=== PATIENT | female | born 1990 | race Caucasian/White ===

== ENCOUNTER 2016-12-01 21:12 | Emergency (ER) | payer OTHER ==
[~2016-12-01 21:12] MED LIST: *ANUSOI RE; ACET-654 PO; ACET500C OR; ATEN25TA PO; COLA100C2 OR; DEPA500T2 PO; DICL13PA TD; FLUO10CA8 PO; HYDR25T PO; IBUP800T OR; IBUP800T23 PO; IBUP80TA PO; MACR100C3 PO; MORP15TA2 PO; NAPR500T PO; NAPR500T2 PO; OXYC-299 PO; PERCOCET PO; PRENTAB31 PO; PROM50TA2 PO; PROZ10CA7 PO; SERO200T OR; STUATAB PO; TENO1TAB3 PO; TYLE167L PO; XANA0.5T PO; lioresal PO
--- NOTE | 2016-12-01 22:09 | ECGEPIP ---
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
== END 2016-12-01 23:16 | disposition left against medical advice (07) ==
LOC: M ED 21:12
DX: Z53.29 Procedure and treatment not carried out because of patient's decision for other reasons (principal)

== ENCOUNTER 2016-12-20 21:15 | Emergency (ER) | payer OTHER ==
--- NOTE | 2016-12-20 23:15 | EDDOCDS ---
Physician Documentation [facility] Name: Sara Ballard Age: 26 yrs Sex: Female : 1990 Arrival Date: 12/20/2016 Time: 21:15 Bed TR8 Private MD: [facility] Per[facility] Disposition: 12/20/16 23:15 Patient has left against medical advice. - Patients states they are going to Home/Self Care. - Condition is Stable. Follow up: Private Physician; When: Call to arrange an appointment. Historical: - Allergies: Tramadol HCl (seizure); - Home Meds: 1. gabapentin 300 mg Oral cap 1 cap 3 times per day (Last dose: 12/19/2016) 2. ibuprofen 800 mg Oral tab 1 tab every 8 hours as needed (Last dose: 12/20/2016 19:00) 3. tizanidine 2 mg oral cap 1 caps as needed 4. Depo-Provera 150 mg/mL IM syrg 1 mL every 3 mo 5. Klonopin 0.5 mg Oral tab 2 times per day (Last dose: 12/20/2016 08:00) - PMHx: CAD; neuropathy; Scoliosis; SVT?; Penny Parkinson White Sydrome; - PSHx: loop recorder in chest; back surgeries; - Social history: Smoking status: Patient states was never smoker of tobacco. Patient/guardian denies using alcohol, street drugs, No barriers to communication noted, The patient speaks fluent Khmer, Speaks appropriately for age. - : The pt / caregiver states he / she is not on anticoagulants. Home medication list is obtained from the patient. - Exposure Risk Screening:: None identified. 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 3 in. (160.02 cm); 21:17 Body Mass Index 17.71 (45.36 kg, 160.02 cm) elp MDM: 23:07 Acetaminophen-Codeine 300 mg-30 mg 2 tabs PO once ordered. ck7 23:07 Methocarbamol 1 grams PO once ordered. ck7 23:07 Spine. Lumbosacral, Complete Ordered. EDMS 23:09 Rib Unilat W/PA Chest Only Ordered. EDMS Signatures: Dispatcher [employer] EDMS Jag Lopes, NICHOLE-C RPA-Cck7 Madelaine Mayer, RN RN ttb Brandy Garland LPN HIGH DENSITY TALC COATER OPERATOR slm MTDD
--- NOTE | 2016-12-20 23:15 | EDDOCDS ---
Nurse's Notes [facility] Name: Sara Ballard Age: 26 yrs Sex: Female : 1990 Arrival Date: 12/20/2016 Time: 21:15 Bed TR8 Private MD: [facility] Per[facility] Diagnosis: Presentation: 12/20 21:26 Presenting complaint: Patient states: pt fell 3 days ago and now has back pain. Acute ttb neurological deficits are not present. Mechanism of Injury: Fall down 4 steps. Adult Sepsis Screening: The patient does not have new or worsening altered mentation. Patient's respiratory rate is less than 22. Systolic blood pressure is greater than 100. Patient has a qSOFA score of 0- Negative Sepsis Screen. Suicide/Homicide risk assessment- the patient denies having any suicidal and/or homicidal ideations and does not present with any other emotional, behavioral or mental health complaints. Status: Patient is not a director emergency services or dependent. Transition of care: patient was not received from another setting of care. 21:26 Acuity: MAYRA Level 4 ttb 21:26 Method Of Arrival: Walkin/Carried/Asstd ttb Triage Assessment: 21:29 General: Appears in no apparent distress, well nourished, well groomed, Behavior is ttb anxious, appropriate for age, cooperative, pleasant. Pain: Location: back 07/19. HIV screening NA for this visit Offered previously. Neurological: Level of Consciousness is awake, alert, Reports left leg numbness/"cold" with pain. Respiratory: No deficits noted. Airway is patent. Derm: Skin is normal. Musculoskeletal: Range of motion intact in all extremities. Reports pain in mid/upper back, legs. CONFIGURATION MANAGEMENT CONSULTANT: 21:29 LMP N/A - control method ttb Historical: - Allergies: Tramadol HCl (seizure); - Home Meds: 1. gabapentin 300 mg Oral cap 1 cap 3 times per day (Last dose: 12/19/2016) 2. ibuprofen 800 mg Oral tab 1 tab every 8 hours as needed (Last dose: 12/20/2016 19:00) 3. tizanidine 2 mg oral cap 1 caps as needed 4. Depo-Provera 150 mg/mL IM syrg 1 mL every 3 mo 5. Klonopin 0.5 mg Oral tab 2 times per day (Last dose: 12/20/2016 08:00) - PMHx: CAD; neuropathy; Scoliosis; SVT?; Penny Parkinson White Sydrome; - PSHx: loop recorder in chest; back surgeries; - Social history: Smoking status: Patient states was never smoker of tobacco. Patient/guardian denies using alcohol, street drugs, No barriers to communication noted, The patient speaks fluent Cambodian, Speaks appropriately for age. - : The pt / caregiver states he / she is not on anticoagulants. Home medication list is obtained from the patient. - Exposure Risk Screening:: None identified. Vital Signs: 21:17 BP 117 / 70; Pulse 91; Resp 18; Temp 99.8; Pulse Ox 99% ; Weight 45.36 kg; Height 5 ft. elp 3 in. (160.02 cm); 21:17 Body Mass Index 17.71 (45.36 kg, 160.02 cm) elp Vitals: 21:17 Log In Time: December 20, 2016 at 21:15. elp ED Course: 21:17 Patient visited by Evangelina Saleem PCA. elp 21:17 [facility] is Private Physician. elp 21:17 Patient visited by Evangelina Saleem PCA. elp 21:17 Patient moved to Waiting elp 21:17 Patient moved to Pre RCE elp 21:27 Triage Initiated ttb 22:34 Patient moved to Triage 1 jp4 22:46 Jag Lopes RPA-C is [facility]. ck7 22:46 Austin Miller DO is Attending Physician. ck7 22:55 Patient visited by Jag Lopes RPA-C. ck7 23:14 Patient moved to TR8 [facility] 23:15 Patient visited by Brandy Garland LPN. slm Order Results: There are currently no results for this order. Outcome: 23:13 Discharge Assessment: Patient awake, alert and oriented x 3. No cognitive and/or slm functional deficits noted. Patient verbalized understanding of disposition instructions. Discharge Assessment: patient administered narcotics - no. The following High Risk Discharge criteria are identified: Yes, AMA. The patient is leaving AMA: AMA form signed. Condition: stable. No special radiology studies were completed. Property :Personal belongings accompany Pt. 23:14 The patient is leaving AMA: Notification of AMA status is made to the charge nurse, the bret clinical social worker, the ED attending physician. 23:15 Patient left against medical advice. slm 23:15 Patient left the ED. [facility] Signatures: Kendy Rasmussen, RN RN kmg1 Jag Lopes, RPA-C RPA-Cck7 Madelaine Mayer, RN RN ttb Harper, Evangelina, HEATING SYSTEMS INSTALLER HEATING SYSTEMS INSTALLER federicop Brandy Garland,PIPELINE GANG SUPERVISOR PIPELINE GANG SUPERVISOR Angel Brantley jp4 MTDD
--- NOTE | 2016-12-20 23:18 | EDDOCDS ---
Physician Documentation [facility] Name: Sara Ballard Age: 26 yrs Sex: Female : 1990 Arrival Date: 12/20/2016 Time: 21:15 Bed TR8 Private MD: [facility] Per[facility] Disposition: 12/20/16 23:15 Patient has left against medical advice. Impression: Low back pain. - Patients states they are going to Home/Self Care. - Condition is Stable. - Discharge Instructions: Back Pain, Adult. Medication Reconciliation, Local Pharmacy Hours form. Follow up: Private Physician; When: Call to arrange an appointment. - Problem is new. - Symptoms have improved. - Notes: FOLLOW UP WITH YOUR DOCTOR ON THURSDAY, RETURN TO THE ER IF THE SYMPTOMS WORSEN OR BECOME CONCERNING Historical: - Allergies: Tramadol HCl (seizure); - Home Meds: 1. gabapentin 300 mg Oral cap 1 cap 3 times per day (Last dose: 12/19/2016) 2. ibuprofen 800 mg Oral tab 1 tab every 8 hours as needed (Last dose: 12/20/2016 19:00) 3. tizanidine 2 mg oral cap 1 caps as needed 4. Depo-Provera 150 mg/mL IM syrg 1 mL every 3 mo 5. Klonopin 0.5 mg Oral tab 2 times per day (Last dose: 12/20/2016 08:00) - PMHx: CAD; neuropathy; Scoliosis; SVT?; Penny Parkinson White Sydrome; - PSHx: loop recorder in chest; back surgeries; - Social history: Smoking status: Patient states was never smoker of tobacco. Patient/guardian denies using alcohol, street drugs, No barriers to communication noted, The patient speaks fluent Mosotho, Speaks appropriately for age. - : The pt / caregiver states he / she is not on anticoagulants. Home medication list is obtained from the patient. - Exposure Risk Screening:: None identified. SIGNAL PERSON: 12/20 21:29 LMP N/A - control method ttb Vital Signs: 21:17 BP 117 / 70; Pulse 91; Resp 18; Temp 99.8; Pulse Ox 99% ; Weight 45.36 kg / 100 lbs; elp Height 5 ft. 3 in. (160.02 cm); 21:17 Body Mass Index 17.71 (45.36 kg, 160.02 cm) elp MDM: 23:07 Acetaminophen-Codeine 300 mg-30 mg 2 tabs PO once ordered. ck7 23:07 Methocarbamol 1 grams PO once ordered. ck7 23:07 Spine. Lumbosacral, Complete Ordered. EDMS 23:09 Rib Unilat W/PA Chest Only Ordered. EDMS Signatures: Dispatcher [employer] EDMS Jag Lopes, NICHOLE-C RPA-Cck7 Madelaine Mayer RN RN ttb Brandy Garland LPN CERTIFIED NOVELL ADMINISTRATOR slm MTDD
--- NOTE | 2016-12-20 23:19 | EDDOCDS ---
Nurse's Notes [facility] Name: Sara Ballard Age: 26 yrs Sex: Female : 1990 Arrival Date: 12/20/2016 Time: 21:15 Bed TR8 Private MD: [facility] Peraza Diagnosis: Low back pain Presentation: 12/20 21:26 Presenting complaint: Patient states: pt fell 3 days ago and now has back pain. Acute ttb neurological deficits are not present. Mechanism of Injury: Fall down 4 steps. Adult Sepsis Screening: The patient does not have new or worsening altered mentation. Patient's respiratory rate is less than 22. Systolic blood pressure is greater than 100. Patient has a qSOFA score of 0- Negative Sepsis Screen. Suicide/Homicide risk assessment- the patient denies having any suicidal and/or homicidal ideations and does not present with any other emotional, behavioral or mental health complaints. Status: Patient is not a patient service technician pst or dependent. Transition of care: patient was not received from another setting of care. 21:26 Acuity: MAYRA Level 4 ttb 21:26 Method Of Arrival: Walkin/Carried/Asstd ttb Triage Assessment: 21:29 General: Appears in no apparent distress, well nourished, well groomed, Behavior is ttb anxious, appropriate for age, cooperative, pleasant. Pain: Location: back 07/19. HIV screening NA for this visit Offered previously. Neurological: Level of Consciousness is awake, alert, Reports left leg numbness/"cold" with pain. Respiratory: No deficits noted. Airway is patent. Derm: Skin is normal. Musculoskeletal: Range of motion intact in all extremities. Reports pain in mid/upper back, legs. DAIRY NUTRITION CONSULTANT: 21:29 LMP N/A - control method ttb Historical: - Allergies: Tramadol HCl (seizure); - Home Meds: 1. gabapentin 300 mg Oral cap 1 cap 3 times per day (Last dose: 12/19/2016) 2. ibuprofen 800 mg Oral tab 1 tab every 8 hours as needed (Last dose: 12/20/2016 19:00) 3. tizanidine 2 mg oral cap 1 caps as needed 4. Depo-Provera 150 mg/mL IM syrg 1 mL every 3 mo 5. Klonopin 0.5 mg Oral tab 2 times per day (Last dose: 12/20/2016 08:00) - PMHx: CAD; neuropathy; Scoliosis; SVT?; Penny Parkinson White Sydrome; - PSHx: loop recorder in chest; back surgeries; - Social history: Smoking status: Patient states was never smoker of tobacco. Patient/guardian denies using alcohol, street drugs, No barriers to communication noted, The patient speaks fluent Qatari, Speaks appropriately for age. - : The pt / caregiver states he / she is not on anticoagulants. Home medication list is obtained from the patient. - Exposure Risk Screening:: None identified. Social Work Consult: 23:18 LWBS/AMA AMA: Patient is refusing further stabilizing treatment at [facility], although 1 offered treatment regardless of method of payment or ability to pay. Patient is aware that this action is being undertaken against the advice of the medical staff at [facility]. Pt. has capacity to understand the potential consequences of this choice. pt did notify ED staff. Patient / guardian did sign Refusal of Services form. Pt left before being seen by PSA. Vital Signs: 21:17 BP 117 / 70; Pulse 91; Resp 18; Temp 99.8; Pulse Ox 99% ; Weight 45.36 kg; Height 5 ft. elp 3 in. (160.02 cm); 21:17 Body Mass Index 17.71 (45.36 kg, 160.02 cm) [facility] Vitals: 21:17 Log In Time: December 20, 2016 at 21:15. [facility] ED Course: 21:17 Patient visited by Evangelina Saleem PCA. elp 21:17 [facility] Per[facility] is Private Physician. elp 21:17 Patient visited by Evangelina Saleem PCA. elp 21:17 Patient moved to Waiting elp 21:17 Patient moved to Pre RCE elp 21:27 Triage Initiated ttb 22:34 Patient moved to Triage 1 jp4 22:46 Jag [facility]C [facility] ck7 22:46 Austin Miller DO is Attending Physician. ck7 22:55 Patient visited by Jag Lopes RPA-C. ck7 23:14 Patient moved to TR8 km 23:15 Patient visited by Brandy Garland LPN. [facility] Order Results: There are currently no results for this order. Outcome: 23:13 Discharge Assessment: Patient awake, alert and oriented x 3. No cognitive and/or slm functional deficits noted. Patient verbalized understanding of disposition instructions. Discharge Assessment: patient administered narcotics - no. The following High Risk Discharge criteria are identified: Yes, AMA. The patient is leaving AMA: AMA form signed. Condition: stable. No special radiology studies were completed. Property :Personal belongings accompany Pt. 23:14 The patient is leaving AMA: Notification of AMA status is made to the charge nurse, the [facility] marriage and family social worker, the ED attending physician. 23:15 Patient left against medical advice. slm 23:15 Patient left the ED. slm 23:17 Patient left the ED. ck7 Signatures: Kendy Rasmussen, RN RN kmg1 Poonam Alvarez, PSA PSA hm1 Jag Lopes, RPA-C RPA-Cck7 Madelaine Mayer, RN RN ttb Evangelina Saleem, GEM SETTER GEM SETTER federicop Brandy Garland,MRB ENGINEER MRB ENGINEER slAngel Adkins jp4 JAIMED
--- NOTE | 2016-12-20 23:30 | EDDOCDS ---
Nurse's Notes [facility] Name: Sara Ballard Age: 26 yrs Sex: Female : 1990 Arrival Date: 12/20/2016 Time: 21:15 Bed TR8 Private MD: [facility] Per[facility] Diagnosis: Low back pain Presentation: 12/20 21:26 Presenting complaint: Patient states: pt fell 3 days ago and now has back pain. Acute ttb neurological deficits are not present. Mechanism of Injury: Fall down 4 steps. Adult Sepsis Screening: The patient does not have new or worsening altered mentation. Patient's respiratory rate is less than 22. Systolic blood pressure is greater than 100. Patient has a qSOFA score of 0- Negative Sepsis Screen. Suicide/Homicide risk assessment- the patient denies having any suicidal and/or homicidal ideations and does not present with any other emotional, behavioral or mental health complaints. Status: Patient is not a center sales and service associate or dependent. Transition of care: patient was not received from another setting of care. 21:26 Acuity: MAYRA Level 4 ttb 21:26 Method Of Arrival: Walkin/Carried/Asstd ttb Triage Assessment: 21:29 General: Appears in no apparent distress, well nourished, well groomed, Behavior is ttb anxious, appropriate for age, cooperative, pleasant. Pain: Location: back 07/19. HIV screening NA for this visit Offered previously. Neurological: Level of Consciousness is awake, alert, Reports left leg numbness/"cold" with pain. Respiratory: No deficits noted. Airway is patent. Derm: Skin is normal. Musculoskeletal: Range of motion intact in all extremities. Reports pain in mid/upper back, legs. 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 gabapentin 300 mg Oral cap 1 cap 3 times per day (Last dose: 12/19/2016) 2. ibuprofen 800 mg Oral tab 1 tab every 8 hours as needed (Last dose: 12/20/2016 19:00) 3. tizanidine 2 mg oral cap 1 caps as needed 4. Depo-Provera 150 mg/mL IM syrg 1 mL every 3 mo 5. Klonopin 0.5 mg Oral tab 2 times per day (Last dose: 12/20/2016 08:00) - PMHx: CAD; neuropathy; Scoliosis; SVT?; Penny Parkinson White Sydrome; - PSHx: loop recorder in chest; back surgeries; - Social history: Smoking status: Patient states was never smoker of tobacco. Patient/guardian denies using alcohol, street drugs, No barriers to communication noted, The patient speaks fluent Uruguayan, Speaks appropriately for age. - : The pt / caregiver states he / she is not on anticoagulants. Home medication list is obtained from the patient. - Exposure Risk Screening:: None identified. Social Work Consult: 23:18 LWBS/AMA AMA: Patient is refusing further stabilizing treatment at [facility], although 1 offered treatment regardless of method of payment or ability to pay. Patient is aware that this action is being undertaken against the advice of the medical staff at [facility]. Pt. has capacity to understand the potential consequences of this choice. pt did notify ED staff. Patient / guardian did sign Refusal of Services form. Pt left before being seen by PSA. Vital Signs: 21:17 BP 117 / 70; Pulse 91; Resp 18; Temp 99.8; Pulse Ox 99% ; Weight 45.36 kg; Height 5 ft. elp 3 in. (160.02 cm); 21:17 Body Mass Index 17.71 (45.36 kg, 160.02 cm) [facility] Vitals: 21:17 Log In Time: December 20, 2016 at 21:15. [facility] ED Course: 21:17 Patient visited by Evangelina Saleem PCA. elp 21:17 [facility] Per[facility] is Private Physician. elp 21:17 Patient visited by Evangelina Saleem PCA. elp 21:17 Patient moved to Waiting elp 21:17 Patient moved to Pre RCE elp 21:27 Triage Initiated ttb 22:34 Patient moved to Triage 1 jp4 22:46 [facility] ck7 22:46 Austin Miller DO is Attending Physician. ck7 22:55 Patient visited by Jag Lopes RPA-C. ck7 23:14 Patient moved to TR8 km 23:15 Patient visited by Brandy Garland LPN. m 23:19 Patient visited by Kwaczala, Christopher, RPA-C. ck7 Administered Medications: 23:28 CANCELLED (pt signed out AMA): Acetaminophen-Codeine 300 mg-30 mg 2 tabs PO once tm5 23:28 CANCELLED (pt signed out AMA): Methocarbamol 1 grams PO once tm5 Order Results: There are currently no results for this order. Outcome: 23:13 Discharge Assessment: Patient awake, alert and oriented x 3. No cognitive and/or slm functional deficits noted. Patient verbalized understanding of disposition instructions. Discharge Assessment: patient administered narcotics - no. The following High Risk Discharge criteria are identified: Yes, AMA. The patient is leaving AMA: AMA form signed. Condition: stable. No special radiology studies were completed. Property :Personal belongings accompany Pt. 23:14 The patient is leaving AMA: Notification of AMA status is made to the charge nurse, the [facility] social media assistant, the ED attending physician. 23:15 Patient left against medical advice. slm 23:15 Patient left the ED. slm 23:17 Patient left the ED. ck7 23:29 Patient left the ED. [facility] Signatures: Kendy Rasmussen, RN RN kmg1 Poonam Alvarez, PSA PSA hm1 Jag Lopes, RPA-C RPA-Cck7 Madelaine Mayer, RN RN ttb Evangelina Saleem, HAT CLEANER HAT CLEANER federicop Brandy Garland,BUSINESS UNIT MANAGER BUSINESS UNIT MANAGER slm Angel Ott jp4 Wendi Coronado RN tm5 MTDD
--- NOTE | 2016-12-20 23:30 | EDDOCDS ---
Physician Documentation [facility] Name: Sara Ballard Age: 26 yrs Sex: Female : 1990 Arrival Date: 12/20/2016 Time: 21:15 Bed TR8 Private MD: [facility] Peraza Disposition: 12/20/16 23:15 Patient has left against medical advice. Impression: Low back pain. - Patients states they are going to Home/Self Care. - Condition is Stable. - Discharge Instructions: Back Pain, Adult. Medication Reconciliation, Local Pharmacy Hours form. Follow up: Private Physician; When: Call to arrange an appointment. - Problem is new. - Symptoms have improved. - Notes: FOLLOW UP WITH YOUR DOCTOR ON THURSDAY, RETURN TO THE ER IF THE SYMPTOMS WORSEN OR BECOME CONCERNING Historical: - Allergies: Tramadol HCl (seizure); - Home Meds: 1. gabapentin 300 mg Oral cap 1 cap 3 times per day (Last dose: 12/19/2016) 2. ibuprofen 800 mg Oral tab 1 tab every 8 hours as needed (Last dose: 12/20/2016 19:00) 3. tizanidine 2 mg oral cap 1 caps as needed 4. Depo-Provera 150 mg/mL IM syrg 1 mL every 3 mo 5. Klonopin 0.5 mg Oral tab 2 times per day (Last dose: 12/20/2016 08:00) - PMHx: CAD; neuropathy; Scoliosis; SVT?; Penny Parkinson White Sydrome; - PSHx: loop recorder in chest; back surgeries; - Social history: Smoking status: Patient states was never smoker of tobacco. Patient/guardian denies using alcohol, street drugs, No barriers to communication noted, The patient speaks fluent Tongan, Speaks appropriately for age. - : The pt / caregiver states he / she is not on anticoagulants. Home medication list is obtained from the patient. - Exposure Risk Screening:: None identified. RESTROOMS OR LOUNGES MAID: 12/20 21:29 LMP N/A - control method ttb Vital Signs: 21:17 BP 117 / 70; Pulse 91; Resp 18; Temp 99.8; Pulse Ox 99% ; Weight 45.36 kg / 100 lbs; elp Height 5 ft. 3 in. (160.02 cm); 21:17 Body Mass Index 17.71 (45.36 kg, 160.02 cm) elp Administered Medications: 23:28 CANCELLED (pt signed out AMA): Acetaminophen-Codeine 300 mg-30 mg 2 tabs PO once tm5 23:28 CANCELLED (pt signed out AMA): Methocarbamol 1 grams PO once tm5 Signatures: Dispatcher [employer] EDMS Jag Lopes, MORENITAC RPA-Cck7 Madelaine Mayer RN RN ttb Brandy Garland LPN BOOM MASTER slWendi Jones RN tm5 The chart was reviewed and I authenticate all verbal orders and agree with the evaluation and treatment provided.Corrections: (The following items were deleted from the chart) 23: 23:07 Spine. Lumbosacral, complete+XR ordered. EDMS EDMS 23: 23:09 Rib unilat W/PA CHEST ONLY+XR ordered. EDMS EDMS 23: 23:07 Acetaminophen-Codeine 300 mg-30 mg 2 tabs PO once ordered. ck7 tm5 23: 23:07 Methocarbamol 1 grams PO once ordered. ck7 tm5 MTDD
--- NOTE | 2016-12-23 00:31 | EDDOCDS ---
Physician Documentation [facility] Name: Sara Ballard Age: 26 yrs Sex: Female : 1990 Arrival Date: 12/20/2016 Time: 21:15 Bed TR8 Private MD: [facility] Disposition: 12/20/16 23:15 Patient has left against medical advice. Impression: Low back pain. - Patients states they are going to Home/Self Care. - Condition is Stable. - Discharge Instructions: Back Pain, Adult. Medication Reconciliation, Local Pharmacy Hours form. Follow up: Private Physician; When: Call to arrange an appointment. - Problem is new. - Symptoms have improved. - Notes: FOLLOW UP WITH YOUR DOCTOR ON THURSDAY, RETURN TO THE ER IF THE SYMPTOMS WORSEN OR BECOME CONCERNING Historical: - Allergies: Tramadol HCl (seizure); - Home Meds: 1. gabapentin 300 mg Oral cap 1 cap 3 times per day (Last dose: 12/19/2016) 2. ibuprofen 800 mg Oral tab 1 tab every 8 hours as needed (Last dose: 12/20/2016 19:00) 3. tizanidine 2 mg oral cap 1 caps as needed 4. Depo-Provera 150 mg/mL IM syrg 1 mL every 3 mo 5. Klonopin 0.5 mg Oral tab 2 times per day (Last dose: 12/20/2016 08:00) - PMHx: CAD; neuropathy; Scoliosis; SVT?; Penny Parkinson White Sydrome; - PSHx: loop recorder in chest; back surgeries; - Social history: Smoking status: Patient states was never smoker of tobacco. Patient/guardian denies using alcohol, street drugs, No barriers to communication noted, The patient speaks fluent Kyrgyz, Speaks appropriately for age. - : The pt / caregiver states he / she is not on anticoagulants. Home medication list is obtained from the patient. - Exposure Risk Screening:: None identified. 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 3 in. (160.02 cm); 21:17 Body Mass Index 17.71 (45.36 kg, 160.02 cm) elp MDM: 12/21 17:08 Refusal of Services was scanned into [employer] and attached to record. kf3 :49 T-Sheet-- Draft Copy was scanned into [email or web address] and attached to record. klr Administered Medications: 12/20 23:28 CANCELLED (pt signed out AMA): Acetaminophen-Codeine 300 mg-30 mg 2 tabs PO once tm5 23:28 CANCELLED (pt signed out AMA): Methocarbamol 1 grams PO once tm5 Signatures: Dispatcher [employer] EDMS Deniagera, Jewel, Reg Reg kf3 Jag Lopes, RPA-C RPA-Cck7 Madelaine Mayer RN RN Brandy rIaheta LPN LPN slm Redder, Kathie klr Matice, Tonya RN tm5 The chart was reviewed and I authenticate all verbal orders and agree with the evaluation and treatment provided.Corrections: (The following items were deleted from the chart) 23:21 23:07 Spine. Lumbosacral, complete+XR ordered. EDMS EDMS 23:21 23:09 Rib unilat W/PA CHEST ONLY+XR ordered. EDMS EDMS 23: 23:07 Acetaminophen-Codeine 300 mg-30 mg 2 tabs PO once ordered. ck7 tm5 23: 23:07 Methocarbamol 1 grams PO once ordered. ck7 tm5 Attachments: 22:49 T-Sheet-- Draft Copy klr Chart Complete MTDD
--- NOTE | 2016-12-23 00:31 | EDDOCDS ---
Nurse's Notes [facility] Name: Sara Ballard Age: 26 yrs Sex: Female : 1990 Arrival Date: 12/20/2016 Time: 21:15 Bed TR8 Private MD: [facility] Diagnosis: Low back pain Presentation: 12/20 21:26 Presenting complaint: Patient states: pt fell 3 days ago and now has back pain. Acute ttb neurological deficits are not present. Mechanism of Injury: Fall down 4 steps. Adult Sepsis Screening: The patient does not have new or worsening altered mentation. Patient's respiratory rate is less than 22. Systolic blood pressure is greater than 100. Patient has a qSOFA score of 0- Negative Sepsis Screen. Suicide/Homicide risk assessment- the patient denies having any suicidal and/or homicidal ideations and does not present with any other emotional, behavioral or mental health complaints. 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 Transition of care: patient was not received from another setting of care. 21:26 Acuity: MAYRA Level 4 ttb 21:26 Method Of Arrival: Walkin/Carried/Asstd ttb Triage Assessment: 21:29 General: Appears in no apparent distress, well nourished, well groomed, Behavior is ttb anxious, appropriate for age, cooperative, pleasant. Pain: Location: back 07/19. HIV screening NA for this visit Offered previously. Neurological: Level of Consciousness is awake, alert, Reports left leg numbness/"cold" with pain. Respiratory: No deficits noted. Airway is patent. Derm: Skin is normal. Musculoskeletal: Range of motion intact in all extremities. Reports pain in mid/upper back, legs. 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 gabapentin 300 mg Oral cap 1 cap 3 times per day (Last dose: 12/19/2016) 2. ibuprofen 800 mg Oral tab 1 tab every 8 hours as needed (Last dose: 12/20/2016 19:00) 3. tizanidine 2 mg oral cap 1 caps as needed 4. Depo-Provera 150 mg/mL IM syrg 1 mL every 3 mo 5. Klonopin 0.5 mg Oral tab 2 times per day (Last dose: 12/20/2016 08:00) - PMHx: CAD; neuropathy; Scoliosis; SVT?; Penny Parkinson White Sydrome; - PSHx: loop recorder in chest; back surgeries; - Social history: Smoking status: Patient states was never smoker of tobacco. Patient/guardian denies using alcohol, street drugs, No barriers to communication noted, The patient speaks fluent [place] Islander, Speaks appropriately for age. - : The pt / caregiver states he / she is not on anticoagulants. Home medication list is obtained from the patient. - Exposure Risk Screening:: None identified. Social Work Consult: 23:18 LWBS/AMA AMA: Patient is refusing further stabilizing treatment at [facility], although 1 offered treatment regardless of method of payment or ability to pay. Patient is aware that this action is being undertaken against the advice of the medical staff at [facility]. Pt. has capacity to understand the potential consequences of this choice. pt did notify ED staff. Patient / guardian did sign Refusal of Services form. Pt left before being seen by PSA. Vital Signs: 21:17 BP 117 / 70; Pulse 91; Resp 18; Temp 99.8; Pulse Ox 99% ; Weight 45.36 kg; Height 5 ft. elp 3 in. (160.02 cm); 21:17 Body Mass Index 17.71 (45.36 kg, 160.02 cm) [facility] Vitals: 21:17 Log In Time: December 20, 2016 at 21:15. [facility] ED Course: 21:17 Patient visited by Evangelina Saleem PCA. elp 21:17 [facility] is Private Physician. elp 21:17 Patient visited by Evangelina Saleem PCA. elp 21:17 Patient moved to Waiting elp 21:17 Patient moved to Pre RCE elp 21:27 Triage Initiated ttb 22:34 Patient moved to Triage 1 jp4 22:46 [facility]C [facility] ck7 22:46 Austin Miller DO is Attending Physician. ck7 22:55 Patient visited by Jag Lopes RPA-C. ck7 23:14 Patient moved to TR8 km 23:15 Patient visited by Brandy Garland LPN. m 23:19 Patient visited by Jag Lopes RPA-C. ck7 12/21 17:08 Refusal of Services was scanned into [employer] and attached to record. kf3 22:49 T-Sheet-- Draft Copy was scanned into [employer] and attached to record. klr Administered Medications: 12/20 23:28 CANCELLED (pt signed out AMA): Acetaminophen-Codeine 300 mg-30 mg 2 tabs PO once tm5 23:28 CANCELLED (pt signed out AMA): Methocarbamol 1 grams PO once tm5 Attachments: 12/21 17:08 Refusal of Services kf3 Order Results: There are currently no results for this order. Outcome: 12/20 23:13 Discharge Assessment: Patient awake, alert and oriented x 3. No cognitive and/or slm functional deficits noted. Patient verbalized understanding of disposition instructions. Discharge Assessment: patient administered narcotics - no. The following High Risk Discharge criteria are identified: Yes, AMA. The patient is leaving AMA: AMA form signed. Condition: stable. No special radiology studies were completed. Property :Personal belongings accompany Pt. 23:14 The patient is leaving AMA: Notification of AMA status is made to the charge nurse, the [facility] social media campaign manager, the ED attending physician. 23:15 Patient left against medical advice. slm 23:15 Patient left the ED. slm 23:17 Patient left the ED. ck7 23:29 Patient left the ED. [facility] Signatures: Kendy Rasmussen, RN RN kmg1 Jewel Brennan, Reg Reg kf3 McMxochitlman, Poonam, PSA PSA hm1 Jag Lopes RPA-C RPA-Cck7 Madelaine Mayer RN RN josrb Evangelina Saleem, MEDICAL SCREENER MEDICAL SCREENER elp Brandy Garland,DIESEL LOCOMOTIVE FIRER/FIREMAN DIESEL LOCOMOTIVE FIRER/FIREMAN slAngel Adkins jp4 Dori Barron Tonya RN tm5 Chart Complete MTDD
--- NOTE | 2016-12-23 00:31 | EDDOCDS ---
Physician Documentation [facility] Name: Sara Ballard Age: 26 yrs Sex: Female : 1990 Arrival Date: 12/20/2016 Time: 21:15 Bed TR8 Private MD: [facility] Disposition: 12/20/16 23:15 Patient has left against medical advice. Impression: Low back pain. - Patients states they are going to Home/Self Care. - Condition is Stable. - Discharge Instructions: Back Pain, Adult. Medication Reconciliation, Local Pharmacy Hours form. Follow up: Private Physician; When: Call to arrange an appointment. - Problem is new. - Symptoms have improved. - Notes: FOLLOW UP WITH YOUR DOCTOR ON THURSDAY, RETURN TO THE ER IF THE SYMPTOMS WORSEN OR BECOME CONCERNING Historical: - Allergies: Tramadol HCl (seizure); - Home Meds: 1. gabapentin 300 mg Oral cap 1 cap 3 times per day (Last dose: 12/19/2016) 2. ibuprofen 800 mg Oral tab 1 tab every 8 hours as needed (Last dose: 12/20/2016 19:00) 3. tizanidine 2 mg oral cap 1 caps as needed 4. Depo-Provera 150 mg/mL IM syrg 1 mL every 3 mo 5. Klonopin 0.5 mg Oral tab 2 times per day (Last dose: 12/20/2016 08:00) - PMHx: CAD; neuropathy; Scoliosis; SVT?; Penny Parkinson White Sydrome; - PSHx: loop recorder in chest; back surgeries; - Social history: Smoking status: Patient states was never smoker of tobacco. Patient/guardian denies using alcohol, street drugs, No barriers to communication noted, The patient speaks fluent [place] Arabian, Speaks appropriately for age. - : The pt / caregiver states he / she is not on anticoagulants. Home medication list is obtained from the patient. - Exposure Risk Screening:: None identified. 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 3 in. (160.02 cm); 21:17 Body Mass Index 17.71 (45.36 kg, 160.02 cm) elp MDM: 12/21 17:08 Refusal of Services was scanned into [employer] and attached to record. kf3 :49 T-Sheet-- Draft Copy was scanned into [employer] and attached to record. klr Administered Medications: 12/20 23:28 CANCELLED (pt signed out AMA): Acetaminophen-Codeine 300 mg-30 mg 2 tabs PO once tm5 23:28 CANCELLED (pt signed out AMA): Methocarbamol 1 grams PO once tm5 Signatures: Dispatcher [employer] EDMS Deniagera, Jewel, Reg Reg kf3 Jag Lopes, RPA-C RPA-Cck7 Madelaine Mayer RN RN Brandy Iraheta LPN LPN slm Redder, Kathie klr Matice, Tonya RN tm5 The chart was reviewed and I authenticate all verbal orders and agree with the evaluation and treatment provided.Corrections: (The following items were deleted from the chart) 23:21 23:07 Spine. Lumbosacral, complete+XR ordered. EDMS EDMS 23:21 23:09 Rib unilat W/PA CHEST ONLY+XR ordered. EDMS EDMS 23: 23:07 Acetaminophen-Codeine 300 mg-30 mg 2 tabs PO once ordered. ck7 tm5 23: 23:07 Methocarbamol 1 grams PO once ordered. ck7 tm5 Attachments: 22:49 T-Sheet-- Draft Copy klr Chart Complete MTDD
== END 2016-12-20 23:29 | disposition left against medical advice (07) ==
LOC: M ED 21:15
DX: M54.5 Low back pain (principal); I25.10 Atherosclerotic heart disease of native coronary artery without angina pectoris; G62.9 Polyneuropathy, unspecified; M41.9 Scoliosis, unspecified; I45.6 Pre-excitation syndrome; Z79.899 Other long term (current) drug therapy; Z79.3 Long term (current) use of hormonal contraceptives; Z88.8 Allergy status to other drugs, medicaments and biological substances; Z53.21 Procedure and treatment not carried out due to patient leaving prior to being seen by health care provider

== ENCOUNTER → 2017-03-27 | Outpatient (CLI) | payer OTHER ==
[~2017-03-27] MED LIST changes: +CLON0.5T PO; +CYCL10TA PO; +GABA-279 PO; +OXYC1TAB23 PO; +QUET1TAB8 PO
--- NOTE | 2017-04-10 23:57 | ECWPNPC ---
PATIENT NAME: QUENTIN SANDS : 1990 GENDER: FEMALE VISIT DATE: 03/27/2017 DISCHARGE DATE: 03/27/17 1140 VISIT LOCKED DATE TIME: PHYSICIAN: BARRINGTON BRISCOE RESOURCE: BARRINGTON BRISCOE REASON FOR APPOINTMENT 1. BACK PAIN HISTORY OF PRESENT ILLNESS HISTORY OF PRESENT ILLNESS: PAIN THE PATIENT DESCRIBES THE PAIN... FALL RISK SCREENING: SCREENING :NO FALLS IN THE PAST YEAR TODAY'S VISIT: NOTES: FIRST RETURN TO CLINIC SINCE 04/16/16. AT THAT VISIT HAD TRIGGER POINTS TO SHOULDER BLADE AND LOW BACK RATES PAIN TODAY 06/18. DESCRIBES PAIN CONSTANT, ACHING, BURNING, SHARP, STABBING AND THROBBING AND SHOOTING. PAIN IS CENTERED IN CENTER BACK AND LEFT NOTES MARKED INCREASE IN PAIN WITH PROLONGED SITTING OR STANDING. NOTES LEFT PAIN WITH SITTING/NUMBNESS. WAS BEING SEEN AT [facility]. THEY WERE TRYING TO GET AUTH FOR DCS. HAS SURGERY X 2 - HAD INFECTION , DEVELOPED YEIMY SYNDROME WITH IV VANCO. HAD SURGERY 10/24. HAD FUSION WITH CAGE AFTER REMOVAL OF CASILLAS RODS. SUREON DR Clarence TOURE. HAS A LOUD POPPING SOUND LEFT KNEE. . CURRENT MEDICATIONS TAKING DIGOXIN 125 MCG TABLET 1 TABLET ORALLY ONCE A DAY, NOTES: LONG TIME TAKING IBUPROFEN 800 MG TABLET 1 TABLET ORALLY THREE TIMES A DAY, NOTES: 04/15/16 1450 TAKING GABAPENTIN 100 MG CAPSULE DIRECTED ORALLY THREE TIMES DAILY, NOTES: 04/15/16 1450 TAKING KLONOPIN 0.5 MG TABLET 1 TABLET ORALLY TWICE A DAY NOT-TAKING TIZANIDINE HCL 4 MG TABLET 1 TABLET ORALLY EVERY 8 HRS, NOTES: 04/15/16 1450 NOT-TAKING PROTONIX 40 MG PACKET 1 CAPSULE ORALLY ONCE A DAY NEEDED, NOTES: 04/15/16 NOT-TAKING PREDNISONE 5 MG TABLET 1 TABLET ORALLY THREE TIMES A DAY, NOTES: 04/15/16 1450 NOT-TAKING ATENOLOL 25 MG TABLET 1 TABLET ORALLY ONCE A DAY AT BEDTIME MEDICATION LIST REVIEWED AND RECONCILED WITH THE PATIENT PAST MEDICAL HISTORY SCOLIOSIS MCCALL PARKINSON WHITE SYNDROME CARDIAC ABLATION ANXIETY BIPOLAR AFIB / SVT DEPRESSION ALLERGIES TRAMADOL HCL: SEIZURES 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 NO. PT STATES SHE WAS BEING SEEN AT PAIN CLINIC IN [place] WHERE THEY WERE SUPPOSED TO BE STARTING PT ON DORSAL COLUMN STIMULATOR, BUT THEN PT HAD TROUBLE WITH TRANSPORTATION, SO PT PRESENTS HERE TO [place]. LAST VISIT HERE, PT HAD TPI 04/2016, PT STATES SHE HAD RELIEF X 3 DAYS. PT STATES SHE ALSO IS TAKING MEDICAL MARIJUANA. UNABLE TO DOCUMENT MARIJUANA IN MEDICATION LIST . CHILLS NO . FEVER NO . INFECTION: DO YOU HAVE NEW INFECTIONS? NO . DO YOU HAVE HISTORY OF MRSA? NO - SOME TYPE OF STAPH INFECTION - HAD WOUND VAC FOR 5 DAYS POST OP . MUSCULOSKELETAL: ANY NEW PATTERNS OF PAIN OR NUMBNESS? YES LEFT LEG PAIN TURNS INTO NUMBNESS THEN FEELS LIKE HOT PAIN. PT ALSO C/O RIGHT HIP PAIN. . GASTROENTEROLOGY: GENERAL POSITIVE FOR CONSTIPATION . ANY NEW CHANGE IN BOWEL CONTROL? NO . GENITOURINARY: ANY NEW CHANGE IN BLADDER CONTROL? NO . IS THERE A CHANCE YOU COULD BE ? NO . HEMATOLOGY/LYMPH: DO YOU TAKE ANY BLOOD THINNERS? (FOR EXAMPLE- COUMADIN, PLAVIX, AGGRENOX, PLATEL, PRADAXA, OR XARELTO) NO . WHEN WAS YOUR LAST DOSE? DATE: TIME: . NEUROLOGY: HAVE YOU FALLEN IN THE PAST 6 MONTHS? NO . ANY NEW EXTREMITY NUMBNESS OR WEAKNESS? YES - LEFT LEG . CARDIOLOGY: DO YOU HAVE A PACEMAKER OR DEFIBRILLATOR? NO - HAS LOOP RECORDER. FOLLOWS WITH DR GILBERT . CHEST PAIN LEFT-SIDED, UNDER LEFT RIBS . PALPITATIONS AND RAPID HEART BEAT . RESPIRATORY: HAVE YOU BEEN SICK IN THE PAST WEEK? NO . FEVER NO . FLU LIKE SYMPTOMS? NO . COUGH NO . INTEGUMENTARY: DO YOU HAVE ANY RASHES OR OPEN SORES? NO . ALLERGIC/IMMUNO: ARE YOU ALLERGIC TO SHELLFISH OR IV DYE? NO . ANY NEW ALLERGIES? NO . PSYCHIATRIC: DO YOU HAVE THOUGHTS OF HURTING YOURSELF OR SOMEONE ELSE? NO . ARE YOU ABUSED, NEGLECTED, OR IN AN UNSAFE ENVIRONMENT? NO . ENDOCRINOLOGY: ARE YOU DIABETIC? NO . OTHER: DO YOU NEED ANY PRESCRIPTIONS? NO . IF YES, PLEASE LIST: ____ . ANY NEW PROBLEMS WITH YOUR MEDICATIONS? NO . WHEN DID YOU LAST EAT? ____ . WHEN DID YOU LAST DRINK? ____ . WHAT DID YOU LAST DRINK? ____ . NAME OF PERSON DRIVING YOU HOME? ____ . DO YOU HAVE ANY OTHER QUESTIONS OR CONCERNS NO . PSYCHOLOGY: ANXIETY POSITIVE PTSD, SAD, DEPRESSION, SEES AT [facility] . REVIEWED BY: PROVIDER: BARRINGTON DE LEON . VITAL SIGNS WT 110.6 LBS, HT 63 IN, BMI 19.59 INDEX, BP 130/79 MM HG, HR 75 /MIN, RR 16 /MIN, TEMP 97.9 F, OXYGEN SAT % 96%, SAFE IN ENV? (Y/N) Y, NA INITIALS TL 1011, REVIEWED BY: EM. EXAMINATION GENERAL EXAMINATION: PSYCHALERT , ORIENTED X 3 , ANXIOUS, FAIR EYE CONTACT. LUNGS:CLEAR TO AUSCULTATION BILATERALLY, NO WHEEZES, RALES OR RHONCHI. HEART:HEART RATE REGULAR, NORMAL S1S2, NO MURMURS, CLICK OR RUBS. MUSCULOSKELETAL:TRIGGER POINTS:, ELICITED WITH PALPATION OVER MID THORACIC MUSCLES WITH RESTRICITON OF RESPIRATORY EXCURCIOM NOTED. , ELICITED WITH PALPATION OVER LUMBAR PARAVERTEBRAL MUSCLES AND INTO THE SECRUM. RESTRICTION OF ROM IN THIS AREA. ASSESSMENTS LUMBAR POST-LAMINECTOMY SYNDROME - M96.1 (PRIMARY) MYALGIA - M79.1 TREATMENT LUMBAR POST-LAMINECTOMY SYNDROME REFILL GABAPENTIN CAPSULE, 100 MG, 2 CAP, ORALLY, THREE TIMES DAILY, 30 DAY(S), 180, REFILLS 2 TRIGGER POINT 3 + BARRINGTON SEXTON 03/27/2017 11:18:26 AM > LOW BACK/SHOULDER AREA NOTES: TRIGGER POINT INJECTION MATERIAL WAS PRINTED, REVIEWED WITH AND GIVEN TO PT. REFERRAL TO:[facility] REASON:NUMBNESS/TINGLING LEFT LEG, S/P LUMBAR FUSION PROCEDURE CODES FA211 ESTABILISHED PATIENT [facility] F[facility]ILITY CHARGE DISPOSITION & COMMUNICATION FOLLOW UP 1 MONTH (REASON: MCIKY - NEED MRI REPORTS AND RECENT XRAYS AT [facility], AND SURGICAL NOTES AND LAST FFICE NOTES FR) ELECTRONICALLY SIGNED BY AMI RAMIREZ ON 04/10/2017 AT 01:58 PM EDT DISCLAIMER : THIS IS A VISIT SUMMARY EXTRACTED FROM THE [employer] CHART. IT IS NOT A COPY OF THE [employer] PROGRESS NOTE. SIMI
== END ==
LOC: M PAIN 10:00
PROVIDERS: ATTEND Nurse Practitioner Family
DX: M96.1 Postlaminectomy syndrome, not elsewhere classified (principal); M79.1 Myalgia; I45.6 Pre-excitation syndrome; F41.9 Anxiety disorder, unspecified; F31.9 Bipolar disorder, unspecified; Z88.5 Allergy status to narcotic agent; Z79.1 Long term (current) use of non-steroidal anti-inflammatories (NSAID); Z79.899 Other long term (current) drug therapy

== ENCOUNTER 2017-04-10 16:47 | Emergency (ER) | payer OTHER ==
[~2017-04-10] VITALS: Ht 160 cm; Wt 45.8 kg
[~2017-04-10 16:47] MED LIST changes: -CLON0.5T PO; -CYCL10TA PO; -GABA-279 PO; -OXYC1TAB23 PO; -QUET1TAB8 PO
[2017-04-10 16:49] VITALS: BP 145/80
[2017-04-10] MEDS ORDERED: CLON0.5T PO (17:22)
[2017-04-10] MEDS ORDERED: GABA-279 PO (17:22)
[2017-04-10] MEDS ORDERED: QUET1TAB8 PO (17:22)
== END 2017-04-10 19:00 | disposition left against medical advice (07) ==
LOC: M ED 18:22
DX: G89.29 Other chronic pain (principal); Z53.21 Procedure and treatment not carried out due to patient leaving prior to being seen by health care provider

== ENCOUNTER 2017-04-21 14:17 | Inpatient (IN) | payer OTHER ==
[~2017-04-21] VITALS: Ht 160 cm; Wt 49.9 kg
[~2017-04-21 14:17] MED LIST changes: +CLON0.5T PO; +GABA-279 PO; +QUET1TAB8 PO
[2017-04-21] MEDS ORDERED: OXYC1TAB23 PO (14:26)
[2017-04-21] MEDS ORDERED: NORCO, ANEXSIA 5/325MG TABLET (HYDROcodone/ACETAMINOPHEN) PO ONE (14:45)
[2017-04-21 15:46] LABS: CONTROL LINE HCG INT CTR LINE PRESENT
[2017-04-21 15:50] LABS: MEAN CORPUSCULAR HEMOGLOBIN 26.1 pg (27.0-33.0); MEAN CORPUSCULAR VOLUME 81.6 fl (80.0-96.0); RED CELL DISTRIBUTION WIDTH 15.7 % (11.5-14.5); WHITE BLOOD COUNT 5.9 K/mm3 (4.0-10.0)
[2017-04-21 15:51] LABS: METHADONE URINE NEGATIVE (NEGATIVE)
[2017-04-21 16:06] LABS: ALBUMIN 4.4 GM/DL (3.2-5.2); ALBUMIN/GLOBULIN RATIO 1.22 (1.00-1.93); ALKALINE PHOSPHATASE 73 U/L (45-117); ALT/SGPT 22 U/L (12-78); ANION GAP 6 MEQ/L (8-16); AST/SGOT 15 U/L (15-37); BILIRUBIN,DIRECT 0.1 MG/DL (0.0-0.2); BILIRUBIN,TOTAL 0.5 MG/DL (0.2-1.0); BLOOD UREA NITROGEN 11 MG/DL (7-18); CALCIUM LEVEL 9.5 MG/DL (8.5-10.1); CARBON DIOXIDE LEVEL 28 MEQ/L (21-32); CHLORIDE LEVEL 106 MEQ/L (98-107); CREATININE FOR GFR 0.71 MG/DL (0.55-1.02); GLOMERULAR FILTRATION RATE > 60.0 (>60); GLUCOSE, FASTING 83 MG/DL (70-105); POTASSIUM SERUM 3.6 MEQ/L (3.5-5.1); SODIUM LEVEL 140 MEQ/L (136-145)
[2017-04-21] MEDS ORDERED: CYCL10TA PO (17:49)
[2017-04-21] MEDS ORDERED: CLON0.5T PO (17:49)
[2017-04-21] MEDS ORDERED: QUET1TAB8 PO (17:49)
[2017-04-21] MEDS ORDERED: GABA-279 PO (17:49)
[2017-04-21 18:11] VITALS: BP 133/78
[2017-04-21] MEDS ORDERED: MAALOX 30 ML SUSP *UDC PO PRN (20:00)
[2017-04-21] MEDS ORDERED: traZODone 50 MG TAB PO PRN (20:00)
[2017-04-21] MEDS: PERCOCET 5MG/325MG TAB PO SCH (20:57)
[2017-04-21] MEDS: CYCLOBENZAPRINE 10 MG TAB PO SCH (20:57)
[2017-04-21] MEDS: clonazePAM 0.5 MG TAB PO SCH (20:57)
[2017-04-21] MEDS: GABAPENTIN 100 MG CAP PO SCH (20:57)
[2017-04-21] MEDS: QUEtiapine FUMARATE 100 MG TAB PO SCH (22:33)
[2017-04-22 06:34] VITALS: BP 99/58
[2017-04-22] MEDS: CYCLOBENZAPRINE 10 MG TAB PO SCH ×3 (08:02→21:11)
[2017-04-22] MEDS: clonazePAM 0.5 MG TAB PO SCH (08:02)
[2017-04-22] MEDS: GABAPENTIN 100 MG CAP PO SCH ×3 (08:02→21:11)
[2017-04-22] MEDS: PERCOCET 5MG/325MG TAB PO SCH ×3 (08:03→21:12)
[2017-04-22] MEDS: QUEtiapine FUMARATE 12.5 MG HALF-TAB PO SCH ×3 (09:00→21:59)
[2017-04-22] MEDS: DIVALPROEX 250 MG TAB PO SCH ×2 (09:51→21:11)
--- NOTE | 2017-04-22 10:55 | HPEPDOC ---
Medical History and Physical Date of Admission Apr 21, 2017 at 17:05 History and Physical PCP: Dr Nazia Peraza ATTENDING: Dr. Lewis Sky HPI: 26 yo female admitted to [facility] for bipolar disorder, being medically examined today. Patient states she has chronic back pain which is uncontrolled. She states she is in excruciating pain. She states she is depressed because of her pain. She was seen by [facility] pain management 04/10/17 and continued on gabapentin and scheduled for trigger point injections. She was also referred to neurology. She follows with her orthopedic surgeon Dr Kraft in [facility] she states she has persistent low back pain which radiates into her left leg. She has numbness and tingling in her leg. No Loss of bowel or bladder control. She denies any neck pain. No weakness, numbness, or tingling in upper extremities. Denies any fevers, chills, weakness, fatigue, PRIDE, CP, SOB, cough, palpitations, abdominal pain, N/V/D or changes in bowel or bladder habits. PMHx: Scoliosis Chronic back pain/chronic pain WPW. Follows with Dr. Brenden Melendez fib/SVT History of cardiac ablation Depression Anxiety Bipolar disorder PSHX: Spinal fusion 07/23 Cardiac ablation 10/22 Loop recorder 12/25 Low back surgery 10/24 SOCHX: Resides in: [facility] Marital Status: Single Kids: 2 Employment: Unemployed Tobacco use: Denies ETOH: One glass 2 months ago of wine Illicit Drugs: Patient states she has medical marijuana prescribed to her in [facility]. IV Drug Use: Denies Tattoos done unprofessionally: 2 FAMHX: Mother: , COPD Father: Unknown Siblings: 1 sister Alive, thyroid disease Children: Alive, well Unexpected deaths due to medical reasons: None. ROS: As noted in HPI, otherwise 11pt ROS of systems reviewed and remarkable only for LMP unknown. PE: GEN: 26 yo female appears stated age. Well-nourished, well developed. No acute distress. Alert and oriented x 3. Rambling and tangential speech. HEENT: Normocephalic, atraumatic. Pupils are equal, round, and reactive to light. Extraocular movements are intact. No nystagmus appreciated. Sclera are nonicteric. Conjunctiva without injection. Nose midline. Nasal turbinates without bogginess. EACs both patent BL. TMs both visualized and francis with good cone of light, no bulging or erythema. No facial asymmetry. Moist mucous membranes. Dentition fair. Pharynx pink and moist, no cobblestoning. Neck supple , trachea midline. No lymphadenopathy or thyromegaly appreciated. CHEST: Regular rate and rhythm, +S1, +S2 LUNGS: Clear to auscultation bilaterally. No wheezes, rales, or rhonchi. Breathing appears symmetric and easy. Patient is speaking in full sentences. No accessory muscle use. ABD: Round, soft, non-tender, non-distended. +Bowel sounds throughout. No rebound or guarding. No costovertebral angle tenderness. EXT: Pulses 2+ bilaterally dorsalis pedis and radial. No lower extremity edema appreciated. SKIN: Ursa, dry, warm. Capillary refill <2sec. No rashes. NEURO: Alert and oriented x 3. Cranial nerves III-XII are intact. No focal deficits appreciated. EKG: Pending. A&P: 26 yo female admitted to [facility] for bipolar disorder 1. Psych. Plan per Psychiatry. Obtain baseline EKG to assure the safety of psychiatric medications as they can prolong the QT interval. 2. Scoliosis/status post spinal fusion. Request pain management opinion. Patient was referred to neurology as per pain management, will confirm appointment date and time. 3. Chronic pain. Request pain management opinion. Continue gabapentin 200 mg 3 times a day. ISTOP Ref # [id number] indicates Percocet 5/325 #12 dispensed, 4 day supply 04/12/17. Prescribed by Dr. Cholo Mccartney. 4. History of abnormal EKG. History of WPW, A. fib, SVT, cardiac ablation. Update EKG. Request copies of notes from Dr. Wilcox's office. 5. Follow up. No Primary Care Provider. Will attempt to establish PCP on discharge. 6. History of tattoo done unprofessionally. She declines HIV/hepatitis screening stating she was screened approximately 1 month ago with negative results. 7. Rebecca LORENZO present throughout exam. Vital Signs Vital Signs Date Time Temp Pulse Resp B/P (MAP) Pulse Ox O2 Delivery O2 Flow Rate FiO2 04/22/17 08:45 18 04/22/17 06:34 99.4 75 99/58 (72) 04/21/17 18:11 95 Room Air Laboratory Data Labs 24H Laboratory Tests 2 04/21/17 15:05: Anion Gap 6L, Glomerular Filtration Rate > 60.0, Calcium Level 9.5, Aspartate Amino Transf (AST/SGOT) 15, Alanine Aminotransferase (ALT/SGPT) 22, Alkaline Phosphatase 73, Total Bilirubin 0.5, Direct Bilirubin 0.1, Total Protein 8.0, Albumin 4.4, Albumin/Globulin Ratio 1.22, Thyroid Stimulating Hormone (TSH) 1.310, Human Chorionic Gonadotropin, Qual NEGATIVE, Salicylates Level < 1.7L, Urine Amphetamines Screen NEGATIVE, Urine Benzodiazepines Screen NEGATIVE, Urine Opiates Screen NEGATIVE, Urine Methadone Screen NEGATIVE, Acetaminophen Level < 2.0L, Urine Barbiturates Screen NEGATIVE, Urine Phencyclidine Screen NEGATIVE, Urine Cocaine Metabolite Screen NEGATIVE, Urine Cannabinoids Screen NEGATIVE, Ethyl Alcohol Level < 0.003 CBC/BMP Laboratory Tests 04/21/17 15:05 Red Blood Count 4.68, Mean Corpuscular Volume 81.6, Mean Corpuscular Hemoglobin 26.1 L, Mean Corpuscular Hemoglobin Concent 32.0, Red Cell Distribution Width 15.7 H Home Medications Scheduled Gabapentin (Gabapentin) 100 Mg Cap, 200 MG PO TID Quetiapine Fumerate (Quetiapine Fumarate) 100 Mg Tab, 100 MG PO QHS Scheduled PRN Clonazepam (Clonazepam) 0.5 Mg Tab, 0.5 MG PO BID PRN for ANXIETY Cyclobenzaprine HCl (Cyclobenzaprine HCl) 10 Mg Tab, 10 MG PO TID PRN for MUSCLE SPASMS Oxycodone/Acetaminophen (Oxycodone/Acetaminophen 5-325 mg) 1 Tab Tab, 1 TAB PO TID PRN for PAIN Allergies Coded Allergies: Tramadol (Verified Allergy, Intermediate, POSSIBLE SEIZURE, 01/30/16) Renee Haddad Apr 22, 2017 10:55
[2017-04-22 12:36] VITALS: BP 128/79
[2017-04-22 18:18] VITALS: BP 114/56
[2017-04-22] MEDS: QUEtiapine FUMARATE 100 MG TAB PO SCH (21:59)
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
--- NOTE | 2017-04-22 22:31 | ECGEPIP ---
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
[2017-04-23 06:56] VITALS: BP 113/59
[2017-04-23] MEDS: QUEtiapine FUMARATE 12.5 MG HALF-TAB PO SCH ×3 (08:18→21:00)
[2017-04-23] MEDS: GABAPENTIN 100 MG CAP PO SCH ×3 (08:18→21:01)
[2017-04-23] MEDS: DIVALPROEX 250 MG TAB PO SCH (08:19)
[2017-04-23] MEDS: CYCLOBENZAPRINE 10 MG TAB PO SCH ×3 (10:15→21:01)
[2017-04-23] MEDS: PERCOCET 5MG/325MG TAB PO SCH ×3 (10:17→21:02)
--- NOTE | 2017-04-23 17:28 | CR ---
DATE OF CONSULTATION: 04/23/2017 CHIEF COMPLAINT: Generalized back pain. HISTORY OF PRESENT ILLNESS: Sara is a 26-year-old female who suffers from chronic generalized back pain. Had Christiansen stacey placement in 2013 for scoliosis. Had continued disabling back pain that persisted. Had surgery in October 2016, to include fusion with cage after removal of Christiansen rods. There were complications of infection. She was seen at the pain center after not being seen for 1 year due to transportation issues, according to the patient. Was seen last month by MAI Lin, who continued gabapentin and scheduled her for trigger point injections. A referral was made for neurology due to lower extremity paresthesias. The patient tells me today that she was not planning on returning to pain center at [facility], because she wants to be put out with intravenous (IV) sedation, and they offered that opportunity in [place]. She also describes a bad situation of increased pain with procedure at the pain center, which I believe was trigger point injections a year ago. She also voices desire to talk to a behavioral pain specialist that she was offered to speak with in [place], as she would like to have a small amount of narcotic pain medication, i.e. Percocet, etc., to have on hand when her pain gets out of control at home. She was admitted 2 days ago with thoughts of suicide. She was admitted also with diagnosis of bipolar disorder. Describes generalized back pain as constant, deep, and burning. Reports specific right low back pain with radiation into right hip. Denies recent fever, illness, or sudden weight loss. Denies bowel or bladder incontinence. Was using medical marijuana up until about 6 months ago and states that she could not afford it. Does admit that smoking marijuana takes her pain completely away. PAST MEDICAL HISTORY: 1. Scoliosis. 2. Chronic back pain. 3. Atrial fibrillation/supraventricular tachycardia (SVT), Rhdnx-Pvinanrsg-Jovck. Follows with Dr. Wilcox. 4. History of cardiac ablation. 5. Depression. 6. Anxiety. 7. Bipolar disorder. PAST SURGICAL HISTORY: 1. Spinal fusion in July 2014. 2. Low back surgery October 2016. SOCIAL HISTORY: Lives in [place]. States she has a supportive boyfriend. Has two children. Reports stressors with taking care of her 4-year-old. Rare intake of alcohol. She does admit to using marijuana on occasion. Denies IV drug use. FAMILY HISTORY: Mother , chronic obstructive pulmonary disease (COPD). Father unknown. Siblings: One sister alive, thyroid disease. Children alive and well. REVIEW OF SYSTEMS: As noted in history of present illness (HPI), otherwise 11-point review of systems is unremarkable except for reports of chronic pain. PHYSICAL EXAMINATION: Alert, anxious. Flat affect. LUNGS: Clear to auscultation. No wheezes, rales or rhonchi. ABDOMEN: Soft, nontender. NEUROMUSCULAR: Muscle strength of the lower extremities slightly weak in the right leg compared to left. NEUROLOGIC: Reports paresthesias to light touch over right thigh. Reports paresthesia to light touch over left lateral calf. Otherwise normal sensation to light touch, lower extremities. Spine: Has full-length incision from upper thoracic to the lumbosacral (LS) spine, well-healed, nontender. Specific point tenderness bilateral sacroiliac joint (SIJ) area. Range of joint motion of the spine is limited with reports of increased pain with both flexion and extension. ASSESSMENT: 1. Chronic generalized back pain status post multiple surgeries. 2. Sacroiliac joint pain. PLAN: The patient has to decide where she will be following with, either the pain center at [facility] or the pain center in [place]. We would not be recommending use of narcotic pain medications or perpetuating narcotic pain medication at our clinic until we have had a discussion with her primary care provider regarding sustaining this prescription after we have exhausted interventional trials. I would recommend continuing muscle relaxant and consider use of topical Ethan-Bolden. Consider increasing gabapentin to 300 mg twice a day. She does have a followup appointment at the pain center on May 04, at [facility]. Thank you for allowing us to participate in the care of your patient, Sara Ballard. If you have any questions or concerns, please do not hesitate to contact me.
[2017-04-23 18:00] VITALS: BP 102/64
[2017-04-23] MEDS ORDERED: DIVALPROEX 500 MG TAB PO SCH (21:00)
[2017-04-23] MEDS: QUEtiapine FUMARATE 100 MG TAB PO SCH (21:00)
[2017-04-23] MEDS: ANBESOL GEL 10% TOP PRN (21:06)
--- NOTE | 2017-04-23 22:17 | IPN ---
DATE: 04/23/2017 A 26-year-old female with history of bipolar disorder, intermittent explosive disorder, and attention deficit hyperactivity disorder (ADHD) admitted for depression and suicidal ideation. The patient was planning to overdose on all her medications. SUBJECTIVE: "I'm in a lot of pain today." OBJECTIVE: No major changes from yesterday. The patient reports no side effects from medications. The patient appears to be motivated for treatment. There is no evidence of auditory or visual hallucinations during the interview. Her speech is still pressured and tangential, and the patient continues to display manic-like behavior. MENTAL STATUS EXAMINATION: The patient is dressed in [facility]. The patient is cooperative during the interview. She has fair eye contact. Speech is pressured. Mood is elated and hypomanic. Affect is labile. No delusions or hallucinations. Memory, attention and concentration are impaired. The patient is able to contract for safety while she is hospitalized. Reports intermittent suicidal thoughts. Insight and judgment is limited. ASSESSMENT: 1. Bipolar disorder/depression. 2. Suicidal ideation. PLAN: 1. Increase Depakote to 250 mg by mouth every morning and 500 mg by mouth at bedtime. 2. Continue with Seroquel 12.5 mg by mouth three times a day. 3. Continue with Seroquel 100 mg by mouth at bedtime. 4. Continue close observation. 5. Continue medication management, individual and group therapy.
[2017-04-23] MEDS ORDERED: ONDANSETRON 4 MG ORAL DISINTEGRATING TAB (S0181) PO ONE (23:15)
[2017-04-24 06:50] VITALS: BP 95/61
[2017-04-24] MEDS: GABAPENTIN 100 MG CAP PO SCH ×3 (08:11→21:15)
[2017-04-24] MEDS: CYCLOBENZAPRINE 10 MG TAB PO SCH ×3 (08:11→21:15)
[2017-04-24] MEDS: QUEtiapine FUMARATE 12.5 MG HALF-TAB PO SCH (08:11)
[2017-04-24] MEDS: PERCOCET 5MG/325MG TAB PO SCH ×3 (08:12→21:16)
[2017-04-24] MEDS ORDERED: DIVALPROEX 250 MG TAB PO SCH (09:00)
[2017-04-24 18:00] VITALS: BP 98/60
[2017-04-24] MEDS: ACETAMINOPHEN TAB 650MG DOSE (2X325MG) PO PRN (20:22)
[2017-04-24] MEDS ORDERED: QUEtiapine FUMARATE 12.5 MG HALF-TAB PO PRN (21:00)
[2017-04-24] MEDS: DIVALPROEX 500 MG TAB PO SCH (21:15)
[2017-04-24] MEDS: MOM 30ML SUSPENSION UDC PO PRN (21:50)
[2017-04-24] MEDS: QUEtiapine FUMARATE 100 MG TAB PO PRN (22:16)
--- NOTE | 2017-04-25 00:41 | IPN ---
DATE OF SERVICE: 04/24/2017 26-year-old female with history of bipolar disorder, intermittent explosive disorder, attention deficit hyperactivity disorder, was admitted for depression and suicidal ideation. Patient was planning to overdose on her medications. SUBJECTIVE: "I'm not feeling well." OBJECTIVE: Patient is improving slowly. Her manic-like behavior has decreased. Her speech is less pressured and her thoughts are not as tangential. Patient is tolerating well the medications, although she reports that has some degree of drowsiness. We discussed the treatment plan. MENTAL STATUS EXAMINATION: Patient is dressed in [facility]. Patient is cooperative during the interview, has fair eye contact. Speech is rapid. Mood is hypomanic. Affect is labile, elated. No delusions or hallucinations. Memory, attention and concentration are impaired. Patient is able to contract for safety during her hospitalization. Insight and judgment is limited. ASSESSMENT: 1. Bipolar disorder/depression. 2. Suicidal ideation. PLAN: 1. Increase Depakote to 500 mg by mouth twice a day. 2. Change Seroquel to 12.5 mg by mouth twice a day as needed for high anxiety. 3. Change Seroquel 100 mg by mouth nightly only for as needed for insomnia. 4. Continue medication management, individual and group therapy.
[2017-04-25 06:44] VITALS: BP 136/82
[2017-04-25] MEDS: GABAPENTIN 100 MG CAP PO SCH (08:23)
[2017-04-25] MEDS: DIVALPROEX 500 MG TAB PO SCH ×2 (08:23→20:56)
[2017-04-25] MEDS: CYCLOBENZAPRINE 10 MG TAB PO SCH ×3 (08:24→20:55)
[2017-04-25] MEDS: PERCOCET 5MG/325MG TAB PO SCH ×3 (08:24→20:56)
[2017-04-25] MEDS: GABAPENTIN 300 MG CAP PO SCH ×2 (16:16→20:55)
[2017-04-25 18:18] VITALS: BP 110/69
[2017-04-25] MEDS: MOM 30ML SUSPENSION UDC PO PRN (20:56)
[2017-04-25] MEDS: QUEtiapine FUMARATE 100 MG TAB PO PRN (22:15)
[2017-04-26 06:20] VITALS: BP 117/65
--- NOTE | 2017-04-26 07:53 | IPN ---
DATE: 04/25/2017 A 26-year-old female with a history of bipolar disorder, intermittent explosive disorder, attention deficit hyperactivity disorder, admitted for depression and suicidal ideation. The patient was planning to overdose on her medications. SUBJECTIVE: "I'm not doing well." OBJECTIVE: The patient is not as manic as 48 hours ago. Her speech is not as pressured and not as tangential; however, continues to report rapid thinking, anxiety and stress. The patient is sleeping better with the help of medication, is denying side effects. No evidence of psychotic features during the interview. The patient is able to contract for safety during her hospitalization. MENTAL STATUS EXAMINATION: The patient is dressed in [facility]. The patient is cooperative, has fair eye contact. Speech is fast but not as pressured. Mood is hypomanic but improving. Affect is labile. No evidence of delusions or hallucinations. Memory, attention and concentration are also improving. The patient is able to contract for safety during her hospitalization. Insight and judgment is limited. ASSESSMENT: 1. Bipolar disorder/depression. 2. Suicidal ideation. PLAN: 1. Continue Depakote 500 mg by mouth twice a day. 2. Continue with Seroquel 100 mg by mouth nightly as needed for insomnia. 3. Continue with Seroquel 12.5 mg by mouth twice a day as needed for high anxiety. 4. Continue medication management, individual and group therapy.
[2017-04-26 08:42] VITALS: BP 120/82
[2017-04-26 09:03] VITALS: BP 103/67
[2017-04-26] MEDS: ONDANSETRON 4 MG TAB (S0181) PO PRN ×2 (09:20→15:13)
[2017-04-26] MEDS: PERCOCET 5MG/325MG TAB PO SCH ×3 (09:44→21:06)
[2017-04-26] MEDS: DIVALPROEX 500 MG TAB PO SCH ×2 (09:44→21:06)
[2017-04-26] MEDS: CYCLOBENZAPRINE 10 MG TAB PO SCH ×3 (09:45→21:06)
[2017-04-26] MEDS: GABAPENTIN 300 MG CAP PO SCH ×3 (09:45→21:06)
[2017-04-26 18:00] VITALS: BP 100/66
[2017-04-26] MEDS: QUEtiapine FUMARATE 100 MG TAB PO PRN (21:05)
[2017-04-27 07:16] VITALS: BP 125/62
[2017-04-27] MEDS: ONDANSETRON 4 MG TAB (S0181) PO PRN (08:10)
[2017-04-27] MEDS: GABAPENTIN 300 MG CAP PO SCH (09:00)
[2017-04-27 09:10] VITALS: BP 102/64
[2017-04-27] MEDS: DIVALPROEX 500 MG TAB PO SCH ×2 (09:30→20:22)
[2017-04-27] MEDS: CYCLOBENZAPRINE 10 MG TAB PO SCH ×3 (09:30→20:22)
[2017-04-27] MEDS: PERCOCET 5MG/325MG TAB PO SCH ×3 (09:31→20:22)
[2017-04-27 18:00] VITALS: BP 114/68
[2017-04-27] MEDS: ANBESOL GEL 10% TOP PRN (20:22)
[2017-04-27] MEDS: GABAPENTIN 100 MG CAP PO SCH (20:23)
[2017-04-27] MEDS: QUEtiapine FUMARATE 100 MG TAB PO PRN (20:53)
--- NOTE | 2017-04-27 21:49 | IPN ---
DATE: 04/27/2017 26-year-old female with a history of bipolar disorder, intermittent explosive disorder, attention deficit hyperactivity disorder (ADHD), admitted for depression and suicidal ideation. The patient was planning to overdose on her medications. SUBJECTIVE: "I feel a little better." The patient reports improvement. The patient no longer has flight of ideas or tangential speech. Her speech is not pressured or rapid any longer. The patient is more insightful. Continues to report some mood fluctuations and somatization. The patient reports that the increase of Neurontin is giving her side effects. This increase was recommended by the pain clinic. MENTAL STATUS EXAMINATION: The patient is dressed in [facility]. The patient is cooperative. Has fair eye contact. Speech is normal in rate, volume, and articulation. Mood is depressed. Affect is restricted. Attention, concentration and memory have improved. The patient is able to contract for safety during her hospitalization. Insight and judgment are also improved. ASSESSMENT: 1. Bipolar disorder/depression. 2. Suicidal ideation. PLAN: 1. Continue with Depakote 500 mg by mouth twice a day. 2. Get valproic level and CMP in the morning. 3. Continue with Seroquel 100 mg by mouth at night. 4. Continue medication management, individual and group therapy. 5. Decrease Neurontin to 200 mg by mouth twice a day.
[2017-04-28 06:00] VITALS: BP 100/61
[2017-04-28 08:06] LABS: ALBUMIN 3.4 GM/DL (3.2-5.2); ALKALINE PHOSPHATASE 59 U/L (45-117); ALT/SGPT 13 U/L (12-78); ANION GAP 5 MEQ/L (8-16); AST/SGOT 11 U/L (15-37); BILIRUBIN,TOTAL 0.4 MG/DL (0.2-1.0); BLOOD UREA NITROGEN 11 MG/DL (7-18); CALCIUM LEVEL 8.7 MG/DL (8.5-10.1); CARBON DIOXIDE LEVEL 27 MEQ/L (21-32); CHLORIDE LEVEL 109 MEQ/L (98-107); CREATININE FOR GFR 0.66 MG/DL (0.55-1.02); GLOMERULAR FILTRATION RATE > 60.0 (>60); GLUCOSE, FASTING 78 MG/DL (70-105); POTASSIUM SERUM 4.1 MEQ/L (3.5-5.1); SODIUM LEVEL 141 MEQ/L (136-145); TOTAL PROTEIN 6.5 GM/DL (6.4-8.2)
[2017-04-28] MEDS: DIVALPROEX 500 MG TAB PO SCH ×2 (08:16→20:25)
[2017-04-28] MEDS: CYCLOBENZAPRINE 10 MG TAB PO SCH ×3 (08:16→20:24)
[2017-04-28] MEDS: PERCOCET 5MG/325MG TAB PO SCH ×3 (08:16→20:25)
[2017-04-28] MEDS: GABAPENTIN 100 MG CAP PO SCH ×2 (08:17→20:22)
[2017-04-28] MEDS: DOCUSATE SODIUM 100 MG CAP PO SCH ×2 (09:00→20:22)
[2017-04-28] MEDS: ONDANSETRON 4 MG TAB (S0181) PO PRN ×2 (10:16→21:51)
[2017-04-28 18:00] VITALS: BP 116/63
--- NOTE | 2017-04-28 19:19 | IPN ---
DATE: 04/28/2017 A 26-year-old female with a history of bipolar disorder, intermittent explosive disorder, attention-deficit hyperactivity disorder (ADHD), admitted for depression and suicidal ideation. The patient was planning to overdose on her medications. SUBJECTIVE: "I have nausea today." OBJECTIVE: The patient is improving slowly. The patient's manic symptoms are no longer present. She does not have flight of ideas. Her speech is a little fast but improving. The patient is able to contract for safety during the hospitalization. Her mood is also better. The patient is interacting with other patients and staff. Denies side effects from the medication. MENTAL STATUS EXAMINATION: The patient is dressed in [facility]. The patient is cooperative during exam, has fair eye contact. Speech is normal in rate, volume and articulation. Mood is depressed but improving. Affect is restricted but also improving. Attention, concentration and memory are also improved. The patient is able to contract for safety during the hospitalization. Insight and judgment is fair. ASSESSMENT: 1. Bipolar disorder/depression. 2. Suicidal ideation. PLAN: 1. Continue with Depakote 500 mg by mouth twice a day. 2. Continue with Seroquel 100 mg by mouth nightly. 3. Continue medication management, individual and group therapy.
[2017-04-28] MEDS: QUEtiapine FUMARATE 100 MG TAB PO PRN (21:52)
[2017-04-29 06:29] VITALS: BP 96/54
[2017-04-29] MEDS: ONDANSETRON 4 MG TAB (S0181) PO PRN ×2 (08:15→21:25)
[2017-04-29] MEDS: CYCLOBENZAPRINE 10 MG TAB PO SCH ×3 (08:16→20:31)
[2017-04-29] MEDS: PERCOCET 5MG/325MG TAB PO SCH ×3 (08:16→20:31)
[2017-04-29] MEDS: GABAPENTIN 100 MG CAP PO SCH ×2 (08:16→20:30)
[2017-04-29] MEDS: DIVALPROEX 500 MG TAB PO SCH ×2 (08:16→20:30)
[2017-04-29] MEDS: DOCUSATE SODIUM 100 MG CAP PO SCH ×2 (08:17→20:28)
[2017-04-29] MEDS ORDERED: CEPACOL LOZENGE PO PRN (13:15)
[2017-04-29 18:44] VITALS: BP 126/60
[2017-04-29] MEDS: CLOTRIMAZOLE 1% TOPICAL CREAM 30GM TOP SCH (21:00)
--- NOTE | 2017-04-30 05:28 | IPN ---
DATE OF VISIT: 04/29/2017 26-year-old female with history of bipolar disorder, intermittent explosive disorder, attention deficit hyperactivity disorder (ADHD) admitted for depression and suicidal ideation. The patient was planning to overdose on her medications. SUBJECTIVE: "I am not feeling well today." OBJECTIVE: The patient had a meeting with Child Protective Services (CPS) worker yesterday. She became angry as the meeting progressed and she was pushing the CPS worker. During the interview today the patient was saying that the CPS worker is lying and that she got all the information wrong. The patient is labile today. The patient admits that she lost control during the meeting with the CPS worker. During the interview there is no evidence of psychotic symptoms. No auditory or visual hallucinations, no delusions; however, she continues to have mood changes and has low insight into her illness. MENTAL STATUS EXAMINATION: Patient is dressed in [facility]. Patient is cooperative during the exam, but was anxious with poor eye contact. Speech with normal rate, volume and articulation. Mood is anxious. Affect restricted. No delusions or hallucinations. Memory, attention and concentration are fair. Patient denies homicidal or suicidal ideation but she was threatening the CPS worker yesterday. Insight and judgment is poor. ASSESSMENT: 1. Bipolar disorder/depression. 2. Suicidal ideation. 3. Aggressive behavior. PLAN: 1. Continue with Depakote 500 mg by mouth twice a day. 2. Continue Seroquel 100 mg by mouth nightly. 3. Continue medication management, individual and group therapy.
[2017-04-30 06:24] VITALS: BP 103/61
[2017-04-30] MEDS: CLOTRIMAZOLE 1% TOPICAL CREAM 30GM TOP SCH ×2 (09:00→21:32)
[2017-04-30] MEDS: DOCUSATE SODIUM 100 MG CAP PO SCH ×2 (09:00→21:31)
[2017-04-30] MEDS: ONDANSETRON 4 MG TAB (S0181) PO PRN ×2 (09:18→15:27)
[2017-04-30 09:26] VITALS: BP 138/75
[2017-04-30] MEDS: DIVALPROEX 500 MG TAB PO SCH ×2 (10:32→21:31)
[2017-04-30] MEDS: GABAPENTIN 100 MG CAP PO SCH ×2 (10:32→21:31)
[2017-04-30] MEDS: CYCLOBENZAPRINE 10 MG TAB PO SCH ×3 (10:33→21:00)
[2017-04-30] MEDS: PERCOCET 5MG/325MG TAB PO SCH ×3 (10:34→21:00)
[2017-04-30] MEDS: ACETAMINOPHEN TAB 650MG DOSE (2X325MG) PO PRN (12:34)
[2017-04-30 18:00] VITALS: BP 116/75
[2017-04-30] MEDS ORDERED: PROMETHAZINE 25 MG TAB PO ONE (21:00)
--- NOTE | 2017-04-30 21:35 | IPN ---
DATE: 04/30/2017 A 26-year-old female with a history of bipolar disorder, intermittent explosive disorder, attention-deficit hyperactivity disorder (ADHD), admitted for depression and suicidal ideation. The patient was planning to overdose on her medications. SUBJECTIVE: "I'm in a lot of pain." OBJECTIVE: The patient continues emotionally sensitive everything related to Child Protective Services and the problem with her son. Since the meeting with Child Protective Services, her anxiety has increased considerably. However, she is able to redirect herself well, and there is no evidence of agitation or behavioral disturbances in the last 24 hours. The patient is tolerating well the medication. The patient is able to contract for safety during the interview. MENTAL STATUS EXAMINATION: The patient is dressed in [facility], was cooperative during exam. Again, she was anxious when talking about the problem with her son, and she projects blame into the Child Protective Services worker and reports that "they don't understand what is going on with my son." Speech is normal in rate and volume and articulation. Affect is restricted. Mood is anxious. No delusions or hallucinations. Memory, attention and concentration are fair. The patient is denying suicidal or homicidal ideation during the interview and contracts for safety during her hospitalization. Insight and judgment is limited. ASSESSMENT: 1. Bipolar disorder/depression. 2. Suicidal ideation. 3. Aggressive behavior. PLAN: 1. Continue with Depakote 500 mg by mouth twice a day. 2. Continue with Seroquel 100 mg by mouth nightly. 3. Continue medication management, individual and group therapy.
[2017-04-30] MEDS: QUEtiapine FUMARATE 100 MG TAB PO PRN (22:35)
[2017-05-01 06:47] VITALS: BP 109/68
[2017-05-01] MEDS: DOCUSATE SODIUM 100 MG CAP PO SCH ×2 (09:00→21:00)
[2017-05-01] MEDS: PERCOCET 5MG/325MG TAB PO SCH ×3 (09:00→21:00)
[2017-05-01] MEDS: GABAPENTIN 100 MG CAP PO SCH (09:16)
[2017-05-01] MEDS: CLOTRIMAZOLE 1% TOPICAL CREAM 30GM TOP SCH ×2 (09:17→21:57)
[2017-05-01] MEDS: DIVALPROEX 500 MG TAB PO SCH ×2 (09:17→21:58)
[2017-05-01] MEDS: CYCLOBENZAPRINE 10 MG TAB PO SCH ×3 (09:17→21:58)
[2017-05-01] MEDS: ONDANSETRON 4 MG TAB (S0181) PO PRN (09:19)
--- NOTE | 2017-05-01 17:13 | IPN ---
DATE: 05/01/2017 A 26-year-old female with a history of bipolar disorder, intermittent explosive disorder, attention deficit hyperactivity disorder (ADHD). She was admitted for depression and suicidal ideation. Patient was planning to overdose. SUBJECTIVE: "I think I'm having trouble with the Neurontin." OBJECTIVE: Patient continues improving slowly. Patient was calm today. Patient is interacting with other patients and staff. Patient appears to have processed the problem with CPS and did not mention it today. Patient is requesting to have Neurontin discontinued because reports "intolerance." MENTAL STATUS EXAMINATION: Patient dressed in [facility]. Patient was cooperative. Patient is less anxious and emotional. Patient is able to contract for safety during the interview. There is no evidence of delusions or hallucinations. Memory, attention, and concentration have improved since yesterday. Denies suicidal or homicidal ideation during the interview. Is able to contract for safety while hospitalized. Insight and judgment are limited. ASSESSMENT: 1. Bipolar disorder/depression. 2. Suicidal ideation. PLAN: 1. Continue Depakote 500 mg by mouth twice a day. 2. Continue Seroquel 100 mg by mouth at bedtime. 3. Discontinue Neurontin for pain management. 4. Continue with medication management, individual and group therapy.
[2017-05-01 18:00] VITALS: BP 94/56
[2017-05-01] MEDS: ACETAMINOPHEN TAB 650MG DOSE (2X325MG) PO PRN (22:01)
[2017-05-02 06:00] VITALS: BP 113/69
[2017-05-02] MEDS: CLOTRIMAZOLE 1% TOPICAL CREAM 30GM TOP SCH ×2 (09:00→21:00)
[2017-05-02] MEDS: CYCLOBENZAPRINE 10 MG TAB PO SCH ×3 (09:00→21:00)
[2017-05-02] MEDS: PERCOCET 5MG/325MG TAB PO SCH ×3 (09:00→21:00)
[2017-05-02] MEDS: DOCUSATE SODIUM 100 MG CAP PO SCH ×2 (09:00→21:00)
[2017-05-02] MEDS: DIVALPROEX 500 MG TAB PO SCH ×2 (09:37→21:11)
[2017-05-02] MEDS: ONDANSETRON 4 MG TAB (S0181) PO PRN (11:42)
[2017-05-02 18:00] VITALS: BP 111/62
[2017-05-02] MEDS: ACETAMINOPHEN TAB 650MG DOSE (2X325MG) PO PRN (18:36)
[2017-05-02] MEDS: QUEtiapine FUMARATE 100 MG TAB PO PRN (23:26)
[2017-05-03 06:00] VITALS: BP 93/62
[2017-05-03] MEDS: PERCOCET 5MG/325MG TAB PO SCH ×3 (09:00→21:00)
[2017-05-03] MEDS: CLOTRIMAZOLE 1% TOPICAL CREAM 30GM TOP SCH ×2 (09:00→21:00)
[2017-05-03] MEDS: CYCLOBENZAPRINE 10 MG TAB PO SCH ×3 (09:00→21:00)
[2017-05-03] MEDS: DOCUSATE SODIUM 100 MG CAP PO SCH ×2 (09:00→22:20)
[2017-05-03] MEDS: DIVALPROEX 500 MG TAB PO SCH ×2 (09:09→22:20)
--- NOTE | 2017-05-03 10:01 | IPN ---
DATE OF SERVICE: 05/02/2017 Evaluated 26-year-old female with a history of bipolar disorder, intermittent explosive disorder, and attention deficit hyperactivity disorder (ADHD). She stated that 1 week ago, she had suicidal ideation, and she claims that it is because she was overwhelmed because her son stepped out of the house, and she thought that he was going to get lost. The patient reports that she suffers from anxiety attacks, and [facility]. Currently, she reports that she is having some withdrawals from oxycodone that she has taken for a long period of time for pain problems. Currently, she denies suicidal ideation, denies homicidal ideations, and denies auditory and visual hallucinations. The patient is currently on Depakote 500 mg by mouth twice a day, oxycodone one tablet by mouth three times a day, Zofran 4 mg by mouth every 6 hours as needed for nausea and vomiting, Seroquel 100 mg by mouth nightly as needed for insomnia , and ___Quetiapine 12. 5 mg by mouth twice a day as needed for anxiety. At the time of this evaluation, the patient was stable, was not in danger to self or others. Will continue on the same treatment plan and will follow her up tomorrow, 05/03/2017. SIMI
[2017-05-03] MEDS: ACETAMINOPHEN TAB 650MG DOSE (2X325MG) PO PRN ×2 (12:50→22:20)
[2017-05-03 18:00] VITALS: BP 111/74
[2017-05-03] MEDS: QUEtiapine FUMARATE 100 MG TAB PO PRN (23:00)
[2017-05-04 06:19] VITALS: BP 99/62
[2017-05-04] MEDS: PERCOCET 5MG/325MG TAB PO SCH (09:00)
[2017-05-04] MEDS: DOCUSATE SODIUM 100 MG CAP PO SCH (09:00)
[2017-05-04] MEDS: CLOTRIMAZOLE 1% TOPICAL CREAM 30GM TOP SCH (09:00)
[2017-05-04] MEDS: CYCLOBENZAPRINE 10 MG TAB PO SCH (09:00)
[2017-05-04] MEDS: ACETAMINOPHEN TAB 650MG DOSE (2X325MG) PO PRN (09:13)
[2017-05-04] MEDS: DIVALPROEX 500 MG TAB PO SCH (09:13)
[2017-05-04] MEDS ORDERED: DEPA1TAB3 PO (10:40)
[2017-05-04] MEDS: ANBESOL GEL 10% TOP PRN (10:49)
--- NOTE | 2017-05-04 20:06 | MHDS ---
DATE OF ADMISSION: 04/21/2017 DATE OF DISCHARGE: 05/01/2017 LEGAL STATUS AT ADMISSION: 9.39 legal status. HISTORY OF PRESENT ILLNESS: A 26-year-old female with history of bipolar disorder, intermittent explosive disorder, attention deficit hyperactivity disorder (ADHD), admitted to our unit on a 9.39 legal status. According to the chart, patient presented to the emergency department to be evaluated for depression and suicidal thoughts. She was planning to overdose on her medication. Patient reports very poor sleep, not eating and being very stressed with her children. It was reported that her 4-year-old left the house prior to admission, went to a neighbor's house, broke in and ate out the [employer]. Her 4-year-old son is now at [facility]. She has another 1-year-old, that is now with her boyfriend at home. Patient was reporting auditory hallucinations, hearing her father calling her name. Patient also stated that she has high anxiety, stress, feeling helpless and hopeless. She was worried about the decision of Child Protective Services (CPS) about her son. During the interview in our unit, patient was talkative, with pressured speech, jumping from subject to subject. She was very tangential. She had tendency to project blame to others. Patient was talking about having to disconnect both her parents from life support and projecting blame on hospital staff. Patient has tendency to dramatism in her speech in a theatrical manner, also showing cluster B personality traits, although the clinical picture is compatible with bipolar disorder, manic episode. Patient stated that she is worried all the time. She is unable to relax, and that she is having constant thoughts of suicide. Interview was difficult because of her jumping from subject to subject and explaining everything in little details, especially issues that are emotionally upsetting to her. During the interview, I could not observe auditory or visual hallucinations, or feelings of paranoia, although again, she was projecting blame. She also stated that she stopped taking her medication a month before and restarted them yesterday, before admission. LABORATORIES AT ADMISSION: Her complete blood count (CBC) showed an MCH of 26.1, RDW of 15.7, the rest within normal limits. Complete metabolic panel (CMP) at admission was unremarkable. test was negative. Thyroid stimulating hormone (TSH) within normal limits. Urine drug screen (UDS) was negative. Blood alcohol was negative. Her valproic level on 04/28/2017 was 81.6, taking 500 mg of Depakote twice a day and her CMP on that day was unremarkable. HOSPITAL COURSE: After the first evaluation, she was started on Depakote, increasing dosage slowly, up to 500 mg by mouth twice a day. She was also started on Seroquel 100 mg by mouth at bedtime. She complained of pain and consult to the pain clinic was done and they recommended to increase gabapentin to 300 mg by mouth twice a day, but she started to complain of side effects, and this medication was discontinued, as was her Percocet for pain. She did not appear to be in pain during evaluations. Her mood improved slowly but steadily. After a few days of being able to sleep well and in the unit and in the context of taking the Depakote, her manic episode subsided. Her speech was no longer pressured and she was more stable. She had a meeting with CPS. It did not go well. She lost control and started threatening the CPS worker. Afterwards, she understood that she lost control in front of the person that needs to make decisions about custody of her son. The evaluation on 05/04/2017 shows that the patient is at baseline, with no auditory or visual hallucinations, delusions, suicidal or homicidal ideations. Patient is motivated for treatment. She intends to recover the custody of her child, wants to continue getting the medication as outpatient and wants to continue following recommendations. A family meeting was held before discharge. Her boyfriend is very supportive. Therefore, the patient is discharged in stable condition on 05/04/2017. MENTAL STATUS EXAMINATION AT DISCHARGE: Patient dressed in [facility]. Patient is cooperative. Speech is clear, coherent, with normal rate and is spontaneous. Patient has good eye contact. Mood is euthymic. Affect is appropriate and congruent with mood. Patient is oriented to time, place, person and situation. Maintains attention and concentration correctly. Instant recall, recent and remote memory are intact. Thought processes are coherent, logical and goal-directed. Patient does not have auditory or visual hallucinations. Patient does not have paranoid, persecutory, somatic-induced or presybeterian delusions. Patient denies suicidal or homicidal ideation. Judgment and insight are fair. DISCHARGE MEDICATIONS: - Depakote 500 mg by mouth twice a day - Seroquel 100 mg by mouth at bedtime DISCHARGE DIAGNOSES: AXIS I: Bipolar disorder, manic episode. Attention deficit hyperactivity disorder (ADHD) by history. AXIS II: Intermittent explosive disorder. AXIS III: Glaucoma. Rheumatoid arthritis. Rule out [id number]. CONDITION ON DISCHARGE: Stable. No suicidal or homicidal ideation. No auditory or visual hallucinations. No delusions. INSTRUCTIONS TO THE PATIENT: Patient is to continue taking her medications as prescribed and follow up appointments. She is advised to maintain absolute sobriety from drugs and alcohol. Patient has a scheduled appointment for medication management, individual psychotherapy, and primary care physician.
== END 2017-05-04 14:30 | disposition home or self-care (01) | DRG 753 ==
LOC: M ED 15:43 → M ED INP 17:05 → M PSY 18:00
PROVIDERS: ADMIT Psychiatry & Neurology Psychiatry; ATTEND Psychiatry & Neurology Psychiatry
DX: F31.9 Bipolar disorder, unspecified (principal); I48.91 Unspecified atrial fibrillation; F63.81 Intermittent explosive disorder; H40.9 Unspecified glaucoma; F90.9 Attention-deficit hyperactivity disorder, unspecified type; M06.9 Rheumatoid arthritis, unspecified; M54.5 Low back pain; F41.9 Anxiety disorder, unspecified; Z88.8 Allergy status to other drugs, medicaments and biological substances; I45.6 Pre-excitation syndrome

== ENCOUNTER 2017-09-04 04:02 | Emergency (ER) | payer OTHER ==
[~2017-09-04] VITALS: Ht 160 cm; Wt 50.0 kg
[~2017-09-04 04:02] MED LIST changes: -ACET-654 PO; +ACET1TAB17 PO; +CYCL10TA PO; +DEPA1TAB3 PO; +HYDR-3363 PO; -HYDR25T PO; +IBUP1TAB7 PO; -IBUP800T23 PO; -MACR100C3 PO; +MACR100C43 PO; -NAPR500T2 PO; +NAPR500T3 PO; +OXYC-141 PO; -OXYC-299 PO; +OXYC1TAB23 PO; -PROM50TA2 PO; +PROM50TA4 PO
[2017-09-04] MEDS ORDERED: LAMI25TA PO (04:14)
[2017-09-04] MEDS ORDERED: ONDANSETRON 4 MG ORAL DISINTEGRATING TAB (S0181) PO ONE (05:15)
[2017-09-04 06:00] VITALS: BP 98/50
== END 2017-09-04 06:01 | disposition home or self-care (01) ==
LOC: M ED 04:02
DX: F10.129 Alcohol abuse with intoxication, unspecified (principal); F31.9 Bipolar disorder, unspecified; Z79.899 Other long term (current) drug therapy; Z88.0 Allergy status to penicillin; Z88.5 Allergy status to narcotic agent

== ENCOUNTER 2017-11-21 01:47 | Emergency (ER) | payer OTHER | END 2017-11-21 03:48 | disposition left against medical advice (07) | LOC: M ED 01:47 | DX: Z53.29 Procedure and treatment not carried out because of patient's decision for other reasons (principal) ==

== ENCOUNTER → 2017-12-11 | Outpatient (REF) | payer OTHER ==
[2017-12-11 17:55] LABS: INFLUENZA A AMPLIFICATION NEGATIVE (NEGATIVE); INFLUENZA B AMPLIFICATION NEGATIVE (NEGATIVE); RSV AMPLIFICATION NEGATIVE (NEGATIVE)
== END ==
LOC: M LAB REF 16:31
DX: J11.1 Influenza due to unidentified influenza virus with other respiratory manifestations (principal)
CPT/HCPCS: 87631

== ENCOUNTER → 2017-12-25 | Outpatient (CLI) | payer OTHER ==
[2017-12-25 14:51] LABS: BASO % 0.6 % (0.0-1.0); EOS # 0.1 10^3/uL (0.0-0.50); HEMATOCRIT 38.8 % (36.0-47.0); HEMOGLOBIN 12.4 g/dl (12.0-16.0); IMMATURE GRANULOCYTE % 0.2 % (0-3.0); LYMPH # 2.1 10^3/uL (1.5-6.5); LYMPH % 38.8 % (24.0-44.0); MEAN CORPUSCULAR HEMOGLOBIN 27.3 pg (27.0-33.0); MEAN CORPUSCULAR VOLUME 85.3 fl (80.0-96.0); MONO # 0.4 10^3/uL (0.0-0.8); MONO % 8.2 % (0.0-5.0); NEUTROPHILS # 2.7 10^3/uL (1.8-7.7); NEUTROPHILS % 50.2 % (36.0-66.0); PLATELET COUNT, AUTOMATED 224 10^3/uL (150-450); RED BLOOD COUNT 4.55 10^6/uL (4.00-5.40); WHITE BLOOD COUNT 5.4 10^3/uL (4.0-10.0)
[2017-12-25 15:27] LABS: ESTIMATED AVERAGE GLUCOSE 103 MG/DL (60-110); HEMOGLOBIN A1c 5.2 %
[2017-12-25 15:28] LABS: VITAMIN B12 LEVEL 361 PG/ML (247-911)
[2017-12-25 15:32] LABS: ALBUMIN 4.1 GM/DL (3.2-5.2); ALBUMIN/GLOBULIN RATIO 1.21 (1.00-1.93); ALKALINE PHOSPHATASE 61 U/L (45-117); ALT/SGPT 17 U/L (12-78); ANION GAP 8 MEQ/L (8-16); AST/SGOT 13 U/L (7-37); BILIRUBIN,TOTAL 0.6 MG/DL (0.2-1.0); BLOOD UREA NITROGEN 18 MG/DL (7-18); CALCIUM LEVEL 9.2 MG/DL (8.5-10.1); CARBON DIOXIDE LEVEL 25 MEQ/L (21-32); CHLORIDE LEVEL 106 MEQ/L (98-107); CHOLESTEROL LEVEL 120 MG/DL (<200); CREATININE FOR GFR 0.61 MG/DL (0.55-1.30); GLOMERULAR FILTRATION RATE > 60.0 (>60); GLUCOSE, FASTING 75 MG/DL (70-100); HDL CHOLESTEROL 43 MG/DL (>40); LDL CHOLESTEROL 68.8 MG/DL (<100); NON-HDL-C 77 MG/DL; POTASSIUM SERUM 3.8 MEQ/L (3.5-5.1); SODIUM LEVEL 139 MEQ/L (136-145); TOTAL PROTEIN 7.5 GM/DL (6.4-8.2); TRIGLYCERIDES LEVEL 41 MG/DL (<150)
== END ==
LOC: M LAB 13:37
DX: F40.10 Social phobia, unspecified (principal)
CPT/HCPCS: 84443

== ENCOUNTER → 2018-01-07 | Outpatient (REF) | payer OTHER ==
[2018-01-07 14:23] LABS: FREE T4 1.02 NG/DL (0.76-1.46); RHEUMATOID FACTOR QUANT < 10.0 IU/ML (0-15.0); TOTAL PROTEIN 7.5 GM/DL (6.4-8.2)
[2018-01-07 14:36] LABS: ESTIMATED AVERAGE GLUCOSE 105 MG/DL (60-110); HEMOGLOBIN A1c 5.3 %
[2018-01-07 15:06] LABS: ERYTHROCYTE SEDIMENTATION RATE 16 mm/hr (0-20)
[2018-01-07 15:17] LABS: FOLATE 14.3 NG/ML
[2018-01-07 15:28] LABS: VITAMIN B12 LEVEL 318 PG/ML
[2018-01-08 12:51] LABS: ALBUMIN 4.38 GM/DL (3.29-5.55); ALBUMIN % 58.4 % (55.8-66.1); ALPHA-1-GLOBULIN % 4.3 % (2.9-4.9); ALPHA-1-GLOBULINS 0.32 GM/DL (0.17-0.41); ALPHA-2-GLOBULINS 0.74 GM/DL (0.42-0.99); ALPHA-2-GLOBULINS % 9.9 % (7.1-11.8); BETA-1-GLOBULINS % 6.9 % (4.7-7.2); BETA-2-GLOBULINS % 5.4 % (3.2-6.5); GAMMA GLOBULIN % 15.1 % (11.1-18.8)
[2018-01-08 12:52] LABS: BETA-1-GLOBULINS 0.52 GM/DL (0.28-0.60); BETA-2-GLOBULINS 0.41 GM/DL (0.19-0.55); GAMMA GLOBULINS 1.13 GM/DL (0.65-1.58)
== END ==
LOC: M LABNEURO 10:27
DX: R20.2 Paresthesia of skin (principal); Z13.1 Encounter for screening for diabetes mellitus; Z13.29 Encounter for screening for other suspected endocrine disorder

== ENCOUNTER → 2018-01-28 | Outpatient (CLI) | payer OTHER ==
[2018-01-28 13:20] LABS: BASO # 0.1 10^3/uL (0.0-0.2); BASO % 0.8 % (0.0-1.0); EOS # 0.3 10^3/uL (0.0-0.50); EOS % 4.9 % (0.0-3.0); HEMATOCRIT 43.1 % (36.0-47.0); HEMOGLOBIN 13.6 g/dl (12.0-16.0); IMMATURE GRANULOCYTE % 0.2 % (0-3.0); LYMPH # 2.6 10^3/uL (1.5-6.5); LYMPH % 43.8 % (24.0-44.0); MEAN CORPUSCULAR HEMOGLOBIN 27.2 pg (27.0-33.0); MEAN CORPUSCULAR HGB CONC 31.6 g/dl (32.0-36.5); MEAN CORPUSCULAR VOLUME 86.2 fl (80.0-96.0); MONO # 0.5 10^3/uL (0.0-0.8); NEUTROPHILS # 2.5 10^3/uL (1.8-7.7); NEUTROPHILS % 42.3 % (36.0-66.0); PLATELET COUNT, AUTOMATED 242 10^3/uL (150-450); RED CELL DISTRIBUTION WIDTH 14.7 % (11.5-14.5); WHITE BLOOD COUNT 5.9 10^3/uL (4.0-10.0)
[2018-01-28 14:06] LABS: TOTAL 25(OH) VITAMIN D 21.9 NG/ML (30.0-100.0)
[2018-01-28 14:09] LABS: RHEUMATOID FACTOR QUANT < 10.0 IU/ML (<15.0)
[2018-01-28 14:09] LABS: IRON (FE) 43 UG/DL (50-170)
[2018-01-29 10:36] LABS: HEPATITIS C VIRUS ABY INDEX 0.1 INDEX (<0.8)
[2018-01-29 10:46] LABS: HIV 1&2 SCREEN CENTAUR NEGATIVE (NEGATIVE)
[2018-01-29 14:15] LABS: ANTI DOUBLE STRAND-DNA AB 4 IU/mL (0-9); ANTINUCLEAR ANTIBODIES DIRECT Negative (Negative)
== END ==
LOC: M LAB 11:55
DX: R53.83 Other fatigue (principal)
CPT/HCPCS: 83540

== ENCOUNTER → 2018-01-29 | Outpatient (CLI) | payer OTHER | LOC: M PLARAD 14:22 | DX: G43.719 Chronic migraine without aura, intractable, without status migrainosus (principal); M54.81 Occipital neuralgia | CPT/HCPCS: 70551 ==

== ENCOUNTER 2018-02-23 10:34 | Emergency (ER) | payer OTHER ==
[2018-02-23 12:03] LABS: KETONE, URINE AUTO RFX NEGATIVE (NEGATIVE); MUCUS, URINE RFX SMALL (NEGATIVE); NITRITE, URINE AUTO RFX NEGATIVE (NEGATIVE); RBC, URINE AUTO RFX 2 /HPF (0-3); SPECIFIC GRAVITY UR AUTO RFX 1.012 (1.002-1.035); SQUAM EPITHELIAL CELL UR AURFX 4 /HPF (0-6)
[2018-02-23] MEDS: NS 1,000 ML IV (12:31)
[2018-02-23 12:38] LABS: BASO % 0.3 % (0.0-1.0); EOS # 0.1 10^3/uL (0.0-0.50); HEMATOCRIT 39.8 % (36.0-47.0); HEMOGLOBIN 12.8 g/dl (12.0-15.5); IMMATURE GRANULOCYTE % 0.2 % (0-3.0); LYMPH # 1.1 10^3/uL (1.5-6.5); LYMPH % 19.1 % (24.0-44.0); MEAN CORPUSCULAR HEMOGLOBIN 28.1 pg (27.0-33.0); MEAN CORPUSCULAR HGB CONC 32.2 g/dl (32.0-36.5); MEAN CORPUSCULAR VOLUME 87.5 fl (80.0-96.0); MONO # 0.5 10^3/uL (0.0-0.8); MONO % 7.8 % (0.0-5.0); NEUTROPHILS # 4.2 10^3/uL (1.8-7.7); NEUTROPHILS % 70.6 % (36.0-66.0); PLATELET COUNT, AUTOMATED 190 10^3/uL (150-450); RED BLOOD COUNT 4.55 10^6/uL (4.00-5.40); RED CELL DISTRIBUTION WIDTH 14.1 % (11.5-14.5); WHITE BLOOD COUNT 5.9 10^3/uL (4.0-10.0)
[2018-02-23] MEDS: PROMETHAZINE INJ 25 MG/ML VIAL (J2550) IV (12:58)
[2018-02-23 13:02] LABS: ALBUMIN 3.9 GM/DL (3.2-5.2); ALBUMIN/GLOBULIN RATIO 1.22 (1.00-1.93); ALKALINE PHOSPHATASE 76 U/L (45-117); ALT/SGPT 16 U/L (12-78); AMYLASE 68 U/L (25-115); ANION GAP 6 MEQ/L (8-16); AST/SGOT 13 U/L (7-37); BILIRUBIN,DIRECT 0.1 MG/DL (0.0-0.2); BILIRUBIN,TOTAL 0.4 MG/DL (0.2-1.0); BLOOD UREA NITROGEN 8 MG/DL (7-18); CALCIUM LEVEL 8.9 MG/DL (8.5-10.1); CARBON DIOXIDE LEVEL 27 MEQ/L (21-32); CHLORIDE LEVEL 108 MEQ/L (98-107); CREATININE FOR GFR 0.68 MG/DL (0.55-1.30); GLOMERULAR FILTRATION RATE > 60.0 (>60); GLUCOSE, FASTING 97 MG/DL (70-100); LIPASE 94 U/L (73-393); POTASSIUM SERUM 3.8 MEQ/L (3.5-5.1); SODIUM LEVEL 141 MEQ/L (136-145); TOTAL PROTEIN 7.1 GM/DL (6.4-8.2)
[2018-02-23 13:05] LABS: LEUKOCYTE ESTERASE UR AUTO RFX 2+ (NEGATIVE); WBC, URINE AUTO RFX 14 /HPF (0-3)
[2018-02-23 13:08] LABS: INFLUENZA A AMPLIFICATION NEGATIVE (NEGATIVE); INFLUENZA B AMPLIFICATION NEGATIVE (NEGATIVE)
[2018-02-23] MEDS: KETOROLAC 30 MG/ML VIAL (J1885) IV (13:45)
== END 2018-02-23 14:33 | disposition home or self-care (01) ==
LOC: M ED 10:34
DX: A08.39 Other viral enteritis (principal); Z88.0 Allergy status to penicillin; Z88.5 Allergy status to narcotic agent; Z79.899 Other long term (current) drug therapy
CPT/HCPCS: J1885

== ENCOUNTER → 2018-04-30 | Outpatient (CLI) | payer OTHER | LOC: M PAIN 11:15 | DX: M96.1 Postlaminectomy syndrome, not elsewhere classified (principal); M79.1 Myalgia; I45.6 Pre-excitation syndrome; F41.9 Anxiety disorder, unspecified; F31.9 Bipolar disorder, unspecified; Z79.899 Other long term (current) drug therapy; Z88.1 Allergy status to other antibiotic agents; Z88.8 Allergy status to other drugs, medicaments and biological substances; Z86.79 Personal history of other diseases of the circulatory system | CPT/HCPCS: G0463 ==

== ENCOUNTER → 2018-05-28 | Outpatient (CLI) | payer OTHER | LOC: M PAIN 13:45 | DX: M96.1 Postlaminectomy syndrome, not elsewhere classified (principal); M79.1 Myalgia; I45.6 Pre-excitation syndrome; F41.9 Anxiety disorder, unspecified; F31.9 Bipolar disorder, unspecified; Z79.899 Other long term (current) drug therapy; Z88.1 Allergy status to other antibiotic agents; Z88.5 Allergy status to narcotic agent; Z86.79 Personal history of other diseases of the circulatory system | CPT/HCPCS: G0463 ==

== ENCOUNTER 2018-07-15 17:04 | Emergency (ER) | payer OTHER ==
[2018-07-15] MEDS: AMIODARONE HCL 150 MG in APPROPRIATE DILUENT 1 EA IV ×2 (17:33→19:54)
[2018-07-15 17:47] LABS: BASO % 0.4 % (0.0-1.0); EOS # 0.1 10^3/uL (0.0-0.50); EOS % 1.7 % (0.0-3.0); HEMATOCRIT 40.9 % (36.0-47.0); HEMOGLOBIN 13.8 g/dl (12.0-15.5); IMMATURE GRANULOCYTE % 0.2 % (0-3.0); LYMPH # 2.1 10^3/uL (1.5-6.5); LYMPH % 25.7 % (24.0-44.0); MEAN CORPUSCULAR HEMOGLOBIN 29.6 pg (27.0-33.0); MEAN CORPUSCULAR HGB CONC 33.7 g/dl (32.0-36.5); MEAN CORPUSCULAR VOLUME 87.6 fl (80.0-96.0); MONO # 0.6 10^3/uL (0.0-0.8); NEUTROPHILS # 5.4 10^3/uL (1.8-7.7); PLATELET COUNT, AUTOMATED 216 10^3/uL (150-450); RED BLOOD COUNT 4.67 10^6/uL (4.00-5.40); RED CELL DISTRIBUTION WIDTH 13.1 % (11.5-14.5); WHITE BLOOD COUNT 8.3 10^3/uL (4.0-10.0)
[2018-07-15 18:17] LABS: AMPHETAMINES LEVEL URINE NEGATIVE (NEGATIVE); BARBITURATES URINE NEGATIVE (NEGATIVE); BENZODIAZEPINES URINE NEGATIVE (NEGATIVE); CANNABINOIDS URINE NEGATIVE (NEGATIVE); COCAINE METABOLITE URINE NEGATIVE (NEGATIVE); METHADONE URINE NEGATIVE (NEGATIVE); OPIATES URINE NEGATIVE (NEGATIVE); PHENCYCLIDINE URINE NEGATIVE (NEGATIVE)
[2018-07-15 18:22] LABS: ALBUMIN 4.4 GM/DL (3.2-5.2); ALBUMIN/GLOBULIN RATIO 1.26 (1.00-1.93); ALT/SGPT 20 U/L (12-78); ANION GAP 9 MEQ/L (8-16); AST/SGOT 15 U/L (7-37); BILIRUBIN,DIRECT 0.1 MG/DL (0.0-0.2); BILIRUBIN,TOTAL 0.5 MG/DL (0.2-1.0); BLOOD UREA NITROGEN 7 MG/DL (7-18); C REACTIVE PROTEIN QUANTITATIV < 0.30 MG/DL (0.00-0.30); CALCIUM LEVEL 9.5 MG/DL (8.5-10.1); CARBON DIOXIDE LEVEL 24 MEQ/L (21-32); CHLORIDE LEVEL 107 MEQ/L (98-107); CPK CREATINE PHOSPHOKINASE 81 U/L (26-192); CREATININE FOR GFR 0.62 MG/DL (0.55-1.30); FREE T4 0.91 NG/DL (0.76-1.46); GLOMERULAR FILTRATION RATE > 60.0 (>60); GLUCOSE, FASTING 78 MG/DL (70-100); INR 1.04; POTASSIUM SERUM 3.6 MEQ/L (3.5-5.1); PROTHROMBIN TIME 13.8 SECONDS (12.1-14.4); SODIUM LEVEL 140 MEQ/L (136-145); TOTAL PROTEIN 7.9 GM/DL (6.4-8.2); TROPONIN I 0.02 NG/ML (< 0.10)
[2018-07-15 18:23] LABS: PARTIAL THROMBOPLASTIN TIME 33.5 SECONDS (25.4-37.6)
[2018-07-15 18:27] LABS: ALKALINE PHOSPHATASE 61 U/L (45-117); CK-MB VALUE MASS < 1.0 NG/ML (<3.6); MB/CK RELATIVE INDEX 1.23 (< OR =4); NT-PRO BNP 107 PG/ML (<125)
[2018-07-15 18:43] LABS: ERYTHROCYTE SEDIMENTATION RATE 7 mm/hr (0-20)
[2018-07-15] MEDS: METOPROLOL SUCC *XL* 25MG TAB (TopROL *XL*) PO (21:39)
== END 2018-07-15 21:46 | disposition home or self-care (01) ==
LOC: M ED 17:04
DX: I47.1 Supraventricular tachycardia (principal); I48.91 Unspecified atrial fibrillation; F31.9 Bipolar disorder, unspecified; F41.9 Anxiety disorder, unspecified; Z79.899 Other long term (current) drug therapy; Z88.0 Allergy status to penicillin
CPT/HCPCS: 71045

== ENCOUNTER → 2018-08-04 | Outpatient (CLI) | payer OTHER | LOC: M PAIN 14:00 | DX: M96.1 Postlaminectomy syndrome, not elsewhere classified (principal); M79.1 Myalgia; Z79.891 Long term (current) use of opiate analgesic; Z79.899 Other long term (current) drug therapy; Z88.8 Allergy status to other drugs, medicaments and biological substances; Z86.79 Personal history of other diseases of the circulatory system | CPT/HCPCS: G0463 ==

== ENCOUNTER → 2018-09-15 | Outpatient (CLI) | payer OTHER | LOC: M PAIN 13:15 | DX: M96.1 Postlaminectomy syndrome, not elsewhere classified (principal); M79.18 Myalgia, other site; I45.6 Pre-excitation syndrome; F41.9 Anxiety disorder, unspecified; F31.9 Bipolar disorder, unspecified; I48.92 Unspecified atrial flutter; Z98.1 Arthrodesis status; Z79.891 Long term (current) use of opiate analgesic; Z79.899 Other long term (current) drug therapy; Z88.0 Allergy status to penicillin; Z88.1 Allergy status to other antibiotic agents; Z88.8 Allergy status to other drugs, medicaments and biological substances | CPT/HCPCS: G0463 ==

== ENCOUNTER → 2019-01-10 | Outpatient (CLI) | payer OTHER ==
[~2019-01-10] MED LIST changes: -ACET1TAB17 PO; +ACET1TAB55 PO; -CLON0.5T PO; +CLON0.5T8 PO; +GABA-1171 PO; -GABA-279 PO; +HYDR-3713; +LAMI25TA PO; +NAPR-50 PO; +NAPR-885 PO; -NAPR500T PO; -NAPR500T3 PO; +SERO1TAB3 PO; +TOPR25TA13 PO; +UNIS25TA3 PO; +medical marijuana
[2019-01-10 19:42] LABS: BASO % 0.4 % (0.0-1.0); EOS # 0.1 10^3/uL (0.0-0.50); EOS % 1.3 % (0.0-3.0); HEMATOCRIT 39.9 % (36.0-47.0); HEMOGLOBIN 13.1 g/dl (12.0-15.5); LYMPH # 1.6 10^3/uL (1.5-6.5); LYMPH % 19.2 % (24.0-44.0); MEAN CORPUSCULAR HEMOGLOBIN 30.8 pg (27.0-33.0); MEAN CORPUSCULAR HGB CONC 32.8 g/dl (32.0-36.5); MEAN CORPUSCULAR VOLUME 93.7 fl (80.0-96.0); MONO # 0.5 10^3/uL (0.0-0.8); MONO % 6.4 % (0.0-5.0); NEUTROPHILS % 72.3 % (36.0-66.0); PLATELET COUNT, AUTOMATED 189 10^3/uL (150-450); RED BLOOD COUNT 4.26 10^6/uL (4.00-5.40); WHITE BLOOD COUNT 8.2 10^3/uL (4.0-10.0)
[2019-01-10 22:09] LABS: CHLAMYDIA DNA AMPLIFICATION NEGATIVE (NEGATIVE); GC DNA AMPLIFICATION NEGATIVE (NEGATIVE)
[2019-01-12 10:16] LABS: HEPATITIS C VIRUS ABY INDEX < 0.0 INDEX (<0.8); HIV 1&2 SCREEN CENTAUR NEGATIVE (NEGATIVE); RUBELLA IgG QUALITATIVE IMMUNE (IMMUNE)
== END ==
LOC: M WUC 16:13
PROVIDERS: ATTEND Advanced Practice Midwife
DX: Z34.81 Encounter for supervision of other normal pregnancy, first trimester (principal); Z36.89 Encounter for other specified antenatal screening

== ENCOUNTER 2019-01-22 17:32 | Emergency (ER) | payer OTHER ==
[~2019-01-22] VITALS: Ht 160 cm; Wt 50.9 kg
[2019-01-22] MEDS ORDERED: PRENCHW PO (17:36)
[2019-01-22 18:59] LABS: BASO % 0.2 % (0.0-1.0); EOS # 0.1 10^3/uL (0.0-0.50); EOS % 1.5 % (0.0-3.0); HEMATOCRIT 38.8 % (36.0-47.0); HEMOGLOBIN 12.9 g/dl (12.0-15.5); LYMPH # 1.4 10^3/uL (1.5-6.5); LYMPH % 16.9 % (24.0-44.0); MEAN CORPUSCULAR HEMOGLOBIN 30.4 pg (27.0-33.0); MEAN CORPUSCULAR HGB CONC 33.2 g/dl (32.0-36.5); MEAN CORPUSCULAR VOLUME 91.3 fl (80.0-96.0); MONO # 0.6 10^3/uL (0.0-0.8); MONO % 6.7 % (0.0-5.0); NEUTROPHILS # 6.2 10^3/uL (1.8-7.7); NEUTROPHILS % 74.5 % (36.0-66.0); PLATELET COUNT, AUTOMATED 196 10^3/uL (150-450); RED BLOOD COUNT 4.25 10^6/uL (4.00-5.40); WHITE BLOOD COUNT 8.3 10^3/uL (4.0-10.0)
--- NOTE | 2019-01-22 19:12 | REPVR ---
EXAM: US First Trimester, Transabdominal EXAM DATE/TIME: 01/22/2019 6:22 PM CLINICAL HISTORY: 28 years old, female; Signs and symptoms; Lmp or gestational age (in weeks): Leaky fluid; ; Additional info: Leaking fluid TECHNIQUE: Real-time transabdominal obstetrical ultrasound of the maternal pelvis and a first trimester , less than 14 weeks 0 days, with image documentation. COMPARISON: No relevant prior studies available. FINDINGS: GESTATION: Gestation: Single intrauterine gestational sac. Single yolk sac. Single pole. [place]-rump length measures 28 mm, compatible with a gestational age of 9 weeks and 5 days. Heart rate: Heart rate measures 168 beats per minute. Placenta: Unremarkable. No subchorionic bleed. Amniotic fluid: Amniotic and chorionic fluid are normal for gestational age. BIOMETRY: Estimated gestational age: See Gestation Finding. Estimated due date: Estimated date of delivery is 08/22/2019. MATERNAL: Uterus: Unremarkable. Cervix: Unremarkable. Right adnexa: Right ovary was not visualized. Left adnexa: Left ovary was not visualized. Intraperitoneal: No intraperitoneal free fluid. IMPRESSION: Single viable intrauterine gestation, dating 9 weeks and 5 days. Electronically signed by: Miriam Cook On 01/22/2019 19:11:50 PM
[2019-01-22 19:36] LABS: BLOOD UREA NITROGEN 9 MG/DL (7-18); CALCIUM LEVEL 9.4 MG/DL (8.5-10.1); CARBON DIOXIDE LEVEL 25 MEQ/L (21-32); CHLORIDE LEVEL 108 MEQ/L (98-107); CREATININE FOR GFR 0.48 MG/DL (0.55-1.30); GLOMERULAR FILTRATION RATE > 60.0 (>60); GLUCOSE, FASTING 84 MG/DL (70-100); HCG, SERUM QUANTITATIVE 129580 MIU/ML; POTASSIUM SERUM 3.9 MEQ/L (3.5-5.1); SODIUM LEVEL 139 MEQ/L (136-145)
[2019-01-22 19:57] VITALS: BP 127/79
== END 2019-01-22 19:59 | disposition home or self-care (01) ==
LOC: M ED 17:32
DX: O26.891 Other specified pregnancy related conditions, first trimester (principal); N89.8 Other specified noninflammatory disorders of vagina; M54.5 Low back pain; O26.82 Pregnancy related peripheral neuritis; O99.341 Other mental disorders complicating pregnancy, first trimester; F41.9 Anxiety disorder, unspecified; F32.9 Major depressive disorder, single episode, unspecified; O99.411 Diseases of the circulatory system complicating pregnancy, first trimester; I45.6 Pre-excitation syndrome; O99.611 Diseases of the digestive system complicating pregnancy, first trimester; K21.9 Gastro-esophageal reflux disease without esophagitis; Z3A.09 9 weeks gestation of pregnancy; Z88.0 Allergy status to penicillin

== ENCOUNTER → 2019-01-26 | Outpatient (REF) | payer OTHER ==
[~2019-01-26] MED LIST changes: +PRENCHW PO
== END ==
LOC: M LAB REF 13:13
PROVIDERS: ATTEND Advanced Practice Midwife
DX: Z34.81 Encounter for supervision of other normal pregnancy, first trimester (principal); Z3A.00 Weeks of gestation of pregnancy not specified

== ENCOUNTER → 2019-01-26 | Outpatient (REF) | payer OTHER | LOC: M LAB REF 12:10 | PROVIDERS: ATTEND Advanced Practice Midwife | DX: Z12.4 Encounter for screening for malignant neoplasm of cervix (principal); R87.612 Low grade squamous intraepithelial lesion on cytologic smear of cervix (LGSIL) ==

== ENCOUNTER → 2019-01-31 | Outpatient (CLI) | payer OTHER | LOC: M LAB 12:23 | PROVIDERS: ATTEND Advanced Practice Midwife | DX: Z13.71 Encounter for nonprocreative screening for genetic disease carrier status (principal) ==

== ENCOUNTER 2019-02-21 18:05 | Emergency (ER) | payer OTHER ==
[~2019-02-21] VITALS: Ht 160 cm; Wt 50.9 kg
[~2019-02-21 18:05] MED LIST changes: -NAPR-50 PO; +NAPR-837 PO; +TOPR25TA PO; -TOPR25TA13 PO
[2019-02-21 18:06] VITALS: BP 113/72
== END 2019-02-21 20:48 | disposition left against medical advice (07) ==
LOC: M ED 18:05
DX: Z53.29 Procedure and treatment not carried out because of patient's decision for other reasons (principal)

== ENCOUNTER → 2019-02-22 | Outpatient (REF) | payer OTHER | LOC: M LAB REF 17:15 | PROVIDERS: ATTEND Advanced Practice Midwife | DX: Z34.81 Encounter for supervision of other normal pregnancy, first trimester (principal); Z3A.00 Weeks of gestation of pregnancy not specified ==

== ENCOUNTER → 2019-02-23 | Outpatient (CLI) | payer OTHER ==
--- NOTE | 2019-02-25 00:43 | ECWPNPC ---
PATIENT NAME: QUENTIN SANDS : 1990 GENDER: FEMALE VISIT DATE: 02/23/2019 DISCHARGE DATE: 02/23/19 1550 VISIT LOCKED DATE TIME: PHYSICIAN: QUENTIN FLANAGAN RESOURCE: QUENTIN FLANAGAN REASON FOR APPOINTMENT 1. INCREASED PAIN HISTORY OF PRESENT ILLNESS HISTORY OF PRESENT ILLNESS: PAIN THE PATIENT DESCRIBES THE PAIN... 28 YR OLD FEMALE WIT CHRONIC LOW AND THORACIC BACK PAIN FROM NUEROUS BACK SURGERIES IN THE PAST. SHE RATES HER PAIN 7/10. SHE IS NOW 14 WEEKS GESTATION. SHE HAS STOPPED TAKING ALL HER OTHER MEDICATION. SHE DENIES SADDLE ANESTHESIA, FEVER, AND CHILLS. FALL RISK SCREENING: SCREENING :NO FALLS REPORTED IN THE LAST YEAR CURRENT MEDICATIONS TAKING ACETAMINOPHEN 325 MG TABLET 1 TABLET NEEDED ORALLY EVERY 4 HRS TAKING ZOFRAN 4 MG TABLET 1 TABLET NEEDED ORALLY EVERY 4 HRS PRN NAUSEA TAKING 28-0.8 MG TABLET 1 TABLET ORALLY ONCE A DAY NOT-TAKING DIGOXIN 125 MCG TABLET 1 TABLET ORALLY ONCE A DAY NOT-TAKING IBUPROFEN 800 MG TABLET 1 TABLET ORALLY THREE TIMES A DAY NOT-TAKING KLONOPIN 0.5 MG TABLET 1 TABLET ORALLY TWICE A DAY NOT-TAKING GABAPENTIN 100 MG CAPSULE 2 CAP ORALLY THREE TIMES DAILY NOT-TAKING PROTONIX 40 MG PACKET 1 CAPSULE ORALLY ONCE A DAY NEEDED NOT-TAKING PREDNISONE 5 MG TABLET 1 TABLET ORALLY THREE TIMES A DAY NOT-TAKING ATENOLOL 25 MG TABLET 1 TABLET ORALLY ONCE A DAY AT BEDTIME NOT-TAKING SEROQUEL 50 MG TABLET 1 TABLET ORALLY ONCE A DAY NOT-TAKING TIZANIDINE HCL 4 MG TABLET 1 TABLET ORALLY EVERY 8 HRS NOT-TAKING TIZANIDINE HCL 2 MG TABLET 1/2 - 1 TABLET ORALLY BID PRN SPASM NOT-TAKING METOPROLOL SUCCINATE ER 50 MG TABLET EXTENDED RELEASE 24 HOUR 1 TABLET ORALLY ONCE A DAY NOT-TAKING HYDROCODONE-ACETAMINOPHEN 5-325 MG TABLET 1 TABLET NEEDED ORALLY Q8H PRN PAIN MDD3 #45 TAB SHOULD LAST 30 DAYS, NOTES: OKAY TO FILL ON 11/09/18 PAST MEDICAL HISTORY SCOLIOSIS 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 MOM-COPD. SOCIAL HISTORY GENERAL: TOBACCO USE ARE YOU A: NONSMOKER . LATEX QUESTIONNAIRE LATEX ALLERGY : HAVE YOU EVER DEVELOPED ANY TYPE OF REACTION AFTER HANDLING LATEX PRODUCTS SUCH RUBBER GLOVES, CONDOMS, DIAPHRAGMS, BALLOONS, SOCKS, OR UNDERWEAR?NO LATEX ALLERGY : HAVE YOU EVER DEVELOPED ANY TYPE OF REACTION DURING OR AFTER DENTAL APPOINTMENT, VAGINAL/RECTAL EXAMINATION, SURGICAL PROCEDURE, OR ANY OTHER EXPOSURE?NO LATEX RISK : HAVE YOU EVER HAD ANY DIFFICULTY BREATHING OR HIVES AFTER EATING OR HANDLING ANY FRUITS, OR VEGETABLES; SUCH KIWI, BANANAS, STONE FRUITS, OR CHESTNUTSNO LATEX RISK : DO YOU HAVE A PREVIOUS PERSONAL HISTORY OF MORE THAN NINE SURGERIES, SPINA BIFIDA, OR REPEATED CATHERTIZATIONS? NO LATEX RISK : ARE YOU FREQUENTLY EXPOSED TO LATEX PRODUCTS IN YOUR OCCUPATION?NO DATE ASKED : 02/23/2019 ALCOHOL SCREENING HOW OFTEN DID YOU HAVE A DRINK CONTAINING ALCOHOL IN THE PAST YEAR? NEVER (0 POINTS) , DID YOU HAVE A DRINK CONTAINING ALCOHOL IN THE PAST YEAR? NO , DID YOU HAVE A DRINK CONTAINING ALCOHOL IN THE PAST YEAR? YES , POINTS 0 , POINTS 0 , INTERPRETATION NEGATIVE , INTERPRETATION NEGATIVE . RECREATIONAL DRUG USE DRUG USE? NO . CAFFEINE CAFFEINE USE? NO . 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 DIET: REGULAR. EXERCISE: DAILY, WALKS. PAIN CLINIC PFS, CLERGY, PUBLIC HEALTH REFERRALS PFS REFERRAL NEEDED?NO CLERGY REFERRAL NEEDED?NO PUBLIC HEALTH REFERRAL NEEDED?NO WAS THE PROVIDER NOTIFIED OF ANY PERTINENT INFO? N/A HAS THE PATIENT BEEN EDUCATED REGARDING HIS/HER PLAN OF CARE?YES HAS THE PATIENT BEEN EDUCATED REGARDING PAIN, THE RISK FOR PAIN, THE IMPORTANCE OF EFFECTIVE PAIN MANAGEMENT, AND THE PAIN ASSESSMENT PROCESS?YES ADVANCE DIRECTIVE ADVANCE DIRECTIVE DISCUSSED WITH PATIENT:YES [facility] [phone] HOSPITALIZATION/MAJOR DIAGNOSTIC PROCEDURE SEE [facility] CHILD X 2 REVIEW OF SYSTEMS REVIEWED BY: PROVIDER: CHERRY . CONSTITUTIONAL: ANY CHANGE IN YOUR MEDICAL CONDITION? YES, 14 WEEKS PREG. . CHILLS NO . FEVER NO . INFECTION: DO YOU HAVE NEW INFECTIONS? NO . DO YOU HAVE HISTORY OF MRSA? NO . MUSCULOSKELETAL: ANY NEW PATTERNS OF PAIN OR NUMBNESS? YES, PAIN HAS GOTTEN SIGNICANTLY WORSE AND RIGHT LEG IS WEAK. STARTED 6 MONTHS AGO AND HAS PROGRESSIVELY GOTTEN WORSE. NOTHING HELPS THE PAIN . GASTROENTEROLOGY: ANY NEW CHANGE IN BOWEL CONTROL? NO . GENITOURINARY: ANY NEW CHANGE IN BLADDER CONTROL? NO . IS THERE A CHANCE YOU COULD BE ? YES, IS 14 WEEKS . HEMATOLOGY/LYMPH: DO YOU TAKE ANY BLOOD THINNERS? (FOR EXAMPLE- COUMADIN, PLAVIX, AGGRENOX, PLATEL, PRADAXA, OR XARELTO) NO . WHEN WAS YOUR LAST DOSE? DATE: TIME: . NEUROLOGY: HAVE YOU FALLEN IN THE PAST 12 MONTHS? NO . ANY NEW EXTREMITY NUMBNESS OR WEAKNESS? NO . CARDIOLOGY: DO YOU HAVE A PACEMAKER OR DEFIBRILLATOR? NO . RESPIRATORY: HAVE YOU BEEN SICK IN THE PAST WEEK? NO . FEVER NO . FLU LIKE SYMPTOMS? NO . COUGH NO . INTEGUMENTARY: DO YOU HAVE ANY RASHES OR OPEN SORES? NO . ALLERGIC/IMMUNO: ARE YOU ALLERGIC TO IV DYE? NO . ANY NEW ALLERGIES? NO . PSYCHIATRIC: DO YOU HAVE THOUGHTS OF HURTING YOURSELF OR SOMEONE ELSE? NO . ARE YOU ABUSED, NEGLECTED, OR IN AN UNSAFE ENVIRONMENT? NO . ENDOCRINOLOGY: ARE YOU DIABETIC? NO . OTHER: DO YOU NEED ANY PRESCRIPTIONS? NO . IF YES, PLEASE LIST: ____ . ANY NEW PROBLEMS WITH YOUR MEDICATIONS? NO . WHEN DID YOU LAST EAT? ____ . WHEN DID YOU LAST DRINK? ____ . WHAT DID YOU LAST DRINK? ____ . NAME OF PERSON DRIVING YOU HOME? ____ . DO YOU HAVE ANY OTHER QUESTIONS OR CONCERNS NO . VITAL SIGNS WT 116.8 LBS, HT 63 IN, BMI 20.69 INDEX, BP 110/67 MM HG, HR 85 /MIN, RR 16 /MIN, TEMP 97.7 F, OXYGEN SAT % 99%, SAFE IN ENV? (Y/N) Y, NA INITIALS SC 14:56, REVIEWED BY: AD. EXAMINATION GENERAL EXAMINATION: GENERAL APPEARANCE:NO ACUTE DISTRESS, WELL NOURISHED AND HYDRATED. PSYCHAPPROPRIATE MOOD AND AFFECT . LUNGS:CLEAR TO AUSCULTATION BILATERALLY, NO WHEEZES, RHONCHI, RALES. HEART:NO MURMURS, REGULAR RATE AND RHYTHM. BACK: LINER SCAR ALONG THORACIC AND LUMBAR SPINE LIMITED ROM TENDER TO PALAPTION TO THORACIC AND LUMBAR PARASPINAL MUSCLES. BANDS OF TISSUE NOTED.. 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 EM. CLINICAL NOTES: TPI THORACIC AND LUMBAR- NO STEROIDSAWAITING SIGNED CLEARANCE NOTE FRO JEFFERY. PREVIOUS NOTE WAS SIGNED BY [place]. PROCEDURE CODES [id number] ESTABILISHED PATIENT [facility] CHARGE DISPOSITION & COMMUNICATION FOLLOW UP REASON: TPI THORACIC AND LUMBAR- NO STEROIDS ELECTRONICALLY SIGNED BY HALEY QURESHI ON 02/24/2019 AT 09:22 AM EDT DISCLAIMER : THIS IS A VISIT SUMMARY EXTRACTED FROM THE [employer] CHART. IT IS NOT A COPY OF THE SMS [employer] PROGRESS NOTE. SIMI
== END ==
LOC: M PAIN 14:00
PROVIDERS: ATTEND Nurse Practitioner Family
DX: M96.1 Postlaminectomy syndrome, not elsewhere classified (principal); M79.18 Myalgia, other site; Z86.59 Personal history of other mental and behavioral disorders; G43.909 Migraine, unspecified, not intractable, without status migrainosus; Z88.1 Allergy status to other antibiotic agents; Z88.5 Allergy status to narcotic agent; Z79.899 Other long term (current) drug therapy

== ENCOUNTER → 2019-03-07 | Outpatient (CLI) | payer OTHER ==
[~2019-03-07] MED LIST changes: +BUPIVACAINE HCL 0.25% 10 ML VIAL As Ordered ONE; +BUPIVACAINE HCL 0.25% 30 ML VIAL As Ordered ONE
--- NOTE | 2019-03-22 01:21 | ECWPNPC ---
PATIENT NAME: QUENTIN SANDS : 1990 GENDER: FEMALE VISIT DATE: 03/07/2019 DISCHARGE DATE: 03/07/19 1049 VISIT LOCKED DATE TIME: PHYSICIAN: DEBBIE IBRAHIM MD RESOURCE: DEBBIE IBRAHIM MD REASON FOR APPOINTMENT 1. TPI *NO STEROIDS* HISTORY OF PRESENT ILLNESS HISTORY OF PRESENT ILLNESS: PAIN THE PATIENT DESCRIBES THE PAIN... FALL RISK SCREENING: SCREENING :NO FALLS REPORTED IN THE LAST YEAR CURRENT MEDICATIONS TAKING ACETAMINOPHEN 325 MG TABLET 1 TABLET NEEDED ORALLY EVERY 4 HRS, NOTES: 03/06/19 TAKING ZOFRAN 4 MG TABLET 1 TABLET NEEDED ORALLY EVERY 4 HRS PRN NAUSEA, NOTES: 03/06/19 TAKING 28-0.8 MG TABLET 1 TABLET ORALLY ONCE A DAY, NOTES: 03/06/19 NOT-TAKING DIGOXIN 125 MCG TABLET 1 TABLET ORALLY ONCE A DAY NOT-TAKING IBUPROFEN 800 MG TABLET 1 TABLET ORALLY THREE TIMES A DAY NOT-TAKING KLONOPIN 0.5 MG TABLET 1 TABLET ORALLY TWICE A DAY NOT-TAKING GABAPENTIN 100 MG CAPSULE 2 CAP ORALLY THREE TIMES DAILY NOT-TAKING PROTONIX 40 MG PACKET 1 CAPSULE ORALLY ONCE A DAY NEEDED NOT-TAKING PREDNISONE 5 MG TABLET 1 TABLET ORALLY THREE TIMES A DAY NOT-TAKING ATENOLOL 25 MG TABLET 1 TABLET ORALLY ONCE A DAY AT BEDTIME NOT-TAKING SEROQUEL 50 MG TABLET 1 TABLET ORALLY ONCE A DAY NOT-TAKING TIZANIDINE HCL 4 MG TABLET 1 TABLET ORALLY EVERY 8 HRS NOT-TAKING TIZANIDINE HCL 2 MG TABLET 1/2 - 1 TABLET ORALLY BID PRN SPASM NOT-TAKING METOPROLOL SUCCINATE ER 50 MG TABLET EXTENDED RELEASE 24 HOUR 1 TABLET ORALLY ONCE A DAY NOT-TAKING HYDROCODONE-ACETAMINOPHEN 5-325 MG TABLET 1 TABLET NEEDED ORALLY Q8H PRN PAIN MDD3 #45 TAB SHOULD LAST 30 DAYS, NOTES: OKAY TO FILL ON 11/09/18 MEDICATION LIST REVIEWED AND RECONCILED WITH THE PATIENT PAST MEDICAL HISTORY SCOLIOSIS MCCALL PARKINSON WHITE SYNDROME CARDIAC ABLATION ANXIETY BIPOLAR AFIB / SVT DEPRESSION KYPHOSIS SEVERE MIGRAINES ALLERGIES 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 MOM-COPD. SOCIAL HISTORY GENERAL: TOBACCO USE ARE YOU A: NONSMOKER. EDUCATION LEVEL OF EDUCATION:NOT FINISHED HIGH SCHOOL 9TH GRADE DIET: REGULAR. LANGUAGE LANGUAGES SPOKEN:FRENCH RECREATIONAL DRUG USE DRUG USE? NO. EXERCISE: DAILY, WALKS. 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 N/A HAS THE PATIENT BEEN EDUCATED REGARDING HIS/HER PLAN OF CARE?YES HAS THE PATIENT BEEN EDUCATED REGARDING PAIN, THE RISK FOR PAIN, THE IMPORTANCE OF EFFECTIVE PAIN MANAGEMENT, AND THE PAIN ASSESSMENT PROCESS?YES LATEX QUESTIONNAIRE LATEX ALLERGY : HAVE YOU EVER DEVELOPED ANY TYPE OF REACTION AFTER HANDLING LATEX PRODUCTS SUCH RUBBER GLOVES, CONDOMS, DIAPHRAGMS, BALLOONS, SOCKS, OR UNDERWEAR?NO LATEX ALLERGY : HAVE YOU EVER DEVELOPED ANY TYPE OF REACTION DURING OR AFTER DENTAL APPOINTMENT, VAGINAL/RECTAL EXAMINATION, SURGICAL PROCEDURE, OR ANY OTHER EXPOSURE?NO LATEX RISK : HAVE YOU EVER HAD ANY DIFFICULTY BREATHING OR HIVES AFTER EATING OR HANDLING ANY FRUITS, OR VEGETABLES; SUCH KIWI, BANANAS, STONE FRUITS, OR CHESTNUTSNO LATEX RISK : DO YOU HAVE A PREVIOUS PERSONAL HISTORY OF MORE THAN NINE SURGERIES, SPINA BIFIDA, OR REPEATED CATHERTIZATIONS? NO LATEX RISK : ARE YOU FREQUENTLY EXPOSED TO LATEX PRODUCTS IN YOUR OCCUPATION?NO DATE ASKED : 02/23/2019 CAFFEINE CAFFEINE USE? NO. ADVANCE DIRECTIVE ADVANCE DIRECTIVE DISCUSSED WITH PATIENT:YES HCP [facility] [phone] [facility] [id number] NONE ALCOHOL SCREENING HOW OFTEN DID YOU HAVE A DRINK CONTAINING ALCOHOL IN THE PAST YEAR? NEVER (0 POINTS) , DID YOU HAVE A DRINK CONTAINING ALCOHOL IN THE PAST YEAR? NO , DID YOU HAVE A DRINK CONTAINING ALCOHOL IN THE PAST YEAR? YES , POINTS 0 , POINTS 0 , INTERPRETATION NEGATIVE , INTERPRETATION NEGATIVE. OCCUPATION: NOT WORKING. HOSPITALIZATION/MAJOR DIAGNOSTIC PROCEDURE SEE ABOVE SURGURIES MENTAL HEALTH CHILD X 2 REVIEW OF SYSTEMS REVIEWED BY: PROVIDER: . CONSTITUTIONAL: ANY CHANGE IN YOUR MEDICAL CONDITION? NO . CHILLS NO . FEVER NO . INFECTION: DO YOU HAVE NEW INFECTIONS? NO . DO YOU HAVE HISTORY OF MRSA? NO . MUSCULOSKELETAL: ANY NEW PATTERNS OF PAIN OR NUMBNESS? YES, LOW BACK PAIN . GASTROENTEROLOGY: ANY NEW CHANGE IN BOWEL CONTROL? NO . GENITOURINARY: ANY NEW CHANGE IN BLADDER CONTROL? NO . IS THERE A CHANCE YOU COULD BE ? YES . HEMATOLOGY/LYMPH: DO YOU TAKE ANY BLOOD THINNERS? (FOR EXAMPLE- COUMADIN, PLAVIX, AGGRENOX, PLATEL, PRADAXA, OR XARELTO) NO . WHEN WAS YOUR LAST DOSE? DATE: TIME: . NEUROLOGY: HAVE YOU FALLEN IN THE PAST 12 MONTHS? NO . ANY NEW EXTREMITY NUMBNESS OR WEAKNESS? NO . CARDIOLOGY: DO YOU HAVE A PACEMAKER OR DEFIBRILLATOR? NO . RESPIRATORY: HAVE YOU BEEN SICK IN THE PAST WEEK? NO . FEVER NO . FLU LIKE SYMPTOMS? NO . COUGH NO . INTEGUMENTARY: DO YOU HAVE ANY RASHES OR OPEN SORES? NO . ALLERGIC/IMMUNO: ARE YOU ALLERGIC TO IV DYE? NO . ANY NEW ALLERGIES? NO . PSYCHIATRIC: DO YOU HAVE THOUGHTS OF HURTING YOURSELF OR SOMEONE ELSE? NO . ARE YOU ABUSED, NEGLECTED, OR IN AN UNSAFE ENVIRONMENT? NO . ENDOCRINOLOGY: ARE YOU DIABETIC? NO . OTHER: DO YOU NEED ANY PRESCRIPTIONS? NO . IF YES, PLEASE LIST: ____ . ANY NEW PROBLEMS WITH YOUR MEDICATIONS? NO . WHEN DID YOU LAST EAT? 03/06/19 . WHEN DID YOU LAST DRINK? 03/06/19 . WHAT DID YOU LAST DRINK? WATER . NAME OF PERSON DRIVING YOU HOME? WILBERT . DO YOU HAVE ANY OTHER QUESTIONS OR CONCERNS NO . VITAL SIGNS WT 116.8 LBS, HT 63 IN, BMI 20.69 INDEX, BP 102/77 MM HG, HR 83 /MIN, RR 16 /MIN, TEMP 97.5 F, OXYGEN SAT % 99%, NA INITIALS DE 09:03, REVIEWED BY: CHERELLE. ASSESSMENTS MYALGIA, OTHER SITE - M79.18 (PRIMARY) PROCEDURES PN TRIGGER POINT INJECTION NO STEROIDS DATE OF PROCEDURE 03/07/2019 : PRE PROCEDURE DIAGNOSIS 1. MYALGIA 2. PAIN AT RIGHT THORACIC AREA AND BILATERAL LOW BACK AREA POST PROCEDURE DIAGNOSIS 1. MYALGIA 2. PAIN AT RIGHT THORACIC AREA AND BILATERAL LOW BACK AREA PROCEDURE TRIGGER POINT INJECTION AT RIGHT THORACIC AREA AND BILATERAL LOW BACK AREA SURGEON DR. DEBBIE IBRAHIM RADIOLOGY TRANSPORTER NONE ANESTHESIA LOCAL PRE PROCEDURE NOTE 28 YEAR-OLD PATIENT WITH HISTORY OF CHRONIC PAIN AT RIGHT THORACIC AREA AND RIGHT AND LEFT LOW BACK AREA. I EVALUATED THE PATIENT AND REVIEWED THE CHART. THERE IS EVIDENCE OF BANDS OF TISSUE WITH RESTRICTION OF MOVEMENT AND PRESENCE OF TRIGGER POINT AT THE AFFECTED AREA. I WENT OVER THE RISKS, ALTERNATIVES, AND BENEFITS ASSOCIATED WITH THIS PROCEDURE. THE PATIENT WOULD LIKE TO PROCEED AND GAVE CONSENT TO PERFORM THE PROCEDURE. THE PATIENT DENIES UNEXPLAINABLE WEIGHT LOSS, FEVER, CHILLS, OR NEW CHANGES IN URINARY OR BOWEL CONTROL. DESCRIPTION OF PROCEDURE THE PATIENT WAS BROUGHT TO THE PROCEDURE ROOM AND PLACED IN THE SITTING POSITION. THE AREA WAS CLEANED WITH ALCOHOL. THE PROCEDURE WAS DONE USING ASEPTIC STERILE TECHNIQUES. I CHECKED LATERALITY AND THE LEVEL WHERE THE PROCEDURE WAS GOING TO BE PERFORMED WITH THE PATIENT AND THE SUPPORTING STAFF AT THE MOMENT OF THE TIME OUT IN THE PROCEDURE ROOM. USING A 25-GAUGE NEEDLE, TRIGGER POINTS WERE INJECTED WITH A TOTAL OF 40 ML OF BUPIVACAINE 0.25%. AGREED WITH THE PATIENT THE PROCEDURE WAS DONE WITHOUT STEROIDS. THERE WAS NO EVIDENCE OF BLOOD, PARESTHESIA OR CEREBROSPINAL FLUID DURING THE PROCEDURE. THE PATIENT WAS SENT TO THE RECOVERY ROOM. THE PATIENT WAS MOVING THE EXTREMITIES AND DOING WELL. THERE WAS NO COMPLICATION DURING THE PROCEDURE. POST PROCEDURE NOTE THE PATIENT WILL BE SEEN IN A FOLLOW UP IN THE NEXT FEW WEEKS. INSTRUCTIONS WERE GIVEN, QUESTIONS WERE ANSWERED, AND THE PATIENT EXPRESSED UNDERSTANDING AND AGREED WITH THE PLAN. I, JAIME GANN, DOCUMENTED THE ABOVE INFORMATION ACTING A SCRIBE FOR DR. IBRAHIM. I HAVE REVIEWED THE ABOVE DOCUMENT, WRITTEN BY JAIME POLO AND I VERIFY THAT IT IS ACCURATE. PROCEDURE CODES 04884 INJECT TRIGGER POINTS 3/> DISPOSITION & COMMUNICATION FOLLOW UP 3 WEEKS ELECTRONICALLY SIGNED BY DEBBIE IBRAHIM MD, MD ON 03/21/2019 AT 04:52 PM EDT DISCLAIMER : THIS IS A VISIT SUMMARY EXTRACTED FROM THE [employer] CHART. IT IS NOT A COPY OF THE [employer] PROGRESS NOTE. [facility]PITAL[facility]en
== END ==
LOC: M PAIN 09:45
PROVIDERS: ATTEND Anesthesiology
DX: M79.18 Myalgia, other site (principal); M54.6 Pain in thoracic spine; M54.2 Cervicalgia; I45.6 Pre-excitation syndrome; G43.909 Migraine, unspecified, not intractable, without status migrainosus; M40.209 Unspecified kyphosis, site unspecified; Z79.899 Other long term (current) drug therapy; Z88.1 Allergy status to other antibiotic agents; Z88.8 Allergy status to other drugs, medicaments and biological substances; Z86.79 Personal history of other diseases of the circulatory system; Z86.59 Personal history of other mental and behavioral disorders

== ENCOUNTER → 2019-03-22 | Outpatient (REF) | payer OTHER ==
[~2019-03-22] MED LIST changes: -BUPIVACAINE HCL 0.25% 10 ML VIAL As Ordered ONE; -BUPIVACAINE HCL 0.25% 30 ML VIAL As Ordered ONE
== END ==
LOC: M LAB REF 17:29
PROVIDERS: ATTEND Advanced Practice Midwife
DX: Z34.82 Encounter for supervision of other normal pregnancy, second trimester (principal); Z3A.00 Weeks of gestation of pregnancy not specified

== ENCOUNTER → 2019-03-31 | Outpatient (CLI) | payer OTHER ==
[~2019-03-31] MED LIST changes: +CEPH500C
--- NOTE | 2019-03-31 16:06 | REP ---
Clinical: Anatomical evaluation. Comparison: 01/22/2019 . Findings: Examination demonstrates a single live intrauterine in cephalic presentation. motion is identified by technologist. Placenta is noted anterior and grade grade zero without evidence for placenta previa or abruption. Amniotic fluid volume is normal. Cervix measures 3.3 cm in length and appears closed. No evidence for nuchal cord. Gestational age by LMP 17 weeks 4 days with LILO 09/04/2019 . Gestational age by current measurements 19 weeks 5 days with LILO 08/20/2019 . BPD 4.8 cm 20 weeks 3 days HC 17.5 cm 20 weeks 0 days AC 14.2 cm 19 weeks 4 days FL 2.5 cm 17 weeks 3 days HC/AC ratio 1.23 Estimated weight 157 grams ( 26th percentile based on age by first ultrasound and current measurements ). Anatomical assessment demonstrates normal structures including cranium, choroid plexus, cavum, cerebellum/posterior fossa, facial features, lungs, four-chamber heart/ventricular outflow tracts, diaphragm, stomach, cord insertion/three-vessel cord, kidneys/bladder, spine, and extremities. Impression: Single live intrauterine in cephalic presentation demonstrating appropriate interval growth when compared to first ultrasound. Anatomical assessment is complete and normal. No gross abnormalities are identified.
== END ==
LOC: M WHC 12:56
PROVIDERS: ATTEND Advanced Practice Midwife
DX: Z34.82 Encounter for supervision of other normal pregnancy, second trimester (principal); Z36.89 Encounter for other specified antenatal screening; Z3A.17 17 weeks gestation of pregnancy

== ENCOUNTER 2019-04-02 18:39 | Emergency (ER) | payer OTHER ==
[~2019-04-02] VITALS: Ht 160 cm; Wt 51.9 kg
[~2019-04-02 18:39] MED LIST changes: -CEPH500C
[2019-04-02] MEDS ORDERED: CEPH500C (19:28)
[2019-04-02] MEDS ORDERED: NS 1,000 ML IV ONE (20:15)
[2019-04-02] MEDS ORDERED: METOCLOPRAMIDE INJ 10MG/2ML VIAL (J2765) IV ONE (20:15)
[2019-04-02 20:28] LABS: BASO % 0.4 % (0.0-1.0); EOS # 0.1 10^3/uL (0.0-0.50); EOS % 1.3 % (0.0-3.0); HEMATOCRIT 34.6 % (36.0-47.0); HEMOGLOBIN 11.6 g/dl (12.0-15.5); LYMPH # 1.4 10^3/uL (1.5-6.5); LYMPH % 20.7 % (24.0-44.0); MEAN CORPUSCULAR HEMOGLOBIN 31.5 pg (27.0-33.0); MEAN CORPUSCULAR HGB CONC 33.5 g/dl (32.0-36.5); MONO # 0.4 10^3/uL (0.0-0.8); MONO % 6.4 % (0.0-5.0); NEUTROPHILS # 4.7 10^3/uL (1.8-7.7); NEUTROPHILS % 70.6 % (36.0-66.0); PLATELET COUNT, AUTOMATED 151 10^3/uL (150-450); RED BLOOD COUNT 3.68 10^6/uL (4.00-5.40); WHITE BLOOD COUNT 6.7 10^3/uL (4.0-10.0)
[2019-04-02 20:52] LABS: BLOOD UREA NITROGEN 5 MG/DL (7-18); CARBON DIOXIDE LEVEL 25 MEQ/L (21-32); CHLORIDE LEVEL 107 MEQ/L (98-107); CREATININE FOR GFR 0.44 MG/DL (0.55-1.30); GLOMERULAR FILTRATION RATE > 60.0 (>60); GLUCOSE, FASTING 76 MG/DL (70-100); POTASSIUM SERUM 3.5 MEQ/L (3.5-5.1); SODIUM LEVEL 139 MEQ/L (136-145)
[2019-04-02 21:31] VITALS: BP 98/59
[2019-04-07 00:11] LABS: Lyme Disease IgG/IgM Antibodie <0.91 ISR (0.00-0.90); Lyme Disease IgM Ab Quantitati <0.80 index (0.00-0.79)
== END 2019-04-02 21:33 | disposition home or self-care (01) ==
LOC: M ED 18:39
DX: O99.89 Other specified diseases and conditions complicating pregnancy, childbirth and the puerperium (principal); R51 Headache; R53.81 Other malaise; R50.9 Fever, unspecified; O99.42 Diseases of the circulatory system complicating childbirth; I45.6 Pre-excitation syndrome; Z3A.19 19 weeks gestation of pregnancy; Z88.0 Allergy status to penicillin; Z79.2 Long term (current) use of antibiotics
CPT/HCPCS: 80048; 81001; 85025; 86617; 87086; 96374; 99284; J2765

== ENCOUNTER → 2019-05-19 | Outpatient (CLI) | payer OTHER ==
[~2019-05-19] MED LIST changes: +CEPH500C
[2019-05-19 20:18] LABS: HEMATOCRIT 32.4 % (36.0-47.0); HEMOGLOBIN 10.6 g/dl (12.0-15.5); MEAN CORPUSCULAR HEMOGLOBIN 30.9 pg (27.0-33.0); MEAN CORPUSCULAR HGB CONC 32.7 g/dl (32.0-36.5); MEAN CORPUSCULAR VOLUME 94.5 fl (80.0-96.0); PLATELET COUNT, AUTOMATED 154 10^3/uL (150-450); RED BLOOD COUNT 3.43 10^6/uL (4.00-5.40); WHITE BLOOD COUNT 7.2 10^3/uL (4.0-10.0)
== END ==
LOC: M WUC 15:17
PROVIDERS: ATTEND Advanced Practice Midwife
DX: Z36.89 Encounter for other specified antenatal screening (principal); Z3A.00 Weeks of gestation of pregnancy not specified

== ENCOUNTER → 2019-07-12 | Outpatient (CLI) | payer OTHER ==
[2019-07-12 19:36] LABS: HEMATOCRIT 33.4 % (36.0-47.0); HEMOGLOBIN 10.9 g/dl (12.0-15.5); MEAN CORPUSCULAR HEMOGLOBIN 29.1 pg (27.0-33.0); MEAN CORPUSCULAR HGB CONC 32.6 g/dl (32.0-36.5); MEAN CORPUSCULAR VOLUME 89.3 fl (80.0-96.0); PLATELET COUNT, AUTOMATED 163 10^3/uL (150-450); RED BLOOD COUNT 3.74 10^6/uL (4.00-5.40); WHITE BLOOD COUNT 7.8 10^3/uL (4.0-10.0)
[2019-07-12 19:55] LABS: ALBUMIN 3.2 GM/DL (3.2-5.2); ALT/SGPT 23 U/L (12-78); BILIRUBIN,TOTAL 0.6 MG/DL (0.2-1.0); BLOOD UREA NITROGEN 5 MG/DL (7-18); CALCIUM LEVEL 9.2 MG/DL (8.5-10.1); CARBON DIOXIDE LEVEL 26 MEQ/L (21-32); CHLORIDE LEVEL 105 MEQ/L (98-107); GLOMERULAR FILTRATION RATE > 60.0 (>60); GLUCOSE, FASTING 79 MG/DL (70-100); POTASSIUM SERUM 4.1 MEQ/L (3.5-5.1); SODIUM LEVEL 138 MEQ/L (136-145); TOTAL PROTEIN 6.5 GM/DL (6.4-8.2)
== END ==
LOC: M LAB 19:11
PROVIDERS: ATTEND Advanced Practice Midwife
DX: O99.89 Other specified diseases and conditions complicating pregnancy, childbirth and the puerperium (principal); L50.8 Other urticaria

== ENCOUNTER → 2019-07-26 | Outpatient (REF) | payer OTHER | LOC: M LAB REF 17:03 | PROVIDERS: ATTEND Specialist | DX: Z36.85 Encounter for antenatal screening for Streptococcus B (principal) ==

== ENCOUNTER 2019-08-14 04:40 | Outpatient (CLI) | payer OTHER ==
[~2019-08-14] VITALS: Ht 160 cm; Wt 57.8 kg
[~2019-08-14 04:40] MED LIST changes: +CLON0.5T2 PO; -CLON0.5T8 PO; +FLUO10CA15 PO; -FLUO10CA8 PO
[2019-08-14 05:04] VITALS: BP 128/86
[2019-08-14 06:33] VITALS: BP 137/85
[2019-08-14] MEDS ORDERED: ACETAMINOPHEN 500 MG TAB PO ONE (08:45)
== END 2019-08-14 09:20 | disposition home or self-care (01) ==
LOC: M LDO 04:40
PROVIDERS: ATTEND Obstetrics & Gynecology
DX: O47.1 False labor at or after 37 completed weeks of gestation (principal); Z3A.38 38 weeks gestation of pregnancy

== ENCOUNTER 2019-08-18 09:32 | Inpatient (IN) | payer OTHER ==
[2019-08-18] VITALS (19 sets, daily range): BP systolic 109–142; BP diastolic 59–84
[~2019-08-18] VITALS: Ht 160 cm; Wt 57.1 kg
[2019-08-18] MEDS ORDERED: OXYTOCIN DRIP 30 UNITS in IV 1 EA IV SCH ×2 (09:45→16:58)
[2019-08-18] MEDS ORDERED: MAPA500T2 PO (09:55)
[2019-08-18] MEDS: LR 1,000 ML IV SCH ×2 (11:01→15:24)
[2019-08-18 11:12] LABS: HEMATOCRIT 33.4 % (36.0-47.0); HEMOGLOBIN 10.4 g/dl (12.0-15.5); MEAN CORPUSCULAR HEMOGLOBIN 26.5 pg (27.0-33.0); MEAN CORPUSCULAR HGB CONC 31.1 g/dl (32.0-36.5); MEAN CORPUSCULAR VOLUME 85.2 fl (80.0-96.0); PLATELET COUNT, AUTOMATED 168 10^3/uL (150-450); RED BLOOD COUNT 3.92 10^6/uL (4.00-5.40)
[2019-08-18] MEDS ORDERED: ONDANSETRON 4MG/2ML VIAL (J2405) IV ONE (12:45)
[2019-08-18] MEDS ORDERED: FENTANYL 2MCG/ML ROPIVACAINE 0.2% IN 0.9% NACL 100ML IVBAG As Ordered ONE (14:21)
--- NOTE | 2019-08-18 14:59 | HPE ---
DATE OF ADMISSION: 08/18/2019 REASON FOR ADMISSION: Induction of labor. HISTORY OF PRESENT ILLNESS: Ms Ballard is a 29-year-old 3, para 2 presents at 39 weeks 0 days estimated gestational age by last menstrual period confirmed by a first trimester ultrasound here for induction of labor. Her course been unremarkable. She initiated care in her first trimester and has been appropriate throughout. PAST MEDICAL HISTORY: 1. History of scoliosis. 2. Obpod-Ltatlndxn-Fgrvs syndrome PAST SURGICAL HISTORY: 1. She has had three cardiac ablations the last in April 2018, currently has a loop recorder on anterior chest wall. 2. She has had corrective surgery for scoliosis using bone graft. OBSTETRICAL HISTORY: She is 3, para 2. She has had two term vaginal deliveries. She is proven to 7 pounds 11 ounces. MEDICATIONS INCLUDE - BuSpar - vitamins. ALLERGIES: TRAMADOL, AMOXICILLIN. SOCIAL HISTORY: Denies any alcohol, tobacco or drug use during . PHYSICAL EXAMINATION: VITAL SIGNS: Stable. She is afebrile. heart rate 120 with moderate variability and no decelerations. Irregular contractions on tocometer. GENERAL APPEARANCE: Well appearing, no acute distress. LUNGS: Clear to auscultation bilaterally. CARDIOVASCULAR: Heart regular rate and rhythm. ABDOMEN: Gravid, nontender. Estimated weight (EFW) 3400 grams. CERVICAL EXAM: She is 2-3 cm dilated previously, 80% effaced, -2 station. LABS: Blood type is O+, antibody screen is negative. Rubella is immune. RPR is nonreactive. Hepatitis surface antigen negative. HIV is negative. Hepatitis C nonreactive. Chlamydia and gonorrhea screens were negative. She had a panoramic showing a low risk female. She had elevated 1-hour Glucola of 135 but a normal 3-hour glucose tolerance test and she is GBS negative. ASSESSMENT 1. Ms. Ballard is a 29-year-old 3, para 2 at 39 weeks 0 days estimated gestational age here for elective induction of labor. 2. Reassuring status. PLAN: 1. Admit to Labor delivery CBC, RPR, type and screen. 2. Will initiate her induction with Pitocin. 3. Anticipate spontaneous vaginal delivery. [facility]
[2019-08-18] MEDS ORDERED: ONDANSETRON 4MG/2ML VIAL (J2405) IV PRN ×2 (16:00→17:00)
[2019-08-18] MEDS ORDERED: LACTATED RINGER'S 1000 ML IV PRN (16:00)
[2019-08-18] MEDS ORDERED: REFRIGERATOR IV KEYS XX PRN (16:00)
[2019-08-18] MEDS ORDERED: NALOXONE INJ 0.4 MG/1 ML VIAL (J2310) IV PRN (16:00)
[2019-08-18] MEDS ORDERED: diphenhydrAMINE INJ 50MG/ML VIAL (J1200) IV PRN (16:00)
[2019-08-18] MEDS ORDERED: EPIDURAL/PCA KEYS XX PRN (16:00)
[2019-08-18] MEDS ORDERED: FENTANYL/ROPIVACAINE/NACL BAG 100 ML EPIDURAL SCH (16:00)
[2019-08-18] MEDS ORDERED: ePHEDrine SULFATE 25 MG/5 ML(5MG/ML) SYRINGE IV PRN (16:00)
[2019-08-18] MEDS ORDERED: EPIDURAL COMMENT XX SCH (16:00)
[2019-08-18] MEDS ORDERED: METHYLERGONOVINE MALEATE 0.2 MG TAB PO PRN (17:00)
[2019-08-18] MEDS ORDERED: IBUPROFEN 600 MG TAB PO PRN (17:00)
[2019-08-18] MEDS ORDERED: MEASLES,MUMPS,RUBELLA VACCINE INJ (MMR-II) (90707) SC SCH (17:00)
[2019-08-18] MEDS ORDERED: ACETAMINOPHEN 500 MG TAB PO PRN (17:00)
[2019-08-18] MEDS ORDERED: DOCUSATE SODIUM 100 MG CAP PO PRN (17:00)
[2019-08-18] MEDS ORDERED: DIBUCAINE 1% OINTMENT 30GM TOP PRN (17:00)
[2019-08-18] MEDS ORDERED: RHOGAM 300 MCG (1500 IU) INJ (J2790) IM SCH (17:00)
[2019-08-18] MEDS ORDERED: ANUSOL HC CREAM 30GM TOP PRN (17:00)
[2019-08-18] MEDS ORDERED: ACETAMINOPHEN TAB 650MG DOSE (2X325MG) PO PRN (17:00)
[2019-08-18] MEDS: cefoTEtan DISODIUM 2 GM in D5W MINI-BAG PLUS 50 ML IV SCH (17:51)
--- NOTE | 2019-08-18 18:56 | DN ---
DATE: 08/18/2019 TIME OF : 1603 GENDER: Female. SCORES: 8 and 9. WEIGHT: 3290 grams or 7 pounds, 4 ounces. LACERATIONS: None. ANESTHESIA: Epidural. COUNTS: Five laparotomy sponges accounted for prior to and after delivery. ESTIMATED BLOOD LOSS: 300 mL. COMPLICATIONS: Retained placenta with manual extraction of placenta. DELIVERY NOTE: On 08/18/2019 at 1603, Ms. Ballard, a 29-year-old 3, para 3 had a spontaneous vaginal delivery of a live born female infant, scores 8 and 9, weight was 7 pounds, 4 ounces or 3290 grams. Head was delivered occiput anterior (OA) over intact perineum and there was nuchal cord which was manually reduced followed by delivery of the shoulders and corpus. was handed mother with a good cry. Cord was clamped times two and was cut by the father of the baby under my direction. The placenta was then drained. Attempted removal of the placenta was unsuccessful. There was a manual extraction of the placenta. This was done in several sweeps. The majority of the placenta was removed in one sweep and membranes and a small amount of placenta was extracted with further manual extractions. A premixed bag of 500 mL normal saline with 30 units of Pitocin was then bolused along with uterine massage. The uterus was firm. On inspection, cervix, vagina and perineum were grossly intact and hemostatic. Mother and the baby recovered in stable condition. Ms. Ballard will continue on antibiotics for 24 hours secondary to manual extraction.
[2019-08-18] MEDS: IBUPROFEN 800 MG TAB PO PRN (22:41)
[2019-08-19] MEDS: cefoTEtan DISODIUM 2 GM in D5W MINI-BAG PLUS 50 ML IV SCH ×2 (04:45→17:06)
[2019-08-19 06:20] VITALS: BP 130/66
[2019-08-19] MEDS: IBUPROFEN 800 MG TAB PO PRN ×2 (08:20→17:06)
[2019-08-19] MEDS: PRENATAL VITAMINS CHEWABLE TABLET PO SCH (08:20)
[2019-08-19] MEDS ORDERED: INFLUENZA QUADRIVALENT PF VACCINE 0.5ML SYRINGE (90686) IM ONE (09:00)
[2019-08-19 18:00] VITALS: BP 106/76
[2019-08-20] MEDS: IBUPROFEN 800 MG TAB PO PRN (05:24)
[2019-08-20 05:35] VITALS: BP 120/73
--- NOTE | 2019-08-20 07:41 | IPNPDOC ---
Text Note Date of Service The patient was seen on 08/20/19. NOTE Feels well. Discharged again today. VSS, afebrile, normotensive Fundus firm, NT Lochia rubra light without odor Perineum well approximated without edema Home. Routine precautions. Pelvic rest. Call with increased temp, N/V, foul lochia, increased bleeding. RTO 6 wks and as needed. VS,Fishbone, I+O VS, Fishbone, I+O Vital Signs Date Time Temp Pulse Resp B/P (MAP) Pulse Ox O2 Delivery O2 Flow Rate FiO2 08/20/19 05:35 98.5 80 16 120/73 (89 97 I&O- Last 24 Hours up to 6 AM 08/20/19 06:00 Intake Total 50 ml Balance 50 ml Destini Tejada CNM Aug 20, 2019 07:40
[2019-08-20] MEDS: PRENATAL VITAMINS CHEWABLE TABLET PO SCH (08:31)
== END 2019-08-20 10:35 | disposition home or self-care (01) | DRG 541 ==
LOC: M LDI 09:32 → M OBS 18:39
PROVIDERS: ADMIT Obstetrics & Gynecology; ATTEND Obstetrics & Gynecology
PROC: 10E0XZZ Delivery of Products of Conception, External Approach (ICD-10-PCS; principal; 2019-08-18)
PROC: 10D17Z9 Manual Extraction of Products of Conception, Retained, Via Natural or Artificial Opening (ICD-10-PCS; 2019-08-18)
PROC: 3E033VJ Introduction of Other Hormone into Peripheral Vein, Percutaneous Approach (ICD-10-PCS; 2019-08-18)
DX: O99.42 Diseases of the circulatory system complicating childbirth (principal); I45.6 Pre-excitation syndrome; Z3A.39 39 weeks gestation of pregnancy; Z37.0 Single live birth; O73.0 Retained placenta without hemorrhage

== ENCOUNTER → 2019-09-30 | Outpatient (CLI) | payer OTHER ==
[~2019-09-30] MED LIST changes: -CLON0.5T2 PO; +CLON0.5T8 PO; -FLUO10CA15 PO; +FLUO10CA8 PO; +MAPA500T2 PO
--- NOTE | 2019-10-03 23:54 | ECWPNPC ---
PATIENT NAME: QUENTIN SANDS : 1990 GENDER: FEMALE VISIT DATE: 09/30/2019 DISCHARGE DATE: 09/30/19 1031 VISIT LOCKED DATE TIME: PHYSICIAN: KAREEM ADAMS RESOURCE: KAREEM ADAMS REASON FOR APPOINTMENT 1. INCREASED PAIN HISTORY OF PRESENT ILLNESS HISTORY OF PRESENT ILLNESS: PAIN THE PATIENT DESCRIBES THE PAIN... 29-YEAR-OLD FEMALE IN FOR CHRONIC PAIN CONSULT. PATIENT HAS BEEN SEEN IN THE CLINIC PRIOR TO THIS VISIT AND WAS PREVIOUSLY PRESCRIBED HYDROCODONE AND TIZANIDINE NEEDED FOR PAIN. PATIENT RATES HER PAIN CURRENTLY AT A 9 OUT OF 10 AND DESCRIBES IT ACHING, SHARP, BURNING, STABBING, SORE, SHOOTING, AND TENDER. PATIENT ALSO ADMITS TO FREQUENT MIGRAINE HEADACHES. FALL RISK SCREENING: SCREENING :NO FALLS REPORTED IN THE LAST YEAR CURRENT MEDICATIONS TAKING SEROQUEL 50 MG TABLET 1 TABLET ORALLY ONCE A DAY, NOTES: WAITING FOR PRESCRIPTIOM TAKING ACETAMINOPHEN 325 MG TABLET 1 TABLET NEEDED ORALLY EVERY 4 HRS TAKING BENADRYL NOT-TAKING DIGOXIN 125 MCG TABLET 1 TABLET ORALLY ONCE A DAY NOT-TAKING IBUPROFEN 800 MG TABLET 1 TABLET ORALLY THREE TIMES A DAY NOT-TAKING KLONOPIN 0.5 MG TABLET 1 TABLET ORALLY TWICE A DAY NOT-TAKING GABAPENTIN 100 MG CAPSULE 2 CAP ORALLY THREE TIMES DAILY NOT-TAKING PROTONIX 40 MG PACKET 1 CAPSULE ORALLY ONCE A DAY NEEDED NOT-TAKING PREDNISONE 5 MG TABLET 1 TABLET ORALLY THREE TIMES A DAY NOT-TAKING ATENOLOL 25 MG TABLET 1 TABLET ORALLY ONCE A DAY AT BEDTIME NOT-TAKING TIZANIDINE HCL 4 MG TABLET 1 TABLET ORALLY EVERY 8 HRS NOT-TAKING TIZANIDINE HCL 2 MG TABLET 1/2 - 1 TABLET ORALLY BID PRN SPASM NOT-TAKING METOPROLOL SUCCINATE ER 50 MG TABLET EXTENDED RELEASE 24 HOUR 1 TABLET ORALLY ONCE A DAY NOT-TAKING HYDROCODONE-ACETAMINOPHEN 5-325 MG TABLET 1 TABLET NEEDED ORALLY Q8H PRN PAIN MDD3 #45 TAB SHOULD LAST 30 DAYS, NOTES: OKAY TO FILL ON 11/09/18 NOT-TAKING ZOFRAN 4 MG TABLET 1 TABLET NEEDED ORALLY EVERY 4 HRS PRN NAUSEA, NOTES: 03/06/19 NOT-TAKING 28-0.8 MG TABLET 1 TABLET ORALLY ONCE A DAY, NOTES: 03/06/19 PAST MEDICAL HISTORY 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 MOM-COPD. SOCIAL HISTORY GENERAL: TOBACCO USE ARE YOU A: NONSMOKER. EDUCATION LEVEL OF EDUCATION:NOT FINISHED HIGH SCHOOL 9TH GRADE DIET: REGULAR. LANGUAGE LANGUAGES SPOKEN:[place] RECREATIONAL DRUG USE DRUG USE? NO. EXERCISE: DAILY, WALKS. 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 N/A HAS THE PATIENT BEEN EDUCATED REGARDING HIS/HER PLAN OF CARE?YES HAS THE PATIENT BEEN EDUCATED REGARDING PAIN, THE RISK FOR PAIN, THE IMPORTANCE OF EFFECTIVE PAIN MANAGEMENT, AND THE PAIN ASSESSMENT PROCESS?YES LATEX QUESTIONNAIRE LATEX ALLERGY : HAVE YOU EVER DEVELOPED ANY TYPE OF REACTION AFTER HANDLING LATEX PRODUCTS SUCH RUBBER GLOVES, CONDOMS, DIAPHRAGMS, BALLOONS, SOCKS, OR UNDERWEAR?NO LATEX ALLERGY : HAVE YOU EVER DEVELOPED ANY TYPE OF REACTION DURING OR AFTER DENTAL APPOINTMENT, VAGINAL/RECTAL EXAMINATION, SURGICAL PROCEDURE, OR ANY OTHER EXPOSURE?NO DATE ASKED : 02/23/2019 LATEX RISK : HAVE YOU EVER HAD ANY DIFFICULTY BREATHING OR HIVES AFTER EATING OR HANDLING ANY FRUITS, OR VEGETABLES; SUCH KIWI, BANANAS, STONE FRUITS, OR CHESTNUTSNO LATEX RISK : DO YOU HAVE A PREVIOUS PERSONAL HISTORY OF MORE THAN NINE SURGERIES, SPINA BIFIDA, OR REPEATED CATHERIZATIONS? NO LATEX RISK : ARE YOU FREQUENTLY EXPOSED TO LATEX PRODUCTS IN YOUR OCCUPATION?NO CAFFEINE CAFFEINE USE? NO. ADVANCE DIRECTIVE ADVANCE DIRECTIVE DISCUSSED WITH PATIENT:YES HCP [facility] [phone] [facility] [id number] NONE ALCOHOL SCREENING HOW OFTEN DID YOU HAVE A DRINK CONTAINING ALCOHOL IN THE PAST YEAR? NEVER (0 POINTS) , DID YOU HAVE A DRINK CONTAINING ALCOHOL IN THE PAST YEAR? NO , DID YOU HAVE A DRINK CONTAINING ALCOHOL IN THE PAST YEAR? YES , POINTS 0 , POINTS 0 , INTERPRETATION NEGATIVE , INTERPRETATION NEGATIVE. OCCUPATION: NOT WORKING. HOSPITALIZATION/MAJOR DIAGNOSTIC PROCEDURE SEE ABOVE SURGURIES MENTAL HEALTH CHILD X 2 REVIEW OF SYSTEMS REVIEWED BY: PROVIDER: HANNAH ADAMS SENIOR COMMERCIAL LOAN OFFICER-C . CONSTITUTIONAL: ANY CHANGE IN YOUR MEDICAL CONDITION? NO . CHILLS NO . FEVER NO . INFECTION: DO YOU HAVE NEW INFECTIONS? NO . DO YOU HAVE HISTORY OF MRSA? NO . MUSCULOSKELETAL: ANY NEW PATTERNS OF PAIN OR NUMBNESS? NO . GASTROENTEROLOGY: ANY NEW CHANGE IN BOWEL CONTROL? NO . GENITOURINARY: ANY NEW CHANGE IN BLADDER CONTROL? NO . IS THERE A CHANCE YOU COULD BE ? NO . HEMATOLOGY/LYMPH: DO YOU TAKE ANY BLOOD THINNERS? (FOR EXAMPLE- COUMADIN, PLAVIX, AGGRENOX, PLATEL, PRADAXA, OR XARELTO) NO . WHEN WAS YOUR LAST DOSE? DATE: TIME: . NEUROLOGY: HAVE YOU FALLEN IN THE PAST 12 MONTHS? NO . ANY NEW EXTREMITY NUMBNESS OR WEAKNESS? NO . CARDIOLOGY: DO YOU HAVE A PACEMAKER OR DEFIBRILLATOR? NO . RESPIRATORY: HAVE YOU BEEN SICK IN THE PAST WEEK? NO . FEVER NO . FLU LIKE SYMPTOMS? NO . COUGH NO . INTEGUMENTARY: DO YOU HAVE ANY RASHES OR OPEN SORES? NO . ALLERGIC/IMMUNO: ARE YOU ALLERGIC TO IV DYE? NO . ANY NEW ALLERGIES? NO . PSYCHIATRIC: DO YOU HAVE THOUGHTS OF HURTING YOURSELF OR SOMEONE ELSE? NO . ARE YOU ABUSED, NEGLECTED, OR IN AN UNSAFE ENVIRONMENT? NO . ENDOCRINOLOGY: ARE YOU DIABETIC? NO . OTHER: DO YOU NEED ANY PRESCRIPTIONS? NO . IF YES, PLEASE LIST: ____ . ANY NEW PROBLEMS WITH YOUR MEDICATIONS? NO . WHEN DID YOU LAST EAT? ____ . WHEN DID YOU LAST DRINK? ____ . WHAT DID YOU LAST DRINK? ____ . NAME OF PERSON DRIVING YOU HOME? ____ . DO YOU HAVE ANY OTHER QUESTIONS OR CONCERNS NO . VITAL SIGNS WT 112.8 LBS, HT 63 IN, BMI 19.98 INDEX, BP 130/79 MM HG, HR 72 /MIN, RR 16 /MIN, TEMP 97.3 F, OXYGEN SAT % 97%, NA INITIALS AW 0926. EXAMINATION GENERAL EXAMINATION: GENERALNO ACUTE DISTRESS, WELL NOURISHED AND HYDRATED. PSYCHAPPROPRIATE MOOD AND AFFECT . LUNGS:CLEAR TO AUSCULTATION BILATERALLY, NO WHEEZES, RHONCHI, RALES. HEART:NO MURMURS, REGULAR RATE AND RHYTHM. 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 CLINICAL NOTES: 29-YEAR-OLD FEMALE IN FOR CHRONIC PAIN CONSULT GIVEN PRESENTING SYMPTOMS AND RESULTS OF PHYSICAL EXAMINATION RECOMMENDED RESTARTING HYDROCODONE AND TIZANIDINE WITH FOLLOW-UP IN ONE MONTH TO DETERMINE EFFICACY OF TREATMENT. FURTHER RECOMMENDED BOTOX INJECTIONS FOR PATIENT'S MIGRAINES. PATIENT HAS EXPRESSED UNDERSTANDING OF AND WAS IN AGREEMENT WITH TREATMENT PLAN. GIVEN TIME TO ASK QUESTIONS AND EXPRESS CONCERNS., ISTOP REGISTRY REVIEWED AND DEMONSTRATES COMPLLIANCE. (REF # [id number] ) BRINGS IN MEDICATIONS WHICH IS APPROPRIATE FOR WHAT WAS DISPENSED. RECENT URINE TOXICOLOGY REVIEWED. NO UNAUTHORIZED MEDICATIONS. NO ILLICIT SUBSTANCES AND PRESCRIBED MEDICATIONS WERE PRESENT. PROCEDURE CODES FA211 ESTABILISHED PATIENT [facility] CHARGE DISPOSITION & COMMUNICATION FOLLOW UP 4 WEEKS, POST BOTOX INJECTION (REASON: BACK PAIN MEDICATION, BOTOX INJECTION FOR MIGRAINES) ELECTRONICALLY SIGNED BY HALEY TOMLINSON ON 10/03/2019 AT 08:38 AM EST DISCLAIMER : THIS IS A VISIT SUMMARY EXTRACTED FROM THE [employer] CHART. IT IS NOT A COPY OF THE [employer] PROGRESS NOTE. [facility]ENTERHelen
== END ==
LOC: M PAIN 09:15
PROVIDERS: ATTEND Family Medicine
DX: M96.1 Postlaminectomy syndrome, not elsewhere classified (principal); Z79.891 Long term (current) use of opiate analgesic; G43.119 Migraine with aura, intractable, without status migrainosus

== ENCOUNTER → 2019-10-26 | Outpatient (CLI) | payer OTHER ==
[~2019-10-26] MED LIST changes: +BOTULINUM INJ 100 UNITS (J0585) IM ONE; +CLON0.5T2 PO; -CLON0.5T8 PO; +FLUO10CA15 PO; -FLUO10CA8 PO; +NORCO, ANEXSIA 5/325MG TABLET (HYDROcodone/ACETAMINOPHEN) As Ordered ONE; +ONDANSETRON 4 MG ORAL DISINTEGRATING TAB (Q0162 PER 1MG) As Ordered ONE; +diazePAM 5 MG TAB As Ordered ONE
--- NOTE | 2019-10-29 00:45 | ECWPNPC ---
PATIENT NAME: QUENTIN SANDS : 1990 GENDER: FEMALE VISIT DATE: 10/26/2019 DISCHARGE DATE: 10/26/19 1445 VISIT LOCKED DATE TIME: PHYSICIAN: DEBBIE IBRAHIM MD RESOURCE: DEBBIE IBRAHIM MD REASON FOR APPOINTMENT 1. BOTOX HISTORY OF PRESENT ILLNESS HISTORY OF PRESENT ILLNESS: PAIN THE PATIENT DESCRIBES THE PAIN... FALL RISK SCREENING: SCREENING :NO FALLS REPORTED IN THE LAST YEAR CURRENT MEDICATIONS TAKING SEROQUEL 50 MG TABLET 1 TABLET ORALLY ONCE A DAY, NOTES: NONE RECENTLY TAKING TIZANIDINE HCL 4 MG TABLET 1 TABLET NEEDED ORALLY BID PRN SPASM, NOTES: 10/25/19 2100 TAKING HYDROCODONE-ACETAMINOPHEN 5-325 MG TABLET 1 TABLET NEEDED ORALLY Q8H PRN PAIN MDD3 #45 TAB SHOULD LAST 30 DAYS, NOTES: 10/25/192099 NOT-TAKING DIGOXIN 125 MCG TABLET 1 TABLET ORALLY ONCE A DAY NOT-TAKING IBUPROFEN 800 MG TABLET 1 TABLET ORALLY THREE TIMES A DAY NOT-TAKING KLONOPIN 0.5 MG TABLET 1 TABLET ORALLY TWICE A DAY NOT-TAKING GABAPENTIN 100 MG CAPSULE 2 CAP ORALLY THREE TIMES DAILY NOT-TAKING PROTONIX 40 MG PACKET 1 CAPSULE ORALLY ONCE A DAY NEEDED NOT-TAKING PREDNISONE 5 MG TABLET 1 TABLET ORALLY THREE TIMES A DAY NOT-TAKING ATENOLOL 25 MG TABLET 1 TABLET ORALLY ONCE A DAY AT BEDTIME NOT-TAKING TIZANIDINE HCL 4 MG TABLET 1 TABLET ORALLY EVERY 8 HRS NOT-TAKING METOPROLOL SUCCINATE ER 50 MG TABLET EXTENDED RELEASE 24 HOUR 1 TABLET ORALLY ONCE A DAY NOT-TAKING ZOFRAN 4 MG TABLET 1 TABLET NEEDED ORALLY EVERY 4 HRS PRN NAUSEA, NOTES: 03/06/19 NOT-TAKING 28-0.8 MG TABLET 1 TABLET ORALLY ONCE A DAY, NOTES: 03/06/19 NOT-TAKING ACETAMINOPHEN 325 MG TABLET 1 TABLET NEEDED ORALLY EVERY 4 HRS NOT-TAKING BENADRYL MEDICATION LIST REVIEWED AND RECONCILED WITH THE PATIENT PAST MEDICAL HISTORY 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 MOM-COPD. SOCIAL HISTORY GENERAL: TOBACCO USE ARE YOU A: NONSMOKER. EDUCATION LEVEL OF EDUCATION:NOT FINISHED HIGH SCHOOL 9TH GRADE DIET: REGULAR. LANGUAGE LANGUAGES SPOKEN:ROMANSH RECREATIONAL DRUG USE DRUG USE? NO. EXERCISE: DAILY, WALKS. 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 N/A HAS THE PATIENT BEEN EDUCATED REGARDING HIS/HER PLAN OF CARE?YES HAS THE PATIENT BEEN EDUCATED REGARDING PAIN, THE RISK FOR PAIN, THE IMPORTANCE OF EFFECTIVE PAIN MANAGEMENT, AND THE PAIN ASSESSMENT PROCESS?YES LATEX QUESTIONNAIRE LATEX ALLERGY : HAVE YOU EVER DEVELOPED ANY TYPE OF REACTION AFTER HANDLING LATEX PRODUCTS SUCH RUBBER GLOVES, CONDOMS, DIAPHRAGMS, BALLOONS, SOCKS, OR UNDERWEAR?NO LATEX ALLERGY : HAVE YOU EVER DEVELOPED ANY TYPE OF REACTION DURING OR AFTER DENTAL APPOINTMENT, VAGINAL/RECTAL EXAMINATION, SURGICAL PROCEDURE, OR ANY OTHER EXPOSURE?NO DATE ASKED : 02/23/2019 LATEX RISK : HAVE YOU EVER HAD ANY DIFFICULTY BREATHING OR HIVES AFTER EATING OR HANDLING ANY FRUITS, OR VEGETABLES; SUCH KIWI, BANANAS, STONE FRUITS, OR CHESTNUTSNO LATEX RISK : DO YOU HAVE A PREVIOUS PERSONAL HISTORY OF MORE THAN NINE SURGERIES, SPINA BIFIDA, OR REPEATED CATHERIZATIONS? NO LATEX RISK : ARE YOU FREQUENTLY EXPOSED TO LATEX PRODUCTS IN YOUR OCCUPATION?NO CAFFEINE CAFFEINE USE? NO. ADVANCE DIRECTIVE ADVANCE DIRECTIVE DISCUSSED WITH PATIENT:YES HCP [facility] [phone] TENRIISM [id number] NONE ALCOHOL SCREENING HOW OFTEN DID YOU HAVE A DRINK CONTAINING ALCOHOL IN THE PAST YEAR? NEVER (0 POINTS) , DID YOU HAVE A DRINK CONTAINING ALCOHOL IN THE PAST YEAR? NO , DID YOU HAVE A DRINK CONTAINING ALCOHOL IN THE PAST YEAR? YES , POINTS 0 , POINTS 0 , INTERPRETATION NEGATIVE , INTERPRETATION NEGATIVE. OCCUPATION: NOT WORKING. HOSPITALIZATION/MAJOR DIAGNOSTIC PROCEDURE SEE ABOVE SURGURIES MENTAL HEALTH CHILD X 2 REVIEW OF SYSTEMS REVIEWED BY: PROVIDER: . CONSTITUTIONAL: ANY CHANGE IN YOUR MEDICAL CONDITION? NO . CHILLS NO . FEVER NO . INFECTION: DO YOU HAVE NEW INFECTIONS? NO . DO YOU HAVE HISTORY OF MRSA? NO . MUSCULOSKELETAL: ANY NEW PATTERNS OF PAIN OR NUMBNESS? NO . GASTROENTEROLOGY: ANY NEW CHANGE IN BOWEL CONTROL? NO . GENITOURINARY: ANY NEW CHANGE IN BLADDER CONTROL? NO . IS THERE A CHANCE YOU COULD BE ? NO . HEMATOLOGY/LYMPH: DO YOU TAKE ANY BLOOD THINNERS? (FOR EXAMPLE- COUMADIN, PLAVIX, AGGRENOX, PLATEL, PRADAXA, OR XARELTO) NO . WHEN WAS YOUR LAST DOSE? DATE: TIME: . NEUROLOGY: HAVE YOU FALLEN IN THE PAST 12 MONTHS? NO . ANY NEW EXTREMITY NUMBNESS OR WEAKNESS? NO . CARDIOLOGY: DO YOU HAVE A PACEMAKER OR DEFIBRILLATOR? NO . RESPIRATORY: HAVE YOU BEEN SICK IN THE PAST WEEK? NO . FEVER NO . FLU LIKE SYMPTOMS? NO . COUGH NO . INTEGUMENTARY: DO YOU HAVE ANY RASHES OR OPEN SORES? NO . ALLERGIC/IMMUNO: ARE YOU ALLERGIC TO IV DYE? NO . ANY NEW ALLERGIES? NO . PSYCHIATRIC: DO YOU HAVE THOUGHTS OF HURTING YOURSELF OR SOMEONE ELSE? NO . ARE YOU ABUSED, NEGLECTED, OR IN AN UNSAFE ENVIRONMENT? NO . ENDOCRINOLOGY: ARE YOU DIABETIC? NO . OTHER: DO YOU NEED ANY PRESCRIPTIONS? NO . IF YES, PLEASE LIST: ____ . ANY NEW PROBLEMS WITH YOUR MEDICATIONS? NO . WHEN DID YOU LAST EAT? 10/25/192099 . WHEN DID YOU LAST DRINK? 10/26/192099 . WHAT DID YOU LAST DRINK? ____ . NAME OF PERSON DRIVING YOU HOME? TEOFILO PASTOR . DO YOU HAVE ANY OTHER QUESTIONS OR CONCERNS NO . VITAL SIGNS WT 116.0 LBS, HT 63 IN, BMI 20.55 INDEX, BP 104/72 MM HG, HR 76 /MIN, RR 16 /MIN, TEMP 97.1 F, OXYGEN SAT % 97%, NA INITIALS AW 1139, REVIEWED BY: BARRINGTON. ASSESSMENTS CHRONIC MIGRAINE - G43.709 (PRIMARY) PROCEDURES PN BOTOX INJECTIONS FIRST INJECTION PRE PROCEDURE DIAGNOSIS CHRONIC MIGRAINE HEADACHES. POST PROCEDURE DIAGNOSIS CHRONIC MIGRAINE HEADACHES. PROCEDURE BOTOX INJECTION AT THE HEAD, NECK, AND SHOULDERS SURGEON DR. DEBBIE IBRAHIM FWS FACULTY ASSISTANT NONE ANESTHESIA NONE PRE PROCEDURE NOTE THE PATIENT WITH HISTORY OF CHRONIC MIGRAINE HEADACHES. I EVALUATED THE PATIENT AND REVIEWED THE CHART. I WENT OVER THE RISKS, ALTERNATIVES, AND BENEFITS ASSOCIATED WITH THIS PROCEDURE. THE PATIENT WOULD LIKE TO PROCEED AND GIVES CONSENT TO PERFORM THE PROCEDURE. THE PATIENT DENIES UNEXPLAINABLE WEIGHT LOSS, FEVER, CHILLS, OR NEW CHANGES IN URINARY OR BOWEL CONTROL. THE PATIENT EXPRESSED SUFFERING OF HEADACHES EVERY DAY OF EACH MONTH. THESE HEADACHES LAST MORE THAN 4 HOURS PER DAY. THE PATIENT HAS USED THE MEDICATIONS LISTED IN THE CHART TO TREAT THE HEADACHES FOR MANY MONTHS AND THE HEADACHES PERSIST DESCRIBED ABOVE DESCRIPTION OF PROCEDURE THE PATIENTS WAS BROUGHT TO THE PROCEDURE ROOM AND PLACED IN THE SUPINE POSITION. I CHECKED LATERALITY AND THE AREAS WHERE THE PROCEDURE WAS GOING TO BE PERFORMED WITH THE PATIENT AND THE SUPPORTING STAFF AT THE MOMENT OF THE TIME OUT IN THE PROCEDURE ROOM. FOR THE PROCEDURE I USED A SOLUTION OF 5 UNITS OF BOTOX PER EACH 0.1 ML OF THE SOLUTION. I USED A 30-GAUGE NEEDLE TO INJECT THE SOLUTION AT THE SELECTED LOCATIONS. I INJECTED FIRST THE RIGHT AND LEFT MANDREL MAKER MUSCLES. THE LANDMARK FOR BOTH INJECTIONS WAS APPROXIMATELY 1 CM ABOVE THE SUPERIOR MEDIAL EDGE OF THE EYEBROW. AFTER THESE TWO INJECTIONS, I INJECTED THE PROCERUS MUSCLE AT THE MIDLINE POINT BETWEEN THESE FIRST TWO INJECTIONS. THEN I PROCEEDED TO INJECT THE RIGHT AND LEFT FRONTALIS MUSCLE. TWO INJECTIONS WERE DONE IN EACH SIDE. THE FIRST INJECTION WAS DONE APPROXIMATELY 2 CM ABOVE THE FIRST INJECTION OF THE MANDREL MAKER. THE SECOND INJECTION WAS DONE APPROXIMATELY 1.5 CM LATERAL TO THIS FIST INJECTION OF THE FRONTALIS OF EACH SIDE. AFTER THE INJECTIONS OVER THE FOREHEAD WERE DONE, THE PATIENT'S HEAD WAS TURNED TO THE LEFT SIDE AND WE STARTED TO WORK WITH THE RIGHT TEMPORALIS MUSCLE. FIRST INJECTION WAS DONE IN A VERTICAL LINE OF THE TRAGUS APPROXIMATELY 3 CM ABOVE THE TRAGUS. THE SECOND INJECTION WAS DONE APPROXIMATELY 2 CM ABOVE THE FIRST INJECTION. THE THIRD INJECTION WAS DONE APPROXIMATELY 1 CM FRONT MCINTYRE FROM THIS VERTICAL LINE CREATED AT THE LEVEL OF THE TRAGUS, SENIOR CARE BETWEEN THESE TWO INJECTIONS. THE FOURTH INJECTION WAS DONE APPROXIMATELY 1.5 CM BACK FROM THE SECOND INJECTION TO THE TEMPORALIS IN LINE TO THE MIDPORTION OF THE EAR. THEN, WE PROCEEDED TO INJECT THE LEFT TEMPORALIS MUSCLE. WE CLEANED THE AREA WITH ALCOHOL AND PROCEEDED TO PERFORM THE SAME FOR INJECTIONS DESCRIBED ABOVE BUT IN THE LEFT TEMPORALIS MUSCLE USING THE SAME LANDMARKS. AFTER THESE INJECTIONS WERE DONE, THE PATIENT WAS SEATED. FIRST, WE STARTED TO INJECT THE LEFT AND RIGHT OCCIPITALIS MUSCLE. I INJECTED AT THE FOLLOWING PLACES IN THE RIGHT AND LEFT MUSCLE. THE FIRST INJECTION WAS DONE AT THE MIDPOINT POSITION BETWEEN THE MASTOID PROCESS AND THE INION OF THE OCCIPITAL PROTUBERANCE. THE SECOND INJECTION WAS DONE APPROXIMATELY 1.5 CM SUPERIOR AND LATERAL OF THIS POINT. THE THIRD INJECTION WAS DONE APPROXIMATELY 1.5 CM SUPERIOR AND MEDIAL TO THIS FIRST INJECTION. THEN, I PROCEEDED TO INJECT THE RIGHT AND LEFT PARASPINAL MUSCLES. LANDMARK OF THE INJECTION WERE APPROXIMATELY: FIRST INJECTION 3 CM BELOW THE INION AND 1 CM LATERAL TO THE MIDLINE AND SECOND INJECTION AT EACH SIDE WAS DONE APPROXIMATELY 1.5 CM SUPERIOR AND LATERAL OF THE FIRST INJECTION. THE LAST GROUP OF INJECTIONS WAS DONE OVER THE RIGHT AND LEFT TRAPEZIUS MUSCLE OVER THE SHOULDERS AREA. THE FIRST INJECTION WAS DONE AT THE MIDPOINT BETWEEN THE INFLECTION POINT BETWEEN THE NECK AND SHOULDER AND THE ACROMION. THE SECOND AND THIRD INJECTIONS WERE DONE APPROXIMATELY 2.5 CM LATERAL AND MEDIAL FROM THIS FIRST INJECTION. SAME TARGETS WERE USED IN THE RIGHT AND LEFT SIDE. IN TOTAL, I INJECTED 155 UNITS OF BOTOX. PROCEDURE WAS DONE WITHOUT EVIDENCE OF PARESTHESIA, PNEUMOTHORAX, OR ANY COMPLICATIONS. THE PATIENT TOLERATED THE PROCEDURE VERY WELL. THE PATIENT WAS SENT TO THE RECOVERY ROOM FOR OBSERVATIONS. INJECTIONS WERE DONE AFTER CLEANING WITH ALCOHOL, USING ASEPTIC TECHNIQUES POST PROCEDURE NOTE I AM LOOKING FOR LONG LASTING PAIN RELIEF WITH THIS PROCEDURE. THE PROCEDURE DONE WAS DISCUSSED WITH THE PATIENT. THE PATIENT WILL BE SEEN IN A FOLLOW UP IN THE NEXT FEW WEEKS. INSTRUCTIONS WERE GIVEN, QUESTIONS WERE ANSWERED, AND THE PATIENT EXPRESSED UNDERSTANDING AND AGREES WITH THE PLAN. I, MISHA CRAVEN, DOCUMENTED THE ABOVE INFORMATION ACTING A SCRIBE FOR DR. IBRAHIM. I HAVE REVIEWED THE ABOVE DOCUMENT, WRITTEN BY MISHA CRAVEN SCRIBGuillermina AND I VERIFY THAT IT IS ACCURATE. PROCEDURE CODES 89109 CHEMODENERV MUSC MIGRAINE DISPOSITION & COMMUNICATION FOLLOW UP 3 WEEKS ELECTRONICALLY SIGNED BY DEBBIE IBRAHIM MD, MD ON 10/28/2019 AT 05:07 PM EST DISCLAIMER : THIS IS A VISIT SUMMARY EXTRACTED FROM THE [employer] CHART. IT IS NOT A COPY OF THE [employer] PROGRESS NOTE. SIMI
== END ==
LOC: M PAIN 11:30
PROVIDERS: ATTEND Anesthesiology
DX: G43.709 Chronic migraine without aura, not intractable, without status migrainosus (principal); Z86.59 Personal history of other mental and behavioral disorders; Z88.1 Allergy status to other antibiotic agents; Z88.5 Allergy status to narcotic agent; Z79.899 Other long term (current) drug therapy
CPT/HCPCS: 64615; J0585; Q0162

== ENCOUNTER → 2019-10-28 | Outpatient (CLI) | payer OTHER ==
[~2019-10-28] MED LIST changes: -BOTULINUM INJ 100 UNITS (J0585) IM ONE; -NORCO, ANEXSIA 5/325MG TABLET (HYDROcodone/ACETAMINOPHEN) As Ordered ONE; -ONDANSETRON 4 MG ORAL DISINTEGRATING TAB (Q0162 PER 1MG) As Ordered ONE; -diazePAM 5 MG TAB As Ordered ONE
--- NOTE | 2019-11-01 02:52 | ECWPNPC ---
PATIENT NAME: QUENTIN SANDS : 1990 GENDER: FEMALE VISIT DATE: 10/28/2019 DISCHARGE DATE: 10/28/19 1419 VISIT LOCKED DATE TIME: PHYSICIAN: KAREEM ADAMS RESOURCE: KAREEM ADAMS REASON FOR APPOINTMENT 1. [facility]/BACK- ON WAY HISTORY OF PRESENT ILLNESS HISTORY OF PRESENT ILLNESS: PAIN THE PATIENT DESCRIBES THE PAIN... 29-YEAR-OLD FEMALE IN FOR CHRONIC PAIN FOLLOW-UP. SHE RATES HER PAIN CURRENTLY AT A 9 OUT OF 10 AND DESCRIBES IT ACHING, BURNING, SORE, TENDER, SHARP, STABBING, AND SHOOTING. SHE WAS STARTED ON HYDROCODONE AT LAST CLINIC VISIT AND ADMITS TODAY THAT THIS HAS BEEN HELPFUL IN RELIEVING HER PAIN SYMPTOMS. SHE DOES ADMIT TO SOME NAUSEA WHEN TAKING THE MEDICATION. FALL RISK SCREENING: SCREENING :NO FALLS REPORTED IN THE LAST YEAR CURRENT MEDICATIONS TAKING ZOFRAN 4 MG TABLET 1 TABLET NEEDED ORALLY EVERY 4 HRS PRN NAUSEA, NOTES: 03/06/19 TAKING ACETAMINOPHEN 325 MG TABLET 1 TABLET NEEDED ORALLY EVERY 4 HRS TAKING TIZANIDINE HCL 4 MG TABLET 1 TABLET NEEDED ORALLY BID PRN SPASM, NOTES: 10/25/19 2100 TAKING HYDROCODONE-ACETAMINOPHEN 5-325 MG TABLET 1 TABLET NEEDED ORALLY Q8H PRN PAIN MDD3 #45 TAB SHOULD LAST 30 DAYS, NOTES: 10/25/192099 NOT-TAKING DIGOXIN 125 MCG TABLET 1 TABLET ORALLY ONCE A DAY NOT-TAKING IBUPROFEN 800 MG TABLET 1 TABLET ORALLY THREE TIMES A DAY NOT-TAKING KLONOPIN 0.5 MG TABLET 1 TABLET ORALLY TWICE A DAY NOT-TAKING GABAPENTIN 100 MG CAPSULE 2 CAP ORALLY THREE TIMES DAILY NOT-TAKING PROTONIX 40 MG PACKET 1 CAPSULE ORALLY ONCE A DAY NEEDED NOT-TAKING PREDNISONE 5 MG TABLET 1 TABLET ORALLY THREE TIMES A DAY NOT-TAKING ATENOLOL 25 MG TABLET 1 TABLET ORALLY ONCE A DAY AT BEDTIME NOT-TAKING METOPROLOL SUCCINATE ER 50 MG TABLET EXTENDED RELEASE 24 HOUR 1 TABLET ORALLY ONCE A DAY NOT-TAKING 28-0.8 MG TABLET 1 TABLET ORALLY ONCE A DAY, NOTES: 03/06/19 NOT-TAKING BENADRYL NOT-TAKING SEROQUEL 50 MG TABLET 1 TABLET ORALLY ONCE A DAY, NOTES: NONE RECENTLY DISCONTINUED TIZANIDINE HCL 4 MG TABLET 1 TABLET ORALLY EVERY 8 HRS, NOTES: DUPLICATE ORDER MEDICATION LIST REVIEWED AND RECONCILED WITH THE PATIENT PAST MEDICAL HISTORY 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 MOM-COPD. SOCIAL HISTORY GENERAL: TOBACCO USE ARE YOU A: NONSMOKER. EDUCATION LEVEL OF EDUCATION:NOT FINISHED HIGH SCHOOL 9TH GRADE DIET: REGULAR. LANGUAGE LANGUAGES SPOKEN:CHINESE RECREATIONAL DRUG USE DRUG USE? NO. EXERCISE: DAILY, WALKS. LEARNING BARRIERS / SPECIAL NEEDS BARRIERS TO LEARNING?NO HEARING IMPAIRED?NO VISION IMPAIRED?YES HAS GLAUCOMA AND IS LEGALLY BLIND IN RIGHT EYE COGNITIVELY IMPAIRED?NO READINESS TO LEARN?YES LEARNING PREFERENCES?NO LEARNING CAPABILITIES PRESENT?YES EMOTIONAL BARRIERS?NO SPECIAL DEVICES?NO HIDE TRIMMER NEEDED?NO PAIN CLINIC PFS, CLERGY, PUBLIC HEALTH REFERRALS PFS REFERRAL NEEDED?NO CLERGY REFERRAL NEEDED?NO PUBLIC HEALTH REFERRAL NEEDED?NO WAS THE PROVIDER NOTIFIED OF ANY PERTINENT INFO? N/A HAS THE PATIENT BEEN EDUCATED REGARDING HIS/HER PLAN OF CARE?YES HAS THE PATIENT BEEN EDUCATED REGARDING PAIN, THE RISK FOR PAIN, THE IMPORTANCE OF EFFECTIVE PAIN MANAGEMENT, AND THE PAIN ASSESSMENT PROCESS?YES LATEX QUESTIONNAIRE LATEX ALLERGY : HAVE YOU EVER DEVELOPED ANY TYPE OF REACTION AFTER HANDLING LATEX PRODUCTS SUCH RUBBER GLOVES, CONDOMS, DIAPHRAGMS, BALLOONS, SOCKS, OR UNDERWEAR?NO LATEX ALLERGY : HAVE YOU EVER DEVELOPED ANY TYPE OF REACTION DURING OR AFTER DENTAL APPOINTMENT, VAGINAL/RECTAL EXAMINATION, SURGICAL PROCEDURE, OR ANY OTHER EXPOSURE?NO DATE ASKED : 02/23/2019 LATEX RISK : HAVE YOU EVER HAD ANY DIFFICULTY BREATHING OR HIVES AFTER EATING OR HANDLING ANY FRUITS, OR VEGETABLES; SUCH KIWI, BANANAS, STONE FRUITS, OR CHESTNUTSNO LATEX RISK : DO YOU HAVE A PREVIOUS PERSONAL HISTORY OF MORE THAN NINE SURGERIES, SPINA BIFIDA, OR REPEATED CATHERIZATIONS? NO LATEX RISK : ARE YOU FREQUENTLY EXPOSED TO LATEX PRODUCTS IN YOUR OCCUPATION?NO CAFFEINE CAFFEINE USE? NO. ADVANCE DIRECTIVE ADVANCE DIRECTIVE DISCUSSED WITH PATIENT:YES [phone] JEWISH [id number] NONE ALCOHOL SCREENING HOW OFTEN DID YOU HAVE A DRINK CONTAINING ALCOHOL IN THE PAST YEAR? NEVER (0 POINTS) , DID YOU HAVE A DRINK CONTAINING ALCOHOL IN THE PAST YEAR? NO , DID YOU HAVE A DRINK CONTAINING ALCOHOL IN THE PAST YEAR? YES , POINTS 0 , POINTS 0 , INTERPRETATION NEGATIVE , INTERPRETATION NEGATIVE. OCCUPATION: NOT WORKING. REVIEWED WITH PATIENT 10/28/2019 LAS. HOSPITALIZATION/MAJOR DIAGNOSTIC PROCEDURE SEE ABOVE SURGURIES MENTAL HEALTH CHILD X 2 REVIEW OF SYSTEMS REVIEWED BY: PROVIDER: HANNAH ADAMS GLASS CYLINDER FLANGER-Maricruz . CONSTITUTIONAL: ANY CHANGE IN YOUR MEDICAL CONDITION? NO . CHILLS NO . FEVER NO . INFECTION: DO YOU HAVE NEW INFECTIONS? NO . DO YOU HAVE HISTORY OF MRSA? NO . MUSCULOSKELETAL: ANY NEW PATTERNS OF PAIN OR NUMBNESS? NO . GASTROENTEROLOGY: ANY NEW CHANGE IN BOWEL CONTROL? NO . GENITOURINARY: ANY NEW CHANGE IN BLADDER CONTROL? NO . IS THERE A CHANCE YOU COULD BE ? NO . HEMATOLOGY/LYMPH: DO YOU TAKE ANY BLOOD THINNERS? (FOR EXAMPLE- COUMADIN, PLAVIX, AGGRENOX, PLATEL, PRADAXA, OR XARELTO) NO . WHEN WAS YOUR LAST DOSE? DATE: TIME: . NEUROLOGY: HAVE YOU FALLEN IN THE PAST 12 MONTHS? NO . ANY NEW EXTREMITY NUMBNESS OR WEAKNESS? NO . CARDIOLOGY: DO YOU HAVE A PACEMAKER OR DEFIBRILLATOR? NO . RESPIRATORY: HAVE YOU BEEN SICK IN THE PAST WEEK? NO . FEVER NO . FLU LIKE SYMPTOMS? NO . COUGH NO . INTEGUMENTARY: DO YOU HAVE ANY RASHES OR OPEN SORES? NO . ALLERGIC/IMMUNO: ARE YOU ALLERGIC TO IV DYE? NO . ANY NEW ALLERGIES? NO . PSYCHIATRIC: DO YOU HAVE THOUGHTS OF HURTING YOURSELF OR SOMEONE ELSE? NO . ARE YOU ABUSED, NEGLECTED, OR IN AN UNSAFE ENVIRONMENT? NO . ENDOCRINOLOGY: ARE YOU DIABETIC? NO . OTHER: DO YOU NEED ANY PRESCRIPTIONS? YES . IF YES, PLEASE LIST: ____HYDROCODONE . ANY NEW PROBLEMS WITH YOUR MEDICATIONS? NO . WHEN DID YOU LAST EAT? ____ . WHEN DID YOU LAST DRINK? ____ . WHAT DID YOU LAST DRINK? ____ . NAME OF PERSON DRIVING YOU HOME? ____ . DO YOU HAVE ANY OTHER QUESTIONS OR CONCERNS NO . VITAL SIGNS WT 115.0 LBS, HT 63 IN, BMI 20.37 INDEX, BP 150/77 MM HG, HR 79 /MIN, RR 16 /MIN, TEMP 97.1 F, OXYGEN SAT % 99%, SAFE IN ENV? (Y/N) YES, NA INITIALS AW 1352, REVIEWED BY: NASRA. EXAMINATION GENERAL EXAMINATION: GENERALNO ACUTE DISTRESS, WELL NOURISHED AND HYDRATED. PSYCHAPPROPRIATE MOOD AND AFFECT . LUNGS:CLEAR TO AUSCULTATION BILATERALLY, NO WHEEZES, RHONCHI, RALES. HEART:NO MURMURS, REGULAR RATE AND RHYTHM. ASSESSMENTS LUMBAR POST-LAMINECTOMY SYNDROME - M96.1 (PRIMARY) TREATMENT LUMBAR POST-LAMINECTOMY SYNDROME REFILL HYDROCODONE-ACETAMINOPHEN TABLET, 5-325 MG, 1 TABLET NEEDED, ORALLY, Q8H PRN PAIN MDD3 #45 TAB SHOULD LAST 30 DAYS, 30 DAYS, 30, NOTES: 10/25/192099 CLINICAL NOTES: 29-YEAR-OLD FEMALE IN FOR CHRONIC PAIN FOLLOW-UP. GIVEN PRESENTING SYMPTOMS AND RESULTS OF PHYSICAL EXAMINATION RECOMMENDED CONTINUATION OF CURRENT MEDICATION REGIMEN WITH FOLLOW-UP IN 3 MONTHS. SHE WAS ENCOURAGED TAKE MEDICATION WITH FOOD TO HELP WITH NAUSEA. PATIENT HAS EXPRESSED UNDERSTANDING OF AND WAS IN AGREEMENT WITH TREATMENT PLAN. GIVEN TIME TO ASK QUESTIONS AND EXPRESS CONCERNS., ISTOP REGISTRY REVIEWED AND DEMONSTRATES COMPLLIANCE. (REF # [id number] ) BRINGS IN MEDICATIONS WHICH IS APPROPRIATE FOR WHAT WAS DISPENSED. RECENT URINE TOXICOLOGY REVIEWED. NO UNAUTHORIZED MEDICATIONS. NO ILLICIT SUBSTANCES AND PRESCRIBED MEDICATIONS WERE PRESENT. PROCEDURE CODES FA211 ESTABILISHED PATIENT [facility] CHARGE DISPOSITION & COMMUNICATION FOLLOW UP 3 MONTHS (REASON: LOW BACK PAIN) ELECTRONICALLY SIGNED BY HALEY TOMLINSON ON 10/31/2019 AT 02:35 PM EST DISCLAIMER : THIS IS A VISIT SUMMARY EXTRACTED FROM THE [employer] CHART. IT IS NOT A COPY OF THE [employer] PROGRESS NOTE. SIMI
== END ==
LOC: M PAIN 13:45
PROVIDERS: ATTEND Family Medicine
DX: M96.1 Postlaminectomy syndrome, not elsewhere classified (principal)

== ENCOUNTER → 2019-11-25 | Outpatient (CLI) | payer OTHER ==
--- NOTE | 2019-11-29 03:46 | ECWPNPC ---
PATIENT NAME: QUENTIN SANDS : 1990 GENDER: FEMALE VISIT DATE: 11/25/2019 DISCHARGE DATE: 11/25/19 1338 VISIT LOCKED DATE TIME: PHYSICIAN: KAREEM ADAMS RESOURCE: KAREEM ADAMS REASON FOR APPOINTMENT 1. POST BOTOX HISTORY OF PRESENT ILLNESS HISTORY OF PRESENT ILLNESS: PAIN THE PATIENT DESCRIBES THE PAIN... 29-YEAR-OLD FEMALE IN FOR POST BOTOX FOLLOW-UP. SHE RATES HER PAIN CURRENTLY AT A 7 OUT OF 10 AND DESCRIBES IT ACHING, SHARP, BURNING, STABBING, SORE, SHOOTING, AND TENDER. SHE FEELS THE PROCEDURE WORKED WELL OVERALL STATING THAT SHE HAS HAD A DECREASE IN HEADACHES SINCE SHE RECEIVED THE PROCEDURE. FALL RISK SCREENING: SCREENING :NO FALLS REPORTED IN THE LAST YEAR CURRENT MEDICATIONS TAKING ZOFRAN 4 MG TABLET 1 TABLET NEEDED ORALLY EVERY 4 HRS PRN NAUSEA TAKING ACETAMINOPHEN 325 MG TABLET 1 TABLET NEEDED ORALLY EVERY 4 HRS TAKING TIZANIDINE HCL 4 MG TABLET 1 TABLET NEEDED ORALLY BID PRN SPASM TAKING HYDROCODONE-ACETAMINOPHEN 5-325 MG TABLET 1 TABLET NEEDED ORALLY Q8H PRN PAIN MDD3 #45 TAB SHOULD LAST 30 DAYS TAKING ALPRAZOLAM 0.25 MG TABLET 1 TABLET NEEDED ORALLY TWICE A DAY NOT-TAKING DIGOXIN 125 MCG TABLET 1 TABLET ORALLY ONCE A DAY NOT-TAKING IBUPROFEN 800 MG TABLET 1 TABLET ORALLY THREE TIMES A DAY NOT-TAKING KLONOPIN 0.5 MG TABLET 1 TABLET ORALLY TWICE A DAY NOT-TAKING GABAPENTIN 100 MG CAPSULE 2 CAP ORALLY THREE TIMES DAILY NOT-TAKING PROTONIX 40 MG PACKET 1 CAPSULE ORALLY ONCE A DAY NEEDED NOT-TAKING PREDNISONE 5 MG TABLET 1 TABLET ORALLY THREE TIMES A DAY NOT-TAKING ATENOLOL 25 MG TABLET 1 TABLET ORALLY ONCE A DAY AT BEDTIME NOT-TAKING METOPROLOL SUCCINATE ER 50 MG TABLET EXTENDED RELEASE 24 HOUR 1 TABLET ORALLY ONCE A DAY NOT-TAKING 28-0.8 MG TABLET 1 TABLET ORALLY ONCE A DAY, NOTES: 03/06/19 NOT-TAKING BENADRYL NOT-TAKING SEROQUEL 50 MG TABLET 1 TABLET ORALLY ONCE A DAY, NOTES: NONE RECENTLY MEDICATION LIST REVIEWED AND RECONCILED WITH THE PATIENT PAST MEDICAL HISTORY 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 MOM-COPD. SOCIAL HISTORY GENERAL: TOBACCO USE ARE YOU A: NONSMOKER. EDUCATION LEVEL OF EDUCATION:NOT FINISHED HIGH SCHOOL 9TH GRADE DIET: REGULAR. LANGUAGE LANGUAGES SPOKEN:MACANESE RECREATIONAL DRUG USE DRUG USE? NO. EXERCISE: DAILY, WALKS. 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 N/A HAS THE PATIENT BEEN EDUCATED REGARDING HIS/HER PLAN OF CARE?YES HAS THE PATIENT BEEN EDUCATED REGARDING PAIN, THE RISK FOR PAIN, THE IMPORTANCE OF EFFECTIVE PAIN MANAGEMENT, AND THE PAIN ASSESSMENT PROCESS?YES LATEX QUESTIONNAIRE LATEX ALLERGY : HAVE YOU EVER DEVELOPED ANY TYPE OF REACTION AFTER HANDLING LATEX PRODUCTS SUCH RUBBER GLOVES, CONDOMS, DIAPHRAGMS, BALLOONS, SOCKS, OR UNDERWEAR?NO LATEX ALLERGY : HAVE YOU EVER DEVELOPED ANY TYPE OF REACTION DURING OR AFTER DENTAL APPOINTMENT, VAGINAL/RECTAL EXAMINATION, SURGICAL PROCEDURE, OR ANY OTHER EXPOSURE?NO LATEX RISK : HAVE YOU EVER HAD ANY DIFFICULTY BREATHING OR HIVES AFTER EATING OR HANDLING ANY FRUITS, OR VEGETABLES; SUCH KIWI, BANANAS, STONE FRUITS, OR CHESTNUTSNO LATEX RISK : DO YOU HAVE A PREVIOUS PERSONAL HISTORY OF MORE THAN NINE SURGERIES, SPINA BIFIDA, OR REPEATED CATHERIZATIONS? NO LATEX RISK : ARE YOU FREQUENTLY EXPOSED TO LATEX PRODUCTS IN YOUR OCCUPATION?NO DATE ASKED : 02/23/2019 CAFFEINE CAFFEINE USE? NO. ADVANCE DIRECTIVE ADVANCE DIRECTIVE DISCUSSED WITH PATIENT:YES [phone] ZOROASTRIANISM [id number] NONE ALCOHOL SCREENING HOW OFTEN DID YOU HAVE A DRINK CONTAINING ALCOHOL IN THE PAST YEAR? NEVER (0 POINTS) , DID YOU HAVE A DRINK CONTAINING ALCOHOL IN THE PAST YEAR? NO , DID YOU HAVE A DRINK CONTAINING ALCOHOL IN THE PAST YEAR? YES , POINTS 0 , POINTS 0 , INTERPRETATION NEGATIVE , INTERPRETATION NEGATIVE. OCCUPATION: NOT WORKING. REVIEWED WITH PATIENT 10/28/2019 LASREVIEWED WITH PATIENT 11/25/2019 1323 JS. HOSPITALIZATION/MAJOR DIAGNOSTIC PROCEDURE SEE ABOVE SURGURIES MENTAL HEALTH CHILD X 2 REVIEW OF SYSTEMS REVIEWED BY: PROVIDER: HANNAH ONEILL . CONSTITUTIONAL: ANY CHANGE IN YOUR MEDICAL CONDITION? NO . CHILLS NO . FEVER NO . INFECTION: DO YOU HAVE NEW INFECTIONS? NO . DO YOU HAVE HISTORY OF MRSA? NO . MUSCULOSKELETAL: ANY NEW PATTERNS OF PAIN OR NUMBNESS? NO . GASTROENTEROLOGY: ANY NEW CHANGE IN BOWEL CONTROL? NO . GENITOURINARY: ANY NEW CHANGE IN BLADDER CONTROL? NO . IS THERE A CHANCE YOU COULD BE ? NO . HEMATOLOGY/LYMPH: DO YOU TAKE ANY BLOOD THINNERS? (FOR EXAMPLE- COUMADIN, PLAVIX, AGGRENOX, PLATEL, PRADAXA, OR XARELTO) NO . WHEN WAS YOUR LAST DOSE? DATE: TIME: . NEUROLOGY: HAVE YOU FALLEN IN THE PAST 12 MONTHS? NO . ANY NEW EXTREMITY NUMBNESS OR WEAKNESS? NO . CARDIOLOGY: DO YOU HAVE A PACEMAKER OR DEFIBRILLATOR? NO . RESPIRATORY: HAVE YOU BEEN SICK IN THE PAST WEEK? NO . FEVER NO . FLU LIKE SYMPTOMS? NO . COUGH NO . INTEGUMENTARY: DO YOU HAVE ANY RASHES OR OPEN SORES? NO . ALLERGIC/IMMUNO: ARE YOU ALLERGIC TO IV DYE? NO . ANY NEW ALLERGIES? NO . PSYCHIATRIC: DO YOU HAVE THOUGHTS OF HURTING YOURSELF OR SOMEONE ELSE? NO . ARE YOU ABUSED, NEGLECTED, OR IN AN UNSAFE ENVIRONMENT? NO . ENDOCRINOLOGY: ARE YOU DIABETIC? NO . OTHER: DO YOU NEED ANY PRESCRIPTIONS? NO . IF YES, PLEASE LIST: ____ . ANY NEW PROBLEMS WITH YOUR MEDICATIONS? NO . WHEN DID YOU LAST EAT? ____ . WHEN DID YOU LAST DRINK? ____ . WHAT DID YOU LAST DRINK? ____ . NAME OF PERSON DRIVING YOU HOME? ____ . DO YOU HAVE ANY OTHER QUESTIONS OR CONCERNS NO . VITAL SIGNS WT 115.0 LBS, HT 63 IN, BMI 20.37 INDEX, BP 136/79 MM HG, HR 73 /MIN, RR 18 /MIN, TEMP 97.9 F, OXYGEN SAT % 99%, SAFE IN ENV? (Y/N) YES, REVIEWED BY: CAS. EXAMINATION GENERAL EXAMINATION: GENERALNO ACUTE DISTRESS, WELL NOURISHED AND HYDRATED. PSYCHAPPROPRIATE MOOD AND AFFECT . LUNGS:CLEAR TO AUSCULTATION BILATERALLY, NO WHEEZES, RHONCHI, RALES. HEART:NO MURMURS, REGULAR RATE AND RHYTHM. 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 GIVEN PRESENTING SYMPTOMS AND RESULTS OF PHYSICAL EXAMINATION RECOMMENDED CONTINUATION OF CURRENT MEDICATION REGIMEN WITH FOLLOW-UP IN 3 MONTHS. PATIENT HAS EXPRESSED UNDERSTANDING OF AND WAS IN AGREEMENT WITH TREATMENT PLAN. GIVEN TIME TO ASK QUESTIONS AND EXPRESS CONCERNS., ISTOP REGISTRY REVIEWED AND DEMONSTRATES COMPLLIANCE. (REF # [id number] ) BRINGS IN MEDICATIONS WHICH IS APPROPRIATE FOR WHAT WAS DISPENSED. RECENT URINE TOXICOLOGY REVIEWED. NO UNAUTHORIZED MEDICATIONS. NO ILLICIT SUBSTANCES AND PRESCRIBED MEDICATIONS WERE PRESENT. PROCEDURE CODES FA211 ESTABILISHED PATIENT [facility] CHARGE DISPOSITION & COMMUNICATION FOLLOW UP 3 MONTHS (REASON: LOW BACK PAIN) ELECTRONICALLY SIGNED BY HALEY TOMLINSON ON 11/28/2019 AT 03:42 PM EST DISCLAIMER : THIS IS A VISIT SUMMARY EXTRACTED FROM THE [employer] CHART. IT IS NOT A COPY OF THE [employer] PROGRESS NOTE. ISMI
== END ==
LOC: M PAIN 13:00
PROVIDERS: ATTEND Family Medicine
DX: M96.1 Postlaminectomy syndrome, not elsewhere classified (principal); G43.119 Migraine with aura, intractable, without status migrainosus; Z86.59 Personal history of other mental and behavioral disorders; Z88.1 Allergy status to other antibiotic agents; Z88.8 Allergy status to other drugs, medicaments and biological substances; Z79.899 Other long term (current) drug therapy

== ENCOUNTER 2020-01-20 15:15 | Emergency (ER) | payer OTHER ==
[~2020-01-20] VITALS: Ht 160 cm; Wt 52.3 kg
[~2020-01-20 15:15] MED LIST changes: +QUET100T2 PO; -QUET1TAB8 PO
[2020-01-20] MEDS ORDERED: implanon (15:25)
[2020-01-20] MEDS ORDERED: TRAZ-252 PO (15:25)
[2020-01-20] MEDS ORDERED: HYDR-3713 PO (15:25)
[2020-01-20] MEDS ORDERED: ALPR0.25 PO (15:25)
[2020-01-20] MEDS ORDERED: METOPROLOL TART 25 MG TABLET PO ONE (15:45)
[2020-01-20] MEDS: METOPROLOL 5 MG/5 ML VIAL IV SCH ×3 (16:00→16:11)
[2020-01-20 16:10] LABS: BASO % 0.7 % (0.0-1.0); EOS # 0.1 10^3/uL (0.0-0.5); EOS % 1.8 % (0.0-3.0); HEMATOCRIT 45.4 % (36.0-47.0); LYMPH # 1.9 10^3/uL (1.5-5.0); MEAN CORPUSCULAR HEMOGLOBIN 30.4 pg (27.0-33.0); MEAN CORPUSCULAR VOLUME 92.1 fl (80.0-96.0); MONO # 0.5 10^3/uL (0.0-0.8); MONO % 8.7 % (0.0-5.0); NEUTROPHILS # 3.2 10^3/uL (1.5-8.5); NEUTROPHILS % 55.6 % (36.0-66.0); PLATELET COUNT, AUTOMATED 199 10^3/uL (150-450); RED BLOOD COUNT 4.93 10^6/uL (4.00-5.40); WHITE BLOOD COUNT 5.7 10^3/uL (4.0-10.0)
[2020-01-20 16:11] VITALS: BP 122/78
[2020-01-20 16:42] LABS: ALT/SGPT 18 U/L (12-78); BILIRUBIN,DIRECT 0.1 MG/DL (0.0-0.2); BILIRUBIN,TOTAL 0.5 MG/DL (0.2-1.0); BLOOD UREA NITROGEN 15 MG/DL (7-18); CALCIUM LEVEL 9.5 MG/DL (8.5-10.1); CARBON DIOXIDE LEVEL 28 MEQ/L (21-32); CHLORIDE LEVEL 109 MEQ/L (98-107); CK-MB VALUE MASS < 1.0 NG/ML (<3.6); CPK CREATINE PHOSPHOKINASE 92 U/L (26-192); FREE T4 1.05 NG/DL (0.76-1.46); GLOMERULAR FILTRATION RATE > 60.0 (>60); GLUCOSE, FASTING 79 MG/DL (70-100); MAGNESIUM LEVEL 1.9 MG/DL (1.8-2.4); MB/CK RELATIVE INDEX 1.09 (< OR =4); NT-PRO BNP 544 PG/ML (<125); POTASSIUM SERUM 3.9 MEQ/L (3.5-5.1); SODIUM LEVEL 140 MEQ/L (136-145); THYROID STIMULATING HORMONE 0.998 uIU/ML (0.358-3.740); TROPONIN I 0.02 NG/ML (< 0.10)
[2020-01-20] MEDS ORDERED: METO25TA4 PO (17:04)
[2020-01-20 17:10] VITALS: BP 120/78
--- NOTE | 2020-01-20 17:15 | REP ---
HISTORY: Chest pain. COMPARISON: 07/15/2018 The technique utilized in obtaining the radiograph has magnified the cardiac silhouette and accentuated the interstitial markings. There is no change from the prior exam. Christiansen rods noticed, status quo. Implanted recording device left chest, status quo. Lung fisher remain clear. There is no change in the osseous structures. IMPRESSION: No acute cardiopulmonary disease. Electronically Signed by Porfirio Vazquez DO 01/20/2020 06:49 P
--- NOTE | 2020-01-20 19:44 | ECGEPIP ---
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
== END 2020-01-20 17:25 | disposition home or self-care (01) ==
LOC: M ED 15:15
DX: I47.2 Ventricular tachycardia (principal); R11.10 Vomiting, unspecified; Z88.1 Allergy status to other antibiotic agents; Z79.899 Other long term (current) drug therapy

== ENCOUNTER → 2020-02-21 | Outpatient (CLI) | payer OTHER ==
[~2020-02-21] MED LIST changes: +ALPR0.25 PO; +CYCL-707 PO; -CYCL10TA PO; +HYDR-3713 PO; +METO25TA4 PO; +TRAZ-252 PO; +implanon
--- NOTE | 2020-02-23 01:30 | ECWPNPC ---
PATIENT NAME: QUENTIN SANDS : 1990 GENDER: FEMALE VISIT DATE: 02/21/2020 DISCHARGE DATE: 02/21/20 1209 VISIT LOCKED DATE TIME: PHYSICIAN: KAREEM ADAMS RESOURCE: KAREEM ADAMS REASON FOR APPOINTMENT 1. LOW BACK PAIN HISTORY OF PRESENT ILLNESS HISTORY OF PRESENT ILLNESS: PAIN THE PATIENT DESCRIBES THE PAINDURING THE LAST MONTH SEVERITY - PAIN SCORE OF7/10 LOCATIONSUPPER BACK, MID BACK, LOWER BACK QUALITYSHARP, THROBBING, SHOOTING DURATIONCONTINUOUS, CONSTANT, ALL DAY PAIN IS INCREASED BY:ACTIVITIES, PROLONGED STANDING PERMISSION REQUESTED AND RECEIVED FROM PATIENT TO PERFORM TELEHEALTH VISIT. 29-YEAR-OLD FEMALE IN FOR CHRONIC PAIN FOLLOW-UP. SHE DOES ADMIT TO INCREASED RADICULAR SYMPTOMS. SHE RATES HER PAIN CURRENTLY AT A 7 OUT OF 10 AND DESCRIBES IT SHARP, THROBBING, AND SHOOTING. SHE FEELS HER MEDICATIONS ARE WORKING WELL AND DENIES MED SIDE EFFECTS AT THIS TIME. FALL RISK SCREENING: SCREENING :NO FALLS REPORTED IN THE LAST YEAR CURRENT MEDICATIONS TAKING HYDROCODONE-ACETAMINOPHEN 5-325 MG TABLET 1 TABLET NEEDED ORALLY DAILY NEEDED FOR PAIN TAKING XANAX 0.25 MG TABLET 1 TABLET ORALLY TWICE A DAY NOT-TAKING ZOFRAN 4 MG TABLET 1 TABLET NEEDED ORALLY EVERY 4 HRS PRN NAUSEA NOT-TAKING ACETAMINOPHEN 325 MG TABLET 1 TABLET NEEDED ORALLY EVERY 4 HRS NOT-TAKING TIZANIDINE HCL 4 MG TABLET 1 TABLET NEEDED ORALLY BID PRN SPASM NOT-TAKING ALPRAZOLAM 0.25 MG TABLET 1 TABLET NEEDED ORALLY TWICE A DAY NOT-TAKING DIGOXIN 125 MCG TABLET 1 TABLET ORALLY ONCE A DAY NOT-TAKING IBUPROFEN 800 MG TABLET 1 TABLET ORALLY THREE TIMES A DAY NOT-TAKING KLONOPIN 0.5 MG TABLET 1 TABLET ORALLY TWICE A DAY NOT-TAKING GABAPENTIN 100 MG CAPSULE 2 CAP ORALLY THREE TIMES DAILY NOT-TAKING PROTONIX 40 MG PACKET 1 CAPSULE ORALLY ONCE A DAY NEEDED NOT-TAKING PREDNISONE 5 MG TABLET 1 TABLET ORALLY THREE TIMES A DAY NOT-TAKING ATENOLOL 25 MG TABLET 1 TABLET ORALLY ONCE A DAY AT BEDTIME NOT-TAKING METOPROLOL SUCCINATE ER 50 MG TABLET EXTENDED RELEASE 24 HOUR 1 TABLET ORALLY ONCE A DAY NOT-TAKING 28-0.8 MG TABLET 1 TABLET ORALLY ONCE A DAY, NOTES: 03/06/19 NOT-TAKING BENADRYL NOT-TAKING SEROQUEL 50 MG TABLET 1 TABLET ORALLY ONCE A DAY, NOTES: NONE RECENTLY MEDICATION LIST REVIEWED AND RECONCILED WITH THE PATIENT PAST MEDICAL HISTORY 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 MOM-COPD. SOCIAL HISTORY GENERAL: TOBACCO USE ARE YOU A: NONSMOKER. EDUCATION LEVEL OF EDUCATION:NOT FINISHED HIGH SCHOOL 9TH GRADE DIET: REGULAR. LANGUAGE LANGUAGES SPOKEN:LUXEMBOURGER RECREATIONAL DRUG USE DRUG USE? NO. EXERCISE: DAILY, WALKS. 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 N/A HAS THE PATIENT BEEN EDUCATED REGARDING HIS/HER PLAN OF CARE?YES HAS THE PATIENT BEEN EDUCATED REGARDING PAIN, THE RISK FOR PAIN, THE IMPORTANCE OF EFFECTIVE PAIN MANAGEMENT, AND THE PAIN ASSESSMENT PROCESS?YES LATEX QUESTIONNAIRE LATEX ALLERGY : HAVE YOU EVER DEVELOPED ANY TYPE OF REACTION AFTER HANDLING LATEX PRODUCTS SUCH RUBBER GLOVES, CONDOMS, DIAPHRAGMS, BALLOONS, SOCKS, OR UNDERWEAR?NO LATEX ALLERGY : HAVE YOU EVER DEVELOPED ANY TYPE OF REACTION DURING OR AFTER DENTAL APPOINTMENT, VAGINAL/RECTAL EXAMINATION, SURGICAL PROCEDURE, OR ANY OTHER EXPOSURE?NO DATE ASKED : 02/23/2019 LATEX RISK : HAVE YOU EVER HAD ANY DIFFICULTY BREATHING OR HIVES AFTER EATING OR HANDLING ANY FRUITS, OR VEGETABLES; SUCH KIWI, BANANAS, STONE FRUITS, OR CHESTNUTSNO LATEX RISK : DO YOU HAVE A PREVIOUS PERSONAL HISTORY OF MORE THAN NINE SURGERIES, SPINA BIFIDA, OR REPEATED CATHERIZATIONS? NO LATEX RISK : ARE YOU FREQUENTLY EXPOSED TO LATEX PRODUCTS IN YOUR OCCUPATION?NO CAFFEINE CAFFEINE USE? NO. ADVANCE DIRECTIVE ADVANCE DIRECTIVE DISCUSSED WITH PATIENT:YES HCP [facility]ILO [facility] [phone] SIKHISM [id number] NONE ALCOHOL SCREENING HOW OFTEN DID YOU HAVE A DRINK CONTAINING ALCOHOL IN THE PAST YEAR? NEVER (0 POINTS) , DID YOU HAVE A DRINK CONTAINING ALCOHOL IN THE PAST YEAR? NO , DID YOU HAVE A DRINK CONTAINING ALCOHOL IN THE PAST YEAR? YES , POINTS 0 , POINTS 0 , INTERPRETATION NEGATIVE , INTERPRETATION NEGATIVE. OCCUPATION: NOT WORKING. HOSPITALIZATION/MAJOR DIAGNOSTIC PROCEDURE SEE ABOVE SURGURIES MENTAL HEALTH CHILD X 3 REVIEW OF SYSTEMS REVIEWED BY: PROVIDER: HANNAH ADAMS MILLER HELPER DISTILLERY-C . CONSTITUTIONAL: ANY CHANGE IN YOUR MEDICAL CONDITION? NO . CHILLS NO . FEVER NO . INFECTION: DO YOU HAVE NEW INFECTIONS? NO . DO YOU HAVE HISTORY OF MRSA? NO . MUSCULOSKELETAL: ANY NEW PATTERNS OF PAIN OR NUMBNESS? NO . GASTROENTEROLOGY: ANY NEW CHANGE IN BOWEL CONTROL? NO . GENITOURINARY: ANY NEW CHANGE IN BLADDER CONTROL? NO . IS THERE A CHANCE YOU COULD BE ? NO . HEMATOLOGY/LYMPH: DO YOU TAKE ANY BLOOD THINNERS? (FOR EXAMPLE- COUMADIN, PLAVIX, AGGRENOX, PLATEL, PRADAXA, OR XARELTO) NO . WHEN WAS YOUR LAST DOSE? DATE: TIME: . NEUROLOGY: HAVE YOU FALLEN IN THE PAST 12 MONTHS? NO . ANY NEW EXTREMITY NUMBNESS OR WEAKNESS? NO . CARDIOLOGY: DO YOU HAVE A PACEMAKER OR DEFIBRILLATOR? NO . RESPIRATORY: HAVE YOU BEEN SICK IN THE PAST WEEK? NO . FEVER NO . FLU LIKE SYMPTOMS? NO . COUGH NO . INTEGUMENTARY: DO YOU HAVE ANY RASHES OR OPEN SORES? NO . ALLERGIC/IMMUNO: ARE YOU ALLERGIC TO IV DYE? NO . ANY NEW ALLERGIES? NO . PSYCHIATRIC: DO YOU HAVE THOUGHTS OF HURTING YOURSELF OR SOMEONE ELSE? NO . ARE YOU ABUSED, NEGLECTED, OR IN AN UNSAFE ENVIRONMENT? NO . ENDOCRINOLOGY: ARE YOU DIABETIC? NO . OTHER: DO YOU NEED ANY PRESCRIPTIONS? NO . IF YES, PLEASE LIST: ____ . ANY NEW PROBLEMS WITH YOUR MEDICATIONS? NO . WHEN DID YOU LAST EAT? ____ . WHEN DID YOU LAST DRINK? ____ . WHAT DID YOU LAST DRINK? ____ . NAME OF PERSON DRIVING YOU HOME? ____ . DO YOU HAVE ANY OTHER QUESTIONS OR CONCERNS YES, DISCUSS PAIN MANAGEMENT OPTIONS. PAIN MED. HELP FOR SHORT PERIOD OF TIME. . EXAMINATION GENERAL EXAMINATION: GENERALNO ACUTE DISTRESS, WELL NOURISHED AND HYDRATED. PSYCHAPPROPRIATE MOOD AND AFFECT , ORIENTED X 3. ASSESSMENTS LUMBAR POST-LAMINECTOMY SYNDROME - M96.1 (PRIMARY) TREATMENT LUMBAR POST-LAMINECTOMY SYNDROME START LYRICA CAPSULE, 50 MG, 1 CAPSULE, ORALLY, TWICE DAILY, 30 DAYS, 60 CLINICAL NOTES: 29-YEAR-OLD FEMALE IN FOR CHRONIC PAIN FOLLOW-UP. SHE DOES ADMIT TO INCREASED RADICULAR SYMPTOMS. GIVEN PRESENTING SYMPTOMS RECOMMEND LYRICA 50 MG 1 CAPSULE TWICE DAILY WITH FOLLOW-UP IN ONE MONTH TO DETERMINE EFFICACY TREATMENT. PATIENT HAS EXPRESSED UNDERSTANDING OF AND WAS IN AGREEMENT WITH TREATMENT PLAN. GIVEN TIME TO ASK QUESTIONS AND EXPRESS CONCERNS., ISTOP REGISTRY REVIEWED AND DEMONSTRATES COMPLLIANCE. (REF # [id number] ) BRINGS IN MEDICATIONS WHICH IS APPROPRIATE FOR WHAT WAS DISPENSED. RECENT URINE TOXICOLOGY REVIEWED. NO UNAUTHORIZED MEDICATIONS. NO ILLICIT SUBSTANCES AND PRESCRIBED MEDICATIONS WERE PRESENT. TELEHEALTH VISIT PERFORMED VIA ZOOM. TIME SPENT WITH PATIENT 7 MINUTES. DISPOSITION & COMMUNICATION FOLLOW UP 4 WEEKS (REASON: BACK PAIN, NEW MEDICATION) ELECTRONICALLY SIGNED BY HALEY TOMLINSON ON 02/22/2020 AT 09:20 AM EDT DISCLAIMER : THIS IS A VISIT SUMMARY EXTRACTED FROM THE [employer] CHART. IT IS NOT A COPY OF THE [employer] PROGRESS NOTE. SIMI
== END ==
LOC: M TMPAIN 11:30 → M PAIN 11:30
PROVIDERS: ATTEND Family Medicine
DX: M96.1 Postlaminectomy syndrome, not elsewhere classified (principal); Z79.891 Long term (current) use of opiate analgesic; Z88.1 Allergy status to other antibiotic agents; Z88.8 Allergy status to other drugs, medicaments and biological substances

== ENCOUNTER → 2020-03-20 | Outpatient (CLI) | payer OTHER ==
--- NOTE | 2020-04-24 04:36 | ECWPNPC ---
PATIENT NAME: QUENTIN SANDS : 1990 GENDER: FEMALE VISIT DATE: 03/20/2020 DISCHARGE DATE: 03/20/20 1337 VISIT LOCKED DATE TIME: PHYSICIAN: KAREEM ADAMS RESOURCE: KAREEM ADAMS REASON FOR APPOINTMENT 1. BACK PAIN, NEW [phone] PAT DONE HISTORY OF PRESENT ILLNESS HISTORY OF PRESENT ILLNESS: PAIN THE PATIENT DESCRIBES THE PAIN... PERMISSION REQUESTED AND RECEIVED FROM PATIENT TO PERFORM TELEPHONE VISIT. 29-YEAR-OLD FEMALE IN FOR CHRONIC PAIN FOLLOW-UP. AT LAST CLINIC VISIT SHE WAS STARTED ON LYRICA 50 MG TWICE A DAY ADMITS TODAY THAT THIS HAS BEEN HELPFUL. SHE RATES HER PAIN CURRENTLY AT AN 8-9 OUT OF 10. FALL RISK SCREENING: SCREENING :NO FALLS REPORTED IN THE LAST YEAR CURRENT MEDICATIONS TAKING HYDROCODONE-ACETAMINOPHEN 5-325 MG TABLET 1 TABLET NEEDED ORALLY DAILY NEEDED FOR PAIN TAKING XANAX 0.25 MG TABLET 1 TABLET ORALLY TWICE A DAY TAKING LYRICA 50 MG CAPSULE 1 CAPSULE ORALLY TWICE DAILY TAKING IMPLANON TAKING TRAZODONE HCL 50 MG TABLET 1 TABLET AT BEDTIME NEEDED ORALLY ONCE A DAY NOT-TAKING ZOFRAN 4 MG TABLET 1 TABLET NEEDED ORALLY EVERY 4 HRS PRN NAUSEA NOT-TAKING ACETAMINOPHEN 325 MG TABLET 1 TABLET NEEDED ORALLY EVERY 4 HRS NOT-TAKING TIZANIDINE HCL 4 MG TABLET 1 TABLET NEEDED ORALLY BID PRN SPASM NOT-TAKING ALPRAZOLAM 0.25 MG TABLET 1 TABLET NEEDED ORALLY TWICE A DAY NOT-TAKING DIGOXIN 125 MCG TABLET 1 TABLET ORALLY ONCE A DAY NOT-TAKING IBUPROFEN 800 MG TABLET 1 TABLET ORALLY THREE TIMES A DAY NOT-TAKING KLONOPIN 0.5 MG TABLET 1 TABLET ORALLY TWICE A DAY NOT-TAKING GABAPENTIN 100 MG CAPSULE 2 CAP ORALLY THREE TIMES DAILY NOT-TAKING PROTONIX 40 MG PACKET 1 CAPSULE ORALLY ONCE A DAY NEEDED NOT-TAKING PREDNISONE 5 MG TABLET 1 TABLET ORALLY THREE TIMES A DAY NOT-TAKING ATENOLOL 25 MG TABLET 1 TABLET ORALLY ONCE A DAY AT BEDTIME NOT-TAKING METOPROLOL SUCCINATE ER 50 MG TABLET EXTENDED RELEASE 24 HOUR 1 TABLET ORALLY ONCE A DAY NOT-TAKING 28-0.8 MG TABLET 1 TABLET ORALLY ONCE A DAY, NOTES: 03/06/19 NOT-TAKING BENADRYL NOT-TAKING SEROQUEL 50 MG TABLET 1 TABLET ORALLY ONCE A DAY, NOTES: NONE RECENTLY MEDICATION LIST REVIEWED AND RECONCILED WITH THE PATIENT PAST MEDICAL HISTORY 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 MOM-COPD. SOCIAL HISTORY GENERAL: TOBACCO USE ARE YOU A: NONSMOKER. LATEX QUESTIONNAIRE LATEX ALLERGY : HAVE YOU EVER DEVELOPED ANY TYPE OF REACTION AFTER HANDLING LATEX PRODUCTS SUCH RUBBER GLOVES, CONDOMS, DIAPHRAGMS, BALLOONS, SOCKS, OR UNDERWEAR?NO LATEX ALLERGY : HAVE YOU EVER DEVELOPED ANY TYPE OF REACTION DURING OR AFTER DENTAL APPOINTMENT, VAGINAL/RECTAL EXAMINATION, SURGICAL PROCEDURE, OR ANY OTHER EXPOSURE?NO LATEX RISK : HAVE YOU EVER HAD ANY DIFFICULTY BREATHING OR HIVES AFTER EATING OR HANDLING ANY FRUITS, OR VEGETABLES; SUCH KIWI, BANANAS, STONE FRUITS, OR CHESTNUTSNO LATEX RISK : DO YOU HAVE A PREVIOUS PERSONAL HISTORY OF MORE THAN NINE SURGERIES, SPINA BIFIDA, OR REPEATED CATHERIZATIONS? NO LATEX RISK : ARE YOU FREQUENTLY EXPOSED TO LATEX PRODUCTS IN YOUR OCCUPATION?NO DATE ASKED : 03/19/2020 ALCOHOL SCREENING HOW OFTEN DID YOU HAVE A DRINK CONTAINING ALCOHOL IN THE PAST YEAR? NEVER (0 POINTS) , DID YOU HAVE A DRINK CONTAINING ALCOHOL IN THE PAST YEAR? NO , DID YOU HAVE A DRINK CONTAINING ALCOHOL IN THE PAST YEAR? YES , POINTS 0 , POINTS 0 , INTERPRETATION NEGATIVE , INTERPRETATION NEGATIVE. RECREATIONAL DRUG USE DRUG USE? NO. CAFFEINE CAFFEINE USE? NO. 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 DIET: REGULAR. EXERCISE: DAILY, WALKS. NEW PATIENT PAIN DIARY TODAY'S VISIT 03/19/20 PATIENT DESCRIBES PAIN :ACHING, BURNING, HAVE IT ALL THE TIME, SHARP, STABBING, SHOOTING FROM 0-10, WHAT LEVEL IS YOUR PAIN TODAY?9 PAIN CLINIC PFS, CLERGY, PUBLIC HEALTH REFERRALS PFS REFERRAL NEEDED?NO CLERGY REFERRAL NEEDED?NO PUBLIC HEALTH REFERRAL NEEDED?NO WAS THE PROVIDER NOTIFIED OF ANY PERTINENT INFO?YES N/A HAS THE PATIENT BEEN EDUCATED REGARDING HIS/HER PLAN OF CARE?YES HAS THE PATIENT BEEN EDUCATED REGARDING PAIN, THE RISK FOR PAIN, THE IMPORTANCE OF EFFECTIVE PAIN MANAGEMENT, AND THE PAIN ASSESSMENT PROCESS?YES ADVANCE DIRECTIVE ADVANCE DIRECTIVE DISCUSSED WITH PATIENT:YES [phone] HOSPITALIZATION/MAJOR DIAGNOSTIC PROCEDURE SEE ABOVE SURGURIES [facility] HEALTH CHILD X 3 REVIEW OF SYSTEMS REVIEWED BY: PROVIDER: HANNAH DE LEON-Maricruz . CONSTITUTIONAL: ANY CHANGE IN YOUR MEDICAL CONDITION? NO, NO . CHILLS NO, NO . FEVER NO, NO . INFECTION: DO YOU HAVE NEW INFECTIONS? NO, NO . DO YOU HAVE HISTORY OF MRSA? NO, NO . MUSCULOSKELETAL: ANY NEW PATTERNS OF PAIN OR NUMBNESS? NO, NO . GASTROENTEROLOGY: ANY NEW CHANGE IN BOWEL CONTROL? NO, NO . GENITOURINARY: ANY NEW CHANGE IN BLADDER CONTROL? NO, NO . IS THERE A CHANCE YOU COULD BE ? NO, NO . HEMATOLOGY/LYMPH: DO YOU TAKE ANY BLOOD THINNERS? (FOR EXAMPLE- COUMADIN, PLAVIX, AGGRENOX, PLATEL, PRADAXA, OR XARELTO) NO, NO . WHEN WAS YOUR LAST DOSE? DATE: TIME: , DATE: TIME: . NEUROLOGY: HAVE YOU FALLEN IN THE PAST 12 MONTHS? NO, NO . ANY NEW EXTREMITY NUMBNESS OR WEAKNESS? NO, NO . CARDIOLOGY: DO YOU HAVE A PACEMAKER OR DEFIBRILLATOR? NO, NO . RESPIRATORY: HAVE YOU BEEN SICK IN THE PAST WEEK? NO, NO . FEVER NO, NO . FLU LIKE SYMPTOMS? NO, NO . COUGH NO, NO . INTEGUMENTARY: DO YOU HAVE ANY RASHES OR OPEN SORES? NO, NO . ALLERGIC/IMMUNO: ARE YOU ALLERGIC TO IV DYE? NO, NO . ANY NEW ALLERGIES? NO, NO . PSYCHIATRIC: DO YOU HAVE THOUGHTS OF HURTING YOURSELF OR SOMEONE ELSE? NO, NO . ARE YOU ABUSED, NEGLECTED, OR IN AN UNSAFE ENVIRONMENT? NO, NO . ENDOCRINOLOGY: ARE YOU DIABETIC? NO, NO . OTHER: DO YOU NEED ANY PRESCRIPTIONS? NO, NO . IF YES, PLEASE LIST: ____, ____ . ANY NEW PROBLEMS WITH YOUR MEDICATIONS? NO, NO . WHEN DID YOU LAST EAT? ____, ____ . WHEN DID YOU LAST DRINK? ____, ____ . WHAT DID YOU LAST DRINK? ____, ____ . NAME OF PERSON DRIVING YOU HOME? ____, ____ . DO YOU HAVE ANY OTHER QUESTIONS OR CONCERNS NO, NO . EXAMINATION GENERAL EXAMINATION: PSYCHAPPROPRIATE MOOD AND AFFECT , ORIENTED X 3. ASSESSMENTS LUMBAR POST-LAMINECTOMY SYNDROME - M96.1 (PRIMARY) TREATMENT LUMBAR POST-LAMINECTOMY SYNDROME INCREASE LYRICA CAPSULE, 75 MG, 1 CAPSULE, ORALLY, TWICE DAILY, 30 DAYS, 60 CLINICAL NOTES: 29-YEAR-OLD FEMALE IN FOR CHRONIC PAIN FOLLOW-UP. GIVEN PRESENTING SYMPTOMS RECOMMEND INCREASING LYRICA TO 75 MG TWICE A DAY WITH FOLLOW-UP IN 2 MONTHS TO DETERMINE EFFICACY OF TREATMENT. PATIENT HAS EXPRESSED UNDERSTANDING OF AND WAS IN AGREEMENT WITH TREATMENT PLAN. GIVEN TIME TO ASK QUESTIONS AND EXPRESS CONCERNS. , ISTOP REGISTRY REVIEWED AND DEMONSTRATES COMPLLIANCE. (REF # [id number] ) BRINGS IN MEDICATIONS WHICH IS APPROPRIATE FOR WHAT WAS DISPENSED. RECENT URINE TOXICOLOGY REVIEWED. NO UNAUTHORIZED MEDICATIONS. NO ILLICIT SUBSTANCES AND PRESCRIBED MEDICATIONS WERE PRESENT. VISIT TO BE BILLED BASED ON TIME SPENT WITH PATIENT. TIME SPENT WITH PATIENT 11 MINUTES. DISPOSITION & COMMUNICATION FOLLOW UP 2 MONTHS (REASON: BACK PAIN) ELECTRONICALLY SIGNED BY HALEY TOMLINSON ON 04/23/2020 AT 02:10 PM EDT DISCLAIMER : THIS IS A VISIT SUMMARY EXTRACTED FROM THE [employer] CHART. IT IS NOT A COPY OF THE [employer] PROGRESS NOTE. SIMI
== END ==
LOC: M PAIN 11:15
PROVIDERS: ATTEND Family Medicine
DX: M96.1 Postlaminectomy syndrome, not elsewhere classified (principal)

== ENCOUNTER → 2020-04-03 | Outpatient (CLI) | payer OTHER | LOC: M LABSMTC 10:43 | PROVIDERS: ATTEND Anesthesiology | DX: Z11.59 Encounter for screening for other viral diseases (principal) | CPT/HCPCS: C9803; U0003 ==

== ENCOUNTER → 2020-04-06 | Outpatient (CLI) | payer OTHER ==
[~2020-04-06] MED LIST changes: +BOTOX THERAPEUTIC 100 UNIT VIAL (J0585 PER 1 UNIT) IM ONE; +NORCO, ANEXSIA 5/325MG TABLET (HYDROcodone/ACETAMINOPHEN) As Ordered ONE; +ONDANSETRON 4 MG ORAL DISINTEGRATING TAB As Ordered ONE; +diazePAM 5 MG TAB As Ordered ONE
--- NOTE | 2020-04-10 01:42 | ECWPNPC ---
PATIENT NAME: QUENTIN SANDS : 1990 GENDER: FEMALE VISIT DATE: 04/06/2020 DISCHARGE DATE: 04/06/20 1431 VISIT LOCKED DATE TIME: PHYSICIAN: DEBBIE IBRAHIM MD RESOURCE: DEBBIE IBRAHIM MD REASON FOR APPOINTMENT 1. BOTOX HISTORY OF PRESENT ILLNESS GENERAL: -. FALL RISK SCREENING: SCREENING :NO FALLS REPORTED IN THE LAST YEAR PAIN SCREENING: PATIENT HAS A COMPLAINT OF ACUTE OR CHRONIC PAIN :YES 8-9/10 TODAY FOR HEADACHES, 5-6 HEADACHES A WEEK FOR THE LAST MONTH LOCATION OF PAIN: HEADACHES THAT STARTS IN TEMPLES, DOWN SPINE, AND DOWN INTO LEFT LEG. INTENSITY OF PAIN (SCALE OF 1 TO 10): 8-9/10 TODAY, STATES HEADACHES 5-6 DAYS A WEEK FOR THE LAST MONTH WHAT DOES YOUR PAIN FEEL LIKE:ACHING ACHES DURATION: ALL DAY SOMETIMES PAIN IS INCREASED BY: STANDING, HOLDING HER DAUGHTER FOR AN EXTNDED PERIOD PAIN IS DECREASED BY: REST, SLEEPING NURSING NOTE: -. PAIN CENTER INTAKE QUESTIONS: DO YOU HAVE A HISTORY OF MRSA? :NO DO YOU TAKE A BLOOD THINNERS? :NO DO YOU HAVE ANY BLEEDING DISORDERS? :NO ANY NEW NUMBNESS OR WEAKNESS IN YOUR LEGS OR ARMS? :NO ANY PACEMAKER,DEFIBRILLATOR, OR DORSAL COLUMN STIMULATOR? :NO DO YOU HAVE ANY RASHES OR OPEN SORES? :NO ARE YOU ALLERGIC TO IV DYE? :NO ARE YOU DIABETIC? :NO ANY NEW PROBLEMS WITH YOUR MEDICATIONS? :NO HAVE YOU RECEIVED A VACCINE IN THE PAST 30 DAYS? :NO DO YOU PLAN TO RECEIVE A VACCINE IN THE NEXT 21 DAYS? :NO ANY HISTORY OF SEIZURES? :NO ANY HISTORY OF CARDIAC ISSUES OR EVENTS? 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 :NO ANY RECENT HEAD INJURY? :NO DO YOU HAVE ANY NEW INFECTIONS? :NO WHEN DID YOU LAST EAT? : 04/05/2020 2230 WHEN DID YOU LAST DRINK? : 04/06/2020 0930 WHAT DID YOU LAST DRINK? : WATER NAME OF PERSON DRIVING YOU HOME? : - TEOFILO DO YOU HAVE ANY OTHER QUESTIONS OR CONCERNS? : - CURRENT MEDICATIONS TAKING XANAX 0.25 MG TABLET 1 TABLET ORALLY TWICE A DAY, NOTES: 04/04/2020 TAKING IMPLANON , NOTES: ANTHONY ROLLINS TAKING TRAZODONE HCL 50 MG TABLET 1 TABLET AT BEDTIME NEEDED ORALLY ONCE A DAY, NOTES: 03/27/2020 TAKING LYRICA 75 MG CAPSULE 1 CAPSULE ORALLY TWICE DAILY, NOTES: 04/05/2020 0900 TAKING HYDROCODONE-ACETAMINOPHEN 5-325 MG TABLET 1 TABLET NEEDED ORALLY DAILY NEEDED FOR PAIN, NOTES: 04/05/2020 1200 NOT-TAKING ZOFRAN 4 MG TABLET 1 TABLET NEEDED ORALLY EVERY 4 HRS PRN NAUSEA NOT-TAKING ACETAMINOPHEN 325 MG TABLET 1 TABLET NEEDED ORALLY EVERY 4 HRS NOT-TAKING TIZANIDINE HCL 4 MG TABLET 1 TABLET NEEDED ORALLY BID PRN SPASM NOT-TAKING ALPRAZOLAM 0.25 MG TABLET 1 TABLET NEEDED ORALLY TWICE A DAY NOT-TAKING DIGOXIN 125 MCG TABLET 1 TABLET ORALLY ONCE A DAY NOT-TAKING IBUPROFEN 800 MG TABLET 1 TABLET ORALLY THREE TIMES A DAY NOT-TAKING KLONOPIN 0.5 MG TABLET 1 TABLET ORALLY TWICE A DAY NOT-TAKING GABAPENTIN 100 MG CAPSULE 2 CAP ORALLY THREE TIMES DAILY NOT-TAKING PROTONIX 40 MG PACKET 1 CAPSULE ORALLY ONCE A DAY NEEDED NOT-TAKING PREDNISONE 5 MG TABLET 1 TABLET ORALLY THREE TIMES A DAY NOT-TAKING ATENOLOL 25 MG TABLET 1 TABLET ORALLY ONCE A DAY AT BEDTIME NOT-TAKING METOPROLOL SUCCINATE ER 50 MG TABLET EXTENDED RELEASE 24 HOUR 1 TABLET ORALLY ONCE A DAY NOT-TAKING 28-0.8 MG TABLET 1 TABLET ORALLY ONCE A DAY, NOTES: 03/06/19 NOT-TAKING BENADRYL NOT-TAKING SEROQUEL 50 MG TABLET 1 TABLET ORALLY ONCE A DAY, NOTES: NONE RECENTLY MEDICATION LIST REVIEWED AND RECONCILED WITH THE PATIENT PAST MEDICAL HISTORY 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 MOM-COPD. SOCIAL HISTORY GENERAL: TOBACCO USE ARE YOU A: NONSMOKER. LATEX QUESTIONNAIRE LATEX ALLERGY : HAVE YOU EVER DEVELOPED ANY TYPE OF REACTION AFTER HANDLING LATEX PRODUCTS SUCH RUBBER GLOVES, CONDOMS, DIAPHRAGMS, BALLOONS, SOCKS, OR UNDERWEAR?NO LATEX ALLERGY : HAVE YOU EVER DEVELOPED ANY TYPE OF REACTION DURING OR AFTER DENTAL APPOINTMENT, VAGINAL/RECTAL EXAMINATION, SURGICAL PROCEDURE, OR ANY OTHER EXPOSURE?NO DATE ASKED : 03/19/2020 LATEX RISK : HAVE YOU EVER HAD ANY DIFFICULTY BREATHING OR HIVES AFTER EATING OR HANDLING ANY FRUITS, OR VEGETABLES; SUCH KIWI, BANANAS, STONE FRUITS, OR CHESTNUTSNO LATEX RISK : DO YOU HAVE A PREVIOUS PERSONAL HISTORY OF MORE THAN NINE SURGERIES, SPINA BIFIDA, OR REPEATED CATHERIZATIONS? NO LATEX RISK : ARE YOU FREQUENTLY EXPOSED TO LATEX PRODUCTS IN YOUR OCCUPATION?NO ALCOHOL SCREENING HOW OFTEN DID YOU HAVE A DRINK CONTAINING ALCOHOL IN THE PAST YEAR? NEVER (0 POINTS) , DID YOU HAVE A DRINK CONTAINING ALCOHOL IN THE PAST YEAR? NO , DID YOU HAVE A DRINK CONTAINING ALCOHOL IN THE PAST YEAR? YES , POINTS 0 , POINTS 0 , INTERPRETATION NEGATIVE , INTERPRETATION NEGATIVE. RECREATIONAL DRUG USE DRUG USE? NO. CAFFEINE CAFFEINE USE? NO. 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 DIET: REGULAR. EXERCISE: DAILY, WALKS. NEW PATIENT PAIN DIARY TODAY'S VISIT 03/19/20 PATIENT DESCRIBES PAIN :ACHING, BURNING, HAVE IT ALL THE TIME, SHARP, STABBING, SHOOTING FROM 0-10, WHAT LEVEL IS YOUR PAIN TODAY?9 PAIN CLINIC PFS, CLERGY, PUBLIC HEALTH REFERRALS PFS REFERRAL NEEDED?NO CLERGY REFERRAL NEEDED?NO PUBLIC HEALTH REFERRAL NEEDED?NO WAS THE PROVIDER NOTIFIED OF ANY PERTINENT INFO?YES N/A HAS THE PATIENT BEEN EDUCATED REGARDING HIS/HER PLAN OF CARE?YES HAS THE PATIENT BEEN EDUCATED REGARDING PAIN, THE RISK FOR PAIN, THE IMPORTANCE OF EFFECTIVE PAIN MANAGEMENT, AND THE PAIN ASSESSMENT PROCESS?YES ADVANCE DIRECTIVE ADVANCE DIRECTIVE DISCUSSED WITH PATIENT:YES HCP TEOFILO [facility] [phone] HOSPITALIZATION/MAJOR DIAGNOSTIC PROCEDURE SEE ABOVE [facility] MENT[facility] CHILD X 3 VITAL SIGNS WT 119.4 LBS, HT 63 IN, BMI 21.15 INDEX, BP 136/72 MM HG, HR 80 /MIN, RR 16 /MIN, TEMP 98.4 F, OXYGEN SAT % 99%, SAFE IN ENV? (Y/N) YES, NA INITIALS TL 1213, REVIEWED BY: BECKY. EXAMINATION GENERAL EXAMINATION: THE PATIENT IS ALERT, ORIENTED TIMES THREE AND COOPERATIVE. HEART SHOWS REGULAR RHYTHM, NO MURMURS AND NO GALLOPS. LUNGS ARE CLEAR TO AUSCULTATION. ASSESSMENTS CHRONIC MIGRAINE - G43.709 (PRIMARY) PROCEDURES PN BOTOX INJECTIONS FIRST INJECTION PRE PROCEDURE DIAGNOSIS CHRONIC MIGRAINE HEADACHES POST PROCEDURE DIAGNOSIS CHRONIC MIGRAINE HEADACHES PROCEDURE BOTOX INJECTION AT THE HEAD, NECK AND SHOULDERS SURGEON DR. DEBBIE IBRAHIM WELDER NONE ANESTHESIA NONE PRE PROCEDURE NOTE 29-YEAR-OLD PATIENT WITH HISTORY OF CHRONIC MIGRAINE HEADACHES. I EVALUATED THE PATIENT AND REVIEWED THE CHART. I WENT OVER THE RISKS, ALTERNATIVES, AND BENEFITS ASSOCIATED WITH THIS PROCEDURE. THE PATIENT WOULD LIKE TO PROCEED AND GAVE CONSENT TO PERFORM THE PROCEDURE. THE PATIENT DENIES UNEXPLAINABLE WEIGHT LOSS, FEVER, CHILLS, OR NEW CHANGES IN URINARY OR BOWEL CONTROL. THE PATIENT HAS BEEN SUFFERING FROM HEADACHES FOR MORE THAN 16 DAYS OF THE MONTH. THE PATIENT HAD A BOTOX INJECTION IN OCTOBER 2019. THE PATIENT STATES THAT PRIOR TO THAT INJECTION, SHE WAS EXPERIENCING HEADACHES EVERY DAY OF THE MONTH. AFTER THE INJECTION, THE PATIENT STATES THAT THE HEADACHES WENT DOWN TO 1 TO 2 A MONTH. THE PATIENT STATES THAT THE HEADACHES HAVE NOW RETURNED AND ARE EVERY DAY OF THE MONTH. THE HEADACHES LAST MORE THAN 4 HOURS PER DAY. THE PATIENT HAS USED THE MEDICATIONS LISTED IN THE CHART TO TREAT THE HEADACHES FOR MANY MONTHS BUT THE HEADACHES PERSIST DESCRIBED ABOVE. THE PATIENT IS COVID-19 NEGATIVE DESCRIPTION OF PROCEDURE THE PATIENT WAS BROUGHT TO THE PROCEDURE ROOM AND PLACED IN THE SUPINE POSITION. I CHECKED LATERALITY AND THE AREAS WHERE THE PROCEDURE WAS GOING TO BE PERFORMED WITH THE PATIENT AND THE SUPPORTING STAFF AT THE MOMENT OF THE TIME OUT IN THE PROCEDURE ROOM. FOR THE PROCEDURE I USED A SOLUTION OF 5 UNITS OF BOTOX PER EACH 0.1 ML OF THE SOLUTION. I USED A 30-GAUGE NEEDLE TO INJECT THE SOLUTION AT THE SELECTED LOCATIONS. I INJECTED FIRST THE RIGHT AND LEFT COMMISSIONING EDITOR MUSCLES. THE LANDMARK FOR BOTH INJECTIONS WAS APPROXIMATELY 1 CM ABOVE THE SUPERIOR MEDIAL EDGE OF THE EYEBROW. AFTER THESE TWO INJECTIONS, I INJECTED THE PROCERUS MUSCLE AT THE MIDLINE POINT BETWEEN THESE FIRST TWO INJECTIONS. THEN I PROCEEDED TO INJECT THE RIGHT AND LEFT FRONTALIS MUSCLE. TWO INJECTIONS WERE DONE IN EACH SIDE. THE FIRST INJECTION WAS DONE APPROXIMATELY 2 CM ABOVE THE FIRST INJECTION OF THE COMMISSIONING EDITOR. THE SECOND INJECTION WAS DONE APPROXIMATELY 1.5 CM LATERAL TO THIS FIST INJECTION OF THE FRONTALIS OF EACH SIDE. AFTER THE INJECTIONS OVER THE FOREHEAD WERE DONE, THE PATIENT'S HEAD WAS TURNED TO THE LEFT SIDE AND WE STARTED TO WORK WITH THE RIGHT TEMPORALIS MUSCLE. FIRST INJECTION WAS DONE IN A VERTICAL LINE OF THE TRAGUS APPROXIMATELY 3 CM ABOVE THE TRAGUS. THE SECOND INJECTION WAS DONE APPROXIMATELY 2 CM ABOVE THE FIRST INJECTION. THE THIRD INJECTION WAS DONE APPROXIMATELY 1 CM FRONTWARD FROM THIS VERTICAL LINE CREATED AT THE LEVEL OF THE TRAGUS, LONGTERM BETWEEN THESE TWO INJECTIONS. THE FOURTH INJECTION WAS DONE APPROXIMATELY 1.5 CM BACK FROM THE SECOND INJECTION TO THE TEMPORALIS IN LINE TO THE MIDPORTION OF THE EAR. THEN, WE PROCEEDED TO INJECT THE LEFT TEMPORALIS MUSCLE. WE CLEANED THE AREA WITH ALCOHOL AND PROCEEDED TO PERFORM THE SAME FOR INJECTIONS DESCRIBED ABOVE BUT IN THE LEFT TEMPORALIS MUSCLE USING THE SAME LANDMARKS. AFTER THESE INJECTIONS WERE DONE, THE PATIENT WAS SEATED. FIRST, WE STARTED TO INJECT THE LEFT AND RIGHT OCCIPITALIS MUSCLE. I INJECTED AT THE FOLLOWING PLACES IN THE RIGHT AND LEFT MUSCLE. THE FIRST INJECTION WAS DONE AT THE MIDPOINT POSITION BETWEEN THE MASTOID PROCESS AND THE INION OF THE OCCIPITAL PROTUBERANCE. THE SECOND INJECTION WAS DONE APPROXIMATELY 1.5 CM SUPERIOR AND LATERAL OF THIS POINT. THE THIRD INJECTION WAS DONE APPROXIMATELY 1.5 CM SUPERIOR AND MEDIAL TO THIS FIRST INJECTION. NEXT, I PROCEEDED TO INJECT THE RIGHT AND LEFT PARASPINAL MUSCLES. LANDMARK OF THE INJECTION WERE APPROXIMATELY: FIRST INJECTION 3 CM BELOW THE INION AND 1 CM LATERAL TO THE MIDLINE AND SECOND INJECTION AT EACH SIDE WAS DONE APPROXIMATELY 1.5 CM SUPERIOR AND LATERAL OF THE FIRST INJECTION. THE LAST GROUP OF INJECTIONS WAS DONE OVER THE RIGHT AND LEFT TRAPEZIUS MUSCLE OVER THE SHOULDERS AREA. THE FIRST INJECTION WAS DONE AT THE MIDPOINT BETWEEN THE INFLECTION POINT BETWEEN THE NECK AND SHOULDER AND THE ACROMION. THE SECOND AND THIRD INJECTIONS WERE DONE APPROXIMATELY 2.5 CM LATERAL AND MEDIAL FROM THIS FIRST INJECTION. SAME TARGETS WERE USED IN THE RIGHT AND LEFT SIDE. IN TOTAL, I INJECTED 155 UNITS OF BOTOX. PROCEDURE WAS DONE WITHOUT EVIDENCE OF PARESTHESIA, PNEUMOTHORAX, OR ANY COMPLICATIONS. THE PATIENT TOLERATED THE PROCEDURE VERY WELL. THE PATIENT WAS SENT TO THE RECOVERY ROOM FOR OBSERVATIONS. INJECTIONS WERE DONE AFTER CLEANING WITH ALCOHOL, USING ASEPTIC TECHNIQUES POST PROCEDURE NOTE THE PROCEDURE DONE WAS DISCUSSED WITH THE PATIENT. THE PATIENT WILL BE SEEN IN A FOLLOW UP IN THE NEXT FEW WEEKS. I AM LOOKING FOR LONG LASTING PAIN RELIEF FOR THE PATIENT WITH THIS INTERVENTION. INSTRUCTIONS WERE GIVEN, QUESTIONS WERE ANSWERED, AND THE PATIENT EXPRESSED UNDERSTANDING AND AGREES WITH THE PLAN. I, ANA SIMON, DOCUMENTED THE ABOVE INFORMATION ACTING A SCRIBE FOR DR. IBRAHIM. I HAVE REVIEWED THE ABOVE DOCUMENT, WRITTEN BY ANA SIMON, CHEMIST INORGANIC, AND I VERIFY THAT IT IS ACCURATE PROCEDURE CODES 42902 CHEMODENERV MUSC MIGRAINE DISPOSITION & COMMUNICATION FOLLOW UP F/UP WITH LANDSCAPE ARCHITECTURE PROFESSOR (REASON: POST BOTOX) ELECTRONICALLY SIGNED BY DEBBIE IBRAHIM MD, MD ON 04/09/2020 AT 10:17 AM EDT DISCLAIMER : THIS IS A VISIT SUMMARY EXTRACTED FROM THE [employer] CHART. IT IS NOT A COPY OF THE [employer] PROGRESS NOTE. ISMI
== END ==
LOC: M PAIN 12:15
PROVIDERS: ATTEND Anesthesiology
DX: G43.709 Chronic migraine without aura, not intractable, without status migrainosus (principal)
CPT/HCPCS: 64615; J0585; Q0162

== ENCOUNTER → 2020-05-08 | Outpatient (CLI) | payer OTHER ==
[~2020-05-08] MED LIST changes: -BOTOX THERAPEUTIC 100 UNIT VIAL (J0585 PER 1 UNIT) IM ONE; -NORCO, ANEXSIA 5/325MG TABLET (HYDROcodone/ACETAMINOPHEN) As Ordered ONE; -ONDANSETRON 4 MG ORAL DISINTEGRATING TAB As Ordered ONE; -diazePAM 5 MG TAB As Ordered ONE
--- NOTE | 2020-05-10 01:40 | ECWPNPC ---
PATIENT NAME: QUENTIN SANDS : 1990 GENDER: FEMALE VISIT DATE: 05/08/2020 DISCHARGE DATE: 05/08/20 1038 VISIT LOCKED DATE TIME: PHYSICIAN: KAREEM ADAMS RESOURCE: KAREEM ADAMS REASON FOR APPOINTMENT 1. POST BOTOX PAT DONE HISTORY OF PRESENT ILLNESS GENERAL: - PERMISSION REQUESTED AND RECEIVED FROM PATIENT TO PERFORM TELEHEALTH VISIT. 29-YEAR-OLD FEMALE IN FOR POST BOTOX FOLLOW-UP. SHE FEELS THE PROCEDURE WAS EFFECTIVE OVERALL STATING THAT SHE HAS ONLY HAD 2 HEADACHES SINCE THE PROCEDURE. SHE FURTHER STATES SHE FEELS THE PROCEDURE CONTINUES TO HELP HER TODAY. FALL RISK SCREENING: SCREENING :NO FALLS REPORTED IN THE LAST YEAR PAIN SCREENING: PATIENT HAS A COMPLAINT OF ACUTE OR CHRONIC PAIN :YES [id number]-5-07/19, TURV-[id number]-7-03/18, NOW-12/19 LOCATION OF PAIN:HEAD 2 HEADACHES SINCE THE BOTOX WAS DONE INTENSITY OF PAIN (SCALE OF 1 TO 10):2 PLAN/GOALS/TREATMENT/INTERVENTION/FOLLOW UP:SEE PLAN NURSING NOTE: -. PAIN CENTER INTAKE QUESTIONS: DO YOU HAVE A HISTORY OF MRSA? :NO DO YOU TAKE A BLOOD THINNERS? :NO DO YOU HAVE ANY BLEEDING DISORDERS? :NO ANY NEW NUMBNESS OR WEAKNESS IN YOUR LEGS OR ARMS? :NO ANY PACEMAKER,DEFIBRILLATOR, OR DORSAL COLUMN STIMULATOR? :NO DO YOU HAVE ANY RASHES OR OPEN SORES? :NO ARE YOU ALLERGIC TO IV DYE? :NO ARE YOU DIABETIC? :NO ANY NEW PROBLEMS WITH YOUR MEDICATIONS? :NO HAVE YOU RECEIVED A VACCINE IN THE PAST 30 DAYS? :NO DO YOU PLAN TO RECEIVE A VACCINE IN THE NEXT 21 DAYS? :NO DO YOU NEED ANY PRESCRIPTION? :NO DO YOU TAKE ANY IMMUNOSUPPRESSIVE MEDICATIONS? :NO IS THERE A CHANCE YOU COULD BE ? :NO ARE YOU BREAST FEEDING? :NO CURRENT MEDICATIONS TAKING XANAX 0.25 MG TABLET 1 TABLET ORALLY TWICE A DAY, NOTES: 04/04/2020 TAKING IMPLANON , NOTES: ANTHONY ROLLINS TAKING TRAZODONE HCL 50 MG TABLET 1 TABLET AT BEDTIME NEEDED ORALLY ONCE A DAY, NOTES: 03/27/2020 TAKING LYRICA 75 MG CAPSULE 1 CAPSULE ORALLY TWICE DAILY, NOTES: 04/05/2020 0900 TAKING HYDROCODONE-ACETAMINOPHEN 5-325 MG TABLET 1 TABLET NEEDED ORALLY DAILY NEEDED FOR PAIN, NOTES: 04/05/2020 1200 NOT-TAKING ZOFRAN 4 MG TABLET 1 TABLET NEEDED ORALLY EVERY 4 HRS PRN NAUSEA NOT-TAKING ACETAMINOPHEN 325 MG TABLET 1 TABLET NEEDED ORALLY EVERY 4 HRS NOT-TAKING TIZANIDINE HCL 4 MG TABLET 1 TABLET NEEDED ORALLY BID PRN SPASM NOT-TAKING ALPRAZOLAM 0.25 MG TABLET 1 TABLET NEEDED ORALLY TWICE A DAY NOT-TAKING DIGOXIN 125 MCG TABLET 1 TABLET ORALLY ONCE A DAY NOT-TAKING IBUPROFEN 800 MG TABLET 1 TABLET ORALLY THREE TIMES A DAY NOT-TAKING KLONOPIN 0.5 MG TABLET 1 TABLET ORALLY TWICE A DAY NOT-TAKING GABAPENTIN 100 MG CAPSULE 2 CAP ORALLY THREE TIMES DAILY NOT-TAKING PROTONIX 40 MG PACKET 1 CAPSULE ORALLY ONCE A DAY NEEDED NOT-TAKING PREDNISONE 5 MG TABLET 1 TABLET ORALLY THREE TIMES A DAY NOT-TAKING ATENOLOL 25 MG TABLET 1 TABLET ORALLY ONCE A DAY AT BEDTIME NOT-TAKING METOPROLOL SUCCINATE ER 50 MG TABLET EXTENDED RELEASE 24 HOUR 1 TABLET ORALLY ONCE A DAY NOT-TAKING 28-0.8 MG TABLET 1 TABLET ORALLY ONCE A DAY, NOTES: 03/06/19 NOT-TAKING BENADRYL NOT-TAKING SEROQUEL 50 MG TABLET 1 TABLET ORALLY ONCE A DAY, NOTES: NONE RECENTLY MEDICATION LIST REVIEWED AND RECONCILED WITH THE PATIENT PAST MEDICAL HISTORY 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 MOM-COPD. SOCIAL HISTORY GENERAL: TOBACCO USE ARE YOU A: NONSMOKER. LATEX QUESTIONNAIRE LATEX ALLERGY : HAVE YOU EVER DEVELOPED ANY TYPE OF REACTION AFTER HANDLING LATEX PRODUCTS SUCH RUBBER GLOVES, CONDOMS, DIAPHRAGMS, BALLOONS, SOCKS, OR UNDERWEAR?NO LATEX ALLERGY : HAVE YOU EVER DEVELOPED ANY TYPE OF REACTION DURING OR AFTER DENTAL APPOINTMENT, VAGINAL/RECTAL EXAMINATION, SURGICAL PROCEDURE, OR ANY OTHER EXPOSURE?NO LATEX RISK : HAVE YOU EVER HAD ANY DIFFICULTY BREATHING OR HIVES AFTER EATING OR HANDLING ANY FRUITS, OR VEGETABLES; SUCH KIWI, BANANAS, STONE FRUITS, OR CHESTNUTSNO LATEX RISK : DO YOU HAVE A PREVIOUS PERSONAL HISTORY OF MORE THAN NINE SURGERIES, SPINA BIFIDA, OR REPEATED CATHERIZATIONS? NO LATEX RISK : ARE YOU FREQUENTLY EXPOSED TO LATEX PRODUCTS IN YOUR OCCUPATION?NO DATE ASKED : 05/08/2020 ALCOHOL SCREENING HOW OFTEN DID YOU HAVE A DRINK CONTAINING ALCOHOL IN THE PAST YEAR? NEVER (0 POINTS) , DID YOU HAVE A DRINK CONTAINING ALCOHOL IN THE PAST YEAR? NO , DID YOU HAVE A DRINK CONTAINING ALCOHOL IN THE PAST YEAR? YES , POINTS 0 , POINTS 0 , INTERPRETATION NEGATIVE , INTERPRETATION NEGATIVE. RECREATIONAL DRUG USE DRUG USE? NO. CAFFEINE CAFFEINE USE? NO. 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 DIET: REGULAR. EXERCISE: DAILY, WALKS. NEW PATIENT PAIN DIARY TODAY'S VISIT 03/19/20 PATIENT DESCRIBES PAIN :ACHING, BURNING, HAVE IT ALL THE TIME, SHARP, STABBING, SHOOTING FROM 0-10, WHAT LEVEL IS YOUR PAIN TODAY?9 PAIN CLINIC PFS, CLERGY, PUBLIC HEALTH REFERRALS PFS REFERRAL NEEDED?NO CLERGY REFERRAL NEEDED?NO PUBLIC HEALTH REFERRAL NEEDED?NO WAS THE PROVIDER NOTIFIED OF ANY PERTINENT INFO?YES N/A HAS THE PATIENT BEEN EDUCATED REGARDING HIS/HER PLAN OF CARE?YES HAS THE PATIENT BEEN EDUCATED REGARDING PAIN, THE RISK FOR PAIN, THE IMPORTANCE OF EFFECTIVE PAIN MANAGEMENT, AND THE PAIN ASSESSMENT PROCESS?YES ADVANCE DIRECTIVE ADVANCE DIRECTIVE DISCUSSED WITH PATIENT:YES HCP [facility] [phone] HOSPITALIZATION/MAJOR DIAGNOSTIC PROCEDURE SEE ABOVE [facility] CHILD X 3 REVIEW OF SYSTEMS CONSTITUTIONAL: ANY RECENT FEVER NO . CHILLS NO . WEIGHT CHANGE OF UNKNOWN REASONS NO . GASTROENTEROLOGY: NEW UNEXPLAINABLE CHANGES IN BOWEL CONTROL NO . CONSTIPATION NO . GENITOURINARY: ANY NEW CHANGE IN BLADDER CONTROL? NO . NEUROLOGY: NEW ONSET DIZZINESS OR NEUROLOGICAL CHANGES NOT MENTIONED NO . NEW NUMBNESS OR PAIN PATTERNS NOT MENTIONED AND PERTINENT TO TODAY'S VISIT NO . CARDIOLOGY: NEW CHEST PRESSURE NO . NEW CHEST PAIN NO . RESPIRATORY: UNEXPLAINABLE COUGH NO . NEW SHORTNESS OF BREATH NO . EXAMINATION GENERAL EXAMINATION: PSYCHAPPROPRIATE MOOD AND AFFECT , ORIENTED X 3. ASSESSMENTS INTRACTABLE MIGRAINE WITHOUT AURA AND WITHOUT STATUS MIGRAINOSUS - G43.019 (PRIMARY) TREATMENT INTRACTABLE MIGRAINE WITHOUT AURA AND WITHOUT STATUS MIGRAINOSUS CLINICAL NOTES: 29-YEAR-OLD FEMALE IN FOR POST BOTOX FOLLOW-UP. GIVEN PRESENTING SYMPTOMS RECOMMEND SCHEDULING NEXT BOTOX WITH POST PROCEDURAL FOLLOW-UP. PATIENT HAS EXPRESSED UNDERSTANDING OF AND WAS IN AGREEMENT WITH TREATMENT PLAN. GIVEN TIME TO ASK QUESTIONS AND EXPRESS CONCERNS. , ISTOP REGISTRY REVIEWED AND DEMONSTRATES COMPLLIANCE. (REF # [id number]) BRINGS IN MEDICATIONS WHICH IS APPROPRIATE FOR WHAT WAS DISPENSED. RECENT URINE TOXICOLOGY REVIEWED. NO UNAUTHORIZED MEDICATIONS. NO ILLICIT SUBSTANCES AND PRESCRIBED MEDICATIONS WERE PRESENT. VISIT TO BE BILLED BASED ON TIME SPENT WITH PATIENT. TIME SPENT WITH PATIENT 11 MINUTES. OTHERS NOTES: VITALS NOT OBTAINED DUE TO PHONE VISIT PRE-SCREENING COMPLETED,05/08/20, NA. DISPOSITION & COMMUNICATION FOLLOW UP POST PROCEDURE (REASON: BOTOX) ELECTRONICALLY SIGNED BY HALEY TOMLINSON ON 05/09/2020 AT 08:24 AM EDT DISCLAIMER : THIS IS A VISIT SUMMARY EXTRACTED FROM THE [employer] CHART. IT IS NOT A COPY OF THE [employer] PROGRESS NOTE. SIMI
== END ==
LOC: M PAIN 10:30
PROVIDERS: ATTEND Family Medicine
DX: G43.019 Migraine without aura, intractable, without status migrainosus (principal)

== ENCOUNTER → 2020-06-24 | Outpatient (CLI) | payer OTHER ==
[~2020-06-24] MED LIST changes: +BIOT1TAB PO; -FLUO10CA15 PO; +FLUO10CA16 PO; +SERT50TA29 PO
== END ==
LOC: M LABSMTC 08:00
PROVIDERS: ATTEND Plastic Surgery
DX: Z03.818 Encounter for observation for suspected exposure to other biological agents ruled out (principal); Z11.59 Encounter for screening for other viral diseases
CPT/HCPCS: C9803; U0003

== ENCOUNTER → 2020-07-30 | Outpatient (CLI) | payer OTHER | LOC: M PAIN 11:00 | PROVIDERS: ATTEND Family Medicine | DX: G43.709 Chronic migraine without aura, not intractable, without status migrainosus (principal) ==

== ENCOUNTER → 2020-08-15 | Outpatient (CLI) | payer OTHER | LOC: M LABSMTC 13:45 | PROVIDERS: ATTEND Anesthesiology | DX: Z11.59 Encounter for screening for other viral diseases (principal) | CPT/HCPCS: C9803; U0003 ==

== ENCOUNTER → 2020-08-20 | Outpatient (CLI) | payer OTHER ==
[~2020-08-20] MED LIST changes: +BOTOX THERAPEUTIC 100 UNIT VIAL (J0585 PER 1 UNIT) IM ONE; +NORCO, ANEXSIA 5/325MG TABLET (HYDROcodone/ACETAMINOPHEN) As Ordered ONE; +ONDANSETRON 4 MG ORAL DISINTEGRATING TAB As Ordered ONE; +diazePAM 5 MG TAB As Ordered ONE
--- NOTE | 2020-08-22 13:03 | ECWPNPC ---
PATIENT NAME: QUENTIN SANDS : 1990 GENDER: FEMALE VISIT DATE: 08/20/2020 DISCHARGE DATE: 08/20/20 1441 VISIT LOCKED DATE TIME: PHYSICIAN: DEBBIE IBRAHIM MD RESOURCE: DEBBIE IBRAHIM MD REASON FOR APPOINTMENT 1. BOTOX HISTORY OF PRESENT ILLNESS GENERAL: -. FALL RISK SCREENING: SCREENING :NO FALLS REPORTED IN THE LAST YEAR PAIN SCREENING: PATIENT HAS A COMPLAINT OF ACUTE OR CHRONIC PAIN :YES LOCATION OF PAIN:HEAD, LOW BACK, LEG(S) RIGHT LEG INTENSITY OF PAIN (SCALE OF 1 TO 10):7 WHAT DOES YOUR PAIN FEEL LIKE:ACHING, BURNING, CONTINOUS, SHARP, STABBING, TENDER, THROBBING, SHOOTING DURATION:CONTINOUS, CONSTANT, AWAKENS FROM SLEEP PAIN IS INCREASED BY: LIGHTS, LOUD VOICES,BACK PAIN PAIN IS DECREASED BY: HOT BATHS, EPSOM SALTS, MEDS, BOTOX INJECTIONS NURSING NOTE: -. PAIN CENTER INTAKE QUESTIONS: DO YOU HAVE A HISTORY OF MRSA? :NO DO YOU TAKE A BLOOD THINNERS? :NO DO YOU HAVE ANY BLEEDING DISORDERS? :NO ANY NEW NUMBNESS OR WEAKNESS IN YOUR LEGS OR ARMS? :NO ANY PACEMAKER,DEFIBRILLATOR, OR DORSAL COLUMN STIMULATOR? :YES LOOP RECORDER THAT IS NOT RECORDING DO YOU HAVE ANY RASHES OR OPEN SORES? :NO ARE YOU ALLERGIC TO IV DYE? :NO ARE YOU DIABETIC? :NO ANY NEW PROBLEMS WITH YOUR MEDICATIONS? :NO HAVE YOU RECEIVED A VACCINE IN THE PAST 30 DAYS? :NO DO YOU PLAN TO RECEIVE A VACCINE IN THE NEXT 21 DAYS? :NO DO YOU TAKE ANY IMMUNOSUPPRESSIVE MEDICATIONS? :NO ANY HISTORY OF SEIZURES? :NO ANY HISTORY OF CARDIAC ISSUES OR EVENTS? :YES A FIB, SVT, MARCELLE-PARKINSON WHITE SYNDROME. 2 CARDIAC ABLATION DO YOU HAVE SLEEP APNEA? :NO ANY RECENT HEAD INJURY? :NO DO YOU HAVE ANY NEW INFECTIONS? :NO IS THERE A CHANCE YOU COULD BE ? :NO ARE YOU BREAST FEEDING? :NO WHEN DID YOU LAST EAT? : 08/19 2100 WHEN DID YOU LAST DRINK? : 08/20 730 WHAT DID YOU LAST DRINK? : WATER NAME OF PERSON DRIVING YOU HOME? : CARMENZA DO YOU HAVE ANY OTHER QUESTIONS OR CONCERNS? : NONE CURRENT MEDICATIONS TAKING XANAX 0.25 MG TABLET 1 TABLET ORALLY TWICE A DAY, NOTES: 08/17 TAKING TRAZODONE HCL 50 MG TABLET 1 TABLET AT BEDTIME NEEDED ORALLY ONCE A DAY, NOTES: 08/19 1900 TAKING LYRICA 75 MG CAPSULE 1 CAPSULE ORALLY TWICE DAILY, NOTES: 08/20 0400 TAKING HYDROCODONE-ACETAMINOPHEN 5-325 MG TABLET 1 TABLET NEEDED ORALLY DAILY NEEDED FOR PAIN, NOTES: 08/19 1400 TAKING ACETAMINOPHEN 325 MG TABLET 1 TABLET NEEDED ORALLY EVERY 4 HRS, NOTES: 08/18 TAKING TIZANIDINE HCL 4 MG TABLET 1 TABLET NEEDED ORALLY BID PRN SPASM, NOTES: NONE RECENT NOT-TAKING IMPLANON , NOTES: OUT NOT-TAKING ZOFRAN 4 MG TABLET 1 TABLET NEEDED ORALLY EVERY 4 HRS PRN NAUSEA NOT-TAKING DIGOXIN 125 MCG TABLET 1 TABLET ORALLY ONCE A DAY NOT-TAKING IBUPROFEN 800 MG TABLET 1 TABLET ORALLY THREE TIMES A DAY NOT-TAKING KLONOPIN 0.5 MG TABLET 1 TABLET ORALLY TWICE A DAY NOT-TAKING GABAPENTIN 100 MG CAPSULE 2 CAP ORALLY THREE TIMES DAILY NOT-TAKING PROTONIX 40 MG PACKET 1 CAPSULE ORALLY ONCE A DAY NEEDED NOT-TAKING PREDNISONE 5 MG TABLET 1 TABLET ORALLY THREE TIMES A DAY NOT-TAKING ATENOLOL 25 MG TABLET 1 TABLET ORALLY ONCE A DAY AT BEDTIME NOT-TAKING METOPROLOL SUCCINATE ER 50 MG TABLET EXTENDED RELEASE 24 HOUR 1 TABLET ORALLY ONCE A DAY NOT-TAKING 28-0.8 MG TABLET 1 TABLET ORALLY ONCE A DAY, NOTES: 03/06/19 NOT-TAKING BENADRYL NOT-TAKING SEROQUEL 50 MG TABLET 1 TABLET ORALLY ONCE A DAY, NOTES: NONE RECENTLY DISCONTINUED ALPRAZOLAM 0.25 MG TABLET 1 TABLET NEEDED ORALLY TWICE A DAY, NOTES: DUPLICATE MEDICATION LIST REVIEWED AND RECONCILED WITH THE PATIENT PAST MEDICAL HISTORY 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 ABLATION ANXIETY BIPOLAR AFIB / SVT DEPRESSION KYPHOSIS SEVERE MIGRAINES ALLERGIES 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 [id number]. SOCIAL HISTORY GENERAL: TOBACCO USE ARE YOU A: NONSMOKER. LATEX QUESTIONNAIRE LATEX ALLERGY : HAVE YOU EVER DEVELOPED ANY TYPE OF REACTION AFTER HANDLING LATEX PRODUCTS SUCH RUBBER GLOVES, CONDOMS, DIAPHRAGMS, BALLOONS, SOCKS, OR UNDERWEAR?NO LATEX ALLERGY : HAVE YOU EVER DEVELOPED ANY TYPE OF REACTION DURING OR AFTER DENTAL APPOINTMENT, VAGINAL/RECTAL EXAMINATION, SURGICAL PROCEDURE, OR ANY OTHER EXPOSURE?NO LATEX RISK : HAVE YOU EVER HAD ANY DIFFICULTY BREATHING OR HIVES AFTER EATING OR HANDLING ANY FRUITS, OR VEGETABLES; SUCH KIWI, BANANAS, STONE FRUITS, OR CHESTNUTSNO LATEX RISK : DO YOU HAVE A PREVIOUS PERSONAL HISTORY OF MORE THAN NINE SURGERIES, SPINA BIFIDA, OR REPEATED CATHERIZATIONS? NO LATEX RISK : ARE YOU FREQUENTLY EXPOSED TO LATEX PRODUCTS IN YOUR OCCUPATION?NO DATE ASKED : 08/20/2020 ALCOHOL SCREENING HOW OFTEN DID YOU HAVE A DRINK CONTAINING ALCOHOL IN THE PAST YEAR? NEVER (0 POINTS) , DID YOU HAVE A DRINK CONTAINING ALCOHOL IN THE PAST YEAR? NO , DID YOU HAVE A DRINK CONTAINING ALCOHOL IN THE PAST YEAR? YES , POINTS 0 , POINTS 0 , INTERPRETATION NEGATIVE , INTERPRETATION NEGATIVE. RECREATIONAL DRUG USE DRUG USE? NO. CAFFEINE CAFFEINE USE? NO. 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 DIET: REGULAR. EXERCISE: DAILY, WALKS. PAIN CLINIC PFS, CLERGY, PUBLIC HEALTH REFERRALS PFS REFERRAL NEEDED?NO CLERGY REFERRAL NEEDED?NO PUBLIC HEALTH REFERRAL NEEDED?NO HAS THE PATIENT BEEN EDUCATED REGARDING HIS/HER PLAN OF CARE?YES HAS THE PATIENT BEEN EDUCATED REGARDING PAIN, THE RISK FOR PAIN, THE IMPORTANCE OF EFFECTIVE PAIN MANAGEMENT, AND THE PAIN ASSESSMENT PROCESS?YES ADVANCE DIRECTIVE ADVANCE DIRECTIVE DISCUSSED WITH PATIENT:YES HCP [facility] [phone] HOSPITALIZATION/MAJOR DIAGNOSTIC PROCEDURE SEE ABOVE [facility] CHILD X 3 VITAL SIGNS WT 129.4 LBS, HT 63 IN, BMI 22.92 INDEX, BP 118/76 MM HG, HR 78 /MIN, RR 16 /MIN, TEMP 96.9 F, OXYGEN SAT % 95%, NA INITIALS AW 1305, REVIEWED BY: AD. EXAMINATION GENERAL EXAMINATION: THE PATIENT IS ALERT, ORIENTED TIMES THREE AND COOPERATIVE. HEART SHOWS REGULAR RHYTHM, NO MURMURS AND NO GALLOPS. LUNGS ARE CLEAR TO AUSCULTATION. ASSESSMENTS CHRONIC MIGRAINE - G43.709 (PRIMARY) TREATMENT CHRONIC MIGRAINE MEDICATION: ZOFRAN ODT TAB 4MG (ONDANSETRON)WALI ASHBY 08/20/2020 1:38:41 PM > VERIFIED BAYRONJOSE RAUL HERNANDEZLE 08/20/2020 1:43:10 PM > ADMINITERED [id number] EXP JUN 2023 MEDICATION: NORCO TABLET 5MG/325MG ORALLY (HYDROCODONE/ACETAMINOPHEN)ANNAMARIA SIMONL 08/20/2020 01:18:39 PM - GIVE 2 TABS WALI ASHBY 08/20/2020 1:39:05 PM > VERIFIED BAYRON,JAIME 08/20/2020 1:44:04 PM > ADMINISTERED LOT [id number] EXP 01/2022 MEDICATION: VALIUM TAB 10MG ORALLY (DIAZEPAM)WALI ASHBY 08/20/2020 1:39:23 PM > VERIFIED BAYRON,JAIME 08/20/2020 1:44:36 PM > ADMINISTERED LOT [id number] EXP 02/06/2021 PROCEDURES PAIN NURSING RECORD PRE-PROCEDURE IV SITE N/A, PRE-PROCEDURE ORAL MEDICATIONS SEE ORDERS PROCEDURE IN ROOM 1305, PHYSICIAN IN ROOM 1407, START 1410, FINISH 1424, PHYSICIAN OUT OF ROOM 1426, OUT OF ROOM 1441, STEROID N/A, O2 RA, ECG N/A, PATIENT SHIELDED NO, SAFETY STRAP NO, PREP ALCOHOL BY DR. IBRAHIM, IV INFUSED N/A, DRESSING N/A LOC: WALI ASHBY 08/20/2020 1:37:39 PM > 1. ALERT, ORIENTED RESP: WALI ASHBY 08/20/2020 1:37:45 PM > 1. REGULAR, NO DYSPNEA COLOR: WALI ASHBY 08/20/2020 1:37:52 PM > 1. PINK SKIN: WALI ASHBY 08/20/2020 1:37:56 PM > 1. WARM, DRY POSITION: 4. OTHER-SUPINE AND SITTING VITALS: WALI ASHBY 08/20/2020 2:36:28 PM > 154/84,88,16, 97% DISCHARGE: POST PAIN 0/10, DRESSING SITE NO DRESSING, IV N/A, GAIT STEADY, TEACHING COMPLETED, PATIENT ACKNOWLEDGES UNDERSTANDING YES, PATIENT DISCHARGED AT 1441 : 1435 POST PROCEDURE INSTRUCTIONS GIVEN TO AND REVIEWED WITH PT. AND SHE VERBALIZED UNDERSTANDING. AD PN BOTOX INJECTIONS FIRST INJECTION PRE PROCEDURE DIAGNOSIS CHRONIC MIGRAINE HEADACHES POST PROCEDURE DIAGNOSIS CHRONIC MIGRAINE HEADACHES PROCEDURE BOTOX INJECTION AT THE HEAD, NECK AND SHOULDERS SURGEON DR. DEBBIE IBRAHIM INTERNATIONAL REPRESENTATIVE NONE ANESTHESIA NONE PRE PROCEDURE NOTE THE PATIENT HAS HISTORY OF CHRONIC MIGRAINE HEADACHES. I EVALUATED THE PATIENT AND REVIEWED THE CHART. I WENT OVER THE RISKS, ALTERNATIVES, AND BENEFITS ASSOCIATED WITH THIS PROCEDURE. THE PATIENT WOULD LIKE TO PROCEED AND GAVE CONSENT TO PERFORM THE PROCEDURE. THE PATIENT DENIES UNEXPLAINABLE WEIGHT LOSS, FEVER, CHILLS, OR NEW CHANGES IN URINARY OR BOWEL CONTROL. THE PATIENT HAD BOTOX INJECTIONS DONE IN MARCH OF THIS YEAR. SHE STATES THAT SHE WAS DOING GREAT AFTER THE BOTOX BUT NOW THE HEADACHES HAVE COME BACK AND THEY ARE EVERY DAY. THE PATIENT HAS USED THE MEDICATIONS LISTED IN THE CHART TO TREAT THE HEADACHES FOR MANY MONTHS BUT THE HEADACHES PERSIST DESCRIBED ABOVE. THE PATIENT IS COVID-19 NEGATIVE DESCRIPTION OF PROCEDURE THE PATIENT WAS BROUGHT TO THE PROCEDURE ROOM AND PLACED IN THE SUPINE POSITION. I CHECKED LATERALITY AND THE AREAS WHERE THE PROCEDURE WAS GOING TO BE PERFORMED WITH THE PATIENT AND THE SUPPORTING STAFF AT THE MOMENT OF THE TIME OUT IN THE PROCEDURE ROOM. FOR THE PROCEDURE I USED A SOLUTION OF 5 UNITS OF BOTOX PER EACH 0.1 ML OF THE SOLUTION. I USED A 30-GAUGE NEEDLE TO INJECT THE SOLUTION AT THE SELECTED LOCATIONS. I INJECTED FIRST THE RIGHT AND LEFT SUPERVISOR ROD PLACING MUSCLES. THE LANDMARK FOR BOTH INJECTIONS WAS APPROXIMATELY 1 CM ABOVE THE SUPERIOR MEDIAL EDGE OF THE EYEBROW. AFTER THESE TWO INJECTIONS, I INJECTED THE PROCERUS MUSCLE AT THE MIDLINE POINT BETWEEN THESE FIRST TWO INJECTIONS. THEN I PROCEEDED TO INJECT THE RIGHT AND LEFT FRONTALIS MUSCLE. TWO INJECTIONS WERE DONE IN EACH SIDE. THE FIRST INJECTION WAS DONE APPROXIMATELY 2 CM ABOVE THE FIRST INJECTION OF THE SUPERVISOR ROD PLACING. THE SECOND INJECTION WAS DONE APPROXIMATELY 1.5 CM LATERAL TO THIS FIST INJECTION OF THE FRONTALIS OF EACH SIDE. AFTER THE INJECTIONS OVER THE FOREHEAD WERE DONE, THE PATIENT'S HEAD WAS TURNED TO THE LEFT SIDE AND WE STARTED TO WORK WITH THE RIGHT TEMPORALIS MUSCLE. FIRST INJECTION WAS DONE IN A VERTICAL LINE OF THE TRAGUS APPROXIMATELY 3 CM ABOVE THE TRAGUS. THE SECOND INJECTION WAS DONE APPROXIMATELY 2 CM ABOVE THE FIRST INJECTION. THE THIRD INJECTION WAS DONE APPROXIMATELY 1 CM FRONTWARD FROM THIS VERTICAL LINE CREATED AT THE LEVEL OF THE TRAGUS, SENIOR LIVING BETWEEN THESE TWO INJECTIONS. THE FOURTH INJECTION WAS DONE APPROXIMATELY 1.5 CM BACK FROM THE SECOND INJECTION TO THE TEMPORALIS IN LINE TO THE MIDPORTION OF THE EAR. THEN, WE PROCEEDED TO INJECT THE LEFT TEMPORALIS MUSCLE. WE CLEANED THE AREA WITH ALCOHOL AND PROCEEDED TO PERFORM THE SAME FOR INJECTIONS DESCRIBED ABOVE BUT IN THE LEFT TEMPORALIS MUSCLE USING THE SAME LANDMARKS. AFTER THESE INJECTIONS WERE DONE, THE PATIENT WAS SEATED. FIRST, WE STARTED TO INJECT THE LEFT AND RIGHT OCCIPITALIS MUSCLE. I INJECTED AT THE FOLLOWING PLACES IN THE RIGHT AND LEFT MUSCLE. THE FIRST INJECTION WAS DONE AT THE MIDPOINT POSITION BETWEEN THE MASTOID PROCESS AND THE INION OF THE OCCIPITAL PROTUBERANCE. THE SECOND INJECTION WAS DONE APPROXIMATELY 1.5 CM SUPERIOR AND LATERAL OF THIS POINT. THE THIRD INJECTION WAS DONE APPROXIMATELY 1.5 CM SUPERIOR AND MEDIAL TO THIS FIRST INJECTION. NEXT, I PROCEEDED TO INJECT THE RIGHT AND LEFT PARASPINAL MUSCLES. LANDMARK OF THE INJECTION WERE APPROXIMATELY: FIRST INJECTION 3 CM BELOW THE INION AND 1 CM LATERAL TO THE MIDLINE AND SECOND INJECTION AT EACH SIDE WAS DONE APPROXIMATELY 1.5 CM SUPERIOR AND LATERAL OF THE FIRST INJECTION. THE LAST GROUP OF INJECTIONS WAS DONE OVER THE RIGHT AND LEFT TRAPEZIUS MUSCLE OVER THE SHOULDERS AREA. THE FIRST INJECTION WAS DONE AT THE MIDPOINT BETWEEN THE INFLECTION POINT BETWEEN THE NECK AND SHOULDER AND THE ACROMION. THE SECOND AND THIRD INJECTIONS WERE DONE APPROXIMATELY 2.5 CM LATERAL AND MEDIAL FROM THIS FIRST INJECTION. SAME TARGETS WERE USED IN THE RIGHT AND LEFT SIDE. IN TOTAL, I INJECTED 155 UNITS OF BOTOX. THE MEDICATIONS WERE VERIFIED WITH THE NURSE. PROCEDURE WAS DONE WITHOUT EVIDENCE OF PARESTHESIA OR ANY COMPLICATIONS. THE PATIENT TOLERATED THE PROCEDURE VERY WELL. ESTIMATED BLOOD LOSS WAS LESS THAN 5 ML. THE PATIENT WAS SENT TO THE RECOVERY ROOM FOR OBSERVATIONS. INJECTIONS WERE DONE AFTER CLEANING WITH ALCOHOL, USING ASEPTIC TECHNIQUES POST PROCEDURE NOTE THE PROCEDURE DONE WAS DISCUSSED WITH THE PATIENT. THE PATIENT WILL BE SEEN IN A FOLLOW UP IN THE NEXT FEW WEEKS. I AM LOOKING FOR LONG LASTING PAIN RELIEF FOR THE PATIENT WITH THIS INTERVENTION. INSTRUCTIONS WERE GIVEN, QUESTIONS WERE ANSWERED, AND THE PATIENT EXPRESSED UNDERSTANDING AND AGREES WITH THE PLAN. I, ANA SIMON, DOCUMENTED THE ABOVE INFORMATION ACTING A SCRIBE FOR DR. IBRAHIM. I HAVE REVIEWED THE ABOVE DOCUMENT, WRITTEN BY ANA SIMON, WET PROCESS OPERATOR, AND I VERIFY THAT IT IS ACCURATE PROCEDURE CODES [id number] CHEMODENERV MUSC MIGRAINE DISPOSITION & COMMUNICATION FOLLOW UP FOLLOW UP WITH SUGAR BOILER (REASON: POST BOTOX ) ELECTRONICALLY SIGNED BY DEBBIE IBRAHIM MD, MD ON 08/22/2020 AT 11:52 AM EDT DISCLAIMER : THIS IS A VISIT SUMMARY EXTRACTED FROM THE [employer] CHART. IT IS NOT A COPY OF THE [employer] PROGRESS NOTE. JAIMED
== END ==
LOC: M PAIN 13:00
PROVIDERS: ATTEND Anesthesiology
DX: G43.709 Chronic migraine without aura, not intractable, without status migrainosus (principal); F41.9 Anxiety disorder, unspecified; F31.9 Bipolar disorder, unspecified; M41.9 Scoliosis, unspecified; Z79.891 Long term (current) use of opiate analgesic; Z79.899 Other long term (current) drug therapy; Z88.0 Allergy status to penicillin; Z88.1 Allergy status to other antibiotic agents; Z88.8 Allergy status to other drugs, medicaments and biological substances
CPT/HCPCS: 64615; J0585; Q0162

== ENCOUNTER 2020-08-26 17:57 | Inpatient (IN) | payer MEDICAID, OTHER ==
[~2020-08-26] VITALS: Ht 160 cm; Wt 58.0 kg
[~2020-08-26 17:57] MED LIST changes: -BIOT1TAB PO; -BOTOX THERAPEUTIC 100 UNIT VIAL (J0585 PER 1 UNIT) IM ONE; -NORCO, ANEXSIA 5/325MG TABLET (HYDROcodone/ACETAMINOPHEN) As Ordered ONE; -ONDANSETRON 4 MG ORAL DISINTEGRATING TAB As Ordered ONE; -SERT50TA29 PO; -diazePAM 5 MG TAB As Ordered ONE
[2020-08-26 19:13] LABS: HEMOGLOBIN 13.2 g/dl (12.0-15.5); MEAN CORPUSCULAR HEMOGLOBIN 29.5 pg (27.0-33.0); MEAN CORPUSCULAR HGB CONC 32.2 g/dl (32.0-36.5); MEAN CORPUSCULAR VOLUME 91.7 fl (80.0-96.0); PLATELET COUNT, AUTOMATED 236 10^3/uL (150-450); RED BLOOD COUNT 4.47 10^6/uL (4.00-5.40); WHITE BLOOD COUNT 6.5 10^3/uL (4.0-10.0)
[2020-08-26] MEDS ORDERED: BIOT1TAB PO (19:27)
[2020-08-26] MEDS ORDERED: ACET1TAB55 PO (19:27)
[2020-08-26 19:35] LABS: AMPHETAMINES LEVEL URINE NEGATIVE (NEGATIVE); BARBITURATES URINE NEGATIVE (NEGATIVE); BENZODIAZEPINES URINE POSITIVE (NEGATIVE); CANNABINOIDS URINE NEGATIVE (NEGATIVE); COCAINE METABOLITE URINE NEGATIVE (NEGATIVE); METHADONE URINE NEGATIVE (NEGATIVE); OPIATES URINE NEGATIVE (NEGATIVE); PHENCYCLIDINE URINE NEGATIVE (NEGATIVE)
[2020-08-26 19:36] LABS: HCG, SERUM QUALITATIVE NEGATIVE (NEGATIVE)
[2020-08-26 19:50] LABS: ACETAMINOPHEN LEVEL < 2.0 UG/ML (10.0-30.0); ALT/SGPT 18 U/L (12-78); BILIRUBIN,DIRECT 0.2 MG/DL (0.0-0.2); BILIRUBIN,TOTAL 0.5 MG/DL (0.2-1.0); BLOOD UREA NITROGEN 12 MG/DL (7-18); CALCIUM LEVEL 9.6 MG/DL (8.5-10.1); CARBON DIOXIDE LEVEL 27 MEQ/L (21-32); CHLORIDE LEVEL 110 MEQ/L (98-107); CREATININE FOR GFR 0.86 MG/DL (0.55-1.30); ETHYL ALCOHOL (ETHANOL) < 0.003 % (0.000-0.010); GLOMERULAR FILTRATION RATE > 60.0 (>60); GLUCOSE, FASTING 76 MG/DL (70-100); POTASSIUM SERUM 4.1 MEQ/L (3.5-5.1); SALICYLATE LEVEL < 1.7 MG/DL (5.0-30.0); SODIUM LEVEL 140 MEQ/L (136-145); THYROID STIMULATING HORMONE 0.438 uIU/ML (0.358-3.740); TOTAL PROTEIN 7.3 GM/DL (6.4-8.2)
--- NOTE | 2020-08-26 20:54 | ECGEPIP ---
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
[2020-08-27] MEDS ORDERED: traZODone 50 MG TAB PO ONE
[2020-08-27] MEDS: NORCO, ANEXSIA 5/325MG TABLET (HYDROcodone/ACETAMINOPHEN) PO PRN (12:24)
[2020-08-27] MEDS: ALPRAZolam 0.25 MG TAB PO PRN (12:24)
[2020-08-27] MEDS ORDERED: traZODone 50 MG TAB PO SCH (21:00)
[2020-08-28] MEDS: ALPRAZolam 0.25 MG TAB PO PRN (03:06)
[2020-08-28] MEDS: NORCO, ANEXSIA 5/325MG TABLET (HYDROcodone/ACETAMINOPHEN) PO PRN ×2 (11:22→11:33)
[2020-08-28] MEDS ORDERED: MOM 30ML SUSPENSION UDC PO PRN (11:30)
[2020-08-28] MEDS ORDERED: NORCO, ANEXSIA 5/325MG TABLET (HYDROcodone/ACETAMINOPHEN) PO ONE (11:30)
[2020-08-28] MEDS ORDERED: OLANZapine 5 MG TAB PO PRN (11:30)
[2020-08-28] MEDS ORDERED: MAALOX 30 ML SUSP *UDC PO PRN (11:30)
[2020-08-28] MEDS ORDERED: ACETAMINOPHEN TAB 650MG DOSE (2X325MG) PO PRN (12:00)
[2020-08-28] MEDS: SERTRALINE HCL 50 MG TAB PO SCH (12:07)
[2020-08-28 13:49] VITALS: BP 144/86
[2020-08-28] MEDS ORDERED: ONDANSETRON 4 MG ORAL DISINTEGRATING TAB PO ONE (15:30)
[2020-08-28] MEDS: traZODone 50 MG TAB PO PRN (21:52)
[2020-08-29 06:37] VITALS: BP 113/59
[2020-08-29] MEDS ORDERED: INFLUENZA QUADRIVALENT PF VACCINE 0.5ML SYRINGE IM ONE (11:00)
--- NOTE | 2020-08-29 12:16 | HPEPDOC ---
[facility] Medical History & Physical Date of Admission Aug 28, 2020 Date of Service: Aug 29, 2020 History and Physical CHIEF COMPLAINT: Unspecified depressive disorder HISTORY OF PRESENT ILLNESS: Mrs. Ballard is a 30 year old female here in the inpatient mental health unit for an unspecified depressive disorder. This morning, she was feeling sleepy. She had tried a new sleep aid. Otherwise, denies fever/chills, chest pain, dyspnea, abdominal pain, diarrhea, or dysuria. PAST MEDICAL HISTORY: 1. Glaucoma 2. Migraines 3. Unspecified tachycardia of which she sees Dr. Wilcox 4. History of anorexia and bulimia as a teenager 5. Anemia PAST SURGICAL HISTORY: 1. Loop recorder placement 2. Cardiac ablations 3. Breast implants 4. Christiansen rods placed 5. Bone graft 6. Pelvis fused SOCIAL HISTORY: Tobacco use:Denies ETOH: Denies Illicit drug use: Denies FAMILY HISTORY: Father: Does not know biologic father. Unknown PMH Mother: at age 52. Had history of seizures ALLERGIES: Please see below. REVIEW OF SYSTEMS: CONSTITUTIONAL: Denies any fever or chills. Denies lightheadedness or dizziness. ENT: Denies rhinorrhea. Denies sore throat. Denies dysphagia. RESPIRATORY: Denies shortness of breath at rest. Denies cough. CARDIOVASCULAR: Denies chest pain. Denies palpitations. GASTROINTESTINAL: Denies abdominal pain. Denies diarrhea. Denies constipation GENITOURINARY: Denies dysuria. CUTANEOUS: Denies rashes. MUSCULOSKELETAL: Denies muscle weakness. NEUROLOGICAL: Denies neuropathy. Denies paresthesias. PSYCHOLOGICAL: Denies SI or HI HOME MEDICATIONS: Please see below. PHYSICAL EXAMINATION: VITAL SIGNS: Temperature 99, pulse 75, respiratory rate 16, blood pressure 113/59, pulse oximetry 96 % on room air. GENERAL: Comfortable, in no apparent distress. HEENT: Head normocephalic/atraumatic, EOMI, sclera clear. NECK: Supple RESPIRATORY: Lungs clear to auscultation bilaterally, no rales, wheeze or rhonchi. CARDIOVASCULAR: Regular rate and rhythm. ABDOMEN: Soft, nontender, no guarding or rebound tenderness. Normal bowel sounds. MUSCLE SKELETAL: Muscle strength 5/5 in all extremities. NEUROLOGICAL: CN 312 grossly intact, no focal deficits noted. PSYCHOLOGICAL: Normal mood and affect LABORATORY DATA: See below. ASSESSMENT AND PLAN: 1. Unspecified depressive disorder Being managed in the inpatient mental health unit 2. Migraine/headache Can continue acetaminophen as needed for headache or discomfort 3. Anemia Hemoglobin was checked on 08/26/2020 which demonstrated a hemoglobin of 13.2 which is within normal limits Can follow-up with PCP for monitoring of anemia 4. 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 We will sign off at this time. There is any further questions or concerns please do not hesitate to contact us. Vital Signs Vital Signs Date Time Temp Pulse Resp B/P (MAP) Pulse Ox O2 Delivery O2 Flow Rate FiO2 08/29/20 06:37 99.0 75 16 113/59 (77) 08/28/20 13:49 96 Room Air Home Medications Scheduled Biotin (Biotin) 10 Mg Tablet, 10,000 MCG PO DAILY Trazodone HCl (Trazodone HCl) 50 Mg Tablet, 50 MG PO QHS Scheduled PRN Acetaminophen (Acetaminophen) 325 Mg Tablet, 325 MG PO Q4H PRN for PAIN Alprazolam (Alprazolam) 0.25 Mg Tablet, 0.25 MG PO BID PRN for ANXIETY Hydrocodone/Acetaminophen (Hydrocodone-Acetamin 5-325 mg) 1 Each Tablet, 1 TAB PO DAILY PRN for PAIN Allergies Coded Allergies: amoxicillin (Verified Adverse Reaction, Mild, THRUSH, 08/18/19) A-FIB/CHADSVASC A-FIB History Current/History of A-Fib/PAF?: No AGUSTO DUNBAR DO Aug 29, 2020 12:01
[2020-08-29] MEDS: SERTRALINE HCL 50 MG TAB PO SCH (12:35)
[2020-08-29] MEDS: NORCO, ANEXSIA 5/325MG TABLET (HYDROcodone/ACETAMINOPHEN) PO PRN (16:32)
[2020-08-29 17:18] VITALS: BP 109/70
[2020-08-29] MEDS: traZODone 50 MG TAB PO PRN (22:33)
[2020-08-30 07:29] VITALS: BP 127/85
[2020-08-30] MEDS: SERTRALINE HCL 50 MG TAB PO SCH (09:04)
--- NOTE | 2020-08-30 10:29 | MHHPEPDOC ---
[facility] History & Physical History and Physical Date of service: 08/30/2020 Subjective HPI: The patient is met with today, she reports that she is doing better and wants to be discharged. She otherwise has been engaged without any major behavioral problems over the day. The note type is incorrect as the original H&P had not been available the production of this note. Objective General: Well dressed with good hygiene Speech: Spontaneous and fluid Thought processes: Linear and logical Thought content: Future orientated Abstract reasoning, and computation: Intact Description of associations: Intact Description of abnormal or psychotic thoughts:Denies any suicidal or homicidal ideation. Denies any auditory or visual hallucinations. Does not appear to be responding to internal stimuli. Does not appear to be endorsing any bizarre or paranoid ideation. Judgment: fair Insight: fair Orientation: Alert and orientated 3 Recent and remote memory: Intact Attention span and concentration: Intact Fund of knowledge: Adequate Mood: "okay" Affect: Euthymic with a full range Assessment adjustment disorder with disruption of mood and conduct Plan Continue medications as and observed overnight Vital Signs Vital Signs Date Time Temp Pulse Resp B/P (MAP) Pulse Ox O2 Delivery O2 Flow Rate FiO2 08/30/20 10:00 Room Air 08/30/20 07:29 98.8 83 16 127/85 (99) 98 Medications Scheduled Biotin (Biotin) 10 Mg Tablet, 10,000 MCG PO DAILY, (Reported) Sertraline HCl (Sertraline HCl) 50 Mg Tablet, 50 MG PO DAILY for mood Trazodone HCl (Trazodone HCl) 50 Mg Tablet, 50 MG PO QHS, (Reported) Scheduled PRN Acetaminophen (Acetaminophen) 325 Mg Tablet, 325 MG PO Q4H PRN for PAIN, (Reported) Alprazolam (Alprazolam) 0.25 Mg Tablet, 0.25 MG PO BID PRN for ANXIETY, ( Reported) Hydrocodone/Acetaminophen (Hydrocodone-Acetamin 5-325 mg) 1 Each Tablet, 1 TAB PO DAILY PRN for PAIN, (Reported) Allergies Coded Allergies: amoxicillin (Verified Adverse Reaction, Mild, THRUSH, 08/18/19) A-FIB/CHADSVASC A-FIB History Current/History of A-Fib/PAF?: No DIANE ROSE DO Aug 30, 2020 10:29
[2020-08-30] MEDS: NORCO, ANEXSIA 5/325MG TABLET (HYDROcodone/ACETAMINOPHEN) PO PRN (17:03)
[2020-08-30 19:10] VITALS: BP 120/71
[2020-08-30] MEDS: traZODone 50 MG TAB PO PRN (22:01)
[2020-08-31 06:16] VITALS: BP 119/80
--- NOTE | 2020-08-31 07:13 | MHHPE ---
[facility] REPORT NAME: QUENTIN SANDS [facility] WT ID#: [id number] : / / JOB: [id number] ISMAEL: 08/29/2020 DOCTOR: Yazmin Payne M.D. PSYCH ADMISSION HISTORY AND PHYSICAL DATE OF ADMISSION: 08/28/2020 DATE OF EVALUATION: 08/29/2020 HISTORY OF PRESENT ILLNESS: This is a 30-year-old woman with a history of bipolar disorder and ADHD. She presents to the ED stating that she tried to kill herself the night before by overdosing on a few Xanax. She indicates having a lot of stress. Most recently [facility] and the patient is on Xanax 4.25 mg twice a day and trazodone 50 mg at bedtime. Those are the only psychiatric medications she is on. She says she takes the Xanax for anxiety. She says it is very severe and it is very difficult for her to leave her house at all. She tells me that she is better now. She says that she has been told that she is not bipolar. This patient does have a history of hospitalization at [facility] in the Inpatient Mental Health Unit in 2017 and at that time she was diagnosed with bipolar disorder hypomanic episode and attention deficit hyperactivity disorder and she was discharged on Depakote 500 mg twice a day and Seroquel 100 mg at bedtime. The patient denies that she has ever actually made any suicidal attempts. PAST PSYCHIATRIC HISTORY: This is as noted above. FAMILY HISTORY: Patient denies any psychiatric illness in the family. SUBSTANCE ABUSE HISTORY: Patient denies any problems with alcohol or drugs now. Toxicology was positive for benzodiazepines, but she is supposed to be on Xanax. MEDICAL HISTORY: She states that she had spinal fusion in 2013 so she has a lot of problems with back pain. 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 REVIEW OF SYSTEMS: Vital signs: Blood pressure 133/69, pulse 75, respirations 16. Appearance: She appears to be in any apparent distress. Neuromuscular system: There is no involuntary movements and no involuntary movements of her upper extremities. All other systems were reviewed and found to be negative except for chronic pain. MENTAL STATUS EXAM: She is alert and oriented times 3. Eye contact is fair. She has pressured speech, flight of ideas. She says that her mood is better. Affect; however, is labile. She denies suicidal or homicidal ideation today but she overdosed on Xanax last night. Concentration is poor. Insight and judgment poor. DIAGNOSES: * Bipolar disorder type 1. * History of attention deficit hyperactivity disorder. ASSESSMENT AND TREATMENT PLAN: At this point the patient appears to be quite manic and has no insight about her situation. We will continue to encourage her to start taking some mood stabilizer because at this point she is refusing it. /htsdq MTDD
[2020-08-31] MEDS: SERTRALINE HCL 50 MG TAB PO SCH (09:10)
[2020-08-31] MEDS ORDERED: SERT50TA29 PO (11:31)
--- NOTE | 2020-08-31 12:29 | MHDSPDOC ---
[facility] Discharge Summary Discharge Summary DATE OF ADMISSION: Aug 28, 2020 at 11:23 DATE OF DISCHARGE: Aug 31, 2020 at 13:50 DISCHARGE DIAGNOSES: Other depressive disorder CONSULTANTS INVOLVED:[ None (basic hospitalist screening)] REASON FOR ADMISSION & TREATMENT AND PROGRESS ON THE UNIT : The patient was admitted for concerning statements made, she was initially observed and started on sertraline 50 mg daily, of which she had been started prior to coming in, she was triaged to start this but had not been initiated. She did well after the start made great progress had no significant behavioral problems and attended treatment without much incident. DISCHARGE ASSESSMENT[improved] Legal status considerations: The patient at the time of discharge did not meet criteria for involuntary admission/extension due to having a [normal] mental status exam, [fair] insight into the situation, They are engaged in the discharge process, as well as being friendly and amenable in behavioral control and havent been engaging in any observed concerning behavior or ideation recently. They decline voluntary extension/admission at this time and must be discharged in good polina, as Im unable to make a case for holding the patient against their will. They may have historical risk factors of admissions and other interactions with psychiatry however, those are not modifiable from a clinical perspective. The patient will need to be discharged in good polina. MENTAL STATUS EXAMINATION ON DISCHARGE: [General: Well dressed with good hygiene Speech: Spontaneous and fluid Thought processes: Linear and logical Thought content: Future orientated Abstract reasoning, and computation: Intact Description of associations: Intact Description of abnormal or psychotic thoughts:Denies any suicidal or homicidal ideation. Denies any auditory or visual hallucinations. Does not appear to be responding to internal stimuli. Does not appear to be endorsing any bizarre or paranoid ideation. Judgment: fair Insight: fair Orientation: Alert and orientated 3 Recent and remote memory: Intact Attention span and concentration: Intact Fund of knowledge: Adequate Mood: "okay" Affect: Euthymic with a full range] PLAN/FOLLOWUP ARRANGEMENTS: Follow up appointments made (PCP and MH in 5 days of D/C date) and safety plan completed. Safety Planning aspects completed prior to discharge [Medication supplies limited to 7 days with 4 refills to prevent accumulation to OD] [Family contact completed, educated on safe practices, instructed on removal and mitigation of dangerous means] [RN reviewed crisis hotline information and other aspects to empower patient to access care in interim before next appointment.] The amount of time spent in the coordination of care for this patient was approximately 30 minutes. Vital Signs/I&Os Vital Signs Date Time Temp Pulse Resp B/P (MAP) Pulse Ox O2 Delivery O2 Flow Rate FiO2 08/31/20 06:16 97.4 86 12 119/80 (93) Room Air 08/30/20 07:29 98 Medications Scheduled Biotin (Biotin) 10 Mg Tablet, 10,000 MCG PO DAILY, (Reported) Sertraline HCl (Sertraline HCl) 50 Mg Tablet, 50 MG PO DAILY for mood for 7 Days, #7 Trazodone HCl (Trazodone HCl) 50 Mg Tablet, 50 MG PO QHS, (Reported) Scheduled PRN Acetaminophen (Acetaminophen) 325 Mg Tablet, 325 MG PO Q4H PRN for PAIN, (Reported) Alprazolam (Alprazolam) 0.25 Mg Tablet, 0.25 MG PO BID PRN for ANXIETY, (Reported) Hydrocodone/Acetaminophen (Hydrocodone-Acetamin 5-325 mg) 1 Each Tablet, 1 TAB PO DAILY PRN for PAIN, (Reported) Allergies Coded Allergies: amoxicillin (Verified Adverse Reaction, Mild, THRUSH, 08/18/19) DIANE ROSE DO Aug 31, 2020 12:29
== END 2020-08-31 13:50 | disposition home or self-care (01) | DRG 753 ==
LOC: M ED 17:57 → M ED INP 08-28 11:23 → M PSY 08-28 13:33
PROVIDERS: ADMIT Psychiatry & Neurology Psychiatry; ATTEND Psychiatry & Neurology Addiction Medicine
DX: F32.89 Other specified depressive episodes (principal); F90.9 Attention-deficit hyperactivity disorder, unspecified type; Z98.1 Arthrodesis status; H40.9 Unspecified glaucoma; G43.909 Migraine, unspecified, not intractable, without status migrainosus; D64.9 Anemia, unspecified; Z88.0 Allergy status to penicillin; Z79.899 Other long term (current) drug therapy

== ENCOUNTER → 2020-09-20 | Outpatient (CLI) | payer OTHER ==
[~2020-09-20] MED LIST changes: +BIOT1TAB PO; +SERT50TA29 PO
--- NOTE | 2020-09-22 06:24 | ECWPNPC ---
PATIENT NAME: QUENTIN SANDS : 1990 GENDER: FEMALE VISIT DATE: 09/20/2020 DISCHARGE DATE: 09/20/20 1431 VISIT LOCKED DATE TIME: PHYSICIAN: KAREEM ADAMS RESOURCE: KAREEM ADAMS REASON FOR APPOINTMENT 1. POST BOTOX HISTORY OF PRESENT ILLNESS GENERAL: - 30-YEAR-OLD FEMALE IN FOR POST BOTOX FOLLOW-UP. PATIENT FEELS THE PROCEDURE WAS SUCCESSFUL OVERALL STATING THAT SHE HAS ONLY HAD ONE HEADACHE SINCE THE PROCEDURE AND SHE ADMITS THAT THE HEADACHE WAS MORE THAN LIKELY DUE TO INCREASED BLOOD PRESSURE RELATED TO FAMILY STRESSORS. PATIENT DOES ADMIT TO INCREASED BACK PAIN AND WOULD LIKE TO DISCUSS TRIGGER POINT INJECTIONS TO HELP ALLEVIATE THOSE. FALL RISK SCREENING: SCREENING :NO FALLS REPORTED IN THE LAST YEAR PAIN SCREENING: PATIENT HAS A COMPLAINT OF ACUTE OR CHRONIC PAIN :NO STATES WHEN HER DAUGHTER HAS HER SEIZURES HER HEADACHES GET WORSE BUT SHE ATTRIBUTES THEM TO STRESS, STATES OTHERWISE THE BOTOX IS WORKING NURSING NOTE: -. PAIN CENTER INTAKE QUESTIONS: DO YOU HAVE A HISTORY OF MRSA? :NO DO YOU TAKE A BLOOD THINNERS? :NO DO YOU HAVE ANY BLEEDING DISORDERS? :NO ANY NEW NUMBNESS OR WEAKNESS IN YOUR LEGS OR ARMS? :YES INCREASED LEFT LEG PAIN, STABBING PAIN ANY PACEMAKER,DEFIBRILLATOR, OR DORSAL COLUMN STIMULATOR? :NO DO YOU HAVE ANY RASHES OR OPEN SORES? :NO ARE YOU ALLERGIC TO IV DYE? :NO ARE YOU DIABETIC? :NO ANY NEW PROBLEMS WITH YOUR MEDICATIONS? :NO HAVE YOU RECEIVED A VACCINE IN THE PAST 30 DAYS? :YES IF SO WHAT VACCINE AND WHEN? FLU SHOT 08/2020 DO YOU PLAN TO RECEIVE A VACCINE IN THE NEXT 21 DAYS? :NO DO YOU NEED ANY PRESCRIPTION? :YES HYDROCODONE DO YOU TAKE ANY IMMUNOSUPPRESSIVE MEDICATIONS? :NO ANY HISTORY OF SEIZURES? :YES STATES AT AGE 6 OR 7 NONE SINCE, STATES SHE HAS ONE CHILD WITH SEIZURES AND HER MOTHER FROM SEIZURES ANY HISTORY OF CARDIAC ISSUES OR EVENTS? :YES WPW, A-FIB DO YOU HAVE SLEEP APNEA? :NO ANY RECENT HEAD INJURY? :NO DO YOU HAVE ANY NEW INFECTIONS? :NO IS THERE A CHANCE YOU COULD BE ? :NO ARE YOU BREAST FEEDING? :NO CURRENT MEDICATIONS TAKING XANAX 0.25 MG TABLET 1 TABLET ORALLY TWICE A DAY TAKING TRAZODONE HCL 50 MG TABLET 1 TABLET AT BEDTIME NEEDED ORALLY ONCE A DAY TAKING LYRICA 75 MG CAPSULE 1 CAPSULE ORALLY TWICE DAILY TAKING ACETAMINOPHEN 325 MG TABLET 1 TABLET NEEDED ORALLY EVERY 4 HRS TAKING TIZANIDINE HCL 4 MG TABLET 1 TABLET NEEDED ORALLY BID PRN SPASM TAKING HYDROCODONE-ACETAMINOPHEN 5-325 MG TABLET 1 TABLET NEEDED ORALLY DAILY NEEDED FOR PAIN NOT-TAKING IMPLANON , NOTES: OUT NOT-TAKING ZOFRAN 4 MG TABLET 1 TABLET NEEDED ORALLY EVERY 4 HRS PRN NAUSEA NOT-TAKING DIGOXIN 125 MCG TABLET 1 TABLET ORALLY ONCE A DAY NOT-TAKING IBUPROFEN 800 MG TABLET 1 TABLET ORALLY THREE TIMES A DAY NOT-TAKING KLONOPIN 0.5 MG TABLET 1 TABLET ORALLY TWICE A DAY NOT-TAKING GABAPENTIN 100 MG CAPSULE 2 CAP ORALLY THREE TIMES DAILY NOT-TAKING PROTONIX 40 MG PACKET 1 CAPSULE ORALLY ONCE A DAY NEEDED NOT-TAKING PREDNISONE 5 MG TABLET 1 TABLET ORALLY THREE TIMES A DAY NOT-TAKING ATENOLOL 25 MG TABLET 1 TABLET ORALLY ONCE A DAY AT BEDTIME NOT-TAKING METOPROLOL SUCCINATE ER 50 MG TABLET EXTENDED RELEASE 24 HOUR 1 TABLET ORALLY ONCE A DAY NOT-TAKING 28-0.8 MG TABLET 1 TABLET ORALLY ONCE A DAY, NOTES: 03/06/19 NOT-TAKING BENADRYL NOT-TAKING SEROQUEL 50 MG TABLET 1 TABLET ORALLY ONCE A DAY, NOTES: NONE RECENTLY MEDICATION LIST REVIEWED AND RECONCILED WITH THE PATIENT PAST MEDICAL HISTORY 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 ABLATION ANXIETY BIPOLAR AFIB / SVT DEPRESSION KYPHOSIS SEVERE MIGRAINES ALLERGIES 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 [id number]. SOCIAL HISTORY GENERAL: TOBACCO USE ARE YOU A: NONSMOKER. LATEX QUESTIONNAIRE LATEX ALLERGY : HAVE YOU EVER DEVELOPED ANY TYPE OF REACTION AFTER HANDLING LATEX PRODUCTS SUCH RUBBER GLOVES, CONDOMS, DIAPHRAGMS, BALLOONS, SOCKS, OR UNDERWEAR?NO LATEX ALLERGY : HAVE YOU EVER DEVELOPED ANY TYPE OF REACTION DURING OR AFTER DENTAL APPOINTMENT, VAGINAL/RECTAL EXAMINATION, SURGICAL PROCEDURE, OR ANY OTHER EXPOSURE?NO LATEX RISK : HAVE YOU EVER HAD ANY DIFFICULTY BREATHING OR HIVES AFTER EATING OR HANDLING ANY FRUITS, OR VEGETABLES; SUCH KIWI, BANANAS, STONE FRUITS, OR CHESTNUTSNO LATEX RISK : DO YOU HAVE A PREVIOUS PERSONAL HISTORY OF MORE THAN NINE SURGERIES, SPINA BIFIDA, OR REPEATED CATHERIZATIONS? NO LATEX RISK : ARE YOU FREQUENTLY EXPOSED TO LATEX PRODUCTS IN YOUR OCCUPATION?NO DATE ASKED : 09/20/2020 ALCOHOL SCREENING HOW OFTEN DID YOU HAVE A DRINK CONTAINING ALCOHOL IN THE PAST YEAR? NEVER (0 POINTS) , DID YOU HAVE A DRINK CONTAINING ALCOHOL IN THE PAST YEAR? NO , DID YOU HAVE A DRINK CONTAINING ALCOHOL IN THE PAST YEAR? YES , POINTS 0 , POINTS 0 , INTERPRETATION NEGATIVE , INTERPRETATION NEGATIVE. RECREATIONAL DRUG USE DRUG USE? NO. CAFFEINE CAFFEINE USE? NO. 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 DIET: REGULAR. EXERCISE: DAILY, WALKS. PAIN CLINIC PFS, CLERGY, PUBLIC HEALTH REFERRALS PFS REFERRAL NEEDED?NO CLERGY REFERRAL NEEDED?NO PUBLIC HEALTH REFERRAL NEEDED?NO HAS THE PATIENT BEEN EDUCATED REGARDING HIS/HER PLAN OF CARE?YES HAS THE PATIENT BEEN EDUCATED REGARDING PAIN, THE RISK FOR PAIN, THE IMPORTANCE OF EFFECTIVE PAIN MANAGEMENT, AND THE PAIN ASSESSMENT PROCESS?YES ADVANCE DIRECTIVE ADVANCE DIRECTIVE DISCUSSED WITH PATIENT:YES HCP [facility] [phone] HOSPITALIZATION/MAJOR DIAGNOSTIC PROCEDURE SEE ABOVE SURGURIES MENTAL HEALTH CHILD X 3 MENTAL HEALTH 08/2020 REVIEW OF SYSTEMS CONSTITUTIONAL: ANY RECENT FEVER NO . CHILLS NO . WEIGHT CHANGE OF UNKNOWN REASONS NO . GASTROENTEROLOGY: NEW UNEXPLAINABLE CHANGES IN BOWEL CONTROL NO . CONSTIPATION NO . GENITOURINARY: ANY NEW CHANGE IN BLADDER CONTROL? NO . NEUROLOGY: NEW ONSET DIZZINESS OR NEUROLOGICAL CHANGES NOT MENTIONED NO . NEW NUMBNESS OR PAIN PATTERNS NOT MENTIONED AND PERTINENT TO TODAY'S VISIT NO . CARDIOLOGY: NEW CHEST PRESSURE NO . NEW CHEST PAIN NO . RESPIRATORY: UNEXPLAINABLE COUGH NO . NEW SHORTNESS OF BREATH NO . VITAL SIGNS WT 128.8 LBS, HT 63 IN, BMI 22.81 INDEX, BP 114/69 MM HG, HR 88 /MIN, RR 16 /MIN, TEMP 97.6 F, OXYGEN SAT % 97%, SAFE IN ENV? (Y/N) YES, NA INITIALS [place] 13:51, REVIEWED BY: FLORES ALEX RN. EXAMINATION GENERAL EXAMINATION: GENERALNO ACUTE DISTRESS, WELL NOURISHED AND HYDRATED. PSYCHAPPROPRIATE MOOD AND AFFECT . LUNGS:CLEAR TO AUSCULTATION BILATERALLY, NO WHEEZES, RHONCHI, RALES. HEART:NO MURMURS, REGULAR RATE AND RHYTHM. BACK:POINT TENDER BILATERAL LOW BACK, SURROUNDING SKIN SHOWS NO ERYTHEMA, ECCHYMOSIS, INCREASED WARMTH, AND/OR SKIN ERUPTIONS NOTED. BANDS OF RESTRICTIVE TISSUE NOTED OVER TRIGGER POINTS . ASSESSMENTS OTHER CHRONIC PAIN - G89.29 (PRIMARY) INTRACTABLE MIGRAINE WITHOUT AURA AND WITHOUT STATUS MIGRAINOSUS - G43.019 MYALGIA, OTHER SITE - M79.18 TREATMENT OTHER CHRONIC PAIN INCREASE HYDROCODONE-ACETAMINOPHEN TABLET, 7.5-325 MG, 1 TABLET NEEDED, ORALLY, DAILY NEEDED FOR PAIN, 30 DAYS, 30, REFILLS 0 PAIN PROCEDURE LOGDATE OF [id number]/12/2020PROCEDURE:BOTOX INJECTIONS OF HEAD, NECK, AND SHOULDERSAMOUNT OF PRE SEDATEZOFRAN 4 MG ODT, NORCO 5/325 MG PO, VALIUM 10 MG PORESULT:1 PRIDE SINCE PROCEDURE NOTES: 30-YEAR-OLD FEMALE IN FOR POST BOTOX FOLLOW-UP. GIVEN PRESENTING SYMPTOMS AND RESULTS OF PHYSICAL EXAMINATION RECOMMENDED INCREASING HYDROCODONE TO 7.5 MG DAILY NEEDED FOR PAIN, AND BILATERAL LOW BACK TRIGGER POINT INJECTIONS. PATIENT HAS EXPRESSED UNDERSTANDING OF AND WAS IN AGREEMENT WITH TREATMENT PLAN. GIVEN TIME TO ASK QUESTIONS AND EXPRESS CONCERNS. , ISTOP REGISTRY REVIEWED AND DEMONSTRATES COMPLLIANCE. (REF # [id number] ) BRINGS IN MEDICATIONS WHICH IS APPROPRIATE FOR WHAT WAS DISPENSED. RECENT URINE TOXICOLOGY REVIEWED. NO UNAUTHORIZED MEDICATIONS. NO ILLICIT SUBSTANCES AND PRESCRIBED MEDICATIONS WERE PRESENT. PROCEDURE CODES FA211 ESTABILISHED PATIENT [facility] CHARGE DISPOSITION & COMMUNICATION FOLLOW UP POSTPROCEDURE (REASON: BILATERAL LOW BACK TRIGGER POINT INJECTIONS) ELECTRONICALLY SIGNED BY HALEY TOMLINSON ON 09/21/2020 AT 08:56 AM EST DISCLAIMER : THIS IS A VISIT SUMMARY EXTRACTED FROM THE [employer] CHART. IT IS NOT A COPY OF THE [employer] PROGRESS NOTE. SIMI
== END ==
LOC: M PAIN 13:45
PROVIDERS: ATTEND Family Medicine
DX: G43.019 Migraine without aura, intractable, without status migrainosus (principal); G89.29 Other chronic pain; M79.18 Myalgia, other site; Z86.59 Personal history of other mental and behavioral disorders; Z88.1 Allergy status to other antibiotic agents; Z88.5 Allergy status to narcotic agent; Z79.899 Other long term (current) drug therapy

== ENCOUNTER → 2020-10-11 | Outpatient (CLI) | payer OTHER | LOC: M LABSMTC 12:52 | PROVIDERS: ATTEND Anesthesiology | DX: Z20.828 Contact with and (suspected) exposure to other viral communicable diseases (principal) ==

== ENCOUNTER → 2020-10-16 | Outpatient (CLI) | payer OTHER ==
[~2020-10-16] MED LIST changes: +BUPIVACAINE HCL 0.25% 10ML VIAL As Ordered ONE; +BUPIVACAINE HCL 0.25% 30ML VIAL As Ordered ONE; +NORCO, ANEXSIA 5/325MG TABLET (HYDROcodone/ACETAMINOPHEN) As Ordered ONE; +ONDANSETRON 4 MG ORAL DISINTEGRATING TAB As Ordered ONE; +TRIAMCINOLONE ACETONIDE SUSP 40 MG/ML VIAL (J3301) As Ordered ONE; +diazePAM 5MG TABLET As Ordered ONE
--- NOTE | 2020-10-18 02:36 | ECWPNPC ---
PATIENT NAME: QUENTIN SANDS : 1990 GENDER: FEMALE VISIT DATE: 10/16/2020 DISCHARGE DATE: 10/16/20 1215 VISIT LOCKED DATE TIME: PHYSICIAN: DEBBIE IBRAHIM MD RESOURCE: DEBBIE IBRAHIM MD REASON FOR APPOINTMENT 1. TRIGGER POINT INJECTION BILATERAL LOW BACK HISTORY OF PRESENT ILLNESS GENERAL: -. FALL RISK SCREENING: SCREENING :NO FALLS REPORTED IN THE LAST YEAR PAIN SCREENING: PATIENT HAS A COMPLAINT OF ACUTE OR CHRONIC PAIN :YES LOCATION OF PAIN:MID BACK, LOW BACK INTENSITY OF PAIN (SCALE OF 1 TO 10):10 WHAT DOES YOUR PAIN FEEL LIKE:ACHING, BURNING, CONTINOUS, SHARP, STABBING, TENDER, THROBBING, SORE, SHOOTING DURATION:CONTINOUS, CONSTANT, AWAKENS FROM SLEEP PAIN IS INCREASED BY:PROLONGED STANDING, OTHERS PROLONG SITTING, LIFTING PAIN IS DECREASED BY: HEATING PAD, HOT BATHS, PAIN MEDS NURSING NOTE: -. PAIN CENTER INTAKE QUESTIONS: DO YOU HAVE A HISTORY OF MRSA? :NO DO YOU TAKE A BLOOD THINNERS? :NO DO YOU HAVE ANY BLEEDING DISORDERS? :NO ANY NEW NUMBNESS OR WEAKNESS IN YOUR LEGS OR ARMS? :NO ANY PACEMAKER,DEFIBRILLATOR, OR DORSAL COLUMN STIMULATOR? :NO LOOP RECORDER THAT ISN'T RECORDING DO YOU HAVE ANY RASHES OR OPEN SORES? :NO ARE YOU ALLERGIC TO IV DYE? :NO ARE YOU DIABETIC? :NO ANY NEW PROBLEMS WITH YOUR MEDICATIONS? :NO HAVE YOU RECEIVED A VACCINE IN THE PAST 30 DAYS? :NO DO YOU PLAN TO RECEIVE A VACCINE IN THE NEXT 21 DAYS? :NO DO YOU TAKE ANY IMMUNOSUPPRESSIVE MEDICATIONS? :NO ANY HISTORY OF SEIZURES? :YES 2011 FROM A PAIN MED ANY HISTORY OF CARDIAC ISSUES OR EVENTS? :YES SIMPSON PARKINSON WHITE SYN-CARDIAC ABLATIONS DONE DO YOU HAVE SLEEP APNEA? :NO ANY RECENT HEAD INJURY? :NO DO YOU HAVE ANY NEW INFECTIONS? :NO IS THERE A CHANCE YOU COULD BE ? :NO ARE YOU BREAST FEEDING? :NO WHEN DID YOU LAST EAT? : 10/15/202129 WHEN DID YOU LAST DRINK? : 10/16/20 0300 WHAT DID YOU LAST DRINK? : SEIZURES NAME OF PERSON DRIVING YOU HOME? : TEOFILO [facility]ONT- DO YOU HAVE ANY OTHER QUESTIONS OR CONCERNS? : WOULD LIKE TO KNOW IF SHE CAN HAVE PRE-SEDATE CURRENT MEDICATIONS TAKING XANAX 0.25 MG TABLET 1 TABLET ORALLY TWICE A DAY, NOTES: TAKES PRN 2-3 DAYS AGO TAKING TRAZODONE HCL 50 MG TABLET 1 TABLET AT BEDTIME NEEDED ORALLY ONCE A DAY, NOTES: 10/15/20 2100 TAKING LYRICA 75 MG CAPSULE 1 CAPSULE ORALLY TWICE DAILY, NOTES: 2-3 DAYS AGO TAKING ACETAMINOPHEN 325 MG TABLET 1 TABLET NEEDED ORALLY EVERY 4 HRS, NOTES: NEEDED NOT RECENTLT TAKING HYDROCODONE-ACETAMINOPHEN 7.5-325 MG TABLET 1 TABLET NEEDED ORALLY DAILY NEEDED FOR PAIN, NOTES: 10/15/20 1430 TAKING EFFEXOR TABLET 37.5MG X TWO WEEKS INCREASE TO 75MG ORALLY NOT-TAKING TIZANIDINE HCL 4 MG TABLET 1 TABLET NEEDED ORALLY BID PRN SPASM NOT-TAKING IMPLANON , NOTES: OUT NOT-TAKING ZOFRAN 4 MG TABLET 1 TABLET NEEDED ORALLY EVERY 4 HRS PRN NAUSEA NOT-TAKING DIGOXIN 125 MCG TABLET 1 TABLET ORALLY ONCE A DAY NOT-TAKING IBUPROFEN 800 MG TABLET 1 TABLET ORALLY THREE TIMES A DAY NOT-TAKING KLONOPIN 0.5 MG TABLET 1 TABLET ORALLY TWICE A DAY NOT-TAKING GABAPENTIN 100 MG CAPSULE 2 CAP ORALLY THREE TIMES DAILY NOT-TAKING PROTONIX 40 MG PACKET 1 CAPSULE ORALLY ONCE A DAY NEEDED NOT-TAKING PREDNISONE 5 MG TABLET 1 TABLET ORALLY THREE TIMES A DAY NOT-TAKING ATENOLOL 25 MG TABLET 1 TABLET ORALLY ONCE A DAY AT BEDTIME NOT-TAKING METOPROLOL SUCCINATE ER 50 MG TABLET EXTENDED RELEASE 24 HOUR 1 TABLET ORALLY ONCE A DAY NOT-TAKING 28-0.8 MG TABLET 1 TABLET ORALLY ONCE A DAY, NOTES: 03/06/19 NOT-TAKING BENADRYL NOT-TAKING SEROQUEL 50 MG TABLET 1 TABLET ORALLY ONCE A DAY, NOTES: NONE RECENTLY MEDICATION LIST REVIEWED AND RECONCILED WITH THE PATIENT PAST MEDICAL HISTORY 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 ABLATION ANXIETY BIPOLAR AFIB / SVT DEPRESSION KYPHOSIS SEVERE MIGRAINES ALLERGIES 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 [id number] IS AUTISTIC. SOCIAL HISTORY GENERAL: TOBACCO USE ARE YOU A: NONSMOKER. LATEX QUESTIONNAIRE LATEX ALLERGY : HAVE YOU EVER DEVELOPED ANY TYPE OF REACTION AFTER HANDLING LATEX PRODUCTS SUCH RUBBER GLOVES, CONDOMS, DIAPHRAGMS, BALLOONS, SOCKS, OR UNDERWEAR?NO LATEX ALLERGY : HAVE YOU EVER DEVELOPED ANY TYPE OF REACTION DURING OR AFTER DENTAL APPOINTMENT, VAGINAL/RECTAL EXAMINATION, SURGICAL PROCEDURE, OR ANY OTHER EXPOSURE?NO LATEX RISK : HAVE YOU EVER HAD ANY DIFFICULTY BREATHING OR HIVES AFTER EATING OR HANDLING ANY FRUITS, OR VEGETABLES; SUCH KIWI, BANANAS, STONE FRUITS, OR CHESTNUTSNO LATEX RISK : DO YOU HAVE A PREVIOUS PERSONAL HISTORY OF MORE THAN NINE SURGERIES, SPINA BIFIDA, OR REPEATED CATHERIZATIONS? NO LATEX RISK : ARE YOU FREQUENTLY EXPOSED TO LATEX PRODUCTS IN YOUR OCCUPATION?NO DATE ASKED : 10/15/2020 ALCOHOL SCREENING HOW OFTEN DID YOU HAVE A DRINK CONTAINING ALCOHOL IN THE PAST YEAR? NEVER (0 POINTS) , DID YOU HAVE A DRINK CONTAINING ALCOHOL IN THE PAST YEAR? NO , DID YOU HAVE A DRINK CONTAINING ALCOHOL IN THE PAST YEAR? YES , POINTS 0 , POINTS 0 , INTERPRETATION NEGATIVE , INTERPRETATION NEGATIVE. RECREATIONAL DRUG USE DRUG USE? NO. CAFFEINE CAFFEINE USE? NO. 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 DIET: REGULAR. EXERCISE: DAILY, WALKS. PAIN CLINIC PFS, CLERGY, PUBLIC HEALTH REFERRALS PFS REFERRAL NEEDED?NO CLERGY REFERRAL NEEDED?NO PUBLIC HEALTH REFERRAL NEEDED?NO HAS THE PATIENT BEEN EDUCATED REGARDING HIS/HER PLAN OF CARE?YES HAS THE PATIENT BEEN EDUCATED REGARDING PAIN, THE RISK FOR PAIN, THE IMPORTANCE OF EFFECTIVE PAIN MANAGEMENT, AND THE PAIN ASSESSMENT PROCESS?YES ADVANCE DIRECTIVE ADVANCE DIRECTIVE DISCUSSED WITH PATIENT:YES [phone] HOSPITALIZATION/MAJOR DIAGNOSTIC PROCEDURE SEE ABOVE SURGURIES MENTAL HEALTH CHILD X 3 MENTAL HEALTH 08/2020 VITAL SIGNS WT 130.2 LBS, HT 63 IN, BMI 23.06 INDEX, BP 115/77 MM HG, HR 90 /MIN, RR 18 /MIN, TEMP 97.4 F, OXYGEN SAT % 98%, SAFE IN ENV? (Y/N) YES, NA INITIALS AW 1057, REVIEWED BY: DOROTHY WATKINS HOOK LOADER. EXAMINATION GENERAL EXAMINATION: THE PATIENT IS ALERT, ORIENTED TIMES THREE AND COOPERATIVE. HEART SHOWS REGULAR RHYTHM, NO MURMURS AND NO GALLOPS. LUNGS ARE CLEAR TO AUSCULTATION. ASSESSMENTS MYALGIA - M79.1 (PRIMARY) TREATMENT MYALGIA MEDICATION: ZOFRAN ODT TAB 4MG DISSOLVE ON TONGUE (ONDANSETRON)NIGHAT WATKINS 10/16/2020 11:36:12 AM > LOT # [id number] EXP: 03/2022. NIGHAT WATKINS 10/16/2020 11:39:38 AM > ADMINISTERED. THIS PROCEDURE WAS REVIEWED BY NIGHAT WATKINS ON 10/17/2020 AT 17:44 PM EST MEDICATION: NORCO TABLET 5MG/325MG ORALLY (HYDROCODONE/ACETAMINOPHEN)ANA SIMON 10/16/2020 11:27:51 AM - GIVE 2 TABS CHAR MARIE 10/16/2020 11:32:20 AM > VERIFY NIGHAT WATKINS 10/16/2020 11:37:22 AM > LOT # [id number] EXP: 01/2022 NIGHAT WATKINS 10/16/2020 11:37:50 AM > ADMINISTERED THIS PROCEDURE WAS REVIEWED BY NIGHAT WATKINS ON 10/17/2020 AT 17:43 PM EST MEDICATION: VALIUM TAB 10MG ORALLY (DIAZEPAM)CHAR MARIE 10/16/2020 11:32:43 AM > VERIFY NIGHAT WATKINS 10/16/2020 11:36:41 AM > LOT # [id number] EXP: 05/29. NIGHAT WATKINS 10/16/2020 11:38:07 AM > ADMINISTERED. THIS PROCEDURE WAS REVIEWED BY NIGHAT WATKINS ON 10/17/2020 AT 17:44 PM EST PROCEDURES PAIN NURSING RECORD PRE-PROCEDURE IV SITE N/A, PRE-PROCEDURE ORAL MEDICATIONS YES PER MD ORDER. PROCEDURE IN ROOM 1057 UPON ARRIVAL TO CLINIC, PHYSICIAN IN ROOM 1154, START 1158, FINISH 1201, PHYSICIAN OUT OF ROOM 1202, OUT OF ROOM 1215, STEROID KENALOG, O2 RA, ECG N/A, PATIENT SHIELDED NO, SAFETY STRAP NO, PREP ALCOHOL DR. IBRAHIM, IV INFUSED N/A, DRESSING TEGADERM Porsha WATKINS HOOK LOADER LOC: NIGHAT WATKINS 10/16/2020 10:57:19 PM > 1. ALERT, ORIENTED, LOC REMAINED AT BASELINE THROUGHOUT THE PROCEDURE RESP: NIGHAT WATKINS 10/16/2020 10:57:19 PM > 1. REGULAR, NO DYSPNEA COLOR: NIGHAT WATKINS 10/16/2020 10:57:19 PM > 3. OTHER, SITTING SKIN: NIGHAT WATKINS 10/16/2020 10:57:19 PM > 1. WARM, DRY POSITION: NIGHAT WATKINS 10/16/2020 10:57:19 PM > 4. OTHER, SITTING VITALS: NIGHAT WATKINS 10/16/2020 12:11:08 PM > POST PROCEDURE 113/75, 96, 99% RA, 16. NOTES NIGHAT WATKINS 10/16/2020 11:11:01 AM > FIRST WORDS OUT OF PATIENTS MOUTH, "WHEN CAN I GET SOME MEDICATIONS FOR MY ANXIETY?" NURSE EXPLAINED TO PATIENT WE WOULD HAVE TO DISCUSS MEDICATIONS, ETC BEFORE THE PROVIDER CAN ORDER ANYTHING, PATIENT VERBALIZES UNDERSTANDING. DISCHARGE: POST PAIN 01/16, DRESSING SITE DRY AND INTACT, IV N/A, GAIT WHEELCHAIR PATIENT REQUESTING WHEELCHAIR DUE TO "NUMBNESS/SHAKEY LEGS" PATIENT AMBULATING WITH STEADY GAIT POST PROCEDURE, PATIENT GIVEN ORANGE JUICE AND GWENDOLYN CRACKERS, POSSIBLE TO MUH PRESEDATE?, TEACHING COMPLETED, PATIENT ACKNOWLEDGES UNDERSTANDING YES, PATIENT DISCHARGED AT 1215 PN TRIGGER POINT INJECTION WITH STEROIDS PRE PROCEDURE DIAGNOSIS 1. MYALGIA 2. PAIN AT BILATERAL LOWER BACK AREA POST PROCEDURE DIAGNOSIS 1. MYALGIA 2. PAIN AT BILATERAL LOWER BACK AREA PROCEDURE TRIGGER POINT INJECTION AT BILATERAL LOWER BACK AREA SURGEON DR. DEBBIE IBRAHIM SHUTTLECOCK ASSEMBLER NONE ANESTHESIA LOCAL PRE PROCEDURE NOTE THE PATIENT HAS A HISTORY OF CHRONIC PAIN AT THE RIGHT AND LEFT LOWER BACK AREA. I EVALUATED THE PATIENT AND REVIEWED THE CHART. THERE IS EVIDENCE OF BANDS OF TISSUE WITH RESTRICTION OF MOVEMENT AND PRESENCE OF TRIGGER POINT AT THE RIGHT AND LEFT LOWER BACK AREA. I WENT OVER THE RISKS, ALTERNATIVES, AND BENEFITS ASSOCIATED WITH THIS PROCEDURE. THE PATIENT WOULD LIKE TO PROCEED AND GIVE CONSENT TO PERFORMED THE PROCEDURE. THE PATIENT DENIES UNEXPLAINABLE WEIGHT LOSS, FEVER, CHILLS, OR NEW CHANGES IN URINARY OR BOWEL CONTROL. THE PATIENT IS COVID-19 NEGATIVE DESCRIPTION OF PROCEDURE THE PATIENT WAS BROUGHT TO THE PROCEDURE ROOM AND PLACED IN THE SITTING POSITION. THE AREA WAS CLEANED WITH ALCOHOL. THE PROCEDURE WAS DONE USING ASEPTIC STERILE TECHNIQUE. A TIMEOUT WAS PERFORMED WHERE LATERALITY AND THE SITE OF THE PROCEDURE WERE CHECKED AND CONFIRMED WITH EVERYONE IN THE ROOM. USING A 25-GAUGE NEEDLE, TRIGGER POINTS WERE INJECTED AT THE RIGHT AND LEFT LOWER BACK AREA WITH A TOTAL OF 40 ML OF BUPIVACAINE 0.25% AND KENALOG 40 MG. THE MEDICATIONS WERE VERIFIED WITH THE NURSE. THERE WAS NO EVIDENCE OF BLOOD OR PARESTHESIA DURING THE PROCEDURE. THE PATIENT WAS SENT TO THE RECOVERY ROOM. THE PATIENT WAS MOVING THE EXTREMITIES AND DOING WELL. THERE WERE NO COMPLICATIONS DURING THE PROCEDURE. ESTIMATED BLOOD LOSS WAS LESS THAN 5 ML POST PROCEDURE NOTE DEPENDING ON THE RESULTS, CONSIDER A CAUDAL VERSES AN EPIDURAL AND DEPENDING ON THE RESULTS AN MRI. THE PROCEDURE DONE WAS DISCUSSED WITH THE PATIENT. THE PATIENT WILL BE SEEN IN A FOLLOW UP IN THE NEXT FEW WEEKS. I AM LOOKING FOR LONG LASTING PAIN RELIEF FOR THE PATIENT WITH THIS INTERVENTION. INSTRUCTIONS WERE GIVEN, QUESTIONS WERE ANSWERED, AND THE PATIENT EXPRESSED UNDERSTANDING AND AGREES WITH THE PLAN. I, ANA SIMON, DOCUMENTED THE ABOVE INFORMATION ACTING A SCRIBE FOR DR. IBRAHIM. I HAVE REVIEWED THE ABOVE DOCUMENT, WRITTEN BY ANA SIMON, DIRECTOR OF STRATEGIC COMMUNICATIONS, AND I VERIFY THAT IT IS ACCURATE PROCEDURE CODES 47907 INJ TRIGGER POINT / MUSCL DISPOSITION & COMMUNICATION FOLLOW UP FOLLOW UP WITH DIRECTOR ENERGY (REASON: POST TRIGGER POINT INJECTION BILATERAL LOW BACK) ELECTRONICALLY SIGNED BY DEBBIE IBRAHIM MD, MD ON 10/17/2020 AT 11:13 AM EST DISCLAIMER : THIS IS A VISIT SUMMARY EXTRACTED FROM THE [facility] CHART. IT IS NOT A COPY OF THE [facility] PROGRESS NOTE. SIMI
== END ==
LOC: M PAIN 11:00
PROVIDERS: ATTEND Anesthesiology
DX: M79.18 Myalgia, other site (principal); G43.909 Migraine, unspecified, not intractable, without status migrainosus; Z86.59 Personal history of other mental and behavioral disorders; Z88.1 Allergy status to other antibiotic agents; Z88.5 Allergy status to narcotic agent; Z79.899 Other long term (current) drug therapy
CPT/HCPCS: 20552; J3301; Q0162

== ENCOUNTER → 2020-11-13 | Outpatient (CLI) | payer OTHER ==
[~2020-11-13] MED LIST changes: -BUPIVACAINE HCL 0.25% 10ML VIAL As Ordered ONE; -BUPIVACAINE HCL 0.25% 30ML VIAL As Ordered ONE; -NORCO, ANEXSIA 5/325MG TABLET (HYDROcodone/ACETAMINOPHEN) As Ordered ONE; -ONDANSETRON 4 MG ORAL DISINTEGRATING TAB As Ordered ONE; -TRIAMCINOLONE ACETONIDE SUSP 40 MG/ML VIAL (J3301) As Ordered ONE; -diazePAM 5MG TABLET As Ordered ONE
--- NOTE | 2020-11-18 09:48 | ECWPNPC ---
PATIENT NAME: QUENTIN SANDS : 1990 GENDER: FEMALE VISIT DATE: 11/13/2020 DISCHARGE DATE: 11/13/20 1452 VISIT LOCKED DATE TIME: PHYSICIAN: KAREEM ADAMS RESOURCE: KAREEM ADAMS REASON FOR APPOINTMENT 1. POST BILATERAL LOW BACK TRIGGER POINT INJECTIONS [phone] HISTORY OF PRESENT ILLNESS GENERAL: PERMISSION REQUESTED AND RECEIVED FROM PATIENT TO PERFORM TELEHEALTH VISIT. 30-YEAR-OLD FEMALE IN FOR POST TRIGGER POINT INJECTION FOLLOW-UP. SHE FEELS THE PROCEDURE WAS UNSUCCESSFUL. SHE RATES HER PAIN CURRENTLY AT AN 8-10 OUT OF 10. SHE ASCRIBES HER PAIN SHARP, STABBING, SHOOTING, AND PINCHING. -. FALL RISK SCREENING: SCREENING :NO FALLS REPORTED IN THE LAST YEAR PAIN SCREENING: PATIENT HAS A COMPLAINT OF ACUTE OR CHRONIC PAIN :YES LOCATION OF PAIN:FACE, HEAD, NECK, BOTH SHOULDERS INTENSITY OF PAIN (SCALE OF 1 TO 10):9 AVERAGE 8-10 WHAT DOES YOUR PAIN FEEL LIKE:SHARP, STABBING, SHOOTING PINCHING DURATION:CONTINOUS, CONSTANT, AWAKENS FROM SLEEP PAIN IS INCREASED BY:OTHERS LIGHT, STANDING AND SITTING FOR PROLONGED TIMES. PAIN IS DECREASED BY:USE OF PAIN MEDICATIONS, OTHERS HOT BATHS, BOTOX, HEATING PAD TREATMENT/MEDICATIONS USED TO MANAGE PAIN:OTC PAIN RELIEVERS, TOPICAL CORTICOSTEROIDS TYLENOL NEEDED, BENGAY NURSING NOTE: -. PAIN CENTER INTAKE QUESTIONS: DO YOU HAVE A HISTORY OF MRSA? :NO DO YOU TAKE A BLOOD THINNERS? :NO DO YOU HAVE ANY BLEEDING DISORDERS? :NO ANY NEW NUMBNESS OR WEAKNESS IN YOUR LEGS OR ARMS? :NO ANY PACEMAKER,DEFIBRILLATOR, OR DORSAL COLUMN STIMULATOR? :NO DO YOU HAVE ANY RASHES OR OPEN SORES? :NO ARE YOU ALLERGIC TO IV DYE? :NO ARE YOU DIABETIC? :NO ANY NEW PROBLEMS WITH YOUR MEDICATIONS? :NO HAVE YOU RECEIVED A VACCINE IN THE PAST 30 DAYS? :NO DO YOU PLAN TO RECEIVE A VACCINE IN THE NEXT 21 DAYS? :NO DO YOU NEED ANY PRESCRIPTION? :YES ZOFRAN, HRDROCODONE REFILLS DO YOU TAKE ANY IMMUNOSUPPRESSIVE MEDICATIONS? :NO IS THERE A CHANCE YOU COULD BE ? :NO ARE YOU BREAST FEEDING? :NO CURRENT MEDICATIONS TAKING XANAX 0.25 MG TABLET 1 TABLET ORALLY PRN, NOTES: TAKES PRN 2-3 DAYS AGO TAKING TRAZODONE HCL 50 MG TABLET 1 TABLET AT BEDTIME NEEDED ORALLY ONCE A DAY, NOTES: 10/15/20 2100 TAKING LYRICA 75 MG CAPSULE 1 CAPSULE ORALLY TWICE DAILY, NOTES: 2-3 DAYS AGO TAKING ACETAMINOPHEN 325 MG TABLET 1 TABLET NEEDED ORALLY EVERY 4 HRS, NOTES: NEEDED NOT RECENTLT TAKING HYDROCODONE-ACETAMINOPHEN 7.5-325 MG TABLET 1 TABLET NEEDED ORALLY DAILY NEEDED FOR PAIN, NOTES: 10/15/20 1430 NOT-TAKING EFFEXOR TABLET 37.5MG X TWO WEEKS INCREASE TO 75MG ORALLY NOT-TAKING TIZANIDINE HCL 4 MG TABLET 1 TABLET NEEDED ORALLY BID PRN SPASM NOT-TAKING IMPLANON , NOTES: OUT NOT-TAKING ZOFRAN 4 MG TABLET 1 TABLET NEEDED ORALLY EVERY 4 HRS PRN NAUSEA NOT-TAKING DIGOXIN 125 MCG TABLET 1 TABLET ORALLY ONCE A DAY NOT-TAKING IBUPROFEN 800 MG TABLET 1 TABLET ORALLY THREE TIMES A DAY NOT-TAKING KLONOPIN 0.5 MG TABLET 1 TABLET ORALLY TWICE A DAY NOT-TAKING GABAPENTIN 100 MG CAPSULE 2 CAP ORALLY THREE TIMES DAILY NOT-TAKING PROTONIX 40 MG PACKET 1 CAPSULE ORALLY ONCE A DAY NEEDED NOT-TAKING PREDNISONE 5 MG TABLET 1 TABLET ORALLY THREE TIMES A DAY NOT-TAKING ATENOLOL 25 MG TABLET 1 TABLET ORALLY ONCE A DAY AT BEDTIME NOT-TAKING METOPROLOL SUCCINATE ER 50 MG TABLET EXTENDED RELEASE 24 HOUR 1 TABLET ORALLY ONCE A DAY NOT-TAKING 28-0.8 MG TABLET 1 TABLET ORALLY ONCE A DAY, NOTES: 03/06/19 NOT-TAKING BENADRYL NOT-TAKING SEROQUEL 50 MG TABLET 1 TABLET ORALLY ONCE A DAY, NOTES: NONE RECENTLY MEDICATION LIST REVIEWED AND RECONCILED WITH THE PATIENT PAST MEDICAL HISTORY 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 ABLATION ANXIETY BIPOLAR AFIB / SVT DEPRESSION KYPHOSIS SEVERE MIGRAINES ALLERGIES 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 [id number] IS AUTISTIC. SOCIAL HISTORY GENERAL: TOBACCO USE ARE YOU A: NONSMOKER. LATEX QUESTIONNAIRE LATEX ALLERGY : HAVE YOU EVER DEVELOPED ANY TYPE OF REACTION AFTER HANDLING LATEX PRODUCTS SUCH RUBBER GLOVES, CONDOMS, DIAPHRAGMS, BALLOONS, SOCKS, OR UNDERWEAR?NO LATEX ALLERGY : HAVE YOU EVER DEVELOPED ANY TYPE OF REACTION DURING OR AFTER DENTAL APPOINTMENT, VAGINAL/RECTAL EXAMINATION, SURGICAL PROCEDURE, OR ANY OTHER EXPOSURE?NO DATE ASKED : 10/15/2020 LATEX RISK : HAVE YOU EVER HAD ANY DIFFICULTY BREATHING OR HIVES AFTER EATING OR HANDLING ANY FRUITS, OR VEGETABLES; SUCH KIWI, BANANAS, STONE FRUITS, OR CHESTNUTSNO LATEX RISK : DO YOU HAVE A PREVIOUS PERSONAL HISTORY OF MORE THAN NINE SURGERIES, SPINA BIFIDA, OR REPEATED CATHERIZATIONS? NO LATEX RISK : ARE YOU FREQUENTLY EXPOSED TO LATEX PRODUCTS IN YOUR OCCUPATION?NO ALCOHOL SCREENING HOW OFTEN DID YOU HAVE A DRINK CONTAINING ALCOHOL IN THE PAST YEAR? NEVER (0 POINTS) , DID YOU HAVE A DRINK CONTAINING ALCOHOL IN THE PAST YEAR? NO , DID YOU HAVE A DRINK CONTAINING ALCOHOL IN THE PAST YEAR? YES , POINTS 0 , POINTS 0 , INTERPRETATION NEGATIVE , INTERPRETATION NEGATIVE. RECREATIONAL DRUG USE DRUG USE? NO. CAFFEINE CAFFEINE USE? NO. TAOIST [id number] NONE LANGUAGE LANGUAGES SPOKEN:[place] EDUCATION LEVEL OF EDUCATION:NOT FINISHED HIGH SCHOOL 9TH GRADE LEARNING BARRIERS / SPECIAL NEEDS BARRIERS TO LEARNING?NO HEARING IMPAIRED?NO VISION IMPAIRED?YES HAS GLAUCOMA AND IS LEGALLY BLIND IN RIGHT EYE COGNITIVELY IMPAIRED?NO READINESS TO LEARN?YES LEARNING PREFERENCES?NO LEARNING CAPABILITIES PRESENT?YES EMOTIONAL BARRIERS?NO SPECIAL DEVICES?NO CUTTING PRESSMAN NEEDED?NO DOMESTIC VIOLENCE DO YOU FEEL SAFE IN YOUR ENVIRONMENT?YES OCCUPATION: NOT WORKING. DIET: REGULAR. EXERCISE: DAILY, WALKS. PAIN CLINIC PFS, CLERGY, PUBLIC HEALTH REFERRALS PFS REFERRAL NEEDED?NO CLERGY REFERRAL NEEDED?NO PUBLIC HEALTH REFERRAL NEEDED?NO HAS THE PATIENT BEEN EDUCATED REGARDING HIS/HER PLAN OF CARE?YES HAS THE PATIENT BEEN EDUCATED REGARDING PAIN, THE RISK FOR PAIN, THE IMPORTANCE OF EFFECTIVE PAIN MANAGEMENT, AND THE PAIN ASSESSMENT PROCESS?YES ADVANCE DIRECTIVE ADVANCE DIRECTIVE DISCUSSED WITH PATIENT:YES HCP TEOFILO FISHER [phone] REVIEWED 11/12/20 HOSPITALIZATION/MAJOR DIAGNOSTIC PROCEDURE SEE ABOVE SURGURIES MENTAL HEALTH CHILD X 3 MENTAL HEALTH 08/2020 REVIEW OF SYSTEMS CONSTITUTIONAL: ANY RECENT FEVER NO . CHILLS NO . WEIGHT CHANGE OF UNKNOWN REASONS NO . GASTROENTEROLOGY: NEW UNEXPLAINABLE CHANGES IN BOWEL CONTROL NO . CONSTIPATION NO . GENITOURINARY: ANY NEW CHANGE IN BLADDER CONTROL? NO . NEUROLOGY: NEW ONSET DIZZINESS OR NEUROLOGICAL CHANGES NOT MENTIONED NO . NEW NUMBNESS OR PAIN PATTERNS NOT MENTIONED AND PERTINENT TO TODAY'S VISIT NO . CARDIOLOGY: NEW CHEST PRESSURE NO . NEW CHEST PAIN NO . RESPIRATORY: UNEXPLAINABLE COUGH NO . NEW SHORTNESS OF BREATH NO . EXAMINATION GENERAL EXAMINATION: GENERALNO ACUTE DISTRESS, WELL NOURISHED AND HYDRATED. PSYCHAPPROPRIATE MOOD AND AFFECT . ASSESSMENTS MYALGIA, OTHER SITE - M79.18 (PRIMARY) LUMBAR POST-LAMINECTOMY SYNDROME - M96.1 TREATMENT MYALGIA, OTHER SITE NOTES: 30-YEAR-OLD FEMALE IN FOR POST TRIGGER POINT INJECTION FOLLOW-UP. GIVEN PRESENTING SYMPTOMS RECOMMENDED MRI OF THE LUMBAR SPINE WITH FOLLOW-UP AFTER IMAGING. PATIENT EXPRESSED UNDERSTANDING OF AND WAS IN AGREEMENT WITH TREATMENT PLAN. GIVEN TIME TO ASK QUESTIONS AND EXPRESS CONCERNS. , ISTOP REGISTRY REVIEWED AND DEMONSTRATES COMPLLIANCE. (REF # [id number] ) BRINGS IN MEDICATIONS WHICH IS APPROPRIATE FOR WHAT WAS DISPENSED. RECENT URINE TOXICOLOGY REVIEWED. NO UNAUTHORIZED MEDICATIONS. NO ILLICIT SUBSTANCES AND PRESCRIBED MEDICATIONS WERE PRESENT. VISIT CONDUCTED VIA ZOOM. TIME SPENT WITH PATIENT 7 MINUTES. LUMBAR POST-LAMINECTOMY SYNDROME [facility] MRI LS SPINE W/O AND WITH [id number] DISPOSITION & COMMUNICATION FOLLOW UP POST IMAGING (REASON: MRI LUMBAR SPINE) ELECTRONICALLY SIGNED BY HALEY TOMLINSON ON 11/14/2020 AT 01:27 PM EST DISCLAIMER : THIS IS A VISIT SUMMARY EXTRACTED FROM THE [facility] CHART. IT IS NOT A COPY OF THE [facility] PROGRESS NOTE. MTDD
== END ==
LOC: M PAIN 13:45 → M TMPAIN 13:45
PROVIDERS: ATTEND Family Medicine
DX: M79.18 Myalgia, other site (principal); M96.1 Postlaminectomy syndrome, not elsewhere classified; G43.909 Migraine, unspecified, not intractable, without status migrainosus; Z86.59 Personal history of other mental and behavioral disorders; Z88.1 Allergy status to other antibiotic agents; Z88.8 Allergy status to other drugs, medicaments and biological substances; Z79.899 Other long term (current) drug therapy

== ENCOUNTER → 2021-01-08 | Outpatient (CLI) | payer OTHER ==
--- NOTE | 2021-01-08 23:06 | ECWPNPC ---
PATIENT NAME: QUENTIN SANDS : 1990 GENDER: FEMALE VISIT DATE: 01/08/2021 DISCHARGE DATE: 01/08/21 1437 VISIT LOCKED DATE TIME: PHYSICIAN: DEBBIE IBRAHIM MD PHYSICIAN PAGER NO: INACTIVE RESOURCE: DEBBIE IBRAHIM MD REASON FOR APPOINTMENT 1. INCREASED PAIN-WANTS PROCEDURE HISTORY OF PRESENT ILLNESS GENERAL: 30-YEAR-OLD FEMALE PATIENT WITH A HISTORY OF CHRONIC LOW BACK PAIN. THE PATIENT DESCRIBES THE PAIN SEVERE AND ACHING WITH A PAIN SCORE RANGING FROM 7-10/10 IN THE LOWER BACK. THIS HAS BEEN THERE FOR MANY YEARS. SHE HAS A HISTORY OF A BACK SURGERY. SHE HAS CASILLAS RODS DUE TO SCOLIOSIS. THE PAIN HAS BEEN CONSTANT. SHE IS HAVING A LOT OF DIFFICULTY'S. SHE NEEDS HELP. SHE IS GOING TO SEE HER SURGEON IN A FEW DAYS. FALL RISK SCREENING: SCREENING :ONE FALL WITHOUT INJURY IN THE PAST YEAR WITHIN THE LAST COUPLE OF MONTHS FELL ON THE ICE, INJURED LOWER BACK DOWN INTO BUTTOCKS, DID RECEIVE CARE FROM ER BUT NO NEW MEDICATIONS PAIN SCREENING: PATIENT HAS A COMPLAINT OF ACUTE OR CHRONIC PAIN :YES LOCATION OF PAIN:NECK, RIGHT SHOULDER, HAND(S) RADIATES DOWN RIGHT ARM AND FINGER INTENSITY OF PAIN (SCALE OF 1 TO 10):7 WHAT DOES YOUR PAIN FEEL LIKE:ACHING, BURNING, CONTINOUS, STABBING, OTHER FEELS TIGHT AND PULLING DURATION:CONTINOUS PAIN IS INCREASED BY:ACTIVITIES PAIN IS DECREASED BY:OTHERS HOT SHOWER, MARSHA STARKS NURSING NOTE: -. PAIN CENTER INTAKE QUESTIONS: DO YOU HAVE A HISTORY OF MRSA? :NO DO YOU TAKE A BLOOD THINNERS? :NO DO YOU HAVE ANY BLEEDING DISORDERS? :NO ANY NEW NUMBNESS OR WEAKNESS IN YOUR LEGS OR ARMS? :YES RIGHT ARM NUMBNESS AND TINGLING WHICH ALSO RADIATES TO FIRST FINGER AND THUMB ANY PACEMAKER,DEFIBRILLATOR, OR DORSAL COLUMN STIMULATOR? :YES LOOP RECORDER DO YOU HAVE ANY RASHES OR OPEN SORES? :NO ARE YOU ALLERGIC TO IV DYE? :NO ARE YOU DIABETIC? :NO ANY NEW PROBLEMS WITH YOUR MEDICATIONS? :NO HAVE YOU RECEIVED A VACCINE IN THE PAST 30 DAYS? :NO DO YOU PLAN TO RECEIVE A VACCINE IN THE NEXT 21 DAYS? :NO DO YOU NEED ANY PRESCRIPTION? :YES HYDROCODONE DO YOU TAKE ANY IMMUNOSUPPRESSIVE MEDICATIONS? :NO DO YOU HAVE ANY KIDNEY OR LIVER DISEASE? :NO IS THERE A CHANCE YOU COULD BE ? :NO ARE YOU BREAST FEEDING? :NO CURRENT MEDICATIONS TAKING TRAZODONE HCL 50 MG TABLET 1 TABLET AT BEDTIME NEEDED ORALLY ONCE A DAY TAKING LYRICA 75 MG CAPSULE 1 CAPSULE ORALLY TWICE DAILY TAKING ACETAMINOPHEN 325 MG TABLET 1 TABLET NEEDED ORALLY EVERY 4 HRS TAKING HYDROCODONE-ACETAMINOPHEN 7.5-325 MG TABLET 1 TABLET NEEDED ORALLY DAILY NEEDED FOR PAIN TAKING DULOXETINE HCL 20 MG CAPSULE DELAYED RELEASE PARTICLES TAKE ONE CAPSULE BY MOUTH EVERY DAY ORAL NOT-TAKING XANAX 0.25 MG TABLET 1 TABLET ORALLY PRN NOT-TAKING EFFEXOR TABLET 37.5MG X TWO WEEKS INCREASE TO 75MG ORALLY NOT-TAKING TIZANIDINE HCL 4 MG TABLET 1 TABLET NEEDED ORALLY BID PRN SPASM NOT-TAKING IMPLANON , NOTES: OUT NOT-TAKING ZOFRAN 4 MG TABLET 1 TABLET NEEDED ORALLY EVERY 4 HRS PRN NAUSEA NOT-TAKING DIGOXIN 125 MCG TABLET 1 TABLET ORALLY ONCE A DAY NOT-TAKING IBUPROFEN 800 MG TABLET 1 TABLET ORALLY THREE TIMES A DAY NOT-TAKING KLONOPIN 0.5 MG TABLET 1 TABLET ORALLY TWICE A DAY NOT-TAKING GABAPENTIN 100 MG CAPSULE 2 CAP ORALLY THREE TIMES DAILY NOT-TAKING PROTONIX 40 MG PACKET 1 CAPSULE ORALLY ONCE A DAY NEEDED NOT-TAKING PREDNISONE 5 MG TABLET 1 TABLET ORALLY THREE TIMES A DAY NOT-TAKING ATENOLOL 25 MG TABLET 1 TABLET ORALLY ONCE A DAY AT BEDTIME NOT-TAKING METOPROLOL SUCCINATE ER 50 MG TABLET EXTENDED RELEASE 24 HOUR 1 TABLET ORALLY ONCE A DAY NOT-TAKING 28-0.8 MG TABLET 1 TABLET ORALLY ONCE A DAY, NOTES: 03/06/19 NOT-TAKING BENADRYL NOT-TAKING SEROQUEL 50 MG TABLET 1 TABLET ORALLY ONCE A DAY, NOTES: NONE RECENTLY MEDICATION LIST REVIEWED AND RECONCILED WITH THE PATIENT PAST MEDICAL HISTORY 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 LATEX QUESTIONNAIRE LATEX ALLERGY : HAVE YOU EVER DEVELOPED ANY TYPE OF REACTION AFTER HANDLING LATEX PRODUCTS SUCH RUBBER GLOVES, CONDOMS, DIAPHRAGMS, BALLOONS, SOCKS, OR UNDERWEAR?NO LATEX ALLERGY : HAVE YOU EVER DEVELOPED ANY TYPE OF REACTION DURING OR AFTER DENTAL APPOINTMENT, VAGINAL/RECTAL EXAMINATION, SURGICAL PROCEDURE, OR ANY OTHER EXPOSURE?NO LATEX RISK : HAVE YOU EVER HAD ANY DIFFICULTY BREATHING OR HIVES AFTER EATING OR HANDLING ANY FRUITS, OR VEGETABLES; SUCH KIWI, BANANAS, STONE FRUITS, OR CHESTNUTSNO LATEX RISK : DO YOU HAVE A PREVIOUS PERSONAL HISTORY OF MORE THAN NINE SURGERIES, SPINA BIFIDA, OR REPEATED CATHERIZATIONS? NO LATEX RISK : ARE YOU FREQUENTLY EXPOSED TO LATEX PRODUCTS IN YOUR OCCUPATION?NO DATE ASKED : 01/08/2021 ALCOHOL SCREENING HOW OFTEN DID YOU HAVE A DRINK CONTAINING ALCOHOL IN THE PAST YEAR? NEVER (0 POINTS) , DID YOU HAVE A DRINK CONTAINING ALCOHOL IN THE PAST YEAR? NO , DID YOU HAVE A DRINK CONTAINING ALCOHOL IN THE PAST YEAR? YES , POINTS 0 , POINTS 0 , INTERPRETATION NEGATIVE , INTERPRETATION NEGATIVE. RECREATIONAL DRUG USE DRUG USE? NO. CAFFEINE CAFFEINE USE? NO. 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 DIET: REGULAR. EXERCISE: DAILY, WALKS. - PFS REFERRAL NEEDED?NO CLERGY REFERRAL NEEDED?NO PUBLIC HEALTH REFERRAL NEEDED?NO HAS THE PATIENT BEEN EDUCATED REGARDING HIS/HER PLAN OF CARE?YES HAS THE PATIENT BEEN EDUCATED REGARDING PAIN, THE RISK FOR PAIN, THE IMPORTANCE OF EFFECTIVE PAIN MANAGEMENT, AND THE PAIN ASSESSMENT PROCESS?YES ADVANCE DIRECTIVE ADVANCE DIRECTIVE DISCUSSED WITH PATIENT:YES HCP [facility] [phone] REVIEWED 11/12/20 REVIEW OF SYSTEMS CONSTITUTIONAL: ANY RECENT FEVER NO . CHILLS NO . WEIGHT CHANGE OF UNKNOWN REASONS NO . GASTROENTEROLOGY: NEW UNEXPLAINABLE CHANGES IN BOWEL CONTROL NO . CONSTIPATION NO . GENITOURINARY: ANY NEW CHANGE IN BLADDER CONTROL? NO . NEUROLOGY: NEW ONSET DIZZINESS OR NEUROLOGICAL CHANGES NOT MENTIONED NO . NEW NUMBNESS OR PAIN PATTERNS NOT MENTIONED AND PERTINENT TO TODAY'S VISIT NO . CARDIOLOGY: NEW CHEST PRESSURE NO . PATIENT DENIES NO . RESPIRATORY: UNEXPLAINABLE COUGH NO . NEW SHORTNESS OF BREATH NO . VITAL SIGNS WT 126.8 LBS, HT 63 IN, BMI 22.46 INDEX, BP 125/80 MM HG, HR 94 /MIN, RR 18 /MIN, TEMP 96.0 F, OXYGEN SAT % 99%, SAFE IN ENV? (Y/N) YES, NA INITIALS AW 1303, REVIEWED BY: Nikki ALEX RN. EXAMINATION GENERAL EXAMINATION: THE PATIENT IS ALERT, ORIENTED TIMES THREE AND COOPERATIVE. LUNGS ARE CLEAR TO AUSCULTATION. HEART SHOWS REGULAR RHYTHM, NO MURMURS AND NO GALLOPS. THERE IS TENDERNESS IN THE LOWER BACK IN THE FACET JOINTS ON EXTENSION AND LATERAL ROTATION. THE PATIENT MOVES THE AREA BY HERSELF AND IT MAKES A SHARP, SMALL NOISE. CT OF THE LUMBAR SPINE DATED 11/27/2020 SHOWS THE CASILLAS RODS AND A FUSION UP TO L4. THE SPACE OF L4-L5 IS UNREMARKABLE BUT THE RADIOLOGIST SAYS THERE IS A LOT OF ARTIFACT THAT DOES NOT SHOW MUCH. I DISCUSSED WITH A RADIOLOGIST HERE AT [facility] WHO FOUND FOUND A CT IN 2015 THAT SHOWS THE FUSION AND THE SOFT TISSUE WAS IN NORMAL LIMITS. THERE IS ALSO AN X-RAY THAT SHOWS RETROLISTHESIS OF L5-S1. 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 SANDS. AT THIS STAGE, I WOULD LIKE TO DO A BILATERAL DIAGNOSTIC LUMBAR FACET BLOCK L4-L5, L5-S1 TO CONSIDER RADIOFREQUENCY. THAT DAY, I MAY ONLY DO L5-S1. SHE IS GOING TO SEE THE SURGEON IN A FEW DAYS AND I WOULD LIKE TO WAIT UNTIL WE HEAR FROM THE SURGEON. I WAS GOING TO ORDER A CT SCAN BUT I WOULD LIKE TO WAIT TO HEAR FROM THE SURGEON. I TOLD MS. SANDS THAT HER SURGEON CAN CALL ME AND I WILL DISCUSS THE CASE WITH HIM. SHE WILL FOLLOW UP AT OUR FACILITY IN THE NEXT FEW WEEKS WITH THE NURSE PRACITIONOR TO DISCUSS THE SURGEONS RECOMMENDATION AND TAKE IT FROM THERE. THE PATIENT REPORTS UNDERSTANDING AND AGREES WITH THE PLAN. I, ANA SIMON, DOCUMENTED THE ABOVE INFORMATION ACTING A SCRIBE FOR DR. IBRAHIM. I HAVE REVIEWED THE ABOVE DOCUMENT, WRITTEN BY ANA SIMON, RADIOLOGIC TECHNOLOGIST CHIEF, AND I VERIFY THAT IT IS ACCURATE. OTHERS NOTES: FACET JOINT INJECTION MATERIAL WAS PRINTED. PROCEDURE CODES FA211 ESTABILISHED PATIENT [facility] FACILITY CHARGE [id number] OFFICE/OUTPATIENT VISIT EST DISPOSITION & COMMUNICATION FOLLOW UP REQUEST AUTH FOR BILATERAL DIAGNOSTIC LUMBAR FACET BLOCK #1 L4-L5, L5-S1 (REASON: REQUEST AUTH FOR BILATERAL DIAGNOSTIC LUMBAR FACET BLOCK #1 L4-L5, L5-S1) ELECTRONICALLY SIGNED BY DEBBIE IBRAHIM MD, MD ON 01/08/2021 AT 04:27 PM EST DISCLAIMER : THIS IS A VISIT SUMMARY EXTRACTED FROM THE [employer] CHART. IT IS NOT A COPY OF THE [employer] PROGRESS NOTE. JAIMED
== END ==
LOC: M PAIN 13:00
PROVIDERS: ATTEND Anesthesiology
DX: M47.816 Spondylosis without myelopathy or radiculopathy, lumbar region (principal); M47.817 Spondylosis without myelopathy or radiculopathy, lumbosacral region; G89.29 Other chronic pain; M43.26 Fusion of spine, lumbar region; Z96.89 Presence of other specified functional implants; G43.909 Migraine, unspecified, not intractable, without status migrainosus; Z86.59 Personal history of other mental and behavioral disorders; Z88.1 Allergy status to other antibiotic agents; Z88.8 Allergy status to other drugs, medicaments and biological substances; Z79.899 Other long term (current) drug therapy

== ENCOUNTER → 2021-01-09 | Outpatient (CLI) | payer OTHER | LOC: M LABSMTC 14:12 | PROVIDERS: ATTEND Anesthesiology | DX: Z11.52 Encounter for screening for COVID-19 (principal) ==

== ENCOUNTER → 2021-01-14 | Outpatient (CLI) | payer OTHER ==
[~2021-01-14] MED LIST changes: +BUPIVACAINE HCL 0.25% 30ML VIAL As Ordered ONE; +ISOVUE-M 300 61% 15ML VIAL As Ordered ONE; +LIDOCAINE 1% SDV 30ML VIAL As Ordered ONE
--- NOTE | 2021-01-14 10:49 | REP ---
INDICATION: PAIN. COMPARISON: None. TECHNIQUE: Four C-arm views lumbar spine performed. FINDINGS: Metallic internal fixation noted in the region of the lumbar spine. Burton are seen along the lower lumbar spine. IMPRESSION: 53 seconds fluoroscopy time utilized. <Electronically signed by Chris Contreras > 01/14/21 1040
--- NOTE | 2021-01-17 00:54 | ECWPNPC ---
PATIENT NAME: QUENTIN SANDS : 1990 GENDER: FEMALE VISIT DATE: 01/14/2021 DISCHARGE DATE: 01/14/21 1104 VISIT LOCKED DATE TIME: PHYSICIAN: DEBBIE IBRAHIM MD PHYSICIAN PAGER NO: INACTIVE RESOURCE: DEBBIE IBRAHIM MD REASON FOR APPOINTMENT 1. BILATERAL DIAGNOSTIC LUMBAR FACET BLOCK #1 L4-L5, L5-S1 HISTORY OF PRESENT ILLNESS GENERAL: -. FALL RISK SCREENING: SCREENING :1 FALL WITH INJURY. PAIN SCREENING: PATIENT HAS A COMPLAINT OF ACUTE OR CHRONIC PAIN :YES LOCATION OF PAIN:LOW BACK, LEFT HIP, RIGHT HIP, THIGH(S) INTENSITY OF PAIN (SCALE OF 1 TO 10):8 WHAT DOES YOUR PAIN FEEL LIKE:ACHING, BURNING, CONTINOUS, SHARP, STABBING, TENDER, THROBBING, SORE, SHOOTING DURATION:CONTINOUS, CONSTANT PAIN IS INCREASED BY:ACTIVITIES PAIN IS DECREASED BY:USE OF PAIN MEDICATIONS, OTHERS HEAT/REST NURSING NOTE: -. PAIN CENTER INTAKE QUESTIONS: DO YOU HAVE A HISTORY OF MRSA? :NO DO YOU TAKE A BLOOD THINNERS? :NO DO YOU HAVE ANY BLEEDING DISORDERS? :NO ANY NEW NUMBNESS OR WEAKNESS IN YOUR LEGS OR ARMS? :NO ANY PACEMAKER,DEFIBRILLATOR, OR DORSAL COLUMN STIMULATOR? :NO HAS LOOP RECORDER DO YOU HAVE ANY RASHES OR OPEN SORES? :NO ARE YOU ALLERGIC TO IV DYE? :NO ARE YOU DIABETIC? :NO ANY NEW PROBLEMS WITH YOUR MEDICATIONS? :NO HAVE YOU RECEIVED A VACCINE IN THE PAST 30 DAYS? :NO DO YOU PLAN TO RECEIVE A VACCINE IN THE NEXT 21 DAYS? :NO DO YOU TAKE ANY IMMUNOSUPPRESSIVE MEDICATIONS? :NO ANY HISTORY OF SEIZURES? :NO ANY HISTORY OF CARDIAC ISSUES OR EVENTS? :YES HAS LOOP RECORDER FOR TACHCARDIA DO YOU HAVE ANY KIDNEY OR LIVER DISEASE? :NO DO YOU HAVE SLEEP APNEA? :NO ANY RECENT HEAD INJURY? :NO DO YOU HAVE ANY NEW INFECTIONS? :NO IS THERE A CHANCE YOU COULD BE ? :NO ARE YOU BREAST FEEDING? :NO WHEN DID YOU LAST EAT? : -01/13 2100 WHEN DID YOU LAST DRINK? : -01/13 2100 WHAT DID YOU LAST DRINK? : -WATER NAME OF PERSON DRIVING YOU HOME? : -CARMENZA-SPOUSE DO YOU HAVE ANY OTHER QUESTIONS OR CONCERNS? : - CURRENT MEDICATIONS TAKING TRAZODONE HCL 50 MG TABLET 1 TABLET AT BEDTIME NEEDED ORALLY ONCE A DAY TAKING LYRICA 75 MG CAPSULE 1 CAPSULE ORALLY TWICE DAILY, NOTES: 01/12 TAKING ACETAMINOPHEN 325 MG TABLET 1 TABLET NEEDED ORALLY EVERY 4 HRS, NOTES: NONE IN PAST WEEK TAKING HYDROCODONE-ACETAMINOPHEN 7.5-325 MG TABLET 1 TABLET NEEDED ORALLY DAILY NEEDED FOR PAIN, NOTES: 01/13 12N TAKING DULOXETINE HCL 20 MG CAPSULE DELAYED RELEASE PARTICLES TAKE ONE CAPSULE BY MOUTH EVERY DAY ORAL NOT-TAKING XANAX 0.25 MG TABLET 1 TABLET ORALLY PRN NOT-TAKING EFFEXOR TABLET 37.5MG X TWO WEEKS INCREASE TO 75MG ORALLY NOT-TAKING TIZANIDINE HCL 4 MG TABLET 1 TABLET NEEDED ORALLY BID PRN SPASM NOT-TAKING IMPLANON , NOTES: OUT NOT-TAKING ZOFRAN 4 MG TABLET 1 TABLET NEEDED ORALLY EVERY 4 HRS PRN NAUSEA NOT-TAKING DIGOXIN 125 MCG TABLET 1 TABLET ORALLY ONCE A DAY NOT-TAKING IBUPROFEN 800 MG TABLET 1 TABLET ORALLY THREE TIMES A DAY NOT-TAKING KLONOPIN 0.5 MG TABLET 1 TABLET ORALLY TWICE A DAY NOT-TAKING GABAPENTIN 100 MG CAPSULE 2 CAP ORALLY THREE TIMES DAILY NOT-TAKING PROTONIX 40 MG PACKET 1 CAPSULE ORALLY ONCE A DAY NEEDED NOT-TAKING PREDNISONE 5 MG TABLET 1 TABLET ORALLY THREE TIMES A DAY NOT-TAKING ATENOLOL 25 MG TABLET 1 TABLET ORALLY ONCE A DAY AT BEDTIME NOT-TAKING METOPROLOL SUCCINATE ER 50 MG TABLET EXTENDED RELEASE 24 HOUR 1 TABLET ORALLY ONCE A DAY NOT-TAKING 28-0.8 MG TABLET 1 TABLET ORALLY ONCE A DAY, NOTES: 03/06/19 NOT-TAKING BENADRYL NOT-TAKING SEROQUEL 50 MG TABLET 1 TABLET ORALLY ONCE A DAY, NOTES: NONE RECENTLY MEDICATION LIST REVIEWED AND RECONCILED WITH THE PATIENT PAST MEDICAL HISTORY 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 ABLATION ANXIETY BIPOLAR AFIB / SVT DEPRESSION KYPHOSIS SEVERE MIGRAINES ALLERGIES 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 [id number] IS AUTISTIC. SOCIAL HISTORY GENERAL: TOBACCO USE ARE YOU A: NONSMOKER. LATEX QUESTIONNAIRE LATEX ALLERGY : HAVE YOU EVER DEVELOPED ANY TYPE OF REACTION AFTER HANDLING LATEX PRODUCTS SUCH RUBBER GLOVES, CONDOMS, DIAPHRAGMS, BALLOONS, SOCKS, OR UNDERWEAR?NO LATEX ALLERGY : HAVE YOU EVER DEVELOPED ANY TYPE OF REACTION DURING OR AFTER DENTAL APPOINTMENT, VAGINAL/RECTAL EXAMINATION, SURGICAL PROCEDURE, OR ANY OTHER EXPOSURE?NO LATEX RISK : HAVE YOU EVER HAD ANY DIFFICULTY BREATHING OR HIVES AFTER EATING OR HANDLING ANY FRUITS, OR VEGETABLES; SUCH KIWI, BANANAS, STONE FRUITS, OR CHESTNUTSNO LATEX RISK : DO YOU HAVE A PREVIOUS PERSONAL HISTORY OF MORE THAN NINE SURGERIES, SPINA BIFIDA, OR REPEATED CATHERIZATIONS? NO LATEX RISK : ARE YOU FREQUENTLY EXPOSED TO LATEX PRODUCTS IN YOUR OCCUPATION?NO DATE ASKED : 01/14/2021 ALCOHOL SCREENING HOW OFTEN DID YOU HAVE A DRINK CONTAINING ALCOHOL IN THE PAST YEAR? NEVER (0 POINTS) , DID YOU HAVE A DRINK CONTAINING ALCOHOL IN THE PAST YEAR? NO , DID YOU HAVE A DRINK CONTAINING ALCOHOL IN THE PAST YEAR? YES , POINTS 0 , POINTS 0 , INTERPRETATION NEGATIVE , INTERPRETATION NEGATIVE. RECREATIONAL DRUG USE DRUG USE? NO. CAFFEINE CAFFEINE USE? NO. 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 DIET: REGULAR. EXERCISE: DAILY, WALKS. - PFS REFERRAL NEEDED?NO CLERGY REFERRAL NEEDED?NO PUBLIC HEALTH REFERRAL NEEDED?NO HAS THE PATIENT BEEN EDUCATED REGARDING HIS/HER PLAN OF CARE?YES HAS THE PATIENT BEEN EDUCATED REGARDING PAIN, THE RISK FOR PAIN, THE IMPORTANCE OF EFFECTIVE PAIN MANAGEMENT, AND THE PAIN ASSESSMENT PROCESS?YES ADVANCE DIRECTIVE ADVANCE DIRECTIVE DISCUSSED WITH PATIENT:YES HCP [facility] [phone] REVIEWED 11/12/20 HOSPITALIZATION/MAJOR DIAGNOSTIC PROCEDURE SEE ABOVE SURGURIES MENTAL HEALTH CHILD X 3 MENTAL HEALTH 08/2020 VITAL SIGNS WT 126.8 LBS, HT 63 IN, BMI 22.46 INDEX, BP 107/80 MM HG, HR 87 /MIN, RR 18 /MIN, TEMP 97.0 F, OXYGEN SAT % 99%, SAFE IN ENV? (Y/N) YES, NA INITIALS [place] 09:14, REVIEWED BY: IZZY RN. EXAMINATION GENERAL EXAMINATION: THE PATIENT IS ALERT, ORIENTED TIMES THREE AND COOPERATIVE. LUNGS ARE CLEAR TO AUSCULTATION. HEART SHOWS REGULAR RHYTHM, NO MURMURS AND NO GALLOPS. ASSESSMENTS LUMBAR SPONDYLOSIS - M47.816 (PRIMARY) LUMBOSACRAL SPONDYLOSIS - M47.817 TREATMENT LUMBAR SPONDYLOSIS SMC FACET BLOCK (PAIN)[id number] COMPLETION OF PROCEDURAL VISIT WHEN MEETS CRITERIA LUMBOSACRAL SPONDYLOSIS SMC FACET BLOCK (PAIN)[id number] OTHERS CLINICAL NOTES: 01/11/21 @1356 - PAT ATTEMPTED. PATIENT ANSWERED PHONE, IS SHOPPING AT [employer]. WILL CALL BACK FROM HOME TBRADLEYRN. PROCEDURES PAIN NURSING RECORD PROCEDURE IN ROOM 1010, PHYSICIAN IN ROOM 1023, START 1029, FINISH 1040, PHYSICIAN OUT OF ROOM 1042, OUT OF ROOM 1047, ECG NORMAL SINUS, PATIENT SHIELDED YES, SAFETY STRAP YES, PREP CHLOROPREP BY Jose MARIE RN, DRESSING TEGADERM BY DR IBRAHIM LOC: 1. ALERT, ORIENTED RESP: 1. REGULAR, NO DYSPNEA COLOR: 1. PINK SKIN: 1. WARM, DRY POSITION: 1. PRONE VITALS: MARSHA FELDER 01/14/2021 10:20:32 AM > 114/79 HR 87, 16 99% R/A , MARSHA FELDER 01/14/2021 10:35:07 AM > 118/87 HR 88 16 100% R/A , MARSHA FELDER 01/14/2021 10:55:38 AM > 116/70 HR 92 16 99% R/A D/C V/S COMPLETION OF PROCEDURE APPOINTMENT: POST PAIN 6, DRESSING SITE DRY AND INTACT, IV N/A, GAIT STEADY, TEACHING COMPLETED, PATIENT ACKNOWLEDGES UNDERSTANDING YES, PROCEDURE APPOINTMENT COMPLETED AT 1058 PN LUMBAR FACET BLOCK DIAGNOSTIC PRE PROCEDURE DIAGNOSIS LUMBAR SPONDYLOSIS, LUMBOSACRAL SPONDYLOSIS POST PROCEDURE DIAGNOSIS LUMBAR SPONDYLOSIS, LUMBOSACRAL SPONDYLOSIS PROCEDURE BILATERAL L4-L5 AND BILATERAL L5-S1 FACET BLOCK DIAGNOSTIC NUMBER [address] DEBBIE IBRAHIM GERICARE AIDE TEACHER NONE ANESTHESIA LOCAL PRE PROCEDURE NOTE THE PATIENT WITH HISTORY OF CHRONIC LOW BACK PAIN. I EVALUATED THE PATIENT AND REVIEWED THE CHART. I WENT OVER THE RISKS, ALTERNATIVES, AND BENEFITS ASSOCIATED WITH THIS PROCEDURE. THE PATIENT WOULD LIKE TO PROCEED AND GAVE CONSENT TO PERFORM THE PROCEDURE. AGREED WITH THE PATIENT, WE ARE DOING THIS PROCEDURE TO DETERMINE IF THE PATIENT IS A CANDIDATE FOR A RADIOFREQUENCY ABLATION OF THE FACETS JOINTS. THE PATIENT DENIES UNEXPLAINABLE WEIGHT LOSS, FEVER, CHILLS, OR NEW CHANGES IN URINARY OR BOWEL CONTROL. THE PATIENT IS COVID-19 NEGATIVE DESCRIPTION OF PROCEDURE THE PATIENT WAS BROUGHT TO THE PROCEDURE ROOM AND PLACED IN THE PRONE POSITION. THE LUMBOSACRAL AREA WAS CLEANED WITH CHLORAPREP SOLUTION AND DRAPED ASEPTICALLY. THE PROCEDURE WAS DONE UNDER STERILE CONDITIONS. A TIMEOUT WAS PERFORMED WHERE THE CONSENTED SITE WAS VERIFIED WITH EVERYONE IN THE ROOM. UNDER FLUOROSCOPIC GUIDANCE, TARGETS WERE SELECTED AT THE INTERSECTION OF THE RIGHT AND LEFT TRANSVERSE PROCESS OF L4, L5 AND ALA OF S1 WITH ITS RESPECTIVE SUPERIOR ARTICULAR PROCESS WITH A [employer]ARGET OF THE MEDIAN BRANCHES OF L3, L4 AND THE DORSAL RAMI OF L5. I CONFIRMED AGAIN THE SITE OF [employer]. LIDOCAINE WAS USED TO NUMB THE SKIN AND THE SUBCUTANEOUS TISSUE BELOW IT. SPINAL NEEDLE, 22-GAUGE, WAS ADVANCED UNDER FLUOROSCOPIC GUIDANCE AND FOLLOWING PATIENT FEEDBACK UNTIL THE TARGETS WERE REACHED. POSITION OF THE NEEDLES WAS VERIFIED WITH AP AND LATERAL VIEWS. AFTER PROPER POSITION OF THE NEEDLES WAS ACHIEVED, ISOVUE-M DYE 30%, 0.1 ML, WAS INJECTED AT EACH SITE SHOWING ADEQUATE SPREAD OF THE DYE. THEN, A SOLUTION OF 0.4 ML OF BUPIVACAINE 0.25% WAS INJECTED AT EACH SITE. THE MEDICATIONS WERE VERIFIED WITH THE NURSE. THERE WAS NO EVIDENCE OF BLOOD, PARESTHESIA OR CEREBROSPINAL FLUID DURING THE PROCEDURE. THE PATIENT WAS SENT TO THE RECOVERY ROOM. THE PATIENT WAS MOVING THE EXTREMITIES AND DOING WELL. THERE WERE NO COMPLICATIONS DURING THE PROCEDURE. ESTIMATED BLOOD LOSS WAS LESS THAN 5 ML. FLUOROSCOPY TIME WAS 53 SECONDS POST PROCEDURE NOTE THE PATIENT WILL DOCUMENT THE PAIN LEVEL AND RESPONSE TO THIS PROCEDURE PER PAIN DIARY. THE PATIENT WILL BE SEEN IN A FOLLOW UP IN THE NEXT FEW WEEKS. FURTHER DETERMINATION FOR THE PATIENT'S CASE WILL BE DONE AT THE NEXT VISIT. INSTRUCTIONS WERE GIVEN, QUESTIONS WERE ANSWERED, AND THE PATIENT EXPRESSED UNDERSTANDING AND AGREED WITH THE PLAN. I, ANA SIMON, DOCUMENTED THE ABOVE INFORMATION ACTING A SCRIBE FOR DR. IBRAHIM. I HAVE REVIEWED THE ABOVE DOCUMENT, WRITTEN BY ANA SIMON, SOCIAL WORK ADMINISTRATOR, AND I VERIFY THAT IT IS ACCURATE PROCEDURE CODES 46041 INJ PARAVERT F JNT L/S 1 LEV, MODIFIERS: 50 [id number] INJ PARAVERT F JNT L/S 2 LEV, MODIFIERS: 50 DISPOSITION & COMMUNICATION FOLLOW UP FOLLOW UP WITH DR. IBRAHIM (REASON: POST BILATERAL DIAGNOSTIC LUMBAR FACET BLOCK #1 L4-L5, L5-S1) ELECTRONICALLY SIGNED BY DEBBIE IBRAHIM MD, MD ON 01/16/2021 AT 12:20 PM EST DISCLAIMER : THIS IS A VISIT SUMMARY EXTRACTED FROM THE [employer] CHART. IT IS NOT A COPY OF THE [employer] PROGRESS NOTE. MTDD
== END ==
LOC: M PAIN 11:00
PROVIDERS: ATTEND Anesthesiology
DX: M47.816 Spondylosis without myelopathy or radiculopathy, lumbar region (principal); M47.817 Spondylosis without myelopathy or radiculopathy, lumbosacral region; G43.909 Migraine, unspecified, not intractable, without status migrainosus; Z86.59 Personal history of other mental and behavioral disorders; Z88.1 Allergy status to other antibiotic agents; Z88.8 Allergy status to other drugs, medicaments and biological substances; Z79.899 Other long term (current) drug therapy
CPT/HCPCS: 64493; 64494; Q9967

== ENCOUNTER → 2021-02-01 | Outpatient (CLI) | payer OTHER ==
[~2021-02-01] MED LIST changes: -BUPIVACAINE HCL 0.25% 30ML VIAL As Ordered ONE; -ISOVUE-M 300 61% 15ML VIAL As Ordered ONE; -LIDOCAINE 1% SDV 30ML VIAL As Ordered ONE
--- NOTE | 2021-02-05 04:48 | ECWPNPC ---
PATIENT NAME: QUENTIN SANDS : 1990 GENDER: FEMALE VISIT DATE: 02/01/2021 DISCHARGE DATE: 02/01/21 1158 VISIT LOCKED DATE TIME: PHYSICIAN: KAREEM ADAMS PHYSICIAN PAGER NO: INACTIVE RESOURCE: KAREEM ADAMS REASON FOR APPOINTMENT 1. MED MANAGEMENT HISTORY OF PRESENT ILLNESS GENERAL: - 30-YEAR-OLD FEMALE IN FOR CHRONIC PAIN FOLLOW-UP. SHE RATES HER PAIN CURRENTLY AT AN 8 OUT OF 10 AND DESCRIBES IT ACHING, BURNING, CONTINUOUS, SHARP, STABBING, THROBBING, AND SHOOTING. SHE FEELS MEDICATIONS ARE HELPFUL AND DENIES MED SIDE EFFECTS AT THIS TIME. FALL RISK SCREENING: SCREENING :1 FALL WITH INJURY. PAIN SCREENING: PATIENT HAS A COMPLAINT OF ACUTE OR CHRONIC PAIN :YES LOCATION OF PAIN:MID BACK, LOW BACK, LEFT HIP, RIGHT HIP, THIGH(S) INTENSITY OF PAIN (SCALE OF 1 TO 10):8 WHAT DOES YOUR PAIN FEEL LIKE:ACHING, BURNING, CONTINOUS, SHARP, STABBING, THROBBING, SHOOTING DURATION:CONTINOUS, CONSTANT, AWAKENS FROM SLEEP PAIN IS INCREASED BY:ACTIVITIES, PROLONGED STANDING PAIN IS DECREASED BY:USE OF PAIN MEDICATIONS, OTHERS HEAT/REST PLAN/GOALS/TREATMENT/INTERVENTION/FOLLOW UP:SEE PLAN PAIN CENTER INTAKE QUESTIONS: DO YOU HAVE A HISTORY OF MRSA? :NO DO YOU TAKE A BLOOD THINNERS? :NO DO YOU HAVE ANY BLEEDING DISORDERS? :NO ANY NEW NUMBNESS OR WEAKNESS IN YOUR LEGS OR ARMS? :YES RIGHT ARM NUMBNESS AND TINGLING WHICH ALSO RADIATES TO INDEX FINGER AND THUMB ANY PACEMAKER,DEFIBRILLATOR, OR DORSAL COLUMN STIMULATOR? :YES LOOP RECORDER DO YOU HAVE ANY RASHES OR OPEN SORES? :NO ARE YOU ALLERGIC TO IV DYE? :NO ARE YOU DIABETIC? :NO ANY NEW PROBLEMS WITH YOUR MEDICATIONS? :NO HAVE YOU RECEIVED A VACCINE IN THE PAST 30 DAYS? :NO DO YOU PLAN TO RECEIVE A VACCINE IN THE NEXT 21 DAYS? :NO DO YOU NEED ANY PRESCRIPTION? :NO DO YOU TAKE ANY IMMUNOSUPPRESSIVE MEDICATIONS? :NO DO YOU HAVE ANY KIDNEY OR LIVER DISEASE? :NO IS THERE A CHANCE YOU COULD BE ? :NO ARE YOU BREAST FEEDING? :NO CURRENT MEDICATIONS TAKING TRAZODONE HCL 50 MG TABLET 1 TABLET AT BEDTIME NEEDED ORALLY ONCE A DAY TAKING LYRICA 75 MG CAPSULE 1 CAPSULE ORALLY TWICE DAILY, NOTES: 01/12 TAKING ACETAMINOPHEN 325 MG TABLET 1 TABLET NEEDED ORALLY EVERY 4 HRS, NOTES: NONE IN PAST WEEK TAKING DULOXETINE HCL 20 MG CAPSULE DELAYED RELEASE PARTICLES TAKE ONE CAPSULE BY MOUTH EVERY DAY ORAL TAKING HYDROCODONE-ACETAMINOPHEN 7.5-325 MG TABLET 1 TABLET NEEDED ORALLY DAILY NEEDED FOR PAIN, NOTES: 01/13 12N NOT-TAKING XANAX 0.25 MG TABLET 1 TABLET ORALLY PRN NOT-TAKING EFFEXOR TABLET 37.5MG X TWO WEEKS INCREASE TO 75MG ORALLY NOT-TAKING TIZANIDINE HCL 4 MG TABLET 1 TABLET NEEDED ORALLY BID PRN SPASM NOT-TAKING IMPLANON , NOTES: OUT NOT-TAKING ZOFRAN 4 MG TABLET 1 TABLET NEEDED ORALLY EVERY 4 HRS PRN NAUSEA NOT-TAKING DIGOXIN 125 MCG TABLET 1 TABLET ORALLY ONCE A DAY NOT-TAKING IBUPROFEN 800 MG TABLET 1 TABLET ORALLY THREE TIMES A DAY NOT-TAKING KLONOPIN 0.5 MG TABLET 1 TABLET ORALLY TWICE A DAY NOT-TAKING GABAPENTIN 100 MG CAPSULE 2 CAP ORALLY THREE TIMES DAILY NOT-TAKING PROTONIX 40 MG PACKET 1 CAPSULE ORALLY ONCE A DAY NEEDED NOT-TAKING PREDNISONE 5 MG TABLET 1 TABLET ORALLY THREE TIMES A DAY NOT-TAKING ATENOLOL 25 MG TABLET 1 TABLET ORALLY ONCE A DAY AT BEDTIME NOT-TAKING METOPROLOL SUCCINATE ER 50 MG TABLET EXTENDED RELEASE 24 HOUR 1 TABLET ORALLY ONCE A DAY NOT-TAKING 28-0.8 MG TABLET 1 TABLET ORALLY ONCE A DAY, NOTES: 03/06/19 NOT-TAKING BENADRYL NOT-TAKING SEROQUEL 50 MG TABLET 1 TABLET ORALLY ONCE A DAY, NOTES: NONE RECENTLY MEDICATION LIST REVIEWED AND RECONCILED WITH THE PATIENT PAST MEDICAL HISTORY 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 LATEX QUESTIONNAIRE LATEX ALLERGY : HAVE YOU EVER DEVELOPED ANY TYPE OF REACTION AFTER HANDLING LATEX PRODUCTS SUCH RUBBER GLOVES, CONDOMS, DIAPHRAGMS, BALLOONS, SOCKS, OR UNDERWEAR?NO LATEX ALLERGY : HAVE YOU EVER DEVELOPED ANY TYPE OF REACTION DURING OR AFTER DENTAL APPOINTMENT, VAGINAL/RECTAL EXAMINATION, SURGICAL PROCEDURE, OR ANY OTHER EXPOSURE?NO LATEX RISK : HAVE YOU EVER HAD ANY DIFFICULTY BREATHING OR HIVES AFTER EATING OR HANDLING ANY FRUITS, OR VEGETABLES; SUCH KIWI, BANANAS, STONE FRUITS, OR CHESTNUTSNO LATEX RISK : DO YOU HAVE A PREVIOUS PERSONAL HISTORY OF MORE THAN NINE SURGERIES, SPINA BIFIDA, OR REPEATED CATHERIZATIONS? NO LATEX RISK : ARE YOU FREQUENTLY EXPOSED TO LATEX PRODUCTS IN YOUR OCCUPATION?NO DATE ASKED : 02/01/2021 ALCOHOL USE: NIGHAT WATKINS 02/01/2021 11:36:23 AM > , NO. ALCOHOL SCREENING HOW OFTEN DID YOU HAVE A DRINK CONTAINING ALCOHOL IN THE PAST YEAR? NEVER (0 POINTS) , DID YOU HAVE A DRINK CONTAINING ALCOHOL IN THE PAST YEAR? NO , DID YOU HAVE A DRINK CONTAINING ALCOHOL IN THE PAST YEAR? YES , POINTS 0 , POINTS 0 , INTERPRETATION NEGATIVE , INTERPRETATION NEGATIVE. RECREATIONAL DRUG USE DRUG USE? NO. CAFFEINE CAFFEINE USE? NO. 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 DIET: REGULAR. EXERCISE: DAILY, WALKS. - PFS REFERRAL NEEDED?NO CLERGY REFERRAL NEEDED?NO PUBLIC HEALTH REFERRAL NEEDED?NO HAS THE PATIENT BEEN EDUCATED REGARDING HIS/HER PLAN OF CARE?YES HAS THE PATIENT BEEN EDUCATED REGARDING PAIN, THE RISK FOR PAIN, THE IMPORTANCE OF EFFECTIVE PAIN MANAGEMENT, AND THE PAIN ASSESSMENT PROCESS?YES ADVANCE DIRECTIVE ADVANCE DIRECTIVE DISCUSSED WITH PATIENT:YES HCP TEOFILO FISHER [phone] REVIEWED 11/12/20 REVIEW OF SYSTEMS CONSTITUTIONAL: ANY RECENT FEVER NO . CHILLS NO . WEIGHT CHANGE OF UNKNOWN REASONS NO . GASTROENTEROLOGY: NEW UNEXPLAINABLE CHANGES IN BOWEL CONTROL NO . CONSTIPATION NO . GENITOURINARY: ANY NEW CHANGE IN BLADDER CONTROL? NO . NEUROLOGY: NEW ONSET DIZZINESS OR NEUROLOGICAL CHANGES NOT MENTIONED NO . NEW NUMBNESS OR PAIN PATTERNS NOT MENTIONED AND PERTINENT TO TODAY'S VISIT NO . CARDIOLOGY: NEW CHEST PRESSURE NO . PATIENT DENIES NO . RESPIRATORY: UNEXPLAINABLE COUGH NO . NEW SHORTNESS OF BREATH NO . VITAL SIGNS WT 127.2 LBS, HT 63 IN, BMI 22.53 INDEX, BP 119/70 MM HG, HR 100 /MIN, RR 18 /MIN, TEMP 98.1 F, OXYGEN SAT % 96%, NA INITIALS SC 11:40. EXAMINATION GENERAL EXAMINATION: GENERALNO ACUTE DISTRESS, WELL NOURISHED AND HYDRATED. PSYCHAPPROPRIATE MOOD AND AFFECT . LUNGS:CLEAR TO AUSCULTATION BILATERALLY, NO WHEEZES, RHONCHI, RALES. HEART:NO MURMURS, REGULAR RATE AND RHYTHM. ASSESSMENTS LUMBAR POST-LAMINECTOMY SYNDROME - M96.1 (PRIMARY) TREATMENT LUMBAR POST-LAMINECTOMY SYNDROME NOTES: 30-YEAR-OLD FEMALE IN FOR CHRONIC PAIN FOLLOW-UP. GIVEN PRESENTING SYMPTOMS RECOMMEND CONTINUATION OF CURRENT MEDICATION REGIMEN WITH FOLLOW-UP IN 3 MONTHS. PATIENT HAS EXPRESSED UNDERSTANDING OF WAS IN AGREEMENT WITH TREATMENT PLAN. GIVEN TIME TO ASK QUESTIONS AND EXPRESS CONCERNS. , ISTOP REGISTRY REVIEWED AND DEMONSTRATES COMPLLIANCE. (REF # [id number] ) BRINGS IN MEDICATIONS WHICH IS APPROPRIATE FOR WHAT WAS DISPENSED. RECENT URINE TOXICOLOGY REVIEWED. NO UNAUTHORIZED MEDICATIONS. NO ILLICIT SUBSTANCES AND PRESCRIBED MEDICATIONS WERE PRESENT. PROCEDURE CODES FA211 ESTABILISHED PATIENT [facility] CHARGE DISPOSITION & COMMUNICATION FOLLOW UP 3 MONTHS (REASON: BACK PAIN ) ELECTRONICALLY SIGNED BY HALEY TOMLINSON ON 02/04/2021 AT 08:30 AM EDT DISCLAIMER : THIS IS A VISIT SUMMARY EXTRACTED FROM THE [employer] CHART. IT IS NOT A COPY OF THE [employer] PROGRESS NOTE. SIMI
== END ==
LOC: M PAIN 11:30
PROVIDERS: ATTEND Family Medicine
DX: M96.1 Postlaminectomy syndrome, not elsewhere classified (principal); G43.909 Migraine, unspecified, not intractable, without status migrainosus; Z96.89 Presence of other specified functional implants; Z86.59 Personal history of other mental and behavioral disorders; Z88.1 Allergy status to other antibiotic agents; Z88.8 Allergy status to other drugs, medicaments and biological substances; Z79.899 Other long term (current) drug therapy

== ENCOUNTER 2021-03-23 02:52 | Emergency (ER) | payer OTHER ==
[~2021-03-23] VITALS: Ht 160 cm; Wt 52.3 kg
[~2021-03-23 02:52] MED LIST changes: +HYDR-3716
[2021-03-23 03:18] VITALS: BP 96/54
[2021-03-23 03:20] LABS: HEMATOCRIT 43.5 % (36.0-47.0); HEMOGLOBIN 14.2 g/dl (12.0-15.5); MEAN CORPUSCULAR HEMOGLOBIN 30.5 pg (27.0-33.0); MEAN CORPUSCULAR HGB CONC 32.6 g/dl (32.0-36.5); MEAN CORPUSCULAR VOLUME 93.3 fl (80.0-96.0); PLATELET COUNT, AUTOMATED 224 10^3/uL (150-450); RED BLOOD COUNT 4.66 10^6/uL (4.00-5.40)
[2021-03-23 03:53] LABS: AMPHETAMINES LEVEL URINE NEGATIVE (NEGATIVE); BARBITURATES URINE NEGATIVE (NEGATIVE); BENZODIAZEPINES URINE NEGATIVE (NEGATIVE); CANNABINOIDS URINE POSITIVE (NEGATIVE); COCAINE METABOLITE URINE NEGATIVE (NEGATIVE); METHADONE URINE NEGATIVE (NEGATIVE); OPIATES URINE NEGATIVE (NEGATIVE); PHENCYCLIDINE URINE NEGATIVE (NEGATIVE)
[2021-03-23 04:09] LABS: ACETAMINOPHEN LEVEL < 2.0 UG/ML (10.0-30.0); ALBUMIN 4.7 GM/DL (3.2-5.2); ALT/SGPT 18 U/L (12-78); BILIRUBIN,DIRECT 0.1 MG/DL (0.0-0.2); BILIRUBIN,TOTAL 0.3 MG/DL (0.2-1.0); BLOOD UREA NITROGEN 8 MG/DL (7-18); CALCIUM LEVEL 9.5 MG/DL (8.5-10.1); CARBON DIOXIDE LEVEL 29 MEQ/L (21-32); CHLORIDE LEVEL 112 MEQ/L (98-107); CREATININE FOR GFR 0.61 MG/DL (0.55-1.30); ETHYL ALCOHOL (ETHANOL) 0.179 % (0.000-0.010); GLOMERULAR FILTRATION RATE > 60.0 (>60); GLUCOSE, FASTING 87 MG/DL (70-100); POTASSIUM SERUM 3.5 MEQ/L (3.5-5.1); SALICYLATE LEVEL < 1.7 MG/DL (5.0-30.0); SODIUM LEVEL 145 MEQ/L (136-145); TOTAL PROTEIN 7.9 GM/DL (6.4-8.2)
== END 2021-03-23 09:47 | disposition home or self-care (01) ==
LOC: M ED 02:52
DX: F10.129 Alcohol abuse with intoxication, unspecified (principal); F41.9 Anxiety disorder, unspecified; F33.9 Major depressive disorder, recurrent, unspecified; F17.200 Nicotine dependence, unspecified, uncomplicated; Z88.1 Allergy status to other antibiotic agents; Z79.899 Other long term (current) drug therapy

== ENCOUNTER → 2021-03-28 | Outpatient (CLI) | payer OTHER ==
--- NOTE | 2021-04-01 23:59 | ECWPNPC ---
PATIENT NAME: QUENTIN SANDS : 1990 GENDER: FEMALE VISIT DATE: 03/28/2021 DISCHARGE DATE: 03/28/21 1144 VISIT LOCKED DATE TIME: PHYSICIAN: KAREEM ADAMS RESOURCE: KAREEM ADAMS REASON FOR APPOINTMENT 1. MED MANAGEMENT HISTORY OF PRESENT ILLNESS GENERAL: HPI 30-YEAR-OLD FEMALE IN FOR CHRONIC PAIN FOLLOW-UP. PATIENT ADMITS TO A TRIAL USE OF MEDICAL MARIJUANA HOWEVER SHE STATES SHE DOES NOT LIKE THE WAY IT MADE HER FEEL AND WOULD PREFER TO STICK WITH HER HYDROCODONE. SHE DOES ADMIT THAT THE MEDICATION IS HELPFUL HOWEVER IT DOES NOT COVER HER PAIN THROUGHOUT THE DAY. SHE RATES HER PAIN CURRENTLY AT A 9 OUT OF 10 AND DESCRIBES IT ACHING, BURNING, SHARP, AND STABBING.. -. FALL RISK SCREENING: SCREENING : NO FALLS REPORTED IN THE LAST YEAR. PAIN SCREENING: PATIENT HAS A COMPLAINT OF ACUTE OR CHRONIC PAIN :YES LOCATION OF PAIN:LOW BACK INTENSITY OF PAIN (SCALE OF 1 TO 10):9 WHAT DOES YOUR PAIN FEEL LIKE:ACHING, BURNING, SHARP, STABBING, SHOOTING DURATION:CONTINOUS, CONSTANT, AWAKENS FROM SLEEP PAIN IS INCREASED BY:ACTIVITIES, PROLONGED STANDING PROLONGED SITTING PAIN IS DECREASED BY:USE OF PAIN MEDICATIONS NURSING NOTE: -. PAIN CENTER INTAKE QUESTIONS: DO YOU HAVE A HISTORY OF MRSA? :NO DO YOU TAKE A BLOOD THINNERS? :NO DO YOU HAVE ANY BLEEDING DISORDERS? :NO ANY NEW NUMBNESS OR WEAKNESS IN YOUR LEGS OR ARMS? :YES RIGHT ARM NUMBNESS AND TINGLING WHICH ALSO RADIATES TO INDEX FINGER AND THUMB ANY PACEMAKER,DEFIBRILLATOR, OR DORSAL COLUMN STIMULATOR? :YES LOOP RECORDER DO YOU HAVE ANY RASHES OR OPEN SORES? :NO ARE YOU ALLERGIC TO IV DYE? :NO ARE YOU DIABETIC? :NO ANY NEW PROBLEMS WITH YOUR MEDICATIONS? :NO PATIENT STATES THE MEDICATION IS "NOT WORKING QUITE GOOD IT USED TO AND DOES NOT LAST LONG." HAVE YOU RECEIVED A VACCINE IN THE PAST 30 DAYS? :NO DO YOU PLAN TO RECEIVE A VACCINE IN THE NEXT 21 DAYS? :YES IF SO WHAT VACCINE AND WHEN? IS WAITING FOR A COVID VACCINATION. DO YOU NEED ANY PRESCRIPTION? :NO DO YOU TAKE ANY IMMUNOSUPPRESSIVE MEDICATIONS? :NO DO YOU HAVE ANY KIDNEY OR LIVER DISEASE? :NO IS THERE A CHANCE YOU COULD BE ? :NO ARE YOU BREAST FEEDING? :NO CURRENT MEDICATIONS TAKING TRAZODONE HCL 50 MG TABLET 1 TABLET AT BEDTIME NEEDED ORALLY ONCE A DAY TAKING LYRICA 75 MG CAPSULE 1 CAPSULE ORALLY TWICE DAILY, NOTES: 01/12 TAKING ACETAMINOPHEN 325 MG TABLET 1 TABLET NEEDED ORALLY EVERY 4 HRS, NOTES: NONE IN PAST WEEK TAKING HYDROCODONE-ACETAMINOPHEN 7.5-325 MG TABLET 1 TABLET NEEDED ORALLY DAILY NEEDED FOR PAIN TAKING MAY USE THC PEN INHALED NEEDED TAKING MAY USE CBD CREAM TOPICALLY NEEDED TAKING MAY USE MEDICAL MARIJUANA NEEDED NOT-TAKING DULOXETINE HCL 20 MG CAPSULE DELAYED RELEASE PARTICLES TAKE ONE CAPSULE BY MOUTH EVERY DAY ORAL NOT-TAKING XANAX 0.25 MG TABLET 1 TABLET ORALLY PRN NOT-TAKING EFFEXOR TABLET 37.5MG X TWO WEEKS INCREASE TO 75MG ORALLY NOT-TAKING TIZANIDINE HCL 4 MG TABLET 1 TABLET NEEDED ORALLY BID PRN SPASM NOT-TAKING IMPLANON , NOTES: OUT NOT-TAKING ZOFRAN 4 MG TABLET 1 TABLET NEEDED ORALLY EVERY 4 HRS PRN NAUSEA NOT-TAKING DIGOXIN 125 MCG TABLET 1 TABLET ORALLY ONCE A DAY NOT-TAKING IBUPROFEN 800 MG TABLET 1 TABLET ORALLY THREE TIMES A DAY NOT-TAKING KLONOPIN 0.5 MG TABLET 1 TABLET ORALLY TWICE A DAY NOT-TAKING GABAPENTIN 100 MG CAPSULE 2 CAP ORALLY THREE TIMES DAILY NOT-TAKING PROTONIX 40 MG PACKET 1 CAPSULE ORALLY ONCE A DAY NEEDED NOT-TAKING PREDNISONE 5 MG TABLET 1 TABLET ORALLY THREE TIMES A DAY NOT-TAKING ATENOLOL 25 MG TABLET 1 TABLET ORALLY ONCE A DAY AT BEDTIME NOT-TAKING METOPROLOL SUCCINATE ER 50 MG TABLET EXTENDED RELEASE 24 HOUR 1 TABLET ORALLY ONCE A DAY NOT-TAKING 28-0.8 MG TABLET 1 TABLET ORALLY ONCE A DAY, NOTES: 03/06/19 NOT-TAKING BENADRYL NOT-TAKING SEROQUEL 50 MG TABLET 1 TABLET ORALLY ONCE A DAY, NOTES: NONE RECENTLY MEDICATION LIST REVIEWED AND RECONCILED WITH THE PATIENT PAST MEDICAL HISTORY 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 LATEX QUESTIONNAIRE LATEX ALLERGY : HAVE YOU EVER DEVELOPED ANY TYPE OF REACTION AFTER HANDLING LATEX PRODUCTS SUCH RUBBER GLOVES, CONDOMS, DIAPHRAGMS, BALLOONS, SOCKS, OR UNDERWEAR?NO LATEX ALLERGY : HAVE YOU EVER DEVELOPED ANY TYPE OF REACTION DURING OR AFTER DENTAL APPOINTMENT, VAGINAL/RECTAL EXAMINATION, SURGICAL PROCEDURE, OR ANY OTHER EXPOSURE?NO LATEX RISK : HAVE YOU EVER HAD ANY DIFFICULTY BREATHING OR HIVES AFTER EATING OR HANDLING ANY FRUITS, OR VEGETABLES; SUCH KIWI, BANANAS, STONE FRUITS, OR CHESTNUTSNO LATEX RISK : DO YOU HAVE A PREVIOUS PERSONAL HISTORY OF MORE THAN NINE SURGERIES, SPINA BIFIDA, OR REPEATED CATHERIZATIONS? NO LATEX RISK : ARE YOU FREQUENTLY EXPOSED TO LATEX PRODUCTS IN YOUR OCCUPATION?NO DATE ASKED : 03/28/2021 ALCOHOL USE: YES. SOCIAL.. ALCOHOL SCREENING HOW OFTEN DID YOU HAVE A DRINK CONTAINING ALCOHOL IN THE PAST YEAR? NEVER (0 POINTS) , DID YOU HAVE A DRINK CONTAINING ALCOHOL IN THE PAST YEAR? NO , DID YOU HAVE A DRINK CONTAINING ALCOHOL IN THE PAST YEAR? YES , POINTS 0 , POINTS 0 , INTERPRETATION NEGATIVE , INTERPRETATION NEGATIVE. RECREATIONAL DRUG USE DRUG USE? MARIJUANA. MEDICAL MARIJUANA CARD CAFFEINE CAFFEINE USE? NO. 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 DIET: REGULAR. EXERCISE: DAILY, WALKS. - PFS REFERRAL NEEDED?NO CLERGY REFERRAL NEEDED?NO PUBLIC HEALTH REFERRAL NEEDED?NO HAS THE PATIENT BEEN EDUCATED REGARDING HIS/HER PLAN OF CARE?YES HAS THE PATIENT BEEN EDUCATED REGARDING PAIN, THE RISK FOR PAIN, THE IMPORTANCE OF EFFECTIVE PAIN MANAGEMENT, AND THE PAIN ASSESSMENT PROCESS?YES ADVANCE DIRECTIVE ADVANCE DIRECTIVE DISCUSSED WITH PATIENT:YES HCP TEOFILO FISHER [phone] REVIEWED 11/12/20 REVIEW OF SYSTEMS CONSTITUTIONAL: ANY RECENT FEVER NO . CHILLS NO . WEIGHT CHANGE OF UNKNOWN REASONS NO . GASTROENTEROLOGY: NEW UNEXPLAINABLE CHANGES IN BOWEL CONTROL NO . CONSTIPATION NO . GENITOURINARY: ANY NEW CHANGE IN BLADDER CONTROL? NO . NEUROLOGY: NEW ONSET DIZZINESS OR NEUROLOGICAL CHANGES NOT MENTIONED NO . NEW NUMBNESS OR PAIN PATTERNS NOT MENTIONED AND PERTINENT TO TODAY'S VISIT NO . CARDIOLOGY: NEW CHEST PRESSURE NO . PATIENT DENIES NO . RESPIRATORY: UNEXPLAINABLE COUGH NO . NEW SHORTNESS OF BREATH NO . VITAL SIGNS WT 125.2 LBS, HT 63 IN, BMI 22.18 INDEX, BP 127/75 MM HG, HR 80 /MIN, RR 18 /MIN, TEMP 98.6 F, OXYGEN SAT % 97%, SAFE IN ENV? (Y/N) YES, NA INITIALS SC 11:04, REVIEWED BY: JOHNY DELGADO MA. EXAMINATION GENERAL EXAMINATION: GENERALNO ACUTE DISTRESS, WELL NOURISHED AND HYDRATED. PSYCHAPPROPRIATE MOOD AND AFFECT . LUNGS:CLEAR TO AUSCULTATION BILATERALLY, NO WHEEZES, RHONCHI, RALES. HEART:NO MURMURS, REGULAR RATE AND RHYTHM. ASSESSMENTS USE OF OPIATES FOR THERAPEUTIC PURPOSES - Z79.891 (PRIMARY) LUMBAR POST-LAMINECTOMY SYNDROME - M96.1 TREATMENT USE OF OPIATES FOR THERAPEUTIC PURPOSES REFILL HYDROCODONE-ACETAMINOPHEN TABLET, 7.5-325 MG, 1 TABLET NEEDED, ORALLY, TWICE DAILY NEEDED FOR PAIN, 30 DAYS, 60, REFILLS 0 LAB: URINE TEST GROUP MINO DELGADO 03/28/2021 11:41:30 AM > LAST DOSE: LYRICA 03/14/2021; THC PEN03/21/2021; MEDICAL MARIJUANA 03/21/2021; CBD CREAM 03/21/2021; HYDROCODONE 03/27/2021 AT 9PM LUMBAR POST-LAMINECTOMY SYNDROME NOTES: 30-YEAR-OLD FEMALE IN FOR CHRONIC PAIN FOLLOW-UP. GIVEN PRESENTING SYMPTOMS RECOMMEND INCREASING DOSAGE TO TWICE A DAY WITH FOLLOW-UP IN 2 MONTHS. PATIENT HAS EXPRESSED UNDERSTANDING OF AND WAS IN AGREEMENT WITH TREATMENT PLAN. GIVEN TIME TO ASK QUESTIONS AND EXPRESS CONCERNS. ISTOP REGISTRY REVIEWED AND DEMONSTRATES COMPLLIANCE. (REF # [id number] ) BRINGS IN MEDICATIONS WHICH IS APPROPRIATE FOR WHAT WAS DISPENSED. RECENT URINE TOXICOLOGY REVIEWED. NO UNAUTHORIZED MEDICATIONS. NO ILLICIT SUBSTANCES AND PRESCRIBED MEDICATIONS WERE PRESENT. PROCEDURE CODES FA211 ESTABILISHED PATIENT [facility] CHARGE DISPOSITION & COMMUNICATION FOLLOW UP 2 MONTHS (REASON: MED INCREASE) ELECTRONICALLY SIGNED BY HALEY TOMLINSON ON 04/01/2021 AT 09:01 AM EDT DISCLAIMER : THIS IS A VISIT SUMMARY [facility]ACTED FROM [facility] IT IS NOT A COPY OF THE [employer] PROGRESS NOTE. MTDD
== END ==
LOC: M PAIN 11:00
PROVIDERS: ATTEND Family Medicine
DX: M96.1 Postlaminectomy syndrome, not elsewhere classified (principal); G43.909 Migraine, unspecified, not intractable, without status migrainosus; Z86.59 Personal history of other mental and behavioral disorders; Z88.1 Allergy status to other antibiotic agents; Z88.8 Allergy status to other drugs, medicaments and biological substances; Z79.899 Other long term (current) drug therapy

== ENCOUNTER → 2021-05-09 | Outpatient (CLI) | payer OTHER ==
--- NOTE | 2021-05-09 16:45 | REP ---
INDICATION: OVARION CYST. COMPARISON: 10/22/2015 which is the latest prior TECHNIQUE: Transvesical and transvaginal imaging FINDINGS: The uterus measures 7.6 x 3.9 x 4.8 cm. There are no masses. The endometrial echo complex has a maximal thickness of 6 mm but is somewhat heterogenous and irregular. There is no free fluid in the cul-de-sac. The right ovary measures 2.1 x 1.7 x 2.5 cm and is within normal limits no resistive index was obtained the reason is unknown. The left ovary measures 2.8 x 2.6 x 2.9 cm and is within normal limits. The RI is 0.59. Urinary bladder measures 4 x 3 x 6 cm. IMPRESSION: Irregular heterogenous endometrial echo complex which is nonspecific. Follow-up is suggested. If necessary obtain pelvic MRI. <Electronically signed by Porfirio Vazquez > 05/09/21 [id number]
== END ==
LOC: M RAD 16:06
PROVIDERS: ATTEND Physician Assistant Medical
DX: R93.89 Abnormal findings on diagnostic imaging of other specified body structures (principal)

== ENCOUNTER → 2021-06-05 | Outpatient (CLI) | payer OTHER ==
--- NOTE | 2021-06-07 00:26 | ECWPNPC ---
PATIENT NAME: QUENTIN SANDS : 1990 GENDER: FEMALE VISIT DATE: 06/05/2021 DISCHARGE DATE: 06/05/21 1359 VISIT LOCKED DATE TIME: PHYSICIAN: KAREEM ADAMS RESOURCE: KAREEM ADAMS REASON FOR APPOINTMENT 1. MED MANAGEMENT HISTORY OF PRESENT ILLNESS GENERAL: HPI 31-YEAR-OLD FEMALE IN FOR CHRONIC PAIN FOLLOW-UP. SHE RATES HER PAIN CURRENTLY AT A 9 OUT OF 10 AND DESCRIBES IT CONTINUOUS, STABBING, AND SHOOTING. PATIENT FEELS HER MEDICATIONS ARE HELPFUL AND DENIES MED SIDE EFFECTS AT THIS TIME.. -. FALL RISK SCREENING: SCREENING : NO FALLS REPORTED IN THE LAST YEAR. PAIN SCREENING: PATIENT HAS A COMPLAINT OF ACUTE OR CHRONIC PAIN :YES LOCATION OF PAIN:UPPER BACK, MID BACK, LOW BACK INTENSITY OF PAIN (SCALE OF 1 TO 10):9 WHAT DOES YOUR PAIN FEEL LIKE:CONTINOUS, STABBING, SHOOTING, OTHER TENDER DURATION:CONTINOUS, CONSTANT, AWAKENS FROM SLEEP PAIN IS INCREASED BY:ACTIVITIES, PROLONGED STANDING PAIN IS DECREASED BY:USE OF PAIN MEDICATIONS, SITTING NURSING NOTE: -. PAIN CENTER INTAKE QUESTIONS: DO YOU HAVE A HISTORY OF MRSA? :NO DO YOU TAKE A BLOOD THINNERS? :NO DO YOU HAVE ANY BLEEDING DISORDERS? :NO ANY NEW NUMBNESS OR WEAKNESS IN YOUR LEGS OR ARMS? :YES LEFT LEG ANY PACEMAKER,DEFIBRILLATOR, OR DORSAL COLUMN STIMULATOR? :YES LOOP RECORDER DO YOU HAVE ANY RASHES OR OPEN SORES? :NO ARE YOU ALLERGIC TO IV DYE? :NO ARE YOU DIABETIC? :NO ANY NEW PROBLEMS WITH YOUR MEDICATIONS? :NO HAVE YOU RECEIVED A VACCINE IN THE PAST 30 DAYS? :NO DO YOU PLAN TO RECEIVE A VACCINE IN THE NEXT 21 DAYS? :NO DO YOU NEED ANY PRESCRIPTION? :YES HYDROCODONE DO YOU TAKE ANY IMMUNOSUPPRESSIVE MEDICATIONS? :NO DO YOU HAVE ANY KIDNEY OR LIVER DISEASE? :NO IS THERE A CHANCE YOU COULD BE ? :NO ARE YOU BREAST FEEDING? :NO CURRENT MEDICATIONS TAKING TRAZODONE HCL 50 MG TABLET 1 TABLET AT BEDTIME NEEDED ORALLY ONCE A DAY TAKING LYRICA 75 MG CAPSULE 1 CAPSULE ORALLY TWICE DAILY, NOTES: 3/6 TAKING ACETAMINOPHEN 325 MG TABLET 1 TABLET NEEDED ORALLY EVERY 4 HRS, NOTES: NONE IN PAST WEEK TAKING MAY USE THC PEN INHALED NEEDED TAKING MAY USE CBD CREAM TOPICALLY NEEDED TAKING HYDROCODONE-ACETAMINOPHEN 7.5-325 MG TABLET 1 TABLET NEEDED ORALLY TWICE DAILY NEEDED FOR PAIN NOT-TAKING MAY USE MEDICAL MARIJUANA NEEDED NOT-TAKING DULOXETINE HCL 20 MG CAPSULE DELAYED RELEASE PARTICLES TAKE ONE CAPSULE BY MOUTH EVERY DAY ORAL NOT-TAKING XANAX 0.25 MG TABLET 1 TABLET ORALLY PRN NOT-TAKING EFFEXOR TABLET 37.5MG X TWO WEEKS INCREASE TO 75MG ORALLY NOT-TAKING TIZANIDINE HCL 4 MG TABLET 1 TABLET NEEDED ORALLY BID PRN SPASM NOT-TAKING IMPLANON , NOTES: OUT NOT-TAKING ZOFRAN 4 MG TABLET 1 TABLET NEEDED ORALLY EVERY 4 HRS PRN NAUSEA NOT-TAKING DIGOXIN 125 MCG TABLET 1 TABLET ORALLY ONCE A DAY NOT-TAKING IBUPROFEN 800 MG TABLET 1 TABLET ORALLY THREE TIMES A DAY NOT-TAKING KLONOPIN 0.5 MG TABLET 1 TABLET ORALLY TWICE A DAY NOT-TAKING GABAPENTIN 100 MG CAPSULE 2 CAP ORALLY THREE TIMES DAILY NOT-TAKING PROTONIX 40 MG PACKET 1 CAPSULE ORALLY ONCE A DAY NEEDED NOT-TAKING PREDNISONE 5 MG TABLET 1 TABLET ORALLY THREE TIMES A DAY NOT-TAKING ATENOLOL 25 MG TABLET 1 TABLET ORALLY ONCE A DAY AT BEDTIME NOT-TAKING METOPROLOL SUCCINATE ER 50 MG TABLET EXTENDED RELEASE 24 HOUR 1 TABLET ORALLY ONCE A DAY NOT-TAKING 28-0.8 MG TABLET 1 TABLET ORALLY ONCE A DAY, NOTES: 03/06/19 NOT-TAKING BENADRYL NOT-TAKING SEROQUEL 50 MG TABLET 1 TABLET ORALLY ONCE A DAY, NOTES: NONE RECENTLY MEDICATION LIST REVIEWED AND RECONCILED WITH THE PATIENT PAST MEDICAL HISTORY 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 LATEX QUESTIONNAIRE LATEX ALLERGY : HAVE YOU EVER DEVELOPED ANY TYPE OF REACTION AFTER HANDLING LATEX PRODUCTS SUCH RUBBER GLOVES, CONDOMS, DIAPHRAGMS, BALLOONS, SOCKS, OR UNDERWEAR?NO LATEX ALLERGY : HAVE YOU EVER DEVELOPED ANY TYPE OF REACTION DURING OR AFTER DENTAL APPOINTMENT, VAGINAL/RECTAL EXAMINATION, SURGICAL PROCEDURE, OR ANY OTHER EXPOSURE?NO LATEX RISK : HAVE YOU EVER HAD ANY DIFFICULTY BREATHING OR HIVES AFTER EATING OR HANDLING ANY FRUITS, OR VEGETABLES; SUCH KIWI, BANANAS, STONE FRUITS, OR CHESTNUTSNO LATEX RISK : DO YOU HAVE A PREVIOUS PERSONAL HISTORY OF MORE THAN NINE SURGERIES, SPINA BIFIDA, OR REPEATED CATHERIZATIONS? NO LATEX RISK : ARE YOU FREQUENTLY EXPOSED TO LATEX PRODUCTS IN YOUR OCCUPATION?NO DATE ASKED : 06/05/2021 ALCOHOL USE: YES. SOCIAL.. ALCOHOL SCREENING HOW OFTEN DID YOU HAVE A DRINK CONTAINING ALCOHOL IN THE PAST YEAR? NEVER (0 POINTS) , DID YOU HAVE A DRINK CONTAINING ALCOHOL IN THE PAST YEAR? NO , DID YOU HAVE A DRINK CONTAINING ALCOHOL IN THE PAST YEAR? YES , POINTS 0 , POINTS 0 , INTERPRETATION NEGATIVE , INTERPRETATION NEGATIVE. RECREATIONAL DRUG USE DRUG USE?NO CAFFEINE CAFFEINE USE? NO. 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 DIET: REGULAR. EXERCISE: DAILY, WALKS. - PFS REFERRAL NEEDED?NO CLERGY REFERRAL NEEDED?NO PUBLIC HEALTH REFERRAL NEEDED?NO HAS THE PATIENT BEEN EDUCATED REGARDING HIS/HER PLAN OF CARE?YES HAS THE PATIENT BEEN EDUCATED REGARDING PAIN, THE RISK FOR PAIN, THE IMPORTANCE OF EFFECTIVE PAIN MANAGEMENT, AND THE PAIN ASSESSMENT PROCESS?YES ADVANCE DIRECTIVE ADVANCE DIRECTIVE DISCUSSED WITH PATIENT:YES [phone] REVIEWED 11/12/20 REVIEW OF SYSTEMS CONSTITUTIONAL: ANY RECENT FEVER NO, NO . CHILLS NO, NO . WEIGHT CHANGE OF UNKNOWN REASONS NO, NO . GASTROENTEROLOGY: NEW UNEXPLAINABLE CHANGES IN BOWEL CONTROL NO, NO . CONSTIPATION NO, NO . GENITOURINARY: ANY NEW CHANGE IN BLADDER CONTROL? NO, NO . NEUROLOGY: NEW ONSET DIZZINESS OR NEUROLOGICAL CHANGES NOT MENTIONED NO, NO . NEW NUMBNESS OR PAIN PATTERNS NOT MENTIONED AND PERTINENT TO TODAY'S VISIT NO, NO . CARDIOLOGY: NEW CHEST PRESSURE NO, NO . PATIENT DENIES NO, NO . RESPIRATORY: UNEXPLAINABLE COUGH NO, NO . NEW SHORTNESS OF BREATH NO, NO . VITAL SIGNS WT 128.8 LBS, HT 63 IN, BMI 22.81 INDEX, SAFE IN ENV? (Y/N) YES, REVIEWED BY: JOHNY DELGADO MA. EXAMINATION GENERAL EXAMINATION: GENERALNO ACUTE DISTRESS, WELL NOURISHED AND HYDRATED. PSYCHAPPROPRIATE MOOD AND AFFECT . LUNGS:CLEAR TO AUSCULTATION BILATERALLY, NO WHEEZES, RHONCHI, RALES. HEART:NO MURMURS, REGULAR RATE AND RHYTHM. ASSESSMENTS LUMBAR POST-LAMINECTOMY SYNDROME - M96.1 (PRIMARY) USE OF OPIATES FOR THERAPEUTIC PURPOSES - Z79.891 TREATMENT LUMBAR POST-LAMINECTOMY SYNDROME NOTES: 31-YEAR-OLD FEMALE IN FOR CHRONIC PAIN FOLLOW-UP. GIVEN PRESENTING SYMPTOMS RECOMMEND CONTINUATION OF CURRENT MEDICATION REGIMEN WITH FOLLOW-UP IN 3 MONTHS. PATIENT HAS EXPRESSED UNDERSTANDING OF AND WAS IN AGREEMENT WITH TREATMENT PLAN. GIVEN TIME TO ASK QUESTIONS AND EXPRESS CONCERNS. ISTOP REGISTRY REVIEWED AND DEMONSTRATES COMPLLIANCE. (REF # ) BRINGS IN MEDICATIONS WHICH IS APPROPRIATE FOR WHAT WAS DISPENSED. RECENT URINE TOXICOLOGY REVIEWED. NO UNAUTHORIZED MEDICATIONS. NO ILLICIT SUBSTANCES AND PRESCRIBED MEDICATIONS WERE PRESENT. USE OF OPIATES FOR THERAPEUTIC PURPOSES REFILL HYDROCODONE-ACETAMINOPHEN TABLET, 7.5-325 MG, 1 TABLET NEEDED, ORALLY, TWICE DAILY NEEDED FOR PAIN, 30 DAYS, 60, REFILLS 0 PROCEDURE CODES FA211 ESTABILISHED PATIENT [facility] CHARGE DISPOSITION & COMMUNICATION FOLLOW UP 3 MONTHS (REASON: BACK PAIN) ELECTRONICALLY SIGNED BY HALEY TOMLINSON ON 06/06/2021 AT 08:36 AM EDT DISCLAIMER : THIS IS A VISIT SUMMARY EXTRACTED FROM THE [employer] CHART. IT IS NOT A COPY OF THE [employer] PROGRESS NOTE. SIMI
== END ==
LOC: M PAIN 13:45
PROVIDERS: ATTEND Family Medicine
DX: M96.1 Postlaminectomy syndrome, not elsewhere classified (principal); M41.9 Scoliosis, unspecified; F41.9 Anxiety disorder, unspecified; F31.9 Bipolar disorder, unspecified; I48.91 Unspecified atrial fibrillation; G43.909 Migraine, unspecified, not intractable, without status migrainosus; Z79.891 Long term (current) use of opiate analgesic; Z79.899 Other long term (current) drug therapy; Z88.0 Allergy status to penicillin; Z88.1 Allergy status to other antibiotic agents; Z88.8 Allergy status to other drugs, medicaments and biological substances

== ENCOUNTER → 2021-06-22 | Outpatient (CLI) | payer OTHER | LOC: M LABSMTC 09:48 | PROVIDERS: ATTEND Anesthesiology | DX: Z01.818 Encounter for other preprocedural examination (principal); Z11.52 Encounter for screening for COVID-19 ==

== ENCOUNTER 2021-06-27 15:39 | Day surgery (SDC) | payer OTHER ==
[~2021-06-27] VITALS: Ht 160 cm; Wt 58.1 kg
[~2021-06-27 15:39] MED LIST changes: +LIDOCAINE 1% MDV 20ML VIAL SQ PRN; +LR 1,000 ML IV ONE
[2021-06-27] MEDS ORDERED: ceFAZolin SOD 2 GM in IV 1 EA IV ONE (17:00)
[2021-06-27] MEDS ORDERED: propofoL 200 MG/20 ML VIAL As Ordered ONE (17:16)
[2021-06-27] MEDS ORDERED: LIDOCAINE 2% 100MG/5ML SDV (FOR ANES.) As Ordered ONE (17:16)
[2021-06-27] MEDS ORDERED: LIDOCAINE 1% MDV 20ML VIAL As Ordered ONE (17:42)
[2021-06-27 19:35] VITALS: BP 127/71
[2021-06-28] MEDS ORDERED: UNRESOLVED CLARIFICATION ENTRY XX SCH (00:01)
--- NOTE | 2021-06-28 09:13 | RO ---
OPERATIVE NOTE DATE OF OPERATION: 06/27/2021 PREPROCEDURE DIAGNOSIS: Subcutaneous cardiac rhythm monitor in situ. POSTOPERATIVE DIAGNOSIS: Subcutaneous cardiac rhythm monitor in situ. FINDINGS: Subcutaneous cardiac rhythm monitor in situ. PROCEDURE: Removal of subcutaneous cardiac rhythm monitor. SURGEON: Lewis Garcia MD HISTORY INSTRUCTOR: None. ANESTHESIA: Lidocaine 1%, local/monitored anesthetic care. SPECIMENS: Old subcutaneous cardiac rhythm monitor. ESTIMATED BLOOD LOSS: Less than 2 ml. No blood products replaced. DRAINS: No drains. COMPLICATIONS: None. DESCRIPTION OF PROCEDURE: The patient was prepped and draped over the sternal area and left anterior chest. Lidocaine 1% local was used for local anesthetic. I was able to palpate the superior pole of the loop recorder, which had migrated from the original incision site. Incision was made with a #15 blade over the top of the superior aspect of the loop recorder. I then dissected down to the loop recorder with a combination of using a 15 blade and small amounts of cautery. I was able to eventually pull the loop recorder out using a snap. A single 2-0 Vicryl suture was used to close the deep layer. Two 3-0 Vicryl sutures were used to close the more superficial layer. The skin was then closed using a 4-0 Vicryl suture applied subcuticular with the free ends protruding through the skin 1 cm on either end of the incision line and snipped at the level of the skin. Dermabond was applied over the incision with 3 layers. The patient tolerated the procedure well without any complications.
== END 2021-06-27 19:50 | disposition home or self-care (01) ==
LOC: M SDC 15:39
PROVIDERS: ATTEND Internal Medicine Cardiovascular Disease
DX: Z45.09 Encounter for adjustment and management of other cardiac device (principal); G43.909 Migraine, unspecified, not intractable, without status migrainosus; K21.9 Gastro-esophageal reflux disease without esophagitis; F43.10 Post-traumatic stress disorder, unspecified; F32.9 Major depressive disorder, single episode, unspecified; F41.9 Anxiety disorder, unspecified; Z79.899 Other long term (current) drug therapy
CPT/HCPCS: 33286; 81025; J0690

== ENCOUNTER 2021-07-10 12:01 | Emergency (ER) | payer OTHER ==
[~2021-07-10 12:01] MED LIST changes: -LIDOCAINE 1% MDV 20ML VIAL SQ PRN; -LR 1,000 ML IV ONE
[2021-07-10] MEDS ORDERED: MORPHINE 4 MG/ML 1ML VIAL/SYRINGE (J2270) IV ONE (14:55)
--- NOTE | 2021-07-10 15:30 | REP ---
INDICATION: c hest pain/hx WPW/ablation COMPARISON: 01/20/2020 as well as other prior exams. TECHNIQUE: PA/Lateral FINDINGS: Lungs: Clear, no infiltrate. Heart: Normal in size. Mediastinum: Mediastinal silhouette unremarkable. Pleural angles: Unremarkable.. Bones and soft tissues: Christiansen rods are again noted throughout the thoracic spine, unchanged. IMPRESSION: No acute pulmonary disease. <Electronically signed by Chris Contreras > 07/10/21 [id number]
[2021-07-10 15:43] LABS: BASO % 0.3 % (0.0-1.0); EOS # 0.2 10^3/uL (0.0-0.5); EOS % 2.8 % (0.0-3.0); HEMATOCRIT 42.1 % (36.0-47.0); HEMOGLOBIN 13.8 g/dl (12.0-15.5); LYMPH # 1.3 10^3/uL (1.5-5.0); LYMPH % 16.8 % (24.0-44.0); MEAN CORPUSCULAR HEMOGLOBIN 30.5 pg (27.0-33.0); MEAN CORPUSCULAR HGB CONC 32.8 g/dl (32.0-36.5); MEAN CORPUSCULAR VOLUME 92.9 fl (80.0-96.0); MONO # 0.6 10^3/uL (0.0-0.8); MONO % 7.3 % (2.0-8.0); NEUTROPHILS # 5.8 10^3/uL (1.5-8.5); NEUTROPHILS % 72.5 % (36.0-66.0); PLATELET COUNT, AUTOMATED 200 10^3/uL (150-450); RED BLOOD COUNT 4.53 10^6/uL (4.00-5.40); WHITE BLOOD COUNT 7.9 10^3/uL (4.0-10.0)
[2021-07-10] MEDS ORDERED: ISOVUE-370 76% 100ML VIAL As Ordered ONE (16:06)
[2021-07-10 16:18] LABS: ALBUMIN 3.8 GM/DL (3.2-5.2); ALT/SGPT 22 U/L (12-78); BILIRUBIN,DIRECT 0.1 MG/DL (0.0-0.2); BILIRUBIN,TOTAL 0.5 MG/DL (0.2-1.0); C REACTIVE PROTEIN QUANTITATIV 0.75 MG/DL (0.00-0.30); CK-MB VALUE MASS < 1.0 NG/ML (<3.6); CPK CREATINE PHOSPHOKINASE 57 U/L (26-192); LIPASE 75 U/L (73-393); MB/CK RELATIVE INDEX 1.75 (< OR =4); TOTAL PROTEIN 7.1 GM/DL (6.4-8.2); TROPONIN I < 0.02 NG/ML (< 0.10)
[2021-07-10 16:39] LABS: HEPATITIS B SURFACE ANTIGEN NEGATIVE (NEGATIVE)
--- NOTE | 2021-07-10 16:42 | REP ---
INDICATION: abdominal distension. COMPARISON: Comparison CT study March 26, 2011. TECHNIQUE: Helical scanning was acquired and 4 mm axial images are re-formatted. Coronal and sagittal MPR images were generated and reviewed. The contrast enhancement dose is 100 mL of intravenous Isovue 370. FINDINGS: Preliminary digital merchandise support associate radiograph demonstrates Christiansen fixation rods across the thoracolumbar spine bilaterally. There is mild gaseous distention of the stomach, transverse colon, and several bowel loops in the central abdomen consistent with ileus. On axial CT images, the lung bases are clear. There is no evidence of pleural effusion or upper abdominal ascites. Patient is status post bilateral breast augmentation. The liver and the spleen are normal in size homogeneous in texture. There are granulomatous calcifications scattered in the spleen. Normal adrenal glands are observed. No abnormality is noted in the pancreas. There is some spray artifact from the spine fusion hardware. No abnormality is noted in the gallbladder. The kidneys enhance symmetrically and appear morphologically intact. No retroperitoneal mass or adenopathy is seen. Uterus is slightly retroverted. No uterine or ovarian abnormality is appreciated. Urinary bladder is unremarkable. No abdominal wall defect is seen. A normal noninflamed appendix is seen along the right pelvic sidewall. Fluid-filled loops of small bowel are seen from proximal to distal. There is mild gaseous distention of the transverse colon and stomach. There is no evidence of free air or free fluid in the abdomen. No obstructive gastrointestinal lesion is seen. there are a few normal-sized mesenteric lymph nodes in the right lower abdomen. IMPRESSION: Ileus pattern in the bowel gas with gaseous distention of the transverse colon, stomach, and a few small bowel loops. No obstructive lesion. Thoracolumbar spine fusion hardware. Otherwise no acute abdominal or pelvic abnormality <Electronically signed by Bryan Barry > 07/10/21 1337
[2021-07-10 17:05] LABS: HEPATITIS C VIRUS ABY INDEX < 0.0 INDEX (<0.8)
[2021-07-10 17:06] LABS: HEPATITIS B CORE ANTIBODY IGM NEGATIVE (NEGATIVE)
[2021-07-10 17:08] LABS: HEPATITIS A ANTIBODY IGM NEGATIVE (NEGATIVE)
[2021-07-10] MEDS ORDERED: SIMETHICONE 80MG CHEW TAB PO ONE (17:50)
[2021-07-10] MEDS ORDERED: SIME180C25 PO (18:07)
[2021-07-10 19:02] VITALS: BP 126/72
--- NOTE | 2021-07-10 19:57 | ECGEPIP ---
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
== END 2021-07-10 19:05 | disposition home or self-care (01) ==
LOC: M ED 12:01 → EDBD 12:01 → M ED 19:05
DX: R10.817 Generalized abdominal tenderness (principal); R14.0 Abdominal distension (gaseous); G43.909 Migraine, unspecified, not intractable, without status migrainosus; F41.9 Anxiety disorder, unspecified; F31.9 Bipolar disorder, unspecified; Z88.1 Allergy status to other antibiotic agents; Z79.899 Other long term (current) drug therapy
CPT/HCPCS: 71046; 74177; 80047; 80076; 82550; 82553; 83690; 84702; 85025; 86140; 86705; 86709; 86803; 87340; 93005; 96374; 99284; J2270; Q9967

== ENCOUNTER 2021-08-20 11:22 | Emergency (ER) | payer OTHER ==
[~2021-08-20] VITALS: Ht 160 cm; Wt 56.2 kg
[~2021-08-20 11:22] MED LIST changes: -HYDR-3716; +HYDR-3716 PO; +SIME180C25 PO
[2021-08-20 12:27] LABS: HEMATOCRIT 40.5 % (36.0-47.0); HEMOGLOBIN 13.5 g/dl (12.0-15.5); MEAN CORPUSCULAR HEMOGLOBIN 30.5 pg (27.0-33.0); MEAN CORPUSCULAR HGB CONC 33.3 g/dl (32.0-36.5); MEAN CORPUSCULAR VOLUME 91.6 fl (80.0-96.0); PLATELET COUNT, AUTOMATED 222 10^3/uL (150-450); RED BLOOD COUNT 4.42 10^6/uL (4.00-5.40); WHITE BLOOD COUNT 6.6 10^3/uL (4.0-10.0)
[2021-08-20 12:59] LABS: ACETAMINOPHEN LEVEL < 2.0 UG/ML (10.0-30.0); ALBUMIN 4.3 GM/DL (3.2-5.2); ALT/SGPT 17 U/L (12-78); BILIRUBIN,DIRECT 0.2 MG/DL (0.0-0.2); BILIRUBIN,TOTAL 0.8 MG/DL (0.2-1.0); BLOOD UREA NITROGEN 11 MG/DL (7-18); CALCIUM LEVEL 10.1 MG/DL (8.5-10.1); CARBON DIOXIDE LEVEL 27 MEQ/L (21-32); CHLORIDE LEVEL 109 MEQ/L (98-107); CREATININE FOR GFR 0.67 MG/DL (0.55-1.30); ETHYL ALCOHOL (ETHANOL) < 0.003 % (0.000-0.010); GLOMERULAR FILTRATION RATE > 60.0 (>60); GLUCOSE, FASTING 85 MG/DL (70-100); POTASSIUM SERUM 3.7 MEQ/L (3.5-5.1); SALICYLATE LEVEL < 1.7 MG/DL (5.0-30.0); SODIUM LEVEL 139 MEQ/L (136-145); THYROID STIMULATING HORMONE 0.332 uIU/ML (0.358-3.740); TOTAL PROTEIN 7.4 GM/DL (6.4-8.2)
[2021-08-20 13:13] LABS: AMPHETAMINES LEVEL URINE NEGATIVE (NEGATIVE); BARBITURATES URINE NEGATIVE (NEGATIVE); BENZODIAZEPINES URINE NEGATIVE (NEGATIVE); CANNABINOIDS URINE NEGATIVE (NEGATIVE); COCAINE METABOLITE URINE NEGATIVE (NEGATIVE); METHADONE URINE NEGATIVE (NEGATIVE); OPIATES URINE POSITIVE (NEGATIVE); PHENCYCLIDINE URINE NEGATIVE (NEGATIVE)
[2021-08-20 14:10] LABS: HCG, SERUM QUALITATIVE NEGATIVE (NEGATIVE)
[2021-08-20] MEDS ORDERED: hydrOXYzine 25 MG TAB PO ONE (14:55)
[2021-08-20] MEDS ORDERED: HOME MED LIST COMPLETE! XX SCH (17:30)
[2021-08-20] MEDS ORDERED: traZODone 50 MG TAB PO ONE (20:50)
--- NOTE | 2021-08-20 22:15 | ECGEPIP ---
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
[2021-08-21] MEDS ORDERED: ACETAMINOPHEN 325 MG TAB PO ONE (07:40)
[2021-08-21 08:05] VITALS: BP 126/63
[2021-08-21] MEDS ORDERED: ANEXSIA, NORCO 7.5MG/325MG TABLET(HYDROCODONE/APAP) PO PRN (12:20)
[2021-08-21 14:42] LABS: RSV AMPLIFICATION NEGATIVE (NEGATIVE)
== END 2021-08-21 18:32 ==
LOC: M ED 11:22
DX: R45.851 Suicidal ideations (principal); F32.9 Major depressive disorder, single episode, unspecified; F41.9 Anxiety disorder, unspecified; F43.10 Post-traumatic stress disorder, unspecified; Z88.1 Allergy status to other antibiotic agents; Z79.899 Other long term (current) drug therapy

== ENCOUNTER 2021-11-10 21:31 | Emergency (ER) | payer OTHER ==
[~2021-11-10] VITALS: Ht 160 cm; Wt 54.5 kg
[2021-11-10] MEDS ORDERED: IBUPROFEN 600MG TAB PO ONE (21:40)
[2021-11-10] MEDS ORDERED: ONDANSETRON 4 MG ORAL DISINTEGRATING TAB PO ONE ×2 (21:40→23:55)
[2021-11-10] MEDS ORDERED: ACETAMINOPHEN 325 MG TAB PO ONE (22:50)
[2021-11-10 22:55] LABS: RSV AMPLIFICATION NEGATIVE (NEGATIVE)
[2021-11-10] MEDS ORDERED: NS 1,000 ML IV ONE (23:15)
[2021-11-10] MEDS ORDERED: IBUP80TA PO (23:39)
[2021-11-10] MEDS ORDERED: ONDA4TAB6 PO (23:39)
[2021-11-11 00:15] VITALS: BP 115/55
== END 2021-11-11 00:26 | disposition home or self-care (01) ==
LOC: EDBD 21:31 → M ED 21:31
DX: U07.1 COVID-19 (principal); Z88.0 Allergy status to penicillin; Z88.5 Allergy status to narcotic agent
CPT/HCPCS: 87631; 96360; 99284; Q0162

== ENCOUNTER → 2021-11-27 | Outpatient (CLI) | payer OTHER ==
[~2021-11-27] MED LIST changes: -FLUO10CA16 PO; +FLUO10CA18 PO; +ONDA4TAB6 PO
== END ==
LOC: M RAD 14:38
PROVIDERS: ATTEND Physician Assistant
DX: R07.9 Chest pain, unspecified (principal); R06.02 Shortness of breath; Z86.16 Personal history of COVID-19

== ENCOUNTER → 2021-12-18 | Outpatient (CLI) | payer OTHER | LOC: M PAIN 11:00 | PROVIDERS: ATTEND Anesthesiology | DX: M47.816 Spondylosis without myelopathy or radiculopathy, lumbar region (principal); M96.1 Postlaminectomy syndrome, not elsewhere classified; G43.909 Migraine, unspecified, not intractable, without status migrainosus; Z86.59 Personal history of other mental and behavioral disorders; Z88.1 Allergy status to other antibiotic agents; Z88.8 Allergy status to other drugs, medicaments and biological substances; Z79.899 Other long term (current) drug therapy ==

== ENCOUNTER → 2022-03-05 | Outpatient (CLI) | payer OTHER ==
[~2022-03-05] MED LIST changes: +ACET325C5 PO; +PAXI10TA12 PO
== END ==
LOC: M LABSMTC 11:56
PROVIDERS: ATTEND Anesthesiology
DX: Z01.818 Encounter for other preprocedural examination (principal); Z11.52 Encounter for screening for COVID-19

== ENCOUNTER → 2022-03-07 | Outpatient (CLI) | payer OTHER ==
[~2022-03-07] MED LIST changes: +BUPIVACAINE HCL 0.25% 30ML VIAL As Ordered ONE; +ISOVUE-M 300 61% 15ML VIAL As Ordered ONE; +LIDOCAINE 1% SDV 30ML VIAL As Ordered ONE
[2022-03-07 12:05] VITALS: BP 126/65
== END ==
LOC: M IRPRO 10:43
PROVIDERS: ATTEND Anesthesiology
DX: M47.816 Spondylosis without myelopathy or radiculopathy, lumbar region (principal); G89.29 Other chronic pain; M06.9 Rheumatoid arthritis, unspecified; Z88.1 Allergy status to other antibiotic agents; Z88.5 Allergy status to narcotic agent; Z86.59 Personal history of other mental and behavioral disorders
CPT/HCPCS: 64493; 64494; Q9967

== ENCOUNTER 2022-03-31 02:44 | Emergency (ER) | payer OTHER ==
[~2022-03-31 02:44] MED LIST changes: -BUPIVACAINE HCL 0.25% 30ML VIAL As Ordered ONE; -ISOVUE-M 300 61% 15ML VIAL As Ordered ONE; -LIDOCAINE 1% SDV 30ML VIAL As Ordered ONE
[2022-03-31 03:20] LABS: BASO % 0.3 % (0.0-1.0); EOS # 0.3 10^3/uL (0.0-0.5); EOS % 2.9 % (0.0-3.0); HEMATOCRIT 38.8 % (36.0-47.0); HEMOGLOBIN 12.8 g/dl (12.0-15.5); LYMPH # 1.7 10^3/uL (1.5-5.0); LYMPH % 17.8 % (24.0-44.0); MEAN CORPUSCULAR HEMOGLOBIN 30.4 pg (27.0-33.0); MEAN CORPUSCULAR VOLUME 92.2 fl (80.0-96.0); MONO # 0.6 10^3/uL (0.0-0.8); MONO % 6.8 % (2.0-8.0); NEUTROPHILS # 6.8 10^3/uL (1.5-8.5); NEUTROPHILS % 71.9 % (36.0-66.0); PLATELET COUNT, AUTOMATED 187 10^3/uL (150-450); RED BLOOD COUNT 4.21 10^6/uL (4.00-5.40); WHITE BLOOD COUNT 9.4 10^3/uL (4.0-10.0)
[2022-03-31 03:42] LABS: ALBUMIN 3.8 GM/DL (3.2-5.2); ALT/SGPT 13 U/L (12-78); BILIRUBIN,DIRECT < 0.1 MG/DL (0.0-0.2); BILIRUBIN,TOTAL 0.3 MG/DL (0.2-1.0); BLOOD UREA NITROGEN 8 MG/DL (7-18); CALCIUM LEVEL 10.1 MG/DL (8.5-10.1); CARBON DIOXIDE LEVEL 26 MEQ/L (21-32); CHLORIDE LEVEL 111 MEQ/L (98-107); CREATININE FOR GFR 0.63 MG/DL (0.55-1.30); GLOMERULAR FILTRATION RATE > 60.0 (>60); GLUCOSE, FASTING 92 MG/DL (70-100); LIPASE 105 U/L (73-393); POTASSIUM SERUM 3.6 MEQ/L (3.5-5.1); SODIUM LEVEL 143 MEQ/L (136-145); TOTAL PROTEIN 7.1 GM/DL (6.4-8.2)
[2022-03-31 04:30] VITALS: BP 119/72
[2022-03-31 04:33] LABS: RSV AMPLIFICATION NEGATIVE (NEGATIVE)
== END 2022-03-31 05:29 | disposition left against medical advice (07) ==
LOC: M ED 02:44
DX: Z53.21 Procedure and treatment not carried out due to patient leaving prior to being seen by health care provider (principal)

== ENCOUNTER → 2022-04-21 | Outpatient (CLI) | payer OTHER ==
[2022-04-21 16:23] LABS: BLOOD UREA NITROGEN 13 MG/DL (7-18); C REACTIVE PROTEIN QUANTITATIV 0.43 MG/DL (0.00-0.30); CARBON DIOXIDE LEVEL 26 MEQ/L (21-32); CHLORIDE LEVEL 109 MEQ/L (98-107); CREATININE FOR GFR 0.68 MG/DL (0.55-1.30); FREE T4 0.98 NG/DL (0.76-1.46); GLOMERULAR FILTRATION RATE > 60.0 (>60); GLUCOSE, FASTING 84 MG/DL (70-100); POTASSIUM SERUM 3.8 MEQ/L (3.5-5.1); RHEUMATOID FACTOR QUANT < 10.0 IU/ML (<15.0); SODIUM LEVEL 140 MEQ/L (136-145); THYROID STIMULATING HORMONE 0.767 uIU/ML (0.358-3.740)
== END ==
LOC: M RAD 15:10
PROVIDERS: ATTEND Physician Assistant
DX: M25.50 Pain in unspecified joint (principal); R06.09 Other forms of dyspnea

== ENCOUNTER 2022-05-04 18:15 | Inpatient (IN) | payer OTHER ==
[~2022-05-04] VITALS: Ht 160 cm; Wt 57.7 kg
[2022-05-04 19:48] LABS: HEMATOCRIT 38.5 % (36.0-47.0); HEMOGLOBIN 12.4 g/dl (12.0-15.5); MEAN CORPUSCULAR HEMOGLOBIN 30.2 pg (27.0-33.0); MEAN CORPUSCULAR HGB CONC 32.2 g/dl (32.0-36.5); MEAN CORPUSCULAR VOLUME 93.9 fl (80.0-96.0); PLATELET COUNT, AUTOMATED 220 10^3/uL (150-450); WHITE BLOOD COUNT 8.5 10^3/uL (4.0-10.0)
[2022-05-04 20:10] LABS: AMPHETAMINES LEVEL URINE NEGATIVE (NEGATIVE); BARBITURATES URINE NEGATIVE (NEGATIVE); BENZODIAZEPINES URINE NEGATIVE (NEGATIVE); CANNABINOIDS URINE NEGATIVE (NEGATIVE); COCAINE METABOLITE URINE NEGATIVE (NEGATIVE); METHADONE URINE NEGATIVE (NEGATIVE); OPIATES URINE POSITIVE (NEGATIVE); PHENCYCLIDINE URINE NEGATIVE (NEGATIVE)
[2022-05-04] MEDS ORDERED: ONDANSETRON 4MG ORAL DISINTEGRATING TAB PO ONE (20:10)
[2022-05-04] MEDS ORDERED: MORPHINE 2 MG/ML 1ML VIAL IM ONE (20:10)
[2022-05-04 20:19] LABS: ALBUMIN 4.2 GM/DL (3.2-5.2); ALT/SGPT 18 U/L (12-78); BILIRUBIN,DIRECT 0.6 MG/DL (0.0-0.2); BILIRUBIN,TOTAL 0.7 MG/DL (0.2-1.0); BLOOD UREA NITROGEN 15 MG/DL (7-18); CALCIUM LEVEL 9.3 MG/DL (8.5-10.1); CARBON DIOXIDE LEVEL 25 MEQ/L (21-32); CHLORIDE LEVEL 108 MEQ/L (98-107); CREATININE FOR GFR 0.63 MG/DL (0.55-1.30); ETHYL ALCOHOL (ETHANOL) < 0.003 % (0.000-0.010); GLOMERULAR FILTRATION RATE > 60.0 (>60); GLUCOSE, FASTING 82 MG/DL (70-100); POTASSIUM SERUM 3.6 MEQ/L (3.5-5.1); SALICYLATE LEVEL < 1.7 MG/DL (5.0-30.0); SODIUM LEVEL 140 MEQ/L (136-145); TOTAL PROTEIN 7.3 GM/DL (6.4-8.2)
[2022-05-04 20:20] LABS: RSV AMPLIFICATION NEGATIVE (NEGATIVE)
[2022-05-04] MEDS ORDERED: TRAZ-257 PO (22:50)
[2022-05-04] MEDS ORDERED: HOME MED LIST COMPLETE! XX SCH (23:40)
[2022-05-04] MEDS ORDERED: MED REC COMMENT (23:40)
[2022-05-05] MEDS ORDERED: PERCOCET 5MG/325MG TAB PO ONE (00:25)
[2022-05-05 08:09] LABS: HCG, SERUM QUALITATIVE NEGATIVE (NEGATIVE)
[2022-05-05] MEDS: PERCOCET 5MG/325MG TAB PO PRN ×2 (09:06→17:41)
[2022-05-05] MEDS ORDERED: NS 1,000 ML IV ONE ×2 (10:00→12:20)
[2022-05-05] MEDS ORDERED: D5W/0.45% SODIUM CHLORIDE 1,000 ML IV SCH (10:00)
[2022-05-05] MEDS ORDERED: KETOROLAC 30 MG/ML 1ML VIAL IV ONE ×2 (11:55→18:25)
[2022-05-05 16:48] VITALS: BP 120/67
[2022-05-05] MEDS ORDERED: CYCLOBENZAPRINE 10MG TABLET PO ONE (18:25)
[2022-05-05 20:39] VITALS: BP 114/75
[2022-05-05] MEDS: traZODone 100 MG TAB PO PRN (21:03)
[2022-05-06] MEDS: PERCOCET 5MG/325MG TAB PO PRN (05:36)
[2022-05-06 06:00] VITALS: BP 111/78
[2022-05-06] MEDS: ANEXSIA, NORCO 7.5MG/325MG TABLET(HYDROCODONE/APAP) PO PRN ×2 (10:53→18:14)
[2022-05-06 14:00] VITALS: BP_SYST 102; BP_SYST 108; BP_SYST 96; BP_DIAS 45; BP_DIAS 56; BP_DIAS 58
[2022-05-06] MEDS: NS 1,000 ML IV SCH (17:49)
[2022-05-06 18:00] VITALS: BP 122/70
[2022-05-06] MEDS: traZODone 100 MG TAB PO PRN (20:03)
[2022-05-06 22:00] VITALS: BP 113/63
[2022-05-07] MEDS: NS 1,000 ML IV SCH ×3 (01:49→22:20)
[2022-05-07] MEDS: ANEXSIA, NORCO 7.5MG/325MG TABLET(HYDROCODONE/APAP) PO PRN ×2 (04:28→11:22)
[2022-05-07 06:00] VITALS: BP 127/86
[2022-05-07 06:36] LABS: HEMATOCRIT 32.3 % (36.0-47.0); HEMOGLOBIN 10.7 g/dl (12.0-15.5); MEAN CORPUSCULAR HEMOGLOBIN 30.6 pg (27.0-33.0); MEAN CORPUSCULAR HGB CONC 33.1 g/dl (32.0-36.5); MEAN CORPUSCULAR VOLUME 92.3 fl (80.0-96.0); PLATELET COUNT, AUTOMATED 178 10^3/uL (150-450); WHITE BLOOD COUNT 5.6 10^3/uL (4.0-10.0)
[2022-05-07 07:11] LABS: ALBUMIN 3.1 GM/DL (3.2-5.2); ALT/SGPT 14 U/L (12-78); BILIRUBIN,TOTAL 0.6 MG/DL (0.2-1.0); BLOOD UREA NITROGEN 7 MG/DL (7-18); CALCIUM LEVEL 8.7 MG/DL (8.5-10.1); CARBON DIOXIDE LEVEL 24 MEQ/L (21-32); CHLORIDE LEVEL 111 MEQ/L (98-107); CREATININE FOR GFR 0.53 MG/DL (0.55-1.30); GLOMERULAR FILTRATION RATE > 60.0 (>60); GLUCOSE, FASTING 93 MG/DL (70-100); POTASSIUM SERUM 3.7 MEQ/L (3.5-5.1); SODIUM LEVEL 142 MEQ/L (136-145); TOTAL PROTEIN 5.7 GM/DL (6.4-8.2)
[2022-05-07 14:00] VITALS: BP 113/69
[2022-05-07] MEDS ORDERED: fentaNYL 100 MCG/2 ML INJECTION As Ordered ONE (16:20)
[2022-05-07] MEDS ORDERED: LIDOCAINE 1% SDV 5ML VIAL PN ONE (16:20)
[2022-05-07] MEDS ORDERED: ROPIvacaine 0.5% 30ML INJECTION (J2795 PER 1MG) PN ONE (16:20)
[2022-05-07] MEDS ORDERED: propofoL 200 MG/20 ML VIAL As Ordered ONE ×2 (16:20→16:21)
[2022-05-07] MEDS ORDERED: LIDOCAINE PRES-FREE 2% 10ML AMP As Ordered ONE (16:20)
[2022-05-07] MEDS ORDERED: MIDAZOLAM INJ 2MG/2ML VIAL (J2250 PER 1MG) As Ordered ONE (16:20)
[2022-05-07] MEDS: fentaNYL 100 MCG/2 ML INJECTION IV PRN ×6 (16:47→20:18)
[2022-05-07] MEDS: MIDAZOLAM INJ 2MG/2ML VIAL (J2250 PER 1MG) IV PRN (16:48)
[2022-05-07] MEDS ORDERED: BACITRACIN OINTMENT 30GM TUBE As Ordered ONE (17:52)
[2022-05-07] MEDS ORDERED: HYDROmorphone HCL 2MG/ML 1ML VIAL As Ordered ONE (18:21)
[2022-05-07] MEDS ORDERED: dexameTHASONE 4 MG/ML 1ML VIAL (J1100 PER 1MG) As Ordered ONE (18:21)
[2022-05-07] MEDS ORDERED: ONDANSETRON 4MG 2ML VIAL As Ordered ONE (18:21)
[2022-05-07] MEDS ORDERED: KETOROLAC 60MG 2ML VIAL As Ordered ONE (18:21)
[2022-05-07] MEDS ORDERED: ceFAZolin 2 GM/D5W 50 ML IV BAG (J0690 PER 500MG) As Ordered ONE (18:31)
[2022-05-07] MEDS ORDERED: LR 1,000 ML IV SCH (19:35)
[2022-05-07] MEDS ORDERED: ONDANSETRON 4MG 2ML VIAL IV PRN (19:35)
[2022-05-07] MEDS: oxyCODONE 5MG TAB PO PRN ×2 (19:54→20:29)
[2022-05-07] MEDS: MORPHINE 2 MG/ML 1ML VIAL IV PRN ×5 (20:17→21:10)
[2022-05-07] MEDS ORDERED: MORPHINE 4 MG/ML 1ML VIAL/SYRINGE As Ordered ONE (21:08)
[2022-05-07 22:00] VITALS: BP 131/92
[2022-05-07 22:30] VITALS: BP 133/91
[2022-05-07 23:30] VITALS: BP 136/90
[2022-05-08 00:30] VITALS: BP 139/99
[2022-05-08 01:30] VITALS: BP 124/80
[2022-05-08] MEDS: ANEXSIA, NORCO 7.5MG/325MG TABLET(HYDROCODONE/APAP) PO PRN ×3 (01:41→14:10)
[2022-05-08 02:30] VITALS: BP 124/79
[2022-05-08 06:00] VITALS: BP 126/80
[2022-05-08] MEDS ORDERED: ABIL1TAB11 PO (07:33)
[2022-05-08] MEDS ORDERED: APAP325T4 PO (07:33)
[2022-05-08] MEDS ORDERED: CYCLOBENZAPRINE 5MG TABLET PO ONE (08:15)
[2022-05-08] MEDS ORDERED: MIRALAX *UNIT DOSE* 17GM PACKET PO PRN (08:15)
[2022-05-08] MEDS ORDERED: SENN-80 PO (08:16)
[2022-05-08] MEDS ORDERED: COLA100C5 PO (08:16)
[2022-05-08] MEDS ORDERED: MIRA3350 PO (08:18)
[2022-05-08] MEDS ORDERED: DOCUSATE SODIUM 100MG CAPSULE PO SCH (09:00)
[2022-05-08] MEDS: NS 1,000 ML IV SCH (09:20)
[2022-05-08 10:00] VITALS: BP 120/80
[2022-05-08 14:00] VITALS: BP 149/90
[2022-05-08] MEDS ORDERED: SENNA 8.6 MG TAB (SENOKOT) PO SCH (21:00)
== END 2022-05-08 15:10 | disposition home or self-care (01) | DRG 315 ==
LOC: M ED 18:15 → M ED INP 05-05 09:41 → ENRESERV 05-05 15:40 → M MS5PR 05-05 16:48
PROVIDERS: ADMIT General Practice; ATTEND Internal Medicine
PROC: 0PSJ04Z Reposition Left Radius with Internal Fixation Device, Open Approach (ICD-10-PCS; principal; 2022-05-07 16:10)
DX: S52.502A Unspecified fracture of the lower end of left radius, initial encounter for closed fracture (principal); F31.9 Bipolar disorder, unspecified; F32.A Depression, unspecified; R45.851 Suicidal ideations; I95.9 Hypotension, unspecified; X58.XXXA Exposure to other specified factors, initial encounter; Y92.511 Restaurant or cafe as the place of occurrence of the external cause; H40.9 Unspecified glaucoma; K21.9 Gastro-esophageal reflux disease without esophagitis; F41.9 Anxiety disorder, unspecified; G95.9 Disease of spinal cord, unspecified; Z98.82 Breast implant status; G47.00 Insomnia, unspecified; K59.00 Constipation, unspecified; M54.59 Other low back pain; Z88.1 Allergy status to other antibiotic agents; Z88.8 Allergy status to other drugs, medicaments and biological substances; Z79.899 Other long term (current) drug therapy

== ENCOUNTER → 2022-05-16 | Outpatient (CLI) | payer OTHER ==
[~2022-05-16] MED LIST changes: +ABIL1TAB11 PO; +APAP325T4 PO; +COLA100C5 PO; +MED REC COMMENT; +MIRA3350 PO; +SENN-80 PO; +TRAZ-257 PO
== END ==
LOC: M SOG 12:18
PROVIDERS: ATTEND Orthopaedic Surgery Hand Surgery
DX: S52.552A Other extraarticular fracture of lower end of left radius, initial encounter for closed fracture (principal)

== ENCOUNTER → 2022-05-27 | Outpatient (CLI) | payer OTHER | LOC: M PAIN 14:30 | PROVIDERS: ATTEND Anesthesiology | DX: M96.1 Postlaminectomy syndrome, not elsewhere classified (principal); G89.29 Other chronic pain; G43.909 Migraine, unspecified, not intractable, without status migrainosus; Z86.59 Personal history of other mental and behavioral disorders; Z88.1 Allergy status to other antibiotic agents; Z88.8 Allergy status to other drugs, medicaments and biological substances; Z79.899 Other long term (current) drug therapy ==

== ENCOUNTER → 2022-06-02 | Outpatient (CLI) | payer OTHER | LOC: M PAIN 10:15 | PROVIDERS: ATTEND Anesthesiology | DX: M96.1 Postlaminectomy syndrome, not elsewhere classified (principal); M79.10 Myalgia, unspecified site; M79.18 Myalgia, other site; F41.9 Anxiety disorder, unspecified; F31.9 Bipolar disorder, unspecified; I48.91 Unspecified atrial fibrillation; G43.909 Migraine, unspecified, not intractable, without status migrainosus; M41.9 Scoliosis, unspecified; I47.1 Supraventricular tachycardia; Z79.891 Long term (current) use of opiate analgesic; Z79.899 Other long term (current) drug therapy; Z88.0 Allergy status to penicillin; Z88.1 Allergy status to other antibiotic agents; Z88.8 Allergy status to other drugs, medicaments and biological substances ==

== ENCOUNTER → 2022-06-13 | Outpatient (CLI) | payer OTHER | LOC: M PAIN 13:00 | PROVIDERS: ATTEND Anesthesiology | DX: M79.18 Myalgia, other site (principal); G89.29 Other chronic pain; G43.909 Migraine, unspecified, not intractable, without status migrainosus; Z86.59 Personal history of other mental and behavioral disorders; Z88.1 Allergy status to other antibiotic agents; Z88.8 Allergy status to other drugs, medicaments and biological substances; Z79.899 Other long term (current) drug therapy ==

== ENCOUNTER 2022-07-26 07:01 | Inpatient (IN) | payer OTHER ==
[~2022-07-26] VITALS: Ht 160 cm; Wt 58.1 kg
[2022-07-26] MEDS ORDERED: GABA-1171 PO (07:11)
[2022-07-26 08:19] LABS: HEMATOCRIT 43.6 % (36.0-47.0); HEMOGLOBIN 14.9 g/dl (12.0-15.5); MEAN CORPUSCULAR HGB CONC 34.2 g/dl (32.0-36.5); MEAN CORPUSCULAR VOLUME 90.6 fl (80.0-96.0); PLATELET COUNT, AUTOMATED 197 10^3/uL (150-450); RED BLOOD COUNT 4.81 10^6/uL (4.00-5.40)
[2022-07-26 08:52] LABS: RSV AMPLIFICATION NEGATIVE (NEGATIVE)
[2022-07-26 09:04] LABS: ACETAMINOPHEN LEVEL < 2.0 UG/ML (10.0-30.0); ALBUMIN 4.3 GM/DL (3.2-5.2); ALT/SGPT 19 U/L (12-78); BILIRUBIN,DIRECT 0.1 MG/DL (0.0-0.2); BILIRUBIN,TOTAL 0.3 MG/DL (0.2-1.0); BLOOD UREA NITROGEN 8 MG/DL (7-18); CALCIUM LEVEL 9.8 MG/DL (8.5-10.1); CARBON DIOXIDE LEVEL 32 MEQ/L (21-32); CHLORIDE LEVEL 106 MEQ/L (98-107); CREATININE FOR GFR 0.64 MG/DL (0.55-1.30); GLOMERULAR FILTRATION RATE > 60.0 (>60); GLUCOSE, FASTING 76 MG/DL (70-100); POTASSIUM SERUM 3.5 MEQ/L (3.5-5.1); SALICYLATE LEVEL < 1.7 MG/DL (5.0-30.0); SODIUM LEVEL 139 MEQ/L (136-145); TOTAL PROTEIN 7.6 GM/DL (6.4-8.2)
[2022-07-26 09:07] LABS: AMPHETAMINES LEVEL URINE NEGATIVE (NEGATIVE); BARBITURATES URINE NEGATIVE (NEGATIVE); BENZODIAZEPINES URINE NEGATIVE (NEGATIVE); CANNABINOIDS URINE NEGATIVE (NEGATIVE); COCAINE METABOLITE URINE NEGATIVE (NEGATIVE); METHADONE URINE NEGATIVE (NEGATIVE); OPIATES URINE POSITIVE (NEGATIVE); PHENCYCLIDINE URINE NEGATIVE (NEGATIVE)
[2022-07-26 09:08] LABS: HCG, SERUM QUALITATIVE NEGATIVE (NEGATIVE)
[2022-07-26] MEDS ORDERED: ONDANSETRON 4MG ORAL DISINTEGRATING TAB PO ONE (12:55)
[2022-07-26] MEDS ORDERED: APAP325T4 PO (13:01)
[2022-07-26] MEDS ORDERED: HOME MED LIST COMPLETE! XX SCH (13:05)
[2022-07-26] MEDS ORDERED: MIRALAX *UNIT DOSE* 17GM PACKET PO PRN (13:20)
[2022-07-26] MEDS ORDERED: ACETAMINOPHEN 325 MG TAB PO PRN (13:20)
[2022-07-26] MEDS ORDERED: traZODone 100 MG TAB PO PRN (13:20)
[2022-07-26] MEDS: ANEXSIA, NORCO 7.5MG/325MG TABLET(HYDROCODONE/APAP) PO PRN (13:33)
[2022-07-26] MEDS: GABAPENTIN 100 MG CAP PO SCH ×2 (15:55→20:56)
[2022-07-26] MEDS: ACETAMINOPHEN TAB 650MG DOSE (2X325MG) PO PRN (18:16)
[2022-07-26] MEDS ORDERED: LORazepam 2 MG TAB PO STA (21:59)
[2022-07-27] MEDS: GABAPENTIN 100 MG CAP PO SCH ×3 (08:14→21:00)
[2022-07-27] MEDS: ANEXSIA, NORCO 7.5MG/325MG TABLET(HYDROCODONE/APAP) PO PRN (08:15)
[2022-07-27] MEDS ORDERED: LORazepam 2 MG TAB PO STA (09:07)
[2022-07-27] MEDS ORDERED: ONDANSETRON 4MG ORAL DISINTEGRATING TAB PO ONE (09:50)
[2022-07-28] MEDS: ANEXSIA, NORCO 7.5MG/325MG TABLET(HYDROCODONE/APAP) PO PRN ×2 (01:03→13:10)
[2022-07-28] MEDS: GABAPENTIN 100 MG CAP PO SCH ×3 (08:52→22:28)
[2022-07-28 11:37] LABS: RSV AMPLIFICATION NEGATIVE (NEGATIVE)
[2022-07-28 12:26] VITALS: BP 134/89
[2022-07-28] MEDS ORDERED: LORazepam 2 MG TAB PO PRN (12:55)
[2022-07-28] MEDS ORDERED: MOM 30ML SUSPENSION UDC PO PRN (12:55)
[2022-07-28] MEDS ORDERED: MAALOX 30 ML SUSP *UDC PO PRN (12:55)
[2022-07-28] MEDS: NICOTINE 21MG/24HR 1 EA TRANSDERMAL TD SCH (13:13)
[2022-07-28 14:34] VITALS: BP 134/89
[2022-07-28] MEDS: FOLIC ACID 1MG TAB PO SCH (16:23)
[2022-07-28] MEDS: THIAMINE 100 MG TAB PO SCH ×2 (16:24→21:00)
[2022-07-28] MEDS: MULTIVITAMINS/MINERALS THERAP 1 TAB PO SCH (16:24)
[2022-07-28 21:00] VITALS: BP 103/66
[2022-07-29 05:00] VITALS: BP 113/72
[2022-07-29] MEDS: ACETAMINOPHEN TAB 650MG DOSE (2X325MG) PO PRN (06:56)
[2022-07-29 07:04] VITALS: BP 118/67
[2022-07-29] MEDS: THIAMINE 100 MG TAB PO SCH ×2 (09:00→21:00)
[2022-07-29] MEDS: MULTIVITAMINS/MINERALS THERAP 1 TAB PO SCH (09:00)
[2022-07-29] MEDS: FOLIC ACID 1MG TAB PO SCH (09:00)
[2022-07-29] MEDS: NICOTINE 21MG/24HR 1 EA TRANSDERMAL TD SCH (09:00)
[2022-07-29 09:30] VITALS: BP 121/74
[2022-07-29] MEDS: GABAPENTIN 100 MG CAP PO SCH ×3 (09:58→21:40)
[2022-07-29] MEDS: CARIPRAZINE 1.5MG CAPSULE (VRAYLAR) PO SCH (11:37)
[2022-07-29] MEDS: ANEXSIA, NORCO 7.5MG/325MG TABLET(HYDROCODONE/APAP) PO PRN ×2 (11:40→18:54)
[2022-07-29 14:21] VITALS: BP 135/73
[2022-07-29] MEDS ORDERED: MIRALAX *UNIT DOSE* 17GM PACKET PO PRN (14:30)
[2022-07-29] MEDS: IBUPROFEN 400MG TAB PO PRN (16:35)
[2022-07-29] MEDS ORDERED: LIDOCAINE 5% (LIDODERM) PATCH TD ONE (18:00)
[2022-07-29 18:07] VITALS: BP 128/64
[2022-07-29] MEDS: traZODone 100 MG TAB PO PRN (21:40)
[2022-07-29 22:30] VITALS: BP 115/74
[2022-07-30] MEDS ORDERED: **NOTE PATIENT COMMENT** MISC XX ONE (06:00)
[2022-07-30 06:30] VITALS: BP 106/69
[2022-07-30 06:47] VITALS: BP 106/69
[2022-07-30] MEDS: FOLIC ACID 1MG TAB PO SCH (08:57)
[2022-07-30] MEDS: MULTIVITAMINS/MINERALS THERAP 1 TAB PO SCH (08:57)
[2022-07-30] MEDS: THIAMINE 100 MG TAB PO SCH ×2 (08:58→21:00)
[2022-07-30] MEDS: CARIPRAZINE 1.5MG CAPSULE (VRAYLAR) PO SCH ×2 (09:00→21:49)
[2022-07-30] MEDS: GABAPENTIN 100 MG CAP PO SCH ×3 (09:02→21:00)
[2022-07-30] MEDS: IBUPROFEN 400MG TAB PO PRN ×2 (09:36→15:42)
[2022-07-30] MEDS: ANEXSIA, NORCO 7.5MG/325MG TABLET(HYDROCODONE/APAP) PO PRN ×2 (11:32→19:07)
[2022-07-30 18:11] VITALS: BP 126/74
[2022-07-30] MEDS: traZODone 100 MG TAB PO PRN (21:48)
[2022-07-31 06:20] VITALS: BP 111/61
[2022-07-31] MEDS: MULTIVITAMINS/MINERALS THERAP 1 TAB PO SCH (08:33)
[2022-07-31] MEDS: FOLIC ACID 1MG TAB PO SCH (08:34)
[2022-07-31] MEDS: GABAPENTIN 100 MG CAP PO SCH ×3 (08:34→21:30)
[2022-07-31] MEDS: IBUPROFEN 400MG TAB PO PRN (08:35)
[2022-07-31] MEDS: ANEXSIA, NORCO 7.5MG/325MG TABLET(HYDROCODONE/APAP) PO PRN ×2 (11:57→20:08)
[2022-07-31] MEDS: ACETAMINOPHEN TAB 650MG DOSE (2X325MG) PO PRN (14:02)
[2022-07-31 18:04] VITALS: BP 142/85
[2022-07-31] MEDS ORDERED: LIDOCAINE 5% (LIDODERM) PATCH TD SCH (21:00)
[2022-07-31] MEDS: traZODone 100 MG TAB PO PRN (21:30)
[2022-07-31] MEDS: PRAZOSIN 1 MG CAP PO SCH (21:30)
[2022-07-31] MEDS: ONDANSETRON 4MG TAB PO PRN (21:30)
[2022-07-31] MEDS: CARIPRAZINE 1.5MG CAPSULE (VRAYLAR) PO SCH (21:30)
[2022-08-01 06:30] VITALS: BP 104/57
[2022-08-01] MEDS: GABAPENTIN 100 MG CAP PO SCH ×3 (08:12→22:34)
[2022-08-01] MEDS: MULTIVITAMINS/MINERALS THERAP 1 TAB PO SCH (08:14)
[2022-08-01] MEDS: FOLIC ACID 1MG TAB PO SCH (08:14)
[2022-08-01] MEDS: IBUPROFEN 400MG TAB PO PRN (08:14)
[2022-08-01] MEDS: LIDOCAINE 5% (LIDODERM) PATCH TD SCH (08:46)
[2022-08-01] MEDS ORDERED: **NOTE PATIENT COMMENT** MISC XX SCH (09:00)
[2022-08-01] MEDS: VENLAFAXINE **XR** 37.5 MG CAPSULE PO SCH ×2 (11:30→14:10)
[2022-08-01] MEDS: ANEXSIA, NORCO 7.5MG/325MG TABLET(HYDROCODONE/APAP) PO PRN ×2 (12:11→20:20)
[2022-08-01 12:52] LABS: HEMATOCRIT 37.2 % (36.0-47.0); HEMOGLOBIN 12.1 g/dl (12.0-15.5); MEAN CORPUSCULAR HEMOGLOBIN 30.6 pg (27.0-33.0); MEAN CORPUSCULAR HGB CONC 32.5 g/dl (32.0-36.5); MEAN CORPUSCULAR VOLUME 93.9 fl (80.0-96.0); PLATELET COUNT, AUTOMATED 185 10^3/uL (150-450); RED BLOOD COUNT 3.96 10^6/uL (4.00-5.40); WHITE BLOOD COUNT 4.8 10^3/uL (4.0-10.0)
[2022-08-01] MEDS: ACETAMINOPHEN TAB 650MG DOSE (2X325MG) PO PRN (15:19)
[2022-08-01 18:19] VITALS: BP 108/73
[2022-08-01] MEDS: **NOTE PATIENT COMMENT** MISC XX SCH (21:00)
[2022-08-01] MEDS: CARIPRAZINE 1.5MG CAPSULE (VRAYLAR) PO SCH (22:33)
[2022-08-01] MEDS: PRAZOSIN 1 MG CAP PO SCH (22:35)
[2022-08-02] MEDS: ONDANSETRON 4MG TAB PO PRN (05:56)
[2022-08-02] MEDS: MULTIVITAMINS/MINERALS THERAP 1 TAB PO SCH (09:00)
[2022-08-02] MEDS: GABAPENTIN 100 MG CAP PO SCH ×3 (09:15→23:48)
[2022-08-02] MEDS: LIDOCAINE 5% (LIDODERM) PATCH TD SCH (09:15)
[2022-08-02] MEDS: VENLAFAXINE **XR** 37.5 MG CAPSULE PO SCH (09:15)
[2022-08-02] MEDS: FOLIC ACID 1MG TAB PO SCH (09:15)
[2022-08-02] MEDS: ANEXSIA, NORCO 7.5MG/325MG TABLET(HYDROCODONE/APAP) PO PRN ×2 (12:08→20:30)
[2022-08-02] MEDS: ACETAMINOPHEN TAB 650MG DOSE (2X325MG) PO PRN (17:18)
[2022-08-02 18:15] VITALS: BP 121/79
[2022-08-02] MEDS: **NOTE PATIENT COMMENT** MISC XX SCH (19:19)
[2022-08-02] MEDS: traZODone 100 MG TAB PO PRN (23:48)
[2022-08-02] MEDS: PRAZOSIN 1 MG CAP PO SCH (23:49)
[2022-08-02] MEDS: CARIPRAZINE 1.5MG CAPSULE (VRAYLAR) PO SCH (23:49)
[2022-08-03 06:59] VITALS: BP 106/56
[2022-08-03] MEDS: MULTIVITAMINS/MINERALS THERAP 1 TAB PO SCH (08:29)
[2022-08-03] MEDS: FOLIC ACID 1MG TAB PO SCH (08:32)
[2022-08-03] MEDS: GABAPENTIN 100 MG CAP PO SCH ×3 (08:32→22:01)
[2022-08-03] MEDS: VENLAFAXINE **XR** 37.5 MG CAPSULE PO SCH (08:32)
[2022-08-03] MEDS: LIDOCAINE 5% (LIDODERM) PATCH TD SCH (08:33)
[2022-08-03] MEDS: ACETAMINOPHEN TAB 650MG DOSE (2X325MG) PO PRN (10:55)
[2022-08-03] MEDS: ANEXSIA, NORCO 7.5MG/325MG TABLET(HYDROCODONE/APAP) PO PRN ×2 (12:10→20:54)
[2022-08-03 18:16] VITALS: BP 129/89
[2022-08-03] MEDS: OLANZapine ORAL DISINTEGRATING TAB 5MG PO PRN (21:10)
[2022-08-03] MEDS: traZODone 100 MG TAB PO PRN (22:01)
[2022-08-03] MEDS: CARIPRAZINE 1.5MG CAPSULE (VRAYLAR) PO SCH (22:02)
[2022-08-03] MEDS: PRAZOSIN 1 MG CAP PO SCH (22:02)
[2022-08-03] MEDS: **NOTE PATIENT COMMENT** MISC XX SCH (22:03)
[2022-08-04 06:21] VITALS: BP 100/53
[2022-08-04] MEDS: MULTIVITAMINS/MINERALS THERAP 1 TAB PO SCH (08:35)
[2022-08-04] MEDS: GABAPENTIN 100 MG CAP PO SCH ×3 (08:36→21:57)
[2022-08-04] MEDS: FOLIC ACID 1MG TAB PO SCH (08:36)
[2022-08-04] MEDS: VENLAFAXINE **XR** 37.5 MG CAPSULE PO SCH (08:36)
[2022-08-04] MEDS: LIDOCAINE 5% (LIDODERM) PATCH TD SCH (08:36)
[2022-08-04] MEDS: ANEXSIA, NORCO 7.5MG/325MG TABLET(HYDROCODONE/APAP) PO PRN (13:11)
[2022-08-04 16:19] VITALS: BP 115/70
[2022-08-04] MEDS: ACETAMINOPHEN TAB 650MG DOSE (2X325MG) PO PRN (16:56)
[2022-08-04] MEDS: IBUPROFEN 400MG TAB PO PRN (19:11)
[2022-08-04] MEDS: PRAZOSIN 1 MG CAP PO SCH (21:57)
[2022-08-04] MEDS: ARIPiprazole 2 MG TAB PO SCH (21:57)
[2022-08-04] MEDS: **NOTE PATIENT COMMENT** MISC XX SCH (21:58)
[2022-08-04] MEDS: traZODone 100 MG TAB PO PRN (22:37)
[2022-08-05 06:45] VITALS: BP 117/69
[2022-08-05] MEDS: MULTIVITAMINS/MINERALS THERAP 1 TAB PO SCH (08:05)
[2022-08-05] MEDS: FOLIC ACID 1MG TAB PO SCH (08:06)
[2022-08-05] MEDS: GABAPENTIN 100 MG CAP PO SCH ×3 (08:07→22:26)
[2022-08-05] MEDS: LIDOCAINE 5% (LIDODERM) PATCH TD SCH (08:07)
[2022-08-05] MEDS: VENLAFAXINE **XR** 75MG CAPSULE PO SCH (08:07)
[2022-08-05] MEDS: ANEXSIA, NORCO 7.5MG/325MG TABLET(HYDROCODONE/APAP) PO PRN ×2 (10:32→19:38)
[2022-08-05] MEDS: IBUPROFEN 400MG TAB PO PRN (12:11)
[2022-08-05] MEDS: ACETAMINOPHEN TAB 650MG DOSE (2X325MG) PO PRN (15:15)
[2022-08-05 16:28] VITALS: BP 114/68
[2022-08-05] MEDS: **NOTE PATIENT COMMENT** MISC XX SCH (19:34)
[2022-08-05] MEDS: OLANZapine ORAL DISINTEGRATING TAB 5MG PO PRN (21:05)
[2022-08-05] MEDS: ARIPiprazole 2 MG TAB PO SCH (22:24)
[2022-08-05] MEDS: PRAZOSIN 1 MG CAP PO SCH (22:24)
[2022-08-05] MEDS: traZODone 100 MG TAB PO PRN (22:24)
[2022-08-06 06:44] VITALS: BP 100/63
[2022-08-06] MEDS: MULTIVITAMINS/MINERALS THERAP 1 TAB PO SCH (08:40)
[2022-08-06] MEDS: VENLAFAXINE **XR** 75MG CAPSULE PO SCH (08:40)
[2022-08-06] MEDS: GABAPENTIN 100 MG CAP PO SCH ×3 (08:40→21:19)
[2022-08-06] MEDS: FOLIC ACID 1MG TAB PO SCH (08:40)
[2022-08-06] MEDS: LIDOCAINE 5% (LIDODERM) PATCH TD SCH (08:40)
[2022-08-06] MEDS: ANEXSIA, NORCO 7.5MG/325MG TABLET(HYDROCODONE/APAP) PO PRN ×2 (12:19→20:09)
[2022-08-06] MEDS: IBUPROFEN 400MG TAB PO PRN (14:58)
[2022-08-06 16:41] VITALS: BP 116/56
[2022-08-06 21:19] VITALS: BP 116/56
[2022-08-06] MEDS: PRAZOSIN 1 MG CAP PO SCH (21:19)
[2022-08-06] MEDS: ARIPiprazole 2 MG TAB PO SCH (21:19)
[2022-08-06] MEDS: traZODone 100 MG TAB PO PRN (21:20)
[2022-08-06] MEDS: **NOTE PATIENT COMMENT** MISC XX SCH (21:23)
[2022-08-06] MEDS: OLANZapine ORAL DISINTEGRATING TAB 5MG PO PRN (21:56)
[2022-08-07 06:46] VITALS: BP 105/51
[2022-08-07] MEDS: FOLIC ACID 1MG TAB PO SCH (08:39)
[2022-08-07] MEDS: VENLAFAXINE **XR** 75MG CAPSULE PO SCH (08:39)
[2022-08-07] MEDS: GABAPENTIN 100 MG CAP PO SCH (08:40)
[2022-08-07] MEDS: MULTIVITAMINS/MINERALS THERAP 1 TAB PO SCH (08:40)
[2022-08-07] MEDS: LIDOCAINE 5% (LIDODERM) PATCH TD SCH (08:40)
[2022-08-07] MEDS ORDERED: LIDO5TD TD (10:08)
[2022-08-07] MEDS ORDERED: GABA-282 PO (10:08)
[2022-08-07] MEDS ORDERED: ABIL1TAB13 PO (10:08)
[2022-08-07] MEDS ORDERED: TRAZ-257 PO (10:08)
[2022-08-07] MEDS ORDERED: VENL75CA47 PO (10:08)
[2022-08-07] MEDS ORDERED: MINI1CAP PO (10:08)
== END 2022-08-07 13:01 | disposition home or self-care (01) | DRG 751 ==
LOC: M ED 07:01 → M ED INP 07-28 12:53 → M PSY 07-28 14:24
PROVIDERS: ADMIT Psychiatry & Neurology Psychiatry; ATTEND Psychiatry & Neurology Psychiatry
DX: F33.1 Major depressive disorder, recurrent, moderate (principal); M41.9 Scoliosis, unspecified; R45.851 Suicidal ideations; F60.89 Other specific personality disorders; G89.29 Other chronic pain; F90.9 Attention-deficit hyperactivity disorder, unspecified type; F43.10 Post-traumatic stress disorder, unspecified; Z88.8 Allergy status to other drugs, medicaments and biological substances; Z88.0 Allergy status to penicillin; Z79.899 Other long term (current) drug therapy; Z62.810 Personal history of physical and sexual abuse in childhood

== ENCOUNTER → 2022-08-17 | Outpatient (CLI) | payer OTHER ==
[~2022-08-17] MED LIST changes: +ABIL1TAB13 PO; +GABA-282 PO; +LIDO5TD TD; +MINI1CAP PO; +VENL75CA47 PO
== END ==
LOC: M RAD 15:30
PROVIDERS: ATTEND Physician Assistant Medical
DX: M25.541 Pain in joints of right hand (principal)

== ENCOUNTER 2022-08-27 19:01 | Inpatient (IN) | payer OTHER ==
[~2022-08-27] VITALS: Ht 160 cm; Wt 60.2 kg
[2022-08-27 20:45] LABS: HEMATOCRIT 40.5 % (36.0-47.0); HEMOGLOBIN 13.2 g/dl (12.0-15.5); MEAN CORPUSCULAR HEMOGLOBIN 30.8 pg (27.0-33.0); MEAN CORPUSCULAR HGB CONC 32.6 g/dl (32.0-36.5); MEAN CORPUSCULAR VOLUME 94.6 fl (80.0-96.0); PLATELET COUNT, AUTOMATED 183 10^3/uL (150-450); RED BLOOD COUNT 4.28 10^6/uL (4.00-5.40); WHITE BLOOD COUNT 7.4 10^3/uL (4.0-10.0)
[2022-08-27 20:52] LABS: HCG, SERUM QUALITATIVE NEGATIVE (NEGATIVE)
[2022-08-27 21:03] LABS: ACETAMINOPHEN LEVEL 7.2 UG/ML (10.0-30.0); ALBUMIN 4.1 GM/DL (3.2-5.2); ALT/SGPT 17 U/L (12-78); BILIRUBIN,DIRECT 0.1 MG/DL (0.0-0.2); BILIRUBIN,TOTAL 0.4 MG/DL (0.2-1.0); BLOOD UREA NITROGEN 8 MG/DL (7-18); CALCIUM LEVEL 9.9 MG/DL (8.5-10.1); CARBON DIOXIDE LEVEL 28 MEQ/L (21-32); CHLORIDE LEVEL 106 MEQ/L (98-107); CREATININE FOR GFR 0.62 MG/DL (0.55-1.30); ETHYL ALCOHOL (ETHANOL) 0.003 % (0.000-0.010); GLOMERULAR FILTRATION RATE > 60.0 (>60); GLUCOSE, FASTING 88 MG/DL (70-100); POTASSIUM SERUM 3.9 MEQ/L (3.5-5.1); SALICYLATE LEVEL 2.2 MG/DL (5.0-30.0); SODIUM LEVEL 138 MEQ/L (136-145); TOTAL PROTEIN 7.4 GM/DL (6.4-8.2)
[2022-08-27 21:04] LABS: RSV AMPLIFICATION NEGATIVE (NEGATIVE)
[2022-08-27 21:15] LABS: AMPHETAMINES LEVEL URINE NEGATIVE (NEGATIVE); BARBITURATES URINE NEGATIVE (NEGATIVE); BENZODIAZEPINES URINE NEGATIVE (NEGATIVE); CANNABINOIDS URINE NEGATIVE (NEGATIVE); COCAINE METABOLITE URINE NEGATIVE (NEGATIVE); METHADONE URINE NEGATIVE (NEGATIVE); OPIATES URINE POSITIVE (NEGATIVE); PHENCYCLIDINE URINE NEGATIVE (NEGATIVE)
[2022-08-27] MEDS ORDERED: MAALOX 30 ML SUSP *UDC PO PRN (21:40)
[2022-08-27] MEDS ORDERED: MOM 30ML SUSPENSION UDC PO PRN (21:40)
[2022-08-27] MEDS ORDERED: traZODone 50 MG TAB PO PRN (21:40)
[2022-08-27 22:48] VITALS: BP 136/78
[2022-08-27] MEDS: ARIPiprazole 2 MG TAB PO SCH (23:03)
[2022-08-27] MEDS: GABAPENTIN 300 MG CAP PO SCH (23:04)
[2022-08-27] MEDS: PRAZOSIN 1 MG CAP PO SCH (23:04)
[2022-08-27] MEDS: traZODone 100 MG TAB PO PRN (23:06)
[2022-08-28 06:19] VITALS: BP 113/54
[2022-08-28] MEDS ORDERED: INFLUENZA QUADRIVALENT PF VACCINE 0.5ML SYRINGE IM.IMMUN ONE (09:00)
[2022-08-28] MEDS: LIDOCAINE 5% (LIDODERM) PATCH TD SCH (09:37)
[2022-08-28] MEDS: VENLAFAXINE **XR** 75MG CAPSULE PO SCH (09:37)
[2022-08-28] MEDS: GABAPENTIN 300 MG CAP PO SCH ×3 (09:37→20:11)
[2022-08-28] MEDS: ANEXSIA, NORCO 7.5MG/325MG TABLET(HYDROCODONE/APAP) PO PRN ×2 (10:31→22:38)
[2022-08-28] MEDS ORDERED: ONDANSETRON 4MG ORAL DISINTEGRATING TAB SL PRN (12:20)
[2022-08-28 18:08] VITALS: BP 130/80
[2022-08-28] MEDS: ARIPiprazole 2 MG TAB PO SCH (20:11)
[2022-08-28] MEDS: PRAZOSIN 1 MG CAP PO SCH (20:12)
[2022-08-28] MEDS: CEFDINIR 300 MG CAP (OMNICEF) PO SCH (20:12)
[2022-08-28] MEDS ORDERED: VENL75TA2 PO (22:20)
[2022-08-28] MEDS ORDERED: MIRA3350 PO (22:20)
[2022-08-28] MEDS ORDERED: PRAZ1CAP PO (22:20)
[2022-08-28] MEDS ORDERED: TRAZ-257 PO (22:20)
[2022-08-28] MEDS ORDERED: GABA-282 PO (22:20)
[2022-08-28] MEDS ORDERED: ACET-897 PO (22:20)
[2022-08-28] MEDS ORDERED: ABIL1TAB13 PO (22:20)
[2022-08-28] MEDS ORDERED: HOME MED LIST COMPLETE! XX SCH (22:25)
[2022-08-28] MEDS: traZODone 100 MG TAB PO PRN (23:02)
[2022-08-29 06:14] VITALS: BP 93/50
[2022-08-29] MEDS ORDERED: VENL75CA47 PO (08:01)
[2022-08-29] MEDS: CEFDINIR 300 MG CAP (OMNICEF) PO SCH ×2 (08:20→20:47)
[2022-08-29] MEDS: GABAPENTIN 300 MG CAP PO SCH ×3 (08:20→20:47)
[2022-08-29] MEDS: LIDOCAINE 5% (LIDODERM) PATCH TD SCH (08:20)
[2022-08-29] MEDS: VENLAFAXINE **XR** 75MG CAPSULE PO SCH (08:20)
[2022-08-29 08:27] LABS: CHOLESTEROL RISK RATIO 2.533 (<5)
[2022-08-29] MEDS: ANEXSIA, NORCO 7.5MG/325MG TABLET(HYDROCODONE/APAP) PO PRN ×2 (10:45→22:49)
[2022-08-29 17:58] VITALS: BP 123/74
[2022-08-29] MEDS: ARIPiprazole 2 MG TAB PO SCH (20:47)
[2022-08-30] MEDS: PRAZOSIN 1 MG CAP PO SCH ×2 (00:18→20:28)
[2022-08-30] MEDS: traZODone 50 MG TAB PO PRN ×2 (00:19→23:54)
[2022-08-30 07:00] VITALS: BP 102/59
[2022-08-30] MEDS: VENLAFAXINE **XR** 75MG CAPSULE PO SCH (08:04)
[2022-08-30] MEDS: GABAPENTIN 300 MG CAP PO SCH (08:04)
[2022-08-30] MEDS: CEFDINIR 300 MG CAP (OMNICEF) PO SCH ×2 (08:04→20:28)
[2022-08-30] MEDS: LIDOCAINE 5% (LIDODERM) PATCH TD SCH (08:04)
[2022-08-30] MEDS: ANEXSIA, NORCO 7.5MG/325MG TABLET(HYDROCODONE/APAP) PO PRN ×2 (12:18→22:37)
[2022-08-30] MEDS: hydrOXYzine 50 MG TAB PO PRN (14:08)
[2022-08-30 15:45] VITALS: BP 126/78
[2022-08-30] MEDS: GABAPENTIN 400MG CAP PO SCH ×2 (16:46→20:29)
[2022-08-30 18:00] VITALS: BP 126/78
[2022-08-30] MEDS: ARIPiprazole 2 MG TAB PO SCH (20:29)
[2022-08-31 06:07] VITALS: BP 97/54
[2022-08-31] MEDS: CEFDINIR 300 MG CAP (OMNICEF) PO SCH ×2 (08:13→20:47)
[2022-08-31] MEDS: VENLAFAXINE **XR** 75MG CAPSULE PO SCH (08:13)
[2022-08-31] MEDS: GABAPENTIN 400MG CAP PO SCH ×3 (08:13→20:46)
[2022-08-31] MEDS: LIDOCAINE 5% (LIDODERM) PATCH TD SCH (08:13)
[2022-08-31] MEDS: BENZOCAINE 10% 9GM TUBE (ANBESOL) TOP PRN ×2 (09:06→22:53)
[2022-08-31] MEDS: ACETAMINOPHEN TAB 650MG DOSE (2X325MG) PO PRN (10:56)
[2022-08-31] MEDS: ANEXSIA, NORCO 7.5MG/325MG TABLET(HYDROCODONE/APAP) PO PRN ×2 (12:25→22:41)
[2022-08-31 18:18] VITALS: BP 121/77
[2022-08-31] MEDS: ARIPiprazole 2 MG TAB PO SCH (20:46)
[2022-08-31] MEDS: PRAZOSIN 1 MG CAP PO SCH (22:31)
[2022-08-31] MEDS: traZODone 50 MG TAB PO PRN (22:54)
[2022-09-01 06:09] VITALS: BP 108/55
[2022-09-01] MEDS: GABAPENTIN 400MG CAP PO SCH (08:21)
[2022-09-01] MEDS: VENLAFAXINE **XR** 75MG CAPSULE PO SCH (08:21)
[2022-09-01] MEDS: LIDOCAINE 5% (LIDODERM) PATCH TD SCH (08:21)
[2022-09-01] MEDS: CEFDINIR 300 MG CAP (OMNICEF) PO SCH ×2 (08:22→20:52)
[2022-09-01] MEDS: ANEXSIA, NORCO 7.5MG/325MG TABLET(HYDROCODONE/APAP) PO PRN (10:55)
[2022-09-01] MEDS: GABAPENTIN 300 MG CAP PO SCH ×2 (15:07→20:52)
[2022-09-01 16:08] VITALS: BP 109/63
[2022-09-01] MEDS: hydrOXYzine 50 MG TAB PO PRN (17:12)
[2022-09-01] MEDS: ARIPiprazole 2 MG TAB PO SCH (20:53)
[2022-09-01] MEDS: PRAZOSIN 1 MG CAP PO SCH (20:53)
[2022-09-01] MEDS: traZODone 50 MG TAB PO PRN (23:05)
[2022-09-02] MEDS: ACETAMINOPHEN TAB 650MG DOSE (2X325MG) PO PRN (06:15)
[2022-09-02 06:18] VITALS: BP 109/53
[2022-09-02] MEDS: VENLAFAXINE **XR** 75MG CAPSULE PO SCH (08:29)
[2022-09-02] MEDS: LIDOCAINE 5% (LIDODERM) PATCH TD SCH (08:29)
[2022-09-02] MEDS: CEFDINIR 300 MG CAP (OMNICEF) PO SCH (08:29)
[2022-09-02] MEDS: GABAPENTIN 300 MG CAP PO SCH ×3 (08:29→22:05)
[2022-09-02] MEDS: BENZOCAINE 10% 9GM TUBE (ANBESOL) TOP PRN (10:57)
[2022-09-02] MEDS: ANEXSIA, NORCO 7.5MG/325MG TABLET(HYDROCODONE/APAP) PO PRN (10:57)
[2022-09-02 16:15] VITALS: BP 108/62
[2022-09-02] MEDS: hydrOXYzine 50 MG TAB PO PRN (20:03)
[2022-09-02] MEDS: PRAZOSIN 1 MG CAP PO SCH (22:05)
[2022-09-02] MEDS: ARIPiprazole 2 MG TAB PO SCH (22:05)
[2022-09-02] MEDS: traZODone 50 MG TAB PO PRN (23:05)
[2022-09-03] MEDS: LIDOCAINE 5% (LIDODERM) PATCH TD SCH (08:28)
[2022-09-03] MEDS: GABAPENTIN 300 MG CAP PO SCH ×3 (08:28→20:12)
[2022-09-03] MEDS: VENLAFAXINE **XR** 75MG CAPSULE PO SCH (08:28)
[2022-09-03] MEDS: ANEXSIA, NORCO 7.5MG/325MG TABLET(HYDROCODONE/APAP) PO PRN ×2 (09:03→21:12)
[2022-09-03] MEDS: BENZOCAINE 10% 9GM TUBE (ANBESOL) TOP PRN (13:02)
[2022-09-03] MEDS: ACETAMINOPHEN TAB 650MG DOSE (2X325MG) PO PRN (14:11)
[2022-09-03 16:35] VITALS: BP 108/71
[2022-09-03] MEDS ORDERED: ARIPiprazole 2 MG TAB PO SCH (21:00)
[2022-09-03] MEDS: PRAZOSIN 1 MG CAP PO SCH (21:11)
[2022-09-03] MEDS: traZODone 50 MG TAB PO PRN (23:08)
[2022-09-04 06:27] VITALS: BP 111/66
[2022-09-04] MEDS: GABAPENTIN 300 MG CAP PO SCH (08:31)
[2022-09-04] MEDS: VENLAFAXINE **XR** 75MG CAPSULE PO SCH (08:34)
[2022-09-04] MEDS: LIDOCAINE 5% (LIDODERM) PATCH TD SCH (08:35)
[2022-09-04] MEDS: ANEXSIA, NORCO 7.5MG/325MG TABLET(HYDROCODONE/APAP) PO PRN ×2 (09:11→21:14)
[2022-09-04] MEDS: ACETAMINOPHEN TAB 650MG DOSE (2X325MG) PO PRN (15:27)
[2022-09-04] MEDS: IBUPROFEN 600MG TAB PO PRN (17:54)
[2022-09-04 18:11] VITALS: BP 111/77
[2022-09-04] MEDS ORDERED: TOPIRAMATE (TopAMAX) 25 MG TAB PO SCH (21:00)
[2022-09-04 21:51] VITALS: BP 134/76
[2022-09-04] MEDS: PRAZOSIN 1 MG CAP PO SCH (21:51)
[2022-09-04] MEDS: BENZOCAINE 10% 9GM TUBE (ANBESOL) TOP PRN (22:24)
[2022-09-04] MEDS: traZODone 50 MG TAB PO PRN (23:13)
[2022-09-05] MEDS: IBUPROFEN 600MG TAB PO PRN (06:02)
[2022-09-05 06:20] VITALS: BP 107/66
[2022-09-05] MEDS: VENLAFAXINE **XR** 75MG CAPSULE PO SCH (08:02)
[2022-09-05] MEDS: LIDOCAINE 5% (LIDODERM) PATCH TD SCH (08:03)
[2022-09-05] MEDS: ANEXSIA, NORCO 7.5MG/325MG TABLET(HYDROCODONE/APAP) PO PRN (09:14)
[2022-09-05] MEDS ORDERED: VENL75CA47 PO (10:10)
[2022-09-05] MEDS ORDERED: TOPA1TAB PO (10:10)
[2022-09-05] MEDS ORDERED: MINI1CAP PO (10:10)
[2022-09-05] MEDS ORDERED: ABIL1TAB11 PO (10:10)
== END 2022-09-05 12:05 | disposition home or self-care (01) | DRG 753 ==
LOC: M ED 19:01 → M ED INP 21:36 → M PSY 22:26
PROVIDERS: ADMIT Student in an Organized Health Care Education/Training Program; ATTEND Student in an Organized Health Care Education/Training Program
DX: F31.9 Bipolar disorder, unspecified (principal); R45.851 Suicidal ideations; Z79.891 Long term (current) use of opiate analgesic; F32.A Depression, unspecified; F90.9 Attention-deficit hyperactivity disorder, unspecified type; F43.10 Post-traumatic stress disorder, unspecified; F60.89 Other specific personality disorders; Z91.51 Personal history of suicidal behavior; M41.9 Scoliosis, unspecified; Z62.810 Personal history of physical and sexual abuse in childhood; Z79.899 Other long term (current) drug therapy; Z20.822 Contact with and (suspected) exposure to COVID-19; Z88.1 Allergy status to other antibiotic agents; Z88.8 Allergy status to other drugs, medicaments and biological substances; G89.29 Other chronic pain; N39.0 Urinary tract infection, site not specified; I45.6 Pre-excitation syndrome; S62.65 Nondisplaced fracture of middle phalanx of finger

== ENCOUNTER 2022-09-15 16:51 | Inpatient (IN) | payer MEDICAID, OTHER ==
[~2022-09-15] VITALS: Ht 160 cm; Wt 58.3 kg
[~2022-09-15 16:51] MED LIST changes: +ACET-897 PO; +PRAZ1CAP PO; +TOPA1TAB PO; +VENL75TA2 PO
[2022-09-15] MEDS ORDERED: HYDR-4431 PO (17:11)
[2022-09-15 18:14] LABS: HEMATOCRIT 38.6 % (36.0-47.0); HEMOGLOBIN 12.5 g/dl (12.0-15.5); MEAN CORPUSCULAR HEMOGLOBIN 31.1 pg (27.0-33.0); MEAN CORPUSCULAR HGB CONC 32.4 g/dl (32.0-36.5); PLATELET COUNT, AUTOMATED 174 10^3/uL (150-450); RED BLOOD COUNT 4.02 10^6/uL (4.00-5.40)
[2022-09-15 18:27] LABS: RSV AMPLIFICATION NEGATIVE (NEGATIVE)
[2022-09-15 18:44] LABS: AMPHETAMINES LEVEL URINE NEGATIVE (NEGATIVE); BARBITURATES URINE NEGATIVE (NEGATIVE); BENZODIAZEPINES URINE NEGATIVE (NEGATIVE); CANNABINOIDS URINE NEGATIVE (NEGATIVE); COCAINE METABOLITE URINE NEGATIVE (NEGATIVE); METHADONE URINE NEGATIVE (NEGATIVE); OPIATES URINE POSITIVE (NEGATIVE); PHENCYCLIDINE URINE NEGATIVE (NEGATIVE)
[2022-09-15] MEDS ORDERED: HYDR-4514 PO (18:46)
[2022-09-15] MEDS ORDERED: PRAZ1CAP PO (18:46)
[2022-09-15] MEDS ORDERED: VENL150C43 PO (18:46)
[2022-09-15] MEDS ORDERED: ARIP1TAB6 PO (18:46)
[2022-09-15] MEDS ORDERED: TOPI25TA10 PO (18:46)
[2022-09-15 18:50] LABS: ACETAMINOPHEN LEVEL 4.9 UG/ML (10.0-30.0); ALBUMIN 3.7 GM/DL (3.2-5.2); ALT/SGPT 23 U/L (12-78); BILIRUBIN,DIRECT 0.2 MG/DL (0.0-0.2); BILIRUBIN,TOTAL 0.6 MG/DL (0.2-1.0); BLOOD UREA NITROGEN 10 MG/DL (7-18); CALCIUM LEVEL 9.5 MG/DL (8.5-10.1); CARBON DIOXIDE LEVEL 27 MEQ/L (21-32); CHLORIDE LEVEL 110 MEQ/L (98-107); CREATININE FOR GFR 0.69 MG/DL (0.55-1.30); ETHYL ALCOHOL (ETHANOL) < 0.003 % (0.000-0.010); GLOMERULAR FILTRATION RATE > 60.0 (>60); GLUCOSE, FASTING 83 MG/DL (70-100); POTASSIUM SERUM 3.9 MEQ/L (3.5-5.1); SALICYLATE LEVEL < 1.7 MG/DL (5.0-30.0); SODIUM LEVEL 143 MEQ/L (136-145); THYROID STIMULATING HORMONE 0.445 uIU/ML (0.358-3.740); TOTAL PROTEIN 6.6 GM/DL (6.4-8.2)
[2022-09-15] MEDS ORDERED: HOME MED LIST COMPLETE! XX SCH (18:50)
[2022-09-15] MEDS ORDERED: GABA-282 PO (18:56)
[2022-09-15] MEDS ORDERED: TRAZ-257 PO (18:56)
[2022-09-15 19:01] LABS: HCG, SERUM QUALITATIVE NEGATIVE (NEGATIVE)
[2022-09-15] MEDS ORDERED: TOPIRAMATE (TopAMAX) 25 MG TAB PO ONE (19:55)
[2022-09-15] MEDS ORDERED: PRAZOSIN 1 MG CAP PO ONE (19:55)
[2022-09-15] MEDS ORDERED: traZODone 100 MG TAB PO ONE (19:55)
[2022-09-15] MEDS ORDERED: MOM 30ML SUSPENSION UDC PO PRN (21:45)
[2022-09-15] MEDS ORDERED: MAALOX 30 ML SUSP *UDC PO PRN (21:45)
[2022-09-15 23:26] VITALS: BP 114/8
[2022-09-16] MEDS: ANEXSIA, NORCO 7.5MG/325MG TABLET(HYDROCODONE/APAP) PO PRN ×2 (06:28→17:00)
[2022-09-16 06:36] VITALS: BP 125/61
[2022-09-16] MEDS ORDERED: VENLAFAXINE **XR** 75MG CAPSULE PO SCH (09:00)
[2022-09-16] MEDS ORDERED: ANEXSIA, NORCO 7.5MG/325MG TABLET(HYDROCODONE/APAP) PO SCH (09:00)
[2022-09-16] MEDS: FLUoxetine 20MG CAP PO SCH (09:19)
[2022-09-16] MEDS: GABAPENTIN 300 MG CAP PO SCH ×3 (09:19→21:00)
[2022-09-16] MEDS: ACETAMINOPHEN TAB 650MG DOSE (2X325MG) PO PRN (10:39)
[2022-09-16 16:15] VITALS: BP 121/70
[2022-09-16] MEDS: TOPIRAMATE (TopAMAX) 25 MG TAB PO SCH (19:59)
[2022-09-16] MEDS: PRAZOSIN 1 MG CAP PO SCH (19:59)
[2022-09-16] MEDS: traZODone 100 MG TAB PO SCH (21:00)
[2022-09-17 06:19] VITALS: BP 97/56
[2022-09-17] MEDS: FLUoxetine 20MG CAP PO SCH (07:52)
[2022-09-17] MEDS: LIDOCAINE 5% (LIDODERM) PATCH TD SCH (07:52)
[2022-09-17] MEDS: GABAPENTIN 300 MG CAP PO SCH ×4 (07:53→21:46)
[2022-09-17] MEDS ORDERED: FLUoxetine 20MG CAP PO ONE (09:10)
[2022-09-17] MEDS: ANEXSIA, NORCO 7.5MG/325MG TABLET(HYDROCODONE/APAP) PO PRN ×2 (12:57→19:37)
[2022-09-17 16:29] VITALS: BP 100/59
[2022-09-17] MEDS: TOPIRAMATE (TopAMAX) 25 MG TAB PO SCH (21:46)
[2022-09-17 21:48] VITALS: BP 132/72
[2022-09-17] MEDS: traZODone 100 MG TAB PO SCH (21:48)
[2022-09-17] MEDS: PRAZOSIN 1 MG CAP PO SCH (21:48)
[2022-09-18 06:07] VITALS: BP 128/50
[2022-09-18] MEDS: GABAPENTIN 300 MG CAP PO SCH (08:41)
[2022-09-18] MEDS: LIDOCAINE 5% (LIDODERM) PATCH TD SCH (08:41)
[2022-09-18] MEDS ORDERED: TRAZ-257 PO (08:42)
[2022-09-18] MEDS ORDERED: PRAZ1CAP PO (08:42)
[2022-09-18] MEDS ORDERED: LIDO5TD TD (08:42)
[2022-09-18] MEDS ORDERED: ARIP1TAB6 PO (08:42)
[2022-09-18] MEDS ORDERED: FLUO40CA PO (08:42)
[2022-09-18] MEDS ORDERED: FLUO20CA22 PO (08:42)
[2022-09-18] MEDS ORDERED: FLUoxetine 20MG CAP PO SCH (09:00)
[2022-09-18] MEDS: ACETAMINOPHEN TAB 650MG DOSE (2X325MG) PO PRN (12:07)
== END 2022-09-18 13:24 | disposition home or self-care (01) | DRG 751 ==
LOC: M ED 17:42 → M ED INP 21:45 → M PSY 23:14
PROVIDERS: ADMIT Student in an Organized Health Care Education/Training Program; ATTEND Student in an Organized Health Care Education/Training Program
DX: F33.1 Major depressive disorder, recurrent, moderate (principal); M41.07 Infantile idiopathic scoliosis, lumbosacral region; F43.10 Post-traumatic stress disorder, unspecified; F60.89 Other specific personality disorders; F31.9 Bipolar disorder, unspecified; F41.9 Anxiety disorder, unspecified; Z59.9 Problem related to housing and economic circumstances, unspecified; Z79.899 Other long term (current) drug therapy; Z88.8 Allergy status to other drugs, medicaments and biological substances; Z88.0 Allergy status to penicillin

== ENCOUNTER 2022-09-21 15:37 | Emergency (ER) | payer MEDICAID ==
[~2022-09-21] VITALS: Ht 160 cm; Wt 57.0 kg
[~2022-09-21 15:37] MED LIST changes: +ARIP1TAB6 PO; +FLUO20CA22 PO; +FLUO40CA PO; +HYDR-4431 PO; +HYDR-4514 PO; +TOPI25TA10 PO; +VENL150C43 PO
[2022-09-21] MEDS ORDERED: CHARCOAL ACTIVATED LIQUID 25 GM/120 ML BTL PO ONE (16:30)
[2022-09-21 16:51] LABS: BASO % 0.4 % (0.0-1.0); EOS # 0.2 10^3/uL (0.0-0.5); EOS % 3.1 % (0.0-3.0); HEMATOCRIT 41.5 % (36.0-47.0); HEMOGLOBIN 13.6 g/dl (12.0-15.5); LYMPH # 2.4 10^3/uL (1.5-5.0); MEAN CORPUSCULAR HEMOGLOBIN 31.3 pg (27.0-33.0); MEAN CORPUSCULAR HGB CONC 32.8 g/dl (32.0-36.5); MEAN CORPUSCULAR VOLUME 95.4 fl (80.0-96.0); MONO # 0.7 10^3/uL (0.0-0.8); MONO % 9.6 % (2.0-8.0); NEUTROPHILS # 3.7 10^3/uL (1.5-8.5); NEUTROPHILS % 52.6 % (36.0-66.0); PLATELET COUNT, AUTOMATED 190 10^3/uL (150-450); RED BLOOD COUNT 4.35 10^6/uL (4.00-5.40)
[2022-09-21] MEDS: NS 1,000 ML IV SCH (17:23)
[2022-09-21 17:43] LABS: ACETAMINOPHEN LEVEL 7.5 UG/ML (10.0-30.0); ALBUMIN 4.4 GM/DL (3.2-5.2); ALT/SGPT 24 U/L (12-78); BILIRUBIN,DIRECT 0.2 MG/DL (0.0-0.2); BILIRUBIN,TOTAL 0.6 MG/DL (0.2-1.0); BLOOD UREA NITROGEN 12 MG/DL (7-18); CALCIUM LEVEL 8.7 MG/DL (8.5-10.1); CARBON DIOXIDE LEVEL 24 MEQ/L (21-32); CHLORIDE LEVEL 108 MEQ/L (98-107); CREATININE FOR GFR 0.72 MG/DL (0.55-1.30); ETHYL ALCOHOL (ETHANOL) < 0.003 % (0.000-0.010); GLOMERULAR FILTRATION RATE > 60.0 (>60); GLUCOSE, FASTING 90 MG/DL (70-100); POTASSIUM SERUM 3.7 MEQ/L (3.5-5.1); SALICYLATE LEVEL < 1.7 MG/DL (5.0-30.0); SODIUM LEVEL 140 MEQ/L (136-145); TOTAL PROTEIN 7.7 GM/DL (6.4-8.2)
[2022-09-21 17:48] LABS: RSV AMPLIFICATION NEGATIVE (NEGATIVE)
[2022-09-21 17:51] LABS: HCG, SERUM QUALITATIVE NEGATIVE (NEGATIVE)
[2022-09-21 18:01] LABS: AMPHETAMINES LEVEL URINE NEGATIVE (NEGATIVE); BARBITURATES URINE NEGATIVE (NEGATIVE); BENZODIAZEPINES URINE NEGATIVE (NEGATIVE); CANNABINOIDS URINE NEGATIVE (NEGATIVE); COCAINE METABOLITE URINE NEGATIVE (NEGATIVE); METHADONE URINE NEGATIVE (NEGATIVE); OPIATES URINE POSITIVE (NEGATIVE); PHENCYCLIDINE URINE NEGATIVE (NEGATIVE)
[2022-09-21] MEDS ORDERED: PRAZ1CAP PO (21:53)
[2022-09-21] MEDS ORDERED: TRAZ-257 PO (21:53)
[2022-09-21] MEDS ORDERED: FLUO20CA22 PO (21:53)
[2022-09-21] MEDS ORDERED: FLUO40CA PO (21:53)
[2022-09-21] MEDS ORDERED: LIDO1PAD TOP (21:53)
[2022-09-21] MEDS ORDERED: ARIP1TAB6 PO (21:53)
[2022-09-21] MEDS ORDERED: HOME MED LIST COMPLETE! XX SCH (21:55)
[2022-09-22] MEDS: NS 1,000 ML IV SCH (02:15)
[2022-09-22] MEDS: GABAPENTIN 300 MG CAP PO SCH ×3 (09:36→20:55)
[2022-09-22] MEDS: FLUoxetine 20MG CAP PO SCH (09:37)
[2022-09-22] MEDS: ANEXSIA, NORCO 7.5MG/325MG TABLET(HYDROCODONE/APAP) PO PRN ×2 (12:15→20:00)
[2022-09-22 20:56] VITALS: BP 135/76
[2022-09-22] MEDS ORDERED: PRAZOSIN 1 MG CAP PO SCH (21:00)
[2022-09-22] MEDS ORDERED: traZODone 100 MG TAB PO SCH (21:00)
[2022-09-23] MEDS: GABAPENTIN 300 MG CAP PO SCH (10:52)
[2022-09-23] MEDS: FLUoxetine 20MG CAP PO SCH (10:52)
[2022-09-23] MEDS: ANEXSIA, NORCO 7.5MG/325MG TABLET(HYDROCODONE/APAP) PO PRN (10:59)
[2022-09-23 11:39] VITALS: BP 119/71
== END 2022-09-23 13:45 | disposition home or self-care (01) ==
LOC: M ED 15:37
DX: F43.0 Acute stress reaction (principal); R45.851 Suicidal ideations; F32.A Depression, unspecified; Z88.1 Allergy status to other antibiotic agents; Z88.5 Allergy status to narcotic agent; Z79.891 Long term (current) use of opiate analgesic; Z79.83 Long term (current) use of bisphosphonates; Z79.899 Other long term (current) drug therapy

== ENCOUNTER → 2022-10-16 | Outpatient (CLI) | payer MEDICAID ==
[~2022-10-16] MED LIST changes: +LIDO1PAD TOP
== END ==
LOC: M LABSMTC 10:13
PROVIDERS: ATTEND Anesthesiology
DX: Z01.818 Encounter for other preprocedural examination (principal); Z20.822 Contact with and (suspected) exposure to COVID-19

== ENCOUNTER → 2022-10-21 | Outpatient (CLI) | payer OTHER ==
[~2022-10-21] MED LIST changes: +BUPIVACAINE HCL 0.25% 10ML VIAL As Ordered ONE; +BUPIVACAINE HCL 0.25% 30ML VIAL As Ordered ONE; +NORCO, ANEXSIA 5/325MG TABLET (HYDROcodone/ACETAMINOPHEN) As Ordered ONE; +ONDANSETRON 4MG ORAL DISINTEGRATING TAB As Ordered ONE; -PAXI10TA12 PO; +PAXI10TA13 PO; +TRIAMCINOLONE ACETONIDE SUSP 40MG/ML 1ML VIAL As Ordered ONE; +diazePAM 5MG TABLET As Ordered ONE
== END ==
LOC: M PAIN 09:30
PROVIDERS: ATTEND Anesthesiology
DX: M79.10 Myalgia, unspecified site (principal); G89.29 Other chronic pain; G43.909 Migraine, unspecified, not intractable, without status migrainosus; Z86.59 Personal history of other mental and behavioral disorders; Z88.1 Allergy status to other antibiotic agents; Z88.8 Allergy status to other drugs, medicaments and biological substances; Z79.899 Other long term (current) drug therapy
CPT/HCPCS: 20552; J3301

== ENCOUNTER 2022-11-28 15:05 | Emergency (ER) | payer OTHER ==
[~2022-11-28] VITALS: Ht 160 cm; Wt 58.4 kg
[~2022-11-28 15:05] MED LIST changes: -BUPIVACAINE HCL 0.25% 10ML VIAL As Ordered ONE; -BUPIVACAINE HCL 0.25% 30ML VIAL As Ordered ONE; -NORCO, ANEXSIA 5/325MG TABLET (HYDROcodone/ACETAMINOPHEN) As Ordered ONE; -ONDANSETRON 4MG ORAL DISINTEGRATING TAB As Ordered ONE; -TRIAMCINOLONE ACETONIDE SUSP 40MG/ML 1ML VIAL As Ordered ONE; -diazePAM 5MG TABLET As Ordered ONE
[2022-11-28] MEDS ORDERED: VENL150C43 PO (15:18)
[2022-11-28] MEDS ORDERED: MINI1CAP PO (15:18)
[2022-11-28] MEDS ORDERED: TOPA1TAB PO (16:18)
[2022-11-28 16:42] VITALS: BP 132/84
== END 2022-11-28 16:44 | disposition home or self-care (01) ==
LOC: M ED 15:05
DX: Z76.0 Encounter for issue of repeat prescription (principal); F41.9 Anxiety disorder, unspecified; Z88.1 Allergy status to other antibiotic agents; Z88.5 Allergy status to narcotic agent; Z79.83 Long term (current) use of bisphosphonates; Z79.899 Other long term (current) drug therapy

== ENCOUNTER → 2022-12-24 | Outpatient (CLI) | payer OTHER | LOC: M PAIN 13:30 | PROVIDERS: ATTEND Anesthesiology | DX: M79.18 Myalgia, other site (principal); G89.29 Other chronic pain; G43.909 Migraine, unspecified, not intractable, without status migrainosus; M41.9 Scoliosis, unspecified; Z86.59 Personal history of other mental and behavioral disorders; Z88.1 Allergy status to other antibiotic agents; Z88.8 Allergy status to other drugs, medicaments and biological substances; Z79.899 Other long term (current) drug therapy ==

== ENCOUNTER 2023-01-03 16:53 | Emergency (ER) | payer OTHER ==
[~2023-01-03] VITALS: Ht 160 cm; Wt 60.2 kg
[2023-01-03 20:00] VITALS: BP 145/84
[2023-01-03 20:21] LABS: BASO % 0.6 % (0.0-1.0); EOS # 0.3 10^3/uL (0.0-0.5); EOS % 3.8 % (0.0-3.0); HEMATOCRIT 38.9 % (36.0-47.0); HEMOGLOBIN 12.6 g/dl (12.0-15.5); LYMPH # 1.4 10^3/uL (1.5-5.0); LYMPH % 21.1 % (24.0-44.0); MEAN CORPUSCULAR HEMOGLOBIN 31.3 pg (27.0-33.0); MEAN CORPUSCULAR HGB CONC 32.4 g/dl (32.0-36.5); MEAN CORPUSCULAR VOLUME 96.5 fl (80.0-96.0); MONO # 0.4 10^3/uL (0.0-0.8); MONO % 6.5 % (2.0-8.0); NEUTROPHILS # 4.6 10^3/uL (1.5-8.5); NEUTROPHILS % 67.9 % (36.0-66.0); PLATELET COUNT, AUTOMATED 207 10^3/uL (150-450); RED BLOOD COUNT 4.03 10^6/uL (4.00-5.40); WHITE BLOOD COUNT 6.8 10^3/uL (4.0-10.0)
[2023-01-03 20:41] LABS: AMPHETAMINES LEVEL URINE NEGATIVE (NEGATIVE); BARBITURATES URINE NEGATIVE (NEGATIVE); BENZODIAZEPINES URINE NEGATIVE (NEGATIVE); CANNABINOIDS URINE NEGATIVE (NEGATIVE); PHENCYCLIDINE URINE NEGATIVE (NEGATIVE)
[2023-01-03 20:42] LABS: COCAINE METABOLITE URINE NEGATIVE (NEGATIVE); METHADONE URINE NEGATIVE (NEGATIVE)
[2023-01-03 20:43] LABS: ETHYL ALCOHOL (ETHANOL) < 0.003 % (0.000-0.010)
[2023-01-03 20:45] LABS: ACETAMINOPHEN LEVEL < 2.0 UG/ML (10.0-20.0); ALKALINE PHOSPHATASE 66 U/L (46-116); ALT/SGPT 16 U/L (7.0-40); AST/SGOT 21 U/L (<34); BILIRUBIN,DIRECT 0.2 MG/DL (<0.4); BILIRUBIN,TOTAL 0.5 MG/DL (0.3-1.2); BLOOD UREA NITROGEN 9 MG/DL (9-23); CARBON DIOXIDE LEVEL 29 MMOL/L (20-31); CHLORIDE LEVEL 107 MMOL/L (98-107); CREATININE FOR GFR 0.49 MG/DL (0.55-1.30); GLOMERULAR FILTRATION RATE > 60.0 (>60); GLUCOSE, FASTING 98 MG/DL (60-100); POTASSIUM SERUM 3.5 MMOL/L (3.5-5.1); SALICYLATE LEVEL < 3.0 MG/DL (<30); SODIUM LEVEL 140 MMOL/L (136-145); TOTAL PROTEIN 6.9 G/DL (5.7-8.2)
[2023-01-03 20:47] LABS: OPIATES URINE POSITIVE (NEGATIVE)
== END 2023-01-03 21:55 | disposition home or self-care (01) ==
LOC: M ED 16:53
DX: F41.9 Anxiety disorder, unspecified (principal); F32.A Depression, unspecified; M54.50 Low back pain, unspecified; Z88.1 Allergy status to other antibiotic agents; Z88.5 Allergy status to narcotic agent; Z79.83 Long term (current) use of bisphosphonates; Z79.899 Other long term (current) drug therapy

== ENCOUNTER 2023-02-03 21:04 | Emergency (ER) | payer OTHER ==
[~2023-02-03] VITALS: Ht 160 cm; Wt 57.8 kg
[2023-02-03 22:10] LABS: HEMOGLOBIN 12.8 g/dl (12.0-15.5); MEAN CORPUSCULAR HGB CONC 32.8 g/dl (32.0-36.5); MEAN CORPUSCULAR VOLUME 94.4 fl (80.0-96.0); PLATELET COUNT, AUTOMATED 184 10^3/uL (150-450); RED BLOOD COUNT 4.13 10^6/uL (4.00-5.40); WHITE BLOOD COUNT 5.4 10^3/uL (4.0-10.0)
[2023-02-03] MEDS ORDERED: hydrOXYzine 50 MG TAB PO ONE (22:30)
[2023-02-03 22:31] LABS: AMPHETAMINES LEVEL URINE NEGATIVE (NEGATIVE); BARBITURATES URINE NEGATIVE (NEGATIVE); BENZODIAZEPINES URINE NEGATIVE (NEGATIVE); COCAINE METABOLITE URINE NEGATIVE (NEGATIVE); METHADONE URINE NEGATIVE (NEGATIVE); OPIATES URINE NEGATIVE (NEGATIVE)
[2023-02-03 22:32] LABS: CANNABINOIDS URINE NEGATIVE (NEGATIVE); PHENCYCLIDINE URINE NEGATIVE (NEGATIVE)
[2023-02-03 22:33] LABS: ETHYL ALCOHOL (ETHANOL) 0.006 % (0.000-0.010)
[2023-02-03 22:35] LABS: ACETAMINOPHEN LEVEL 2.8 UG/ML (10.0-20.0); SALICYLATE LEVEL < 3.0 MG/DL (<30)
[2023-02-03 22:39] LABS: ALBUMIN 4.1 G/DL (3.2-5.2); ALKALINE PHOSPHATASE 59 U/L (46-116); ALT/SGPT 14 U/L (7.0-40); AST/SGOT 20 U/L (<34); BILIRUBIN,DIRECT 0.8 MG/DL (<0.4); BILIRUBIN,TOTAL 2.4 MG/DL (0.3-1.2); BLOOD UREA NITROGEN 9 MG/DL (9-23); CALCIUM LEVEL 8.7 MG/DL (8.5-10.1); CARBON DIOXIDE LEVEL 26 MMOL/L (20-31); CHLORIDE LEVEL 106 MMOL/L (98-107); CREATININE FOR GFR 0.62 MG/DL (0.55-1.30); GLOMERULAR FILTRATION RATE > 60.0 (>60); GLUCOSE, FASTING 91 MG/DL (60-100); SODIUM LEVEL 138 MMOL/L (136-145); THYROID STIMULATING HORMONE 0.551 uIU/ML (0.55-4.78); TOTAL PROTEIN 6.6 G/DL (5.7-8.2)
[2023-02-03] MEDS: ANEXSIA, NORCO 7.5MG/325MG TABLET(HYDROCODONE/APAP) PO PRN (23:03)
[2023-02-03 23:05] LABS: HCG, SERUM QUALITATIVE NEGATIVE (NEGATIVE)
[2023-02-04] MEDS ORDERED: GABA-282 PO (00:13)
[2023-02-04] MEDS ORDERED: VENL150C43 PO (00:13)
[2023-02-04] MEDS ORDERED: HYDR-4514 PO (00:13)
[2023-02-04] MEDS ORDERED: HOME MED LIST COMPLETE! XX SCH (00:15)
[2023-02-04] MEDS ORDERED: ANEXSIA, NORCO 7.5MG/325MG TABLET(HYDROCODONE/APAP) PO PRN (07:10)
[2023-02-04] MEDS: ANEXSIA, NORCO 7.5MG/325MG TABLET(HYDROCODONE/APAP) PO PRN (11:28)
[2023-02-04 14:28] VITALS: BP 107/71
== END 2023-02-04 14:34 | disposition home or self-care (01) ==
LOC: M ED 21:04
DX: F32.A Depression, unspecified (principal); R45.851 Suicidal ideations; F41.9 Anxiety disorder, unspecified; Z88.0 Allergy status to penicillin; Z88.8 Allergy status to other drugs, medicaments and biological substances; Z88.1 Allergy status to other antibiotic agents; Z79.899 Other long term (current) drug therapy

== ENCOUNTER → 2023-04-22 | Outpatient (CLI) | payer OTHER ==
[~2023-04-22] MED LIST changes: +SENN-186 PO; -SENN-80 PO
== END ==
LOC: M PAIN 11:15
PROVIDERS: ATTEND Anesthesiology
DX: M96.1 Postlaminectomy syndrome, not elsewhere classified (principal); M79.10 Myalgia, unspecified site; M47.816 Spondylosis without myelopathy or radiculopathy, lumbar region; G89.29 Other chronic pain; G43.909 Migraine, unspecified, not intractable, without status migrainosus; Z86.59 Personal history of other mental and behavioral disorders; Z88.1 Allergy status to other antibiotic agents; Z88.8 Allergy status to other drugs, medicaments and biological substances; Z79.899 Other long term (current) drug therapy

== ENCOUNTER 2023-05-25 23:32 | Emergency (ER) | payer OTHER ==
[~2023-05-25] VITALS: Ht 160 cm; Wt 56.8 kg
[2023-05-26 00:37] LABS: HEMATOCRIT 41.3 % (36.0-47.0); HEMOGLOBIN 13.8 g/dl (12.0-15.5); MEAN CORPUSCULAR HEMOGLOBIN 30.9 pg (27.0-33.0); MEAN CORPUSCULAR HGB CONC 33.4 g/dl (32.0-36.5); MEAN CORPUSCULAR VOLUME 92.6 fl (80.0-96.0); PLATELET COUNT, AUTOMATED 247 10^3/uL (150-450); RED BLOOD COUNT 4.46 10^6/uL (4.00-5.40); WHITE BLOOD COUNT 5.3 10^3/uL (4.0-10.0)
[2023-05-26 01:01] LABS: SALICYLATE LEVEL < 3.0 MG/DL (<30)
[2023-05-26 01:02] LABS: ACETAMINOPHEN LEVEL < 2.0 UG/ML (10.0-20.0); ALBUMIN 4.3 G/DL (3.2-5.2); ALKALINE PHOSPHATASE 77 U/L (46-116); ALT/SGPT 20 U/L (7.0-40); AST/SGOT 23 U/L (<34); BILIRUBIN,DIRECT 0.1 MG/DL (<0.4); BILIRUBIN,TOTAL 0.3 MG/DL (0.3-1.2); BLOOD UREA NITROGEN 7 MG/DL (9-23); CARBON DIOXIDE LEVEL 24 MMOL/L (20-31); CHLORIDE LEVEL 110 MMOL/L (98-107); CREATININE FOR GFR 0.52 MG/DL (0.55-1.30); GLOMERULAR FILTRATION RATE > 60.0 (>60); GLUCOSE, FASTING 95 MG/DL (60-100); POTASSIUM SERUM 4.2 MMOL/L (3.5-5.1); SODIUM LEVEL 143 MMOL/L (136-145); TOTAL PROTEIN 7.5 G/DL (5.7-8.2)
[2023-05-26 01:03] LABS: THYROID STIMULATING HORMONE 0.499 uIU/ML (0.55-4.78)
[2023-05-26 01:24] LABS: ETHYL ALCOHOL (ETHANOL) 0.283 % (0.000-0.010); HCG, SERUM QUALITATIVE NEGATIVE (NEGATIVE)
[2023-05-26] MEDS ORDERED: ONDANSETRON 4MG ORAL DISINTEGRATING TAB PO ONE (02:35)
[2023-05-26 02:52] LABS: AMPHETAMINES LEVEL URINE NEGATIVE (NEGATIVE); BARBITURATES URINE NEGATIVE (NEGATIVE); BENZODIAZEPINES URINE NEGATIVE (NEGATIVE); CANNABINOIDS URINE NEGATIVE (NEGATIVE); COCAINE METABOLITE URINE NEGATIVE (NEGATIVE); METHADONE URINE NEGATIVE (NEGATIVE); PHENCYCLIDINE URINE NEGATIVE (NEGATIVE)
[2023-05-26 02:56] LABS: OPIATES URINE POSITIVE (NEGATIVE)
[2023-05-26] MEDS ORDERED: ACETAMINOPHEN TAB 650MG DOSE (2X325MG) PO ONE (08:15)
[2023-05-26] MEDS ORDERED: ANEXSIA, NORCO 7.5MG/325MG TABLET(HYDROCODONE/APAP) PO ONE (10:50)
[2023-05-26] MEDS ORDERED: LORazepam 2 MG TAB PO STA (14:46)
[2023-05-26] MEDS ORDERED: LORazepam 2 MG TAB PO ONE (21:35)
[2023-05-26] MEDS ORDERED: META1TAB22 PO (22:11)
[2023-05-26] MEDS ORDERED: HOME MED LIST COMPLETE! XX SCH (22:15)
[2023-05-26 22:23] VITALS: TEMP 97.4; O2SAT 97
[2023-05-26 22:24] VITALS: BP 136/91
== END 2023-05-26 22:27 ==
LOC: M ED 23:32
DX: R45.851 Suicidal ideations (principal); F32.A Depression, unspecified; F17.200 Nicotine dependence, unspecified, uncomplicated; F10.10 Alcohol abuse, uncomplicated; Z86.79 Personal history of other diseases of the circulatory system; Z88.1 Allergy status to other antibiotic agents; Z88.5 Allergy status to narcotic agent; Z88.8 Allergy status to other drugs, medicaments and biological substances; Z79.899 Other long term (current) drug therapy

== ENCOUNTER → 2023-06-03 | Outpatient (CLI) | payer OTHER ==
[~2023-06-03] MED LIST changes: +META1TAB22 PO
== END ==
LOC: M PAIN 13:15
PROVIDERS: ATTEND Anesthesiology
DX: M96.1 Postlaminectomy syndrome, not elsewhere classified (principal); M47.816 Spondylosis without myelopathy or radiculopathy, lumbar region; G89.29 Other chronic pain; M54.50 Low back pain, unspecified; F41.9 Anxiety disorder, unspecified; F31.9 Bipolar disorder, unspecified; I48.91 Unspecified atrial fibrillation; G43.909 Migraine, unspecified, not intractable, without status migrainosus; M41.9 Scoliosis, unspecified; Z79.891 Long term (current) use of opiate analgesic; Z79.899 Other long term (current) drug therapy; Z88.0 Allergy status to penicillin; Z88.8 Allergy status to other drugs, medicaments and biological substances; Z88.1 Allergy status to other antibiotic agents

== ENCOUNTER → 2023-06-23 | Outpatient (CLI) | payer OTHER ==
[~2023-06-23] MED LIST changes: +ISOVUE-M 300 61% 15ML VIAL As Ordered ONE; +LIDOCAINE 1% SDV 30ML VIAL As Ordered ONE
== END ==
LOC: M PAIN 10:00
PROVIDERS: ATTEND Anesthesiology
DX: M47.816 Spondylosis without myelopathy or radiculopathy, lumbar region (principal); G89.29 Other chronic pain; G43.909 Migraine, unspecified, not intractable, without status migrainosus; Z86.59 Personal history of other mental and behavioral disorders; Z88.1 Allergy status to other antibiotic agents; Z88.8 Allergy status to other drugs, medicaments and biological substances; Z79.899 Other long term (current) drug therapy
CPT/HCPCS: 64493; 64494; J0665; Q9967

== ENCOUNTER → 2023-06-24 | Outpatient (CLI) | payer OTHER ==
[~2023-06-24] MED LIST changes: -ISOVUE-M 300 61% 15ML VIAL As Ordered ONE; -LIDOCAINE 1% SDV 30ML VIAL As Ordered ONE
== END ==
LOC: M PAIN 11:00
PROVIDERS: ATTEND Anesthesiology
DX: M96.1 Postlaminectomy syndrome, not elsewhere classified (principal); G89.29 Other chronic pain; G43.909 Migraine, unspecified, not intractable, without status migrainosus; Z86.59 Personal history of other mental and behavioral disorders; Z88.1 Allergy status to other antibiotic agents; Z88.8 Allergy status to other drugs, medicaments and biological substances; Z79.899 Other long term (current) drug therapy

== ENCOUNTER → 2023-07-01 | Outpatient (CLI) | payer OTHER | LOC: M PAIN 09:00 | PROVIDERS: ATTEND Anesthesiology | DX: M96.1 Postlaminectomy syndrome, not elsewhere classified (principal); G43.909 Migraine, unspecified, not intractable, without status migrainosus; Z86.59 Personal history of other mental and behavioral disorders; Z88.1 Allergy status to other antibiotic agents; Z88.5 Allergy status to narcotic agent; Z79.899 Other long term (current) drug therapy ==

== ENCOUNTER → 2023-07-08 | Outpatient (CLI) | payer OTHER | LOC: M PAIN 13:00 | PROVIDERS: ATTEND Anesthesiology | DX: G43.709 Chronic migraine without aura, not intractable, without status migrainosus (principal); Z86.59 Personal history of other mental and behavioral disorders; Z88.1 Allergy status to other antibiotic agents; Z88.5 Allergy status to narcotic agent; Z79.899 Other long term (current) drug therapy ==

== ENCOUNTER → 2023-10-07 | Outpatient (CLI) | payer OTHER | LOC: M PAIN 09:30 | PROVIDERS: ATTEND Anesthesiology | DX: M79.10 Myalgia, unspecified site (principal); M96.1 Postlaminectomy syndrome, not elsewhere classified; M54.50 Low back pain, unspecified; G43.709 Chronic migraine without aura, not intractable, without status migrainosus; Z88.1 Allergy status to other antibiotic agents; Z88.5 Allergy status to narcotic agent; Z79.899 Other long term (current) drug therapy ==

== ENCOUNTER 2023-10-31 02:55 | Emergency (ER) | payer OTHER ==
[~2023-10-31] VITALS: Ht 160 cm; Wt 54.7 kg
[2023-10-31 02:55] VITALS: BP 98/68; TEMP 97.7; O2SAT 100
[2023-10-31] MEDS ORDERED: MORP15TA2 (03:02)
== END 2023-10-31 03:19 | disposition left against medical advice (07) ==
LOC: M ED 02:55
DX: Z53.21 Procedure and treatment not carried out due to patient leaving prior to being seen by health care provider (principal)

== ENCOUNTER → 2023-12-16 | Outpatient (CLI) | payer OTHER ==
[~2023-12-16] MED LIST changes: +MORP15TA2
== END ==
LOC: M PAIN 17:00
PROVIDERS: ATTEND Anesthesiology
DX: M79.10 Myalgia, unspecified site (principal); M54.2 Cervicalgia; Z88.1 Allergy status to other antibiotic agents; Z88.5 Allergy status to narcotic agent; Z79.899 Other long term (current) drug therapy

== ENCOUNTER 2024-01-15 18:12 | Emergency (ER) | payer OTHER ==
[~2024-01-15] VITALS: Ht 160 cm; Wt 54.9 kg
[~2024-01-15 18:12] MED LIST changes: -ALBU6.7H6 INH; -BENZ200C70 PO
[2024-01-15] MEDS ORDERED: ALBU6.7H6 INH (21:22)
[2024-01-15] MEDS ORDERED: BENZ200C70 PO (21:22)
[2024-01-15 21:31] VITALS: BP 158/90; TEMP 98.6; O2SAT 100
== END 2024-01-15 21:33 | disposition home or self-care (01) ==
LOC: M ED 18:12
DX: U07.1 COVID-19 (principal); K21.9 Gastro-esophageal reflux disease without esophagitis; M34.9 Systemic sclerosis, unspecified; Z88.1 Allergy status to other antibiotic agents; Z88.5 Allergy status to narcotic agent; Z79.52 Long term (current) use of systemic steroids; Z79.891 Long term (current) use of opiate analgesic; Z79.899 Other long term (current) drug therapy

== ENCOUNTER → 2024-01-15 | Outpatient (CLI) | payer OTHER ==
[~2024-01-15] MED LIST changes: +ALBU6.7H6 INH; +BENZ200C70 PO
== END ==
LOC: M RAD 17:49
PROVIDERS: ATTEND Physician Assistant Medical
DX: U07.1 COVID-19 (principal)

== ENCOUNTER → 2024-03-08 | Outpatient (CLI) | payer OTHER ==
[~2024-03-08] MED LIST changes: +ALBU6.7H6 INH; +BENZ200C70 PO; +FLUO-290 PO; -FLUO10CA18 PO; +NORCO, ANEXSIA 5/325MG TABLET (HYDROcodone/ACETAMINOPHEN) As Ordered ONE; +ONDANSETRON 4MG ORAL DISINTEGRATING TAB As Ordered ONE; +TRIAMCINOLONE ACETONIDE SUSP 40MG/ML 1ML VIAL As Ordered ONE; +diazePAM 5MG TABLET As Ordered ONE
== END ==
LOC: M PAIN 08:15
PROVIDERS: ATTEND Anesthesiology
DX: M79.18 Myalgia, other site (principal); F41.9 Anxiety disorder, unspecified; F31.9 Bipolar disorder, unspecified; M41.9 Scoliosis, unspecified; G43.909 Migraine, unspecified, not intractable, without status migrainosus; Z79.891 Long term (current) use of opiate analgesic; Z88.0 Allergy status to penicillin; Z79.899 Other long term (current) drug therapy; Z88.1 Allergy status to other antibiotic agents; Z88.8 Allergy status to other drugs, medicaments and biological substances
CPT/HCPCS: 20553; J0665; J3301

== ENCOUNTER → 2024-03-31 | Outpatient (CLI) | payer OTHER ==
[~2024-03-31] MED LIST changes: -NORCO, ANEXSIA 5/325MG TABLET (HYDROcodone/ACETAMINOPHEN) As Ordered ONE; -ONDANSETRON 4MG ORAL DISINTEGRATING TAB As Ordered ONE; -TRIAMCINOLONE ACETONIDE SUSP 40MG/ML 1ML VIAL As Ordered ONE; -diazePAM 5MG TABLET As Ordered ONE
== END ==
LOC: M SOG 07:54
PROVIDERS: ATTEND Physician Assistant
DX: M25.532 Pain in left wrist (principal); S52.552D Other extraarticular fracture of lower end of left radius, subsequent encounter for closed fracture with routine healing

== ENCOUNTER 2024-04-17 17:04 | Emergency (ER) | payer OTHER ==
[~2024-04-17] VITALS: Ht 160 cm; Wt 54.5 kg
[~2024-04-17 17:04] MED LIST changes: +FLUO-365 PO; -FLUO20CA22 PO; +ONDA-282 PO; -ONDA4TAB6 PO
[2024-04-17] MEDS ORDERED: IBUP80TA PO (17:13)
[2024-04-17] MEDS: PERCOCET 5MG/325MG TAB PO ONE (18:59)
[2024-04-17] MEDS ORDERED: PERC5TAB12 PO (19:50)
[2024-04-17 20:07] VITALS: BP 146/85; TEMP 98.4; O2SAT 98
== END 2024-04-17 20:05 | disposition home or self-care (01) ==
LOC: M ED 17:04
DX: M54.50 Low back pain, unspecified (principal); M62.830 Muscle spasm of back; M43.16 Spondylolisthesis, lumbar region; M51.36 Other intervertebral disc degeneration, lumbar region; M51.37 Other intervertebral disc degeneration, lumbosacral region; J45.909 Unspecified asthma, uncomplicated; Z88.1 Allergy status to other antibiotic agents; Z88.5 Allergy status to narcotic agent; Z98.1 Arthrodesis status; Z79.52 Long term (current) use of systemic steroids; Z79.1 Long term (current) use of non-steroidal anti-inflammatories (NSAID); Z79.899 Other long term (current) drug therapy

== ENCOUNTER 2024-05-06 00:37 | Emergency (ER) | payer OTHER ==
[~2024-05-06 00:37] MED LIST changes: +PERC5TAB12 PO
[2024-05-06 01:18] LABS: BASO % 0.5 % (0.0-1.0); EOS # 0.1 10^3/uL (0.0-0.5); EOS % 1.1 % (0.0-3.0); HEMATOCRIT 41.5 % (36.0-47.0); LYMPH # 2.1 10^3/uL (1.5-5.0); LYMPH % 24.2 % (24.0-44.0); MEAN CORPUSCULAR HEMOGLOBIN 31.6 pg (27.0-33.0); MEAN CORPUSCULAR HGB CONC 33.7 g/dl (32.0-36.5); MEAN CORPUSCULAR VOLUME 93.7 fl (80.0-96.0); MONO # 0.5 10^3/uL (0.0-0.8); MONO % 6.1 % (2.0-8.0); NEUTROPHILS # 5.9 10^3/uL (1.5-8.5); NEUTROPHILS % 67.9 % (36.0-66.0); PLATELET COUNT, AUTOMATED 208 10^3/uL (150-450); RED BLOOD COUNT 4.43 10^6/uL (4.00-5.40); WHITE BLOOD COUNT 8.7 10^3/uL (4.0-10.0)
[2024-05-06] MEDS: KETOROLAC 30 MG/ML 1ML VIAL IV ONE (01:23)
[2024-05-06] MEDS: ONDANSETRON 4MG 2ML VIAL IV ONE (01:23)
[2024-05-06] MEDS: NS 1,000 ML IV ONE (01:23)
[2024-05-06 01:31] VITALS: BP 138/77; TEMP 98; O2SAT 99
[2024-05-06 01:31] LABS: BLOOD UREA NITROGEN 10 MG/DL (9-23); CALCIUM LEVEL 9.4 MG/DL (8.5-10.1); CARBON DIOXIDE LEVEL 24 MMOL/L (20-31); CHLORIDE LEVEL 109 MMOL/L (98-107); CREATININE FOR GFR 0.55 MG/DL (0.55-1.30); GLOMERULAR FILTRATION RATE > 60.0 (>60); GLUCOSE, FASTING 120 MG/DL (60-100); MAGNESIUM LEVEL 1.8 MG/DL (1.8-2.4); SODIUM LEVEL 141 MMOL/L (136-145)
[2024-05-06 01:36] LABS: ETHYL ALCOHOL (ETHANOL) 0.163 % (0.000-0.010)
== END 2024-05-06 02:00 | disposition left against medical advice (07) ==
LOC: M ED 00:37
DX: S09.90XA Unspecified injury of head, initial encounter (principal); S90.32XA Contusion of left foot, initial encounter; Y04.0XXA Assault by unarmed brawl or fight, initial encounter; Z88.1 Allergy status to other antibiotic agents; Z88.5 Allergy status to narcotic agent; Z88.8 Allergy status to other drugs, medicaments and biological substances; Z79.899 Other long term (current) drug therapy; Z53.9 Procedure and treatment not carried out, unspecified reason; Y92.410 Unspecified street and highway as the place of occurrence of the external cause; Y93.89 Activity, other specified; Y99.9 Unspecified external cause status
CPT/HCPCS: 70450; 71045; 72125; 73090; 73630; 80048; 82077; 83735; 85025; 96361; 96374; 99284; J1885; J2405

== ENCOUNTER 2024-05-15 14:01 | Emergency (ER) | payer OTHER ==
[~2024-05-15] VITALS: Ht 160 cm; Wt 52.4 kg
[2024-05-15 15:28] VITALS: BP 118/75; TEMP 97.7; O2SAT 96
== END 2024-05-15 16:05 | disposition left against medical advice (07) ==
LOC: M ED 14:01
DX: Z53.21 Procedure and treatment not carried out due to patient leaving prior to being seen by health care provider (principal)

== ENCOUNTER → 2024-05-16 | Outpatient (CLI) | payer OTHER | LOC: M PAIN 17:00 | PROVIDERS: ATTEND Nurse Practitioner Family | DX: M79.18 Myalgia, other site (principal); G89.29 Other chronic pain; F41.9 Anxiety disorder, unspecified; F31.9 Bipolar disorder, unspecified; I48.91 Unspecified atrial fibrillation; G43.909 Migraine, unspecified, not intractable, without status migrainosus; Z79.891 Long term (current) use of opiate analgesic; Z79.899 Other long term (current) drug therapy; Z88.1 Allergy status to other antibiotic agents; Z88.0 Allergy status to penicillin; Z88.8 Allergy status to other drugs, medicaments and biological substances ==

== ENCOUNTER → 2024-05-18 | Outpatient (CLI) | payer OTHER | LOC: M PAIN 16:00 | PROVIDERS: ATTEND Anesthesiology | DX: G43.709 Chronic migraine without aura, not intractable, without status migrainosus (principal); F41.9 Anxiety disorder, unspecified; F31.9 Bipolar disorder, unspecified; Z79.891 Long term (current) use of opiate analgesic; Z79.899 Other long term (current) drug therapy; Z88.0 Allergy status to penicillin; Z88.1 Allergy status to other antibiotic agents; Z88.8 Allergy status to other drugs, medicaments and biological substances ==

== ENCOUNTER → 2024-06-16 | Outpatient (CLI) | payer OTHER | LOC: M PAIN 12:00 | PROVIDERS: ATTEND Anesthesiology | DX: M96.1 Postlaminectomy syndrome, not elsewhere classified (principal); Z79.891 Long term (current) use of opiate analgesic; Z79.899 Other long term (current) drug therapy; Z88.1 Allergy status to other antibiotic agents; Z88.5 Allergy status to narcotic agent ==

== ENCOUNTER → 2024-07-14 | Outpatient (CLI) | payer OTHER ==
[~2024-07-14] MED LIST changes: +NORCO, ANEXSIA 5/325MG TABLET (HYDROcodone/ACETAMINOPHEN) As Ordered ONE; +ONDANSETRON 4MG ORAL DISINTEGRATING TAB As Ordered ONE; +TRIAMCINOLONE ACETONIDE SUSP 40MG/ML 1ML VIAL As Ordered ONE; +diazePAM 5MG TABLET As Ordered ONE
== END ==
LOC: M PAIN 10:00
PROVIDERS: ATTEND Anesthesiology
DX: M79.12 Myalgia of auxiliary muscles, head and neck (principal); G89.29 Other chronic pain; F41.9 Anxiety disorder, unspecified; F31.9 Bipolar disorder, unspecified; I48.91 Unspecified atrial fibrillation; G43.909 Migraine, unspecified, not intractable, without status migrainosus; M41.9 Scoliosis, unspecified; Z79.891 Long term (current) use of opiate analgesic; Z79.899 Other long term (current) drug therapy; Z88.0 Allergy status to penicillin; Z88.1 Allergy status to other antibiotic agents; Z88.8 Allergy status to other drugs, medicaments and biological substances
CPT/HCPCS: 20552; J0665; J3301

== ENCOUNTER → 2024-08-12 | Outpatient (CLI) | payer OTHER ==
[~2024-08-12] MED LIST changes: +ALPR0.25; +GABA-1172 PO; -GABA-282 PO; +KETO10TAB PO; -NORCO, ANEXSIA 5/325MG TABLET (HYDROcodone/ACETAMINOPHEN) As Ordered ONE; -ONDANSETRON 4MG ORAL DISINTEGRATING TAB As Ordered ONE; -SIME180C25 PO; +SIME1CAP4 PO; +TIZA10TA; +TRAZ-252; -TRIAMCINOLONE ACETONIDE SUSP 40MG/ML 1ML VIAL As Ordered ONE; -diazePAM 5MG TABLET As Ordered ONE
== END ==
LOC: M PAIN 11:15
PROVIDERS: ATTEND Nurse Practitioner Family
DX: G89.29 Other chronic pain (principal); Z79.891 Long term (current) use of opiate analgesic; M79.18 Myalgia, other site; M41.9 Scoliosis, unspecified; M96.1 Postlaminectomy syndrome, not elsewhere classified; F41.9 Anxiety disorder, unspecified; F31.9 Bipolar disorder, unspecified; I48.91 Unspecified atrial fibrillation; G43.909 Migraine, unspecified, not intractable, without status migrainosus; Z79.899 Other long term (current) drug therapy; Z88.0 Allergy status to penicillin; Z88.1 Allergy status to other antibiotic agents; Z88.8 Allergy status to other drugs, medicaments and biological substances

== ENCOUNTER 2024-08-24 14:36 | Emergency (ER) | payer OTHER ==
[~2024-08-24] VITALS: Ht 160 cm; Wt 54.5 kg
[~2024-08-24 14:36] MED LIST changes: -ALPR0.25; -KETO10TAB PO; -TIZA10TA; -TRAZ-252
[2024-08-24] MEDS ORDERED: ALPR0.25 (15:18)
[2024-08-24] MEDS ORDERED: TIZA10TA (15:18)
[2024-08-24] MEDS ORDERED: TRAZ-252 (15:18)
[2024-08-24 15:20] LABS: BASO % 0.6 % (0.0-1.0); EOS # 0.1 10^3/uL (0.0-0.5); EOS % 2.2 % (0.0-3.0); HEMATOCRIT 40.6 % (36.0-47.0); HEMOGLOBIN 13.5 g/dl (12.0-15.5); LYMPH # 1.6 10^3/uL (1.5-5.0); LYMPH % 29.2 % (24.0-44.0); MEAN CORPUSCULAR HEMOGLOBIN 31.2 pg (27.0-33.0); MEAN CORPUSCULAR HGB CONC 33.3 g/dl (32.0-36.5); MEAN CORPUSCULAR VOLUME 93.8 fl (80.0-96.0); MONO # 0.5 10^3/uL (0.0-0.8); MONO % 8.7 % (2.0-8.0); NEUTROPHILS # 3.2 10^3/uL (1.5-8.5); NEUTROPHILS % 59.1 % (36.0-66.0); PLATELET COUNT, AUTOMATED 177 10^3/uL (150-450); RED BLOOD COUNT 4.33 10^6/uL (4.00-5.40); WHITE BLOOD COUNT 5.4 10^3/uL (4.0-10.0)
[2024-08-24 15:35] LABS: D-DIMER QUANT 0.34 ug/mL (<0.5); INR 1.02; PROTHROMBIN TIME 13.1 SECONDS (12.5-14.5)
[2024-08-24 15:41] LABS: CK-MB VALUE MASS < 1.0 NG/ML (<3.6)
[2024-08-24 15:42] LABS: LIPASE 26 U/L (12-53)
[2024-08-24 15:43] LABS: CPK CREATINE PHOSPHOKINASE 64 U/L (34-145); MB/CK RELATIVE INDEX 1.56 (< OR =4)
[2024-08-24 15:44] LABS: ALBUMIN 3.7 G/DL (3.2-5.2); ALKALINE PHOSPHATASE 62 U/L (46-116); ALT/SGPT 15 U/L (7.0-40); AST/SGOT 14 U/L (<34); BILIRUBIN,DIRECT 0.2 MG/DL (<0.4); BILIRUBIN,TOTAL 0.5 MG/DL (0.3-1.2); BLOOD UREA NITROGEN 12 MG/DL (9-23); CALCIUM LEVEL 9.5 MG/DL (8.5-10.1); CARBON DIOXIDE LEVEL 27 MMOL/L (20-31); CHLORIDE LEVEL 111 MMOL/L (98-107); CREATININE FOR GFR 0.65 MG/DL (0.55-1.30); GLOMERULAR FILTRATION RATE > 60.0 (>60); GLUCOSE, FASTING 84 MG/DL (60-100); POTASSIUM SERUM 3.8 MMOL/L (3.5-5.1); SODIUM LEVEL 141 MMOL/L (136-145); TOTAL PROTEIN 6.5 G/DL (5.7-8.2)
[2024-08-24] MEDS: KETOROLAC 30 MG/ML 1ML VIAL IV ONE (16:10)
[2024-08-24] MEDS ORDERED: KETO10TAB PO (17:47)
[2024-08-24 17:57] VITALS: O2SAT 99
[2024-08-24 18:00] VITALS: BP 110/76; TEMP 97.4
== END 2024-08-24 18:10 | disposition home or self-care (01) ==
LOC: EDBD 14:36 → M ED 14:36
DX: M94.0 Chondrocostal junction syndrome [Tietze] (principal); I44.0 Atrioventricular block, first degree; K21.9 Gastro-esophageal reflux disease without esophagitis; F43.10 Post-traumatic stress disorder, unspecified; F31.9 Bipolar disorder, unspecified; F90.9 Attention-deficit hyperactivity disorder, unspecified type; Z88.1 Allergy status to other antibiotic agents; Z88.5 Allergy status to narcotic agent; Z79.899 Other long term (current) drug therapy
CPT/HCPCS: 71045; 80048; 80076; 82550; 82553; 83690; 84484; 85025; 85379; 85610; 93005; 93041; 93971; 94760; 96374; 99285; J1885

== ENCOUNTER 2024-09-11 17:13 | Emergency (ER) | payer OTHER ==
[~2024-09-11] VITALS: Ht 160 cm; Wt 49.4 kg
[~2024-09-11 17:13] MED LIST changes: +ALPR0.25; +KETO10TAB PO; +TIZA10TA; +TRAZ-252
[2024-09-11 17:25] VITALS: TEMP 97.5
[2024-09-11 18:00] VITALS: BP 117/76; O2SAT 100
[2024-09-11] MEDS: MORPHINE 15 MG SA TAB PO ONE (18:00)
== END 2024-09-11 18:06 | disposition home or self-care (01) ==
LOC: M ED 17:13
DX: F11.13 Opioid abuse with withdrawal (principal); K21.9 Gastro-esophageal reflux disease without esophagitis; F43.10 Post-traumatic stress disorder, unspecified; F31.9 Bipolar disorder, unspecified; F90.9 Attention-deficit hyperactivity disorder, unspecified type; Z88.1 Allergy status to other antibiotic agents; Z88.5 Allergy status to narcotic agent; Z79.899 Other long term (current) drug therapy

== ENCOUNTER → 2024-11-11 | Outpatient (CLI) | payer OTHER ==
[~2024-11-11] MED LIST changes: +META-10 PO; -META1TAB22 PO
== END ==
LOC: M PAIN 17:00
PROVIDERS: ATTEND Nurse Practitioner Family
DX: M51.16 Intervertebral disc disorders with radiculopathy, lumbar region (principal); M46.1 Sacroiliitis, not elsewhere classified; G89.29 Other chronic pain; F41.9 Anxiety disorder, unspecified; F31.9 Bipolar disorder, unspecified; I48.91 Unspecified atrial fibrillation; F32.A Depression, unspecified; G43.909 Migraine, unspecified, not intractable, without status migrainosus; M41.9 Scoliosis, unspecified; Z79.891 Long term (current) use of opiate analgesic; Z79.899 Other long term (current) drug therapy; H40.9 Unspecified glaucoma; Z88.0 Allergy status to penicillin; Z88.1 Allergy status to other antibiotic agents; Z88.8 Allergy status to other drugs, medicaments and biological substances

== ENCOUNTER 2025-03-13 10:33 | Emergency (ER) | payer OTHER ==
[~2025-03-13] VITALS: Ht 160 cm; Wt 50.4 kg
[~2025-03-13 10:33] MED LIST changes: +TOPI-256 PO; -TOPI25TA10 PO
[2025-03-13 12:12] VITALS: BP 118/80; TEMP 97.1; O2SAT 100
== END 2025-03-13 12:16 | disposition home or self-care (01) ==
LOC: M ED 10:33
DX: J68.8 Other respiratory conditions due to chemicals, gases, fumes and vapors (principal); R51.9 Headache, unspecified; K21.9 Gastro-esophageal reflux disease without esophagitis; Z87.42 Personal history of other diseases of the female genital tract; Z79.899 Other long term (current) drug therapy

== ENCOUNTER 2025-06-17 18:38 | Emergency (ER) | payer OTHER ==
[~2025-06-17] VITALS: Ht 160 cm; Wt 50.7 kg
[~2025-06-17 18:38] MED LIST changes: -MORP15TA2; +PROZ10CA11 PO; -PROZ10CA7 PO; -TIZA10TA; +TIZA10TA PO; -TRAZ-252
[2025-06-17 18:42] VITALS: TEMP 96.7
[2025-06-17] MEDS ORDERED: LORA1TAB23 (18:49)
[2025-06-17] MEDS ORDERED: HYDR-3716 (18:49)
[2025-06-17] MEDS ORDERED: ISOVUE-370 76% 100 ML VIAL As Ordered ONE (19:42)
[2025-06-17 19:45] LABS: BASO # 0.0 10^3/uL (0.0-0.2); BASO % 0.6 % (0.0-1.0); EOS # 0.1 10^3/uL (0.0-0.5); EOS % 1.6 % (0.0-3.0); LYMPH # 1.5 10^3/uL (1.5-5.0); LYMPH % 29.6 % (24.0-44.0); MONO # 0.4 10^3/uL (0.0-0.8); MONO % 8.2 % (2.0-8.0); NEUTROPHILS # 3.1 10^3/uL (1.5-8.5); NEUTROPHILS % 59.8 % (36.0-66.0); PLATELET COUNT, AUTOMATED 177 10^3/uL (150-450)
[2025-06-17 20:11] LABS: ALT/SGPT 16.0 U/L (7.0-40); AST/SGOT 20.0 U/L (<34)
[2025-06-17 20:51] LABS: KETONE, URINE AUTO RFX NEGATIVE (NEGATIVE); LEUKOCYTE ESTERASE UR AUTO RFX NEGATIVE (NEGATIVE); NITRITE, URINE AUTO RFX NEGATIVE (NEGATIVE); RBC, URINE AUTO RFX 1 /HPF (0-3); SQUAM EPITHELIAL CELL UR AURFX 5 /HPF (0-6); WBC, URINE AUTO RFX 0 /HPF (0-3)
[2025-06-17] MEDS: ACETAMINOPHEN *IV* 1,000 MG in IV 1 EA IV ONE (21:44)
[2025-06-17 22:15] VITALS: BP 116/75; O2SAT 98
== END 2025-06-17 22:47 | disposition home or self-care (01) ==
LOC: M ED 18:38
DX: R10.32 Left lower quadrant pain (principal); K21.9 Gastro-esophageal reflux disease without esophagitis; F43.10 Post-traumatic stress disorder, unspecified; F31.9 Bipolar disorder, unspecified; F90.9 Attention-deficit hyperactivity disorder, unspecified type; Z88.1 Allergy status to other antibiotic agents; Z88.5 Allergy status to narcotic agent; Z79.1 Long term (current) use of non-steroidal anti-inflammatories (NSAID); Z79.899 Other long term (current) drug therapy
CPT/HCPCS: 74177; 80047; 80076; 81001; 83690; 85025; 96374; 99284; J0131; Q9967

== ENCOUNTER 2025-07-01 17:38 | Emergency (ER) | payer OTHER ==
[~2025-07-01] VITALS: Ht 160 cm; Wt 52.3 kg
[~2025-07-01 17:38] MED LIST changes: +HYDR-3716; +LORA1TAB23
[2025-07-01] MEDS: ONDANSETRON 4MG 2ML VIAL IV ONE (20:10)
[2025-07-01] MEDS: NS (Normal Saline) 0.9% 1,000 ML IV ONE (20:10)
[2025-07-01] MEDS: MORPHINE 2 MG/ML 1 ML VIAL IV PRN (20:11)
[2025-07-01 20:13] LABS: BASO # 0.0 10^3/uL (0.0-0.2); BASO % 0.2 % (0.0-1.0); EOS # 0.0 10^3/uL (0.0-0.5); EOS % 0.0 % (0.0-3.0); LYMPH # 1.2 10^3/uL (1.5-5.0); LYMPH % 9.8 % (24.0-44.0); MONO # 0.4 10^3/uL (0.0-0.8); MONO % 3.4 % (2.0-8.0); NEUTROPHILS # 10.5 10^3/uL (1.5-8.5); NEUTROPHILS % 86.2 % (36.0-66.0); PLATELET COUNT, AUTOMATED 205 10^3/uL (150-450)
[2025-07-01] MEDS ORDERED: MORPHINE 4 MG/ML 1 ML VIAL IV PRN (20:45)
[2025-07-01 20:53] LABS: ETHYL ALCOHOL (ETHANOL) < 0.003 % (0.000-0.010)
[2025-07-01 20:57] LABS: CALCIUM LEVEL 10.1 MG/DL (8.5-10.1); CARBON DIOXIDE LEVEL 27 MMOL/L (20-31); CHLORIDE LEVEL 107 MMOL/L (98-107); CREATININE FOR GFR 0.53 MG/DL (0.55-1.30); GLOMERULAR FILTRATION RATE > 90.0 (>60); POTASSIUM SERUM 3.8 MMOL/L (3.5-5.1); SODIUM LEVEL 145 MMOL/L (136-145)
[2025-07-01 21:05] LABS: HCG, SERUM QUALITATIVE NEGATIVE (NEGATIVE)
[2025-07-01 21:09] VITALS: TEMP 98.5
[2025-07-01 22:53] VITALS: O2SAT 99
[2025-07-01 23:00] VITALS: BP 126/77
== END 2025-07-01 23:44 | disposition home or self-care (01) ==
LOC: EDBD 17:38 → M ED 17:38
DX: M25.512 Pain in left shoulder (principal); M54.50 Low back pain, unspecified; R51.9 Headache, unspecified; W18.30XA Fall on same level, unspecified, initial encounter; F10.90 Alcohol use, unspecified, uncomplicated; F43.10 Post-traumatic stress disorder, unspecified; F31.9 Bipolar disorder, unspecified; K21.9 Gastro-esophageal reflux disease without esophagitis; G62.9 Polyneuropathy, unspecified; Z98.1 Arthrodesis status; Z88.0 Allergy status to penicillin; Z88.5 Allergy status to narcotic agent; Z88.8 Allergy status to other drugs, medicaments and biological substances; Z79.1 Long term (current) use of non-steroidal anti-inflammatories (NSAID); Z79.899 Other long term (current) drug therapy; Z79.891 Long term (current) use of opiate analgesic; Y92.89 Other specified places as the place of occurrence of the external cause; Y93.89 Activity, other specified; Y99.8 Other external cause status
CPT/HCPCS: 70450; 70486; 72125; 72128; 72131; 73030; 73060; 73080; 73502; 80048; 82077; 84703; 85025; 93005; 99285; J2405

== ENCOUNTER 2025-10-20 09:03 | Emergency (ER) | payer OTHER ==
[~2025-10-20] VITALS: Ht 160 cm; Wt 56.4 kg
[2025-10-20] MEDS: LIDOCAINE 5% PATCH TD ONE (11:24)
[2025-10-20] MEDS: KETOROLAC 30 MG/ML 1 ML VIAL IM ONE (11:25)
[2025-10-20 11:39] LABS: AMORPHOUS SEDIMENT SMALL (NEGATIVE); APPEARANCE, URINE HAZY (CLEAR); BACTERIA, URINE AUTO NEGATIVE (NEGATIVE); BILIRUBIN, URINE AUTO NEGATIVE (NEGATIVE); BLOOD, URINE BLOOD NEGATIVE (NEGATIVE); GLUCOSE, URINE (UA) AUTO NEGATIVE (NEGATIVE); KETONE, URINE AUTO 1+ mg/dL (NEGATIVE); LEUKOCYTE ESTERASE, URINE AUTO NEGATIVE (NEGATIVE); NITRITE, URINE AUTO NEGATIVE (NEGATIVE); PROTEIN, URINE AUTO NEGATIVE (NEGATIVE); RBC, URINE AUTO 1 /HPF (0-3); SPECIFIC GRAVITY URINE AUTO 1.019 (1.002-1.035); SQUAMOUS EPITHELIAL CELL UR AU 12 /HPF (0-6); UROBILINOGEN, URINE AUTO 0.2 mg/dL (0.0-2.0); WBC, URINE AUTO 0 /HPF (0-3)
[2025-10-20 11:40] LABS: URINE PREG TEST NEGATIVE (NEGATIVE)
[2025-10-20] MEDS ORDERED: BACT800T5 PO (12:01)
[2025-10-20] MEDS ORDERED: KETO-204 PO (12:01)
[2025-10-20 12:36] VITALS: BP 136/73; TEMP 97.2; O2SAT 99
== END 2025-10-20 12:37 | disposition home or self-care (01) ==
LOC: EDBD 09:03 → M ED 09:03
DX: L02.212 Cutaneous abscess of back [any part, except buttock and flank] (principal); K21.9 Gastro-esophageal reflux disease without esophagitis; F43.10 Post-traumatic stress disorder, unspecified; F90.9 Attention-deficit hyperactivity disorder, unspecified type; F31.9 Bipolar disorder, unspecified; Z88.1 Allergy status to other antibiotic agents; Z88.5 Allergy status to narcotic agent; Z88.8 Allergy status to other drugs, medicaments and biological substances; Z85.43 Personal history of malignant neoplasm of ovary; Z79.1 Long term (current) use of non-steroidal anti-inflammatories (NSAID); Z79.899 Other long term (current) drug therapy; Z79.2 Long term (current) use of antibiotics
CPT/HCPCS: 81001; 84703; 96372; 99284; J1885